=== PATIENT | male | born 1945 | race Caucasian/White ===

== ENCOUNTER → 2016-11-06 | Outpatient (CLI) | payer MEDICARE, OTHER ==
[~2016-11-06] MED LIST: ALLO100T PO; ASPI81TA85 PO; ATOR1TAB19 PO; CEFT500T3 PO; DULC5TAB PO; MAGN400T5 PO; METO1TAB7 PO; PANT40TA2 PO; POTA10TAB PO; PROS5TAB PO; PROTPAK PO; TAMS0.4C2 PO; TIOT18INH INH; TYLE650T30 PO; VERA240C PO
== END ==
LOC: M SMT 08:12
PROVIDERS: ATTEND Urology
DX: N40.1 Benign prostatic hyperplasia with lower urinary tract symptoms (principal)

== ENCOUNTER 2017-02-11 09:32 | Day surgery (SDC) | payer MEDICARE, OTHER ==
[~2017-02-11] VITALS: Ht 175.3 cm; Wt 91.6 kg
[2017-02-11] MEDS ORDERED: NS 1,000 ML IV ONE (10:00)
[2017-02-11] MEDS ORDERED: PROPOFOL 200 MG/20 ML VIAL As Ordered ONE (10:33)
[2017-02-11] MEDS ORDERED: LIDOCAINE 2% INJ 100 MG/5 ML SDV (FOR ANES.) As Ordered ONE (11:45)
--- NOTE | 2017-02-11 11:49 | ROOR ---
Patient Name: Timmy Moon Procedure Date: 02/11/2017 11:30 AM Date of : 1945 Age: 72 Room: [facility] Gender: Male Note Status: Finalized Procedure: Total Colonoscopy to Cecum Indications: High risk colon cancer surveillance: Personal history of colonic polyps, Last colonoscopy: 2012 Providers: Matt Watson MD Referring MD: TEGAN SMART JR, MD Requesting Provider: Medicines: Monitored Anesthesia Care Complications: No immediate complications. Procedure: Pre-Anesthesia Assessment: - The heart rate, respiratory rate, oxygen saturations, blood pressure, adequacy of pulmonary ventilation, and response to care were monitored throughout the procedure. The Colonoscope was introduced through the anus and advanced to the cecum, identified by appendiceal orifice and ileocecal valve. The colonoscopy was performed without difficulty. The patient tolerated the procedure well. The quality of the bowel preparation was excellent. Findings: The perianal and digital rectal examinations were normal. Non-bleeding internal hemorrhoids were found during retroflexion. The hemorrhoids were small and Grade I (internal hemorrhoids that do not prolapse). Multiple small and large-mouthed diverticula were found in the recto-sigmoid colon, sigmoid colon and descending colon. The exam was otherwise without abnormality on direct and retroflexion views. Impression: - Non-bleeding internal hemorrhoids. - Diverticulosis in the recto-sigmoid colon, in the sigmoid colon and in the descending colon. - The examination was otherwise normal on direct and retroflexion views. - No specimens collected. - The exam was otherwise normal to the cecum. Recommendation: - Patient has a contact number available for emergencies. The signs and symptoms of potential delayed complications were discussed with the patient. Return to normal activities tomorrow. Written discharge instructions were provided to the patient. - High fiber diet. - Discharge patient to home. - Continue present medications. - Repeat colonoscopy for symptoms only. - Return to referring physician. - The findings and recommendations were discussed with the patient's family. Matt Watson MD Matt Watson MD 02/11/2017 11:49:07 AM This report has been signed electronically. Number of Addenda: 0 Note Initiated On: 02/11/2017 11:30 AM Estimated Blood Loss: Estimated blood loss: none.
[2017-02-11 12:10] VITALS: BP 140/84
== END 2017-02-11 12:20 | disposition home or self-care (01) ==
LOC: M OPP 09:32
PROVIDERS: ATTEND Internal Medicine Gastroenterology
DX: Z12.11 Encounter for screening for malignant neoplasm of colon (principal); Z86.010 Personal history of colon polyps; K64.0 First degree hemorrhoids; K57.30 Diverticulosis of large intestine without perforation or abscess without bleeding; R00.8 Other abnormalities of heart beat; I10 Essential (primary) hypertension; E78.5 Hyperlipidemia, unspecified; Z87.19 Personal history of other diseases of the digestive system; K44.9 Diaphragmatic hernia without obstruction or gangrene; K21.9 Gastro-esophageal reflux disease without esophagitis; K42.9 Umbilical hernia without obstruction or gangrene; M19.90 Unspecified osteoarthritis, unspecified site; G47.30 Sleep apnea, unspecified; N40.1 Benign prostatic hyperplasia with lower urinary tract symptoms; Z87.442 Personal history of urinary calculi; Z85.828 Personal history of other malignant neoplasm of skin; Z79.82 Long term (current) use of aspirin; Z79.899 Other long term (current) drug therapy; Z87.891 Personal history of nicotine dependence

== ENCOUNTER → 2018-01-07 | Outpatient (REF) | payer MEDICARE, OTHER ==
[2018-01-07 19:59] LABS: FERRITIN 69 NG/ML (26-388); IRON (FE) 117 UG/DL (65-175); PERCENT SATURATION 33.9 % (19.7-50.0); TOTAL IRON BINDING CAPACITY 345 UG/DL (250-450)
== END ==
LOC: M LAB REF 17:13
DX: I42.0 Dilated cardiomyopathy (principal); I50.22 Chronic systolic (congestive) heart failure
CPT/HCPCS: 83550

== ENCOUNTER → 2018-02-12 | Outpatient (CLI) | payer MEDICARE, OTHER ==
[2018-02-12 13:33] LABS: IRON (FE) 122 UG/DL (65-175)
[2018-02-12 13:33] LABS: FERRITIN 75 NG/ML (26-388)
== END ==
LOC: M SMT 08:55
DX: I11.0 Hypertensive heart disease with heart failure (principal); I50.22 Chronic systolic (congestive) heart failure
CPT/HCPCS: 83540

== ENCOUNTER → 2018-02-15 | Outpatient (CLI) | payer MEDICARE, OTHER ==
[2018-02-15 13:22] LABS: BASO % 0.3 % (0.0-1.0); EOS # 0.1 10^3/uL (0.0-0.50); EOS % 1.3 % (0.0-3.0); HEMATOCRIT 43.1 % (42.0-52.0); HEMOGLOBIN 13.9 g/dl (13.5-17.5); IMMATURE GRANULOCYTE % 0.3 % (0-3.0); LYMPH # 1.4 10^3/uL (1.5-4.5); LYMPH % 22.5 % (24.0-44.0); MEAN CORPUSCULAR HEMOGLOBIN 31.1 pg (27.0-33.0); MEAN CORPUSCULAR HGB CONC 32.3 g/dl (32.0-36.5); MEAN CORPUSCULAR VOLUME 96.4 fl (80.0-96.0); MONO # 0.5 10^3/uL (0.0-0.8); MONO % 8.4 % (0.0-5.0); NEUTROPHILS # 4.1 10^3/uL (1.8-7.7); NEUTROPHILS % 67.2 % (36.0-66.0); PLATELET COUNT, AUTOMATED 216 10^3/uL (150-450); RED BLOOD COUNT 4.47 10^6/uL (4.30-6.10); RED CELL DISTRIBUTION WIDTH 13.4 % (11.5-14.5); WHITE BLOOD COUNT 6.1 10^3/uL (4.0-10.0)
[2018-02-15 13:27] LABS: ANION GAP 6 MEQ/L (8-16); BLOOD UREA NITROGEN 15 MG/DL (7-18); CALCIUM LEVEL 8.6 MG/DL (8.8-10.2); CARBON DIOXIDE LEVEL 29 MEQ/L (21-32); CHLORIDE LEVEL 108 MEQ/L (98-107); CREATININE FOR GFR 0.99 MG/DL (0.70-1.30); GLOMERULAR FILTRATION RATE > 60.0 (>42); GLUCOSE, FASTING 141 MG/DL (70-100); POTASSIUM SERUM 3.9 MEQ/L (3.5-5.1); SODIUM LEVEL 143 MEQ/L (136-145)
== END ==
LOC: M SMT 08:00
DX: I25.119 Atherosclerotic heart disease of native coronary artery with unspecified angina pectoris (principal)
CPT/HCPCS: 80048

== ENCOUNTER 2018-04-02 08:16 | Outpatient (RCR) | payer MEDICARE, OTHER ==
[~2018-04-02 08:16] MED LIST changes: -PANT40TA2 PO; +PANT40TA3 PO; +POTA10808 PO; -POTA10TAB PO
[2018-04-02] MEDS ORDERED: LISI-672 PO (08:55)
[2018-04-02] MEDS ORDERED: MULTCAP PO (08:55)
[2018-04-02] MEDS ORDERED: PLAV1TAB2 PO (08:55)
--- NOTE | 2018-04-02 11:09 | CARECAPL ---
Assessment Account #s: Initial Assessment General Diagnoses: Stent Date of event: Feb 16, 2018 Physician: Jr Pickett Collins Allergies: Coded Allergies: No Known Drug Allergy (Verified Allergy, Unknown, 06/14/12) Date Entered Program: Apr 02, 2018 Risk strat for cardiac event: Low Exercise Date: Apr 02, 2018 Assessment: Initial Assessment Exercise Prescription Plan TO EDUCATE AND BUILD ENDURANCE THROUGH MONITORED EXERCISE Modalities initiated: Nustep (METS=2.5/RPE=2), Arm Aerometer (METS=2.7/RPE=3), Dumbells (2#/RPE=2), Recumbent Bike (METS=3.0/RPE=3) Frequency: 3 Duration (Minutes) 30-60 minutes total exercise a day. 10-15 work intervals in minutes. 5 MIN PRN rest intervals in minutes. Functional Capacity Goal Sustained Metabolic Equivalent of a task (MET) goal of 4.25-5.0 for 15-20 minut es. Intensity: 3-Moderate Progression (METS) Increase by: 0.5 METS every: 5 sessions TOLERATED Angina with ex: No Target Heart Rate +30-40 BASED ON BETA RITA THERAPY Resistance Training: Yes Weight (pounds): 2 Reps: 12-15 Hypertension: Yes Hypertension controlled with: Medication Resting 148/76 Peak Exercise BP 170/90 Medications Scheduled (Multivitamins), 1 CAP PO DAILY, (Reported) Allopurinol (Allopurinol), 300 MG PO QHS, (Reported) Aspirin (Aspir-81), 81 MG PO DAILY, (Reported) Atorvastatin Calcium (Atorvastatin Calcium), 10 MG PO DAILY, (Reported) Clopidogrel Bisulfate (Plavix), 75 MG PO DAILY, (Reported) Finasteride (Proscar), 5 MG PO DAILY, (Reported) Lisinopril (Lisinopril), 30 MG PO DAILY, (Reported) Magnesium Oxide (Magnesium Oxide 400), 400 MG PO BID, (Reported) Metoprolol Succinate (Metoprolol Succinate ER), 50 MG PO DAILY, (Reported) Pantoprazole Sodium (Pantoprazole Sodium), 40 MG PO QHS, (Reported) Tamsulosin Hcl (Tamsulosin HCl), 0.4 MG PO DAILY, (Reported) Discontinued Medications Potassium Citrate (Potassium Citrate 10MEQ (Urocit-K)), 1,080 MG PO BID, (Reported) Discontinued Reason: Pt states not taking Current BP 140/80 Med Change: No Intervention Resistance Training: Yes Education: Self pulse, Ex safety, S/S to report, Low NA diet, BP medication, RPE Scale, Equipment orientation, warm up/cool down, Understand BP, Physical Active Target Goals Individual exercise Rx (1) BP 140/90 or 130/80 if DM or CKD (1) Aerobic active 30+min 5 days per week (1) Nutrition Date: Apr 02, 2018 Assessment: Initial Assessment Lipids Total Cholesterol (116), High Density Lipids (HDL) (40), Low Density Lipids (LDL) (62), Triglycerides (72), Lipid med/supplement (ATORVASTATIN) Lipid- med/supplement ATORVASTATIN Med Change: No Diabetes Diabetes: No Monitor Blood Sugar at home: No Medication Change: No Weight Management Weight (lbs): 208.8 Height (inches): 69 Waist Circumference (Inches): 43 BMI: 30.8 Special Diet: low salt, low-fat Vitamin/Supplements: Multivitamin Alcohol: special Alcohol Type: beer, liquor Alcohol Amount: 2-3 (PER YEAR) Diet Access Tool: Rate your plate Score: 51 Current Weight (pounds): 208.8 Weight Goal LESS THAN 200# Intervention Merchandise Carrier Consult: No Nurse/patient discussion: Yes Dietary Goals TO MAKE HEART HEALTHY CHOICES Diet Class: Yes Referral to Diabetes education: No Referral to lipid clinic: No Referral to weight mangement p: No Education Eating Healthy Target goal LDL-C<100 if triglycerides are >200 Non-HDL-C should be <130 (1) LDL-C<70 for high risk patients (4) HbA1c<7% (1) BMI<25 Waist cir<40in M/<35in F (1) Education Date: Apr 02, 2018 Assessment: Initial Assessment Learning Barriers: ready Knowledge Test Score: 10 Family Support: Yes Tobacco use: No Tobacco Use Smokeless tobacco: No Intervention Referral to smoking cessation: No Individual education and couns: No Tobacco Adjunct: No Education class schedule given: No Attended education classes: No Education: CAD, Risk factors, med compliance, cardiac A&P, Angina S/S, Sexuality Target Goals Complete cessation of tobacco use (1). Psychosocial Date: Apr 02, 2018 Assessment: Initial Assessment Psych Test (Initial/Discharge) Tool Used: CESD Score: 1 Intervention Physician Consult: No Physician Referral: No Psychotropic medication NONE Med Change: No Stress Management Class: No Uses Stress Management Skills: Yes Education Education: Coping Techniques, S/S depression, Relaxation Techniques Target Goal Assess presence or absence of depression using a valid screening tool (1). Maximize coping skills (2). Positive support system (2). Patient/Program Goal Preventative Medication: Yes Aspirin, Yes Clopidogrel, Yes Beta blockade, Yes ITZ Inhibitor, Yes Statin/OTR lipid Lowering Fall Risk Assess: Yes (NOT A FALL RISK) Provider Assessment Session Number: 1 Provider Assessment: Proceed with rehab Matt Steen RN Apr 02, 2018 11:09
== END 2018-04-08 ==
LOC: EDSTATUS 08:16 → M CR 08:16
PROVIDERS: ATTEND Internal Medicine
DX: Z95.2 Presence of prosthetic heart valve (principal)

== ENCOUNTER 2018-05-05 11:13 | Outpatient (RCR) | payer MEDICARE, OTHER ==
--- NOTE | 2018-04-26 08:15 | CARECAPL ---
Assessment Account #s: Re-Assessment I General Diagnoses: Stent Date of event: Feb 16, 2018 Physician: Jr Pickett Collins Allergies: Coded Allergies: No Known Drug Allergy (Verified Allergy, Unknown, 06/14/12) Date Entered Program: Apr 02, 2018 Risk strat for cardiac event: Low Exercise Date: Apr 23, 2018 Assessment: Re-Assessment I Exercise Prescription Modalities initiated: Treadmill (mets 2.76 RPE 3), Cardio-Strider (mets 2.5 RPE 2), Nustep (mets3.7 RPE 3), Arm Aerometer (mets 3.59 RPE 3), Dumbells (4lbs RPE 3), Recumbent Bike (mets 4.6 RPE 5) Frequency: 3-4 Duration (Minutes) minutes total exercise a day. work intervals in minutes. rest intervals in minutes. Functional Capacity Goal Sustained Metabolic Equivalent of a task (MET) goal of for minutes. Progression (METS) Increase by: METS every: sessions Angina with ex: No Target Heart Rate rest + 35-40 Resistance Training: Yes Weight (pounds): 4 Reps: 8-12 Medications Scheduled (Multivitamins), 1 CAP PO DAILY, (Reported) Allopurinol (Allopurinol), 300 MG PO QHS, (Reported) Aspirin (Aspir-81), 81 MG PO DAILY, (Reported) Atorvastatin Calcium (Atorvastatin Calcium), 10 MG PO DAILY, (Reported) Clopidogrel Bisulfate (Plavix), 75 MG PO DAILY, (Reported) Finasteride (Proscar), 5 MG PO DAILY, (Reported) Lisinopril (Lisinopril), 30 MG PO DAILY, (Reported) Magnesium Oxide (Magnesium Oxide 400), 400 MG PO BID, (Reported) Metoprolol Succinate (Metoprolol Succinate ER), 50 MG PO DAILY, (Reported) Pantoprazole Sodium (Pantoprazole Sodium), 40 MG PO QHS, (Reported) Tamsulosin Hcl (Tamsulosin HCl), 0.4 MG PO DAILY, (Reported) Current BP 138/78 Med Change: No Target Goals Individual exercise Rx (1) BP 140/90 or 130/80 if DM or CKD (1) Aerobic active 30+min 5 days per week (1) Nutrition Date: Apr 26, 2018 Assessment: Re-Assessment I Med Change: No Monitor Blood Sugar at home: No Medication Change: No Current Weight (pounds): 208.8 Target goal LDL-C<100 if triglycerides are >200 Non-HDL-C should be <130 (1) LDL-C<70 for high risk patients (4) HbA1c<7% (1) BMI<25 Waist cir<40in M/<35in F (1) Education Date: Apr 26, 2018 Assessment: Re-Assessment I Target Goals Complete cessation of tobacco use (1). Psychosocial Date: Apr 26, 2018 Assessment: Re-Assessment I Med Change: No Stress Management Class: Yes Uses Stress Management Skills: Yes Education Education: Coping Techniques, S/S depression Target Goal Assess presence or absence of depression using a valid screening tool (1). Maximize coping skills (2). Positive support system (2). Patient/Program Goal Preventative Medication: Yes Aspirin, Yes Clopidogrel, Yes Beta blockade, Yes ITZ Inhibitor, Yes Statin/OTR lipid Lowering Fall Risk Assess: No Provider Assessment Session Number: 5 Provider Assessment: Proceed with rehab Hilary Dunn RN Apr 26, 2018 08:15
[~2018-05-05 11:13] MED LIST changes: +LISI-672 PO; +MULTCAP PO; +PLAV1TAB2 PO
== END 2018-05-06 ==
LOC: M CR 11:13
PROVIDERS: ATTEND Internal Medicine
DX: Z95.2 Presence of prosthetic heart valve (principal)

== ENCOUNTER → 2018-05-26 | Outpatient (CLI) | payer MEDICARE, OTHER | LOC: M SMT 09:20 | PROVIDERS: ATTEND Nurse Practitioner Women's Health | DX: R97.20 Elevated prostate specific antigen [PSA] (principal) ==

== ENCOUNTER 2018-06-02 10:36 | Outpatient (RCR) | payer MEDICARE, OTHER ==
--- NOTE | 2018-05-19 10:46 | CARECAPL ---
Assessment Account #s: Re-Assessment II General Diagnoses: Stent Date of event: Feb 16, 2018 Physician: Jr Pickett Collins Allergies: Coded Allergies: No Known Drug Allergy (Verified Allergy, Unknown, 06/14/12) Date Entered Program: Apr 02, 2018 Risk strat for cardiac event: Low Exercise Date: May 19, 2018 Assessment: Re-Assessment II Exercise Prescription Modalities initiated: Treadmill (mets 3.17 RPE 3), Nustep (mets 2.9 RPE 3.5), Arm Aerometer (mets 3.4 RPE 3), Dumbells (4lb RPE 3), Recumbent Bike (mets 4.5 RPE 4) Frequency: 2-3 Duration (Minutes) minutes total exercise a day. work intervals in minutes. rest intervals in minutes. Functional Capacity Goal Sustained Metabolic Equivalent of a task (MET) goal of for minutes. Progression (METS) Increase by: METS every: sessions Hypertension: No Hypertension controlled with: Medication Resting 130/72 Peak Exercise BP 152/80 Meds lisinopril and metoprolol Medications Scheduled (Multivitamins), 1 CAP PO DAILY, (Reported) Allopurinol (Allopurinol), 300 MG PO QHS, (Reported) Aspirin (Aspir-81), 81 MG PO DAILY, (Reported) Atorvastatin Calcium (Atorvastatin Calcium), 10 MG PO DAILY, (Reported) Clopidogrel Bisulfate (Plavix), 75 MG PO DAILY, (Reported) Finasteride (Proscar), 5 MG PO DAILY, (Reported) Lisinopril (Lisinopril), 30 MG PO DAILY, (Reported) Magnesium Oxide (Magnesium Oxide 400), 400 MG PO BID, (Reported) Metoprolol Succinate (Metoprolol Succinate ER), 50 MG PO DAILY, (Reported) Pantoprazole Sodium (Pantoprazole Sodium), 40 MG PO QHS, (Reported) Tamsulosin Hcl (Tamsulosin HCl), 0.4 MG PO DAILY, (Reported) Current BP 130/72 Med Change: No Intervention Education: Self pulse, Ex safety, S/S to report, Low NA diet, BP medication, RPE Scale, Equipment orientation, warm up/cool down, Understand BP, Physical Active Education Goals Met: Yes Target Goals Individual exercise Rx (1) BP 140/90 or 130/80 if DM or CKD (1) Aerobic active 30+min 5 days per week (1) Nutrition Date: May 19, 2018 Assessment: Re-Assessment II Med Change: No Diabetes Diabetes: No Medication Change: No Current Weight (pounds): 208.8 Intervention Nurse/patient discussion: Yes Education Eating Healthy Target goal LDL-C<100 if triglycerides are >200 Non-HDL-C should be <130 (1) LDL-C<70 for high risk patients (4) HbA1c<7% (1) BMI<25 Waist cir<40in M/<35in F (1) Education Date: May 19, 2018 Assessment: Re-Assessment II Education Goals Met: Yes Target Goals Complete cessation of tobacco use (1). Psychosocial Date: May 19, 2018 Assessment: Re-Assessment II Med Change: No Stress Management Class: Yes Uses Stress Management Skills: Yes Education Education: Coping Techniques, S/S depression, Relaxation Techniques Education Goals Met: Yes Target Goal Assess presence or absence of depression using a valid screening tool (1). Maximize coping skills (2). Positive support system (2). Fall Risk Assess: No Provider Assessment Session Number: 13 Provider Assessment: Proceed with rehab Hilary Dunn RN May 19, 2018 10:46
== END 2018-06-06 ==
LOC: M CR 10:36
PROVIDERS: ATTEND Internal Medicine
DX: Z95.2 Presence of prosthetic heart valve (principal)

== ENCOUNTER 2018-06-11 08:48 | Outpatient (RCR) | payer MEDICARE, OTHER ==
--- NOTE | 2018-06-11 09:39 | CARECAPL ---
Assessment Account #s: Re-Assessment II (DISCHARGE) General Diagnoses: Stent Date of event: Feb 16, 2018 Physician: Jr Pickett Collins Allergies: Coded Allergies: MS - No Known Drug Allergy (Verified Allergy, Unknown, 06/14/12) Date Entered Program: Apr 02, 2018 Risk strat for cardiac event: Low Exercise Date: Jun 11, 2018 Assessment: Followup/Discharge Exercise Prescription Plan TO EDUCATE AND BUILD ENDURANCE THROUGH MONITORED EXERCISE Modalities initiated: Treadmill (METS=2.4/RPE=3), Nustep (METS=3.2/RPE=4), Arm Aerometer (METS=3.35/RPE=4), Dumbells (RPE=3), Recumbent Bike (METS=4.0/RPE=4.5) Frequency: 3 Duration (Minutes) 30-60 minutes total exercise a day. 10-15 work intervals in minutes. 5 MIN rest intervals in minutes. Functional Capacity Goal Sustained Metabolic Equivalent of a task (MET) goal of 4.25-5.0 for 15-20 minutes. Intensity: 3-Moderate Progression (METS) Increase by: METS every: sessions Angina with ex: No Target Heart Rate +30-40 Resistance Training: Yes Weight (pounds): 4 Reps: 12-15 Hypertension: Yes Hypertension controlled with: Medication Resting 150/80 Peak Exercise BP 150/80 Medications Scheduled (Multivitamins), 1 CAP PO DAILY, (Reported) Allopurinol (Allopurinol), 300 MG PO QHS, (Reported) Aspirin (Aspir-81), 81 MG PO DAILY, (Reported) Atorvastatin Calcium (Atorvastatin Calcium), 10 MG PO DAILY, (Reported) Clopidogrel Bisulfate (Plavix), 75 MG PO DAILY, (Reported) Finasteride (Proscar), 5 MG PO DAILY, (Reported) Lisinopril (Lisinopril), 30 MG PO DAILY, (Reported) Magnesium Oxide (Magnesium Oxide 400), 400 MG PO BID, (Reported) Metoprolol Succinate (Metoprolol Succinate ER), 50 MG PO DAILY, (Reported) Pantoprazole Sodium (Pantoprazole Sodium), 40 MG PO QHS, (Reported) Tamsulosin Hcl (Tamsulosin HCl), 0.4 MG PO DAILY, (Reported) Current BP 130/70 Med Change: No Intervention Home exercise: Type (WALKING), Frequency (3-5 DAYS/WEEK), Duration (30-60 MINUTES) Resistance Training: Yes Education: Self pulse, Ex safety, S/S to report, Low NA diet, BP medication, RPE Scale, Equipment orientation, warm up/cool down, Understand BP, Physical Active Education Goals Met: Yes Target Goals Individual exercise Rx (1) BP 140/90 or 130/80 if DM or CKD (1) Aerobic active 30+min 5 days per week (1) Nutrition Date: Jun 11, 2018 Assessment: Followup/Discharge Lipid- med/supplement ATORVASTATIN Med Change: No Diabetes Diabetes: No Monitor Blood Sugar at home: No Medication Change: No Blood sugar in range: No Weight Management Weight (lbs): 208 Waist Circumference (Inches): 40 Special Diet: low salt, low-fat Vitamin/Supplements: Multivitamin Alcohol: none Diet Access Tool: Rate your plate Score: 47 Current Weight (pounds): 208 Intervention Discharge Planner Consult: Yes Nurse/patient discussion: Yes Dietary Goals TO MAKE HEART HEALTHY CHOICES Diet Class: No Referral to Diabetes education: No Referral to lipid clinic: No Referral to weight mangement p: No Education Eating Healthy Education Goals Met: Yes Target goal LDL-C<100 if triglycerides are >200 Non-HDL-C should be <130 (1) LDL-C<70 for high risk patients (4) HbA1c<7% (1) BMI<25 Waist cir<40in M/<35in F (1) Education Date: Jun 11, 2018 Assessment: Followup/Discharge Learning Barriers: ready Knowledge Test Score: 10 Family Support: Yes Tobacco use: No Quit: never smoked Tobacco Use Smokeless tobacco: No Intervention Referral to smoking cessation: No Individual education and couns: No Tobacco Adjunct: No Education class schedule given: No Attended education classes: No Education: CAD, Risk factors, med compliance, cardiac A&P, Angina S/S, Sexuality Education Goals Met: Yes Target Goals Complete cessation of tobacco use (1). Psychosocial Date: Jun 11, 2018 Assessment: Followup/Discharge Psych Test (Initial/Discharge) Tool Used: CESD Score: 0 Intervention Physician Consult: No Physician Referral: No Med Change: No Stress Management Class: No Uses Stress Management Skills: Yes Education Education: Coping Techniques, S/S depression, Relaxation Techniques Education Goals Met: Yes Target Goal Assess presence or absence of depression using a valid screening tool (1). Maximize coping skills (2). Positive support system (2). Patient/Program Goal Preventative Medication: Yes Clopidogrel, Yes Beta blockade, Yes Statin/OTR lipid Lowering Fall Risk Assess: Yes (NOT A FALL RISK) Provider Assessment Session Number: 19 Matt Steen RN Jun 11, 2018 09:39
== END 2018-07-06 ==
LOC: M CR 08:48
PROVIDERS: ATTEND Internal Medicine
DX: Z95.2 Presence of prosthetic heart valve (principal)

== ENCOUNTER → 2018-06-25 | Outpatient (REF) | payer MEDICARE, OTHER | LOC: M SMT 12:48 | PROVIDERS: ATTEND Nurse Practitioner Women's Health | DX: N39.0 Urinary tract infection, site not specified (principal) ==

== ENCOUNTER → 2018-11-22 | Outpatient (CLI) | payer MEDICARE, OTHER ==
[2018-11-22 11:34] LABS: CHOLESTEROL RISK RATIO 2.675 (<5)
== END ==
LOC: M SMT 08:16
PROVIDERS: ATTEND Internal Medicine Interventional Cardiology
DX: I25.10 Atherosclerotic heart disease of native coronary artery without angina pectoris (principal)

== ENCOUNTER → 2019-06-01 | Outpatient (REF) | payer MEDICARE, OTHER | LOC: M LABSMT 08:54 | PROVIDERS: ATTEND Nurse Practitioner Women's Health | DX: N40.0 Benign prostatic hyperplasia without lower urinary tract symptoms (principal); Z12.5 Encounter for screening for malignant neoplasm of prostate ==

== ENCOUNTER → 2019-11-02 | Outpatient (CLI) | payer MEDICARE, OTHER ==
[~2019-11-02] MED LIST changes: -ASPI81TA85 PO; +ASPI81TA86 PO; +COLA100C5 PO; -LISI-672 PO; +LISI30TA4 PO; +MAGN400T2 PO; +MIRA3350 PO; +NITR0.4S14 SL; +NORC1TAB7 PO; +ONDA4TAB6 PO; +PANT40TA29 PO; -PANT40TA3 PO; +PERC5TAB12 PO; +TAMS1CAP17 PO; +TYLENOL 2 TABS; +ZYLO300T6 PO
[2019-11-02 14:57] LABS: BASO % 0.3 % (0.0-1.0); EOS # 0.1 10^3/uL (0.0-0.5); EOS % 0.8 % (0.0-3.0); HEMATOCRIT 44.1 % (42.0-52.0); HEMOGLOBIN 14.5 g/dl (13.5-17.5); LYMPH # 1.1 10^3/uL (1.5-5.0); LYMPH % 14.3 % (24.0-44.0); MEAN CORPUSCULAR HEMOGLOBIN 31.6 pg (27.0-33.0); MEAN CORPUSCULAR HGB CONC 32.9 g/dl (32.0-36.5); MEAN CORPUSCULAR VOLUME 96.1 fl (80.0-96.0); MONO # 0.6 10^3/uL (0.0-0.8); MONO % 7.2 % (0.0-5.0); NEUTROPHILS % 77.1 % (36.0-66.0); PLATELET COUNT, AUTOMATED 203 10^3/uL (150-450); RED BLOOD COUNT 4.59 10^6/uL (4.30-6.10); WHITE BLOOD COUNT 7.7 10^3/uL (4.0-10.0)
[2019-11-02 15:12] LABS: BLOOD UREA NITROGEN 16 MG/DL (7-18); CALCIUM LEVEL 8.9 MG/DL (8.8-10.2); CARBON DIOXIDE LEVEL 29 MEQ/L (21-32); CHLORIDE LEVEL 110 MEQ/L (98-107); CREATININE FOR GFR 0.94 MG/DL (0.70-1.30); GLOMERULAR FILTRATION RATE > 60.0 (>42); GLUCOSE, FASTING 131 MG/DL (70-100); POTASSIUM SERUM 4.4 MEQ/L (3.5-5.1); SODIUM LEVEL 144 MEQ/L (136-145)
== END ==
LOC: M LAB 13:58
PROVIDERS: ATTEND Internal Medicine Cardiovascular Disease
DX: I20.9 Angina pectoris, unspecified (principal)

== ENCOUNTER 2019-11-15 14:37 | Emergency (ER) | payer MEDICARE, OTHER ==
[~2019-11-15] VITALS: Ht 172.7 cm; Wt 92.6 kg
[~2019-11-15 14:37] MED LIST changes: -COLA100C5 PO; -MAGN400T2 PO; -MIRA3350 PO; -NITR0.4S14 SL; -NORC1TAB7 PO; -ONDA4TAB6 PO; -PERC5TAB12 PO; -TAMS1CAP17 PO; -TYLENOL 2 TABS; -ZYLO300T6 PO
[2019-11-15] MEDS ORDERED: TYLENOL 2 TABS (14:46)
[2019-11-15] MEDS ORDERED: NS 1,000 ML IV ONE (15:30)
[2019-11-15 15:48] LABS: HEMATOCRIT 44.6 % (42.0-52.0); HEMOGLOBIN 14.6 g/dl (13.5-17.5); MEAN CORPUSCULAR HEMOGLOBIN 31.7 pg (27.0-33.0); MEAN CORPUSCULAR HGB CONC 32.7 g/dl (32.0-36.5); MEAN CORPUSCULAR VOLUME 96.7 fl (80.0-96.0); PLATELET COUNT, AUTOMATED 237 10^3/uL (150-450); RED BLOOD COUNT 4.61 10^6/uL (4.30-6.10); WHITE BLOOD COUNT 14.7 10^3/uL (4.0-10.0)
[2019-11-15] MEDS ORDERED: MORPHINE 4 MG/ML 1ML VIAL/SYRINGE (J2270) IV ONE (16:00)
[2019-11-15] MEDS ORDERED: ONDANSETRON 4MG/2ML VIAL As Ordered ONE (16:41)
[2019-11-15] MEDS ORDERED: fentaNYL 100 MCG/2 ML INJECTION (J3010) IV ONE (16:45)
[2019-11-15] MEDS ORDERED: ONDANSETRON 4MG/2ML VIAL IV ONE (16:45)
[2019-11-15 17:05] LABS: BLOOD UREA NITROGEN 17 MG/DL (7-18); CALCIUM LEVEL 9.4 MG/DL (8.8-10.2); CARBON DIOXIDE LEVEL 25 MEQ/L (21-32); CHLORIDE LEVEL 112 MEQ/L (98-107); CREATININE FOR GFR 1.17 MG/DL (0.70-1.30); GLOMERULAR FILTRATION RATE > 60.0 (>42); GLUCOSE, FASTING 148 MG/DL (70-100); POTASSIUM SERUM 4.3 MEQ/L (3.5-5.1); SODIUM LEVEL 141 MEQ/L (136-145); THYROID STIMULATING HORMONE 0.715 uIU/ML (0.358-3.740)
--- NOTE | 2019-11-15 17:19 | REPVR ---
PROCEDURE INFORMATION: Exam: CT Abdomen And Pelvis Without Contrast Exam date and time: 11/15/2019 4:27 PM Age: 74 years old Clinical indication: Abdominal pain; Flank; Right TECHNIQUE: Imaging protocol: Computed tomography of the abdomen and pelvis without contrast. Radiation optimization: All CT scans at this facility use at least one of these dose optimization techniques: automated exposure control; mA and/or kV adjustment per patient size (includes targeted exams where dose is matched to clinical indication); or iterative reconstruction. COMPARISON: No relevant prior studies available. FINDINGS: Lungs: There is minor atelectasis at the lung bases. Mediastinal space: There is a small hiatal hernia. Liver: The liver is normal. Gallbladder and bile ducts: The gallbladder is normal.No calcified calculi. Normal bile ducts. Pancreas: The pancreas is normal. Spleen: There is a punctate calcified granuloma in the spleen. Adrenals: Normal. No mass. Kidneys and ureters: There are multiple bilateral nonobstructive renal calculi. There is a 3.5 cm right renal cyst. It appears to be a simple cyst within the limits of a noncontrast scan. There is volume loss. There is a small, 8 mm, left renal cortical exophytic isodense lesion. There is moderate right hydronephrosis and proximal hydroureter. This is secondary to a 3 mm mid ureteral calculus. Stomach and bowel: There are extensive colonic diverticula. No associated wall thickening. There is a right inguinal hernia containing a loop of small bowel. No wall thickening or distention. Appendix: The appendix is well visualized and is normal. Intraperitoneal space: There is no free fluid or fluid collection. There is no free air. Vasculature: Unremarkable. No abdominal aortic aneurysm. Lymph nodes: Unremarkable. No enlarged lymph nodes. Bladder: The bladder is normal with no evidence of calculi. Reproductive: The prostate is enlarged, 5 cm. Bones/joints: There are multilevel degenerative changes of the lumbar spine. There are bridging osteophytes consistent with DISH. No fracture. Soft tissues: There is a small fat containing ventral hernia. The hernia sac measures 4.5 cm. It contains a loop of small bowel. There is a small amount of fluid within the hernia sac. IMPRESSION: 1. Moderate right hydronephrosis and proximal right hydroureter secondary to a 3 mm calculus in the mid right ureter at the L3 level. 2. There are numerous additional small bilateral nonobstructive renal calculi. 3. 8 mm isodense left renal lesion cannot be further evaluated without contrast. Recommend follow-up pre and post-contrast CT of the kidney. 4. Extensive diverticulosis. No acute inflammatory findings. 5. Right inguinal hernia containing a loop of small bowel without evidence of incarceration or obstruction. There is also a small ventral hernia containing fat and a small amount of fluid. Electronically signed by: Roland Clark On 11/15/2019 17:18:46 PM
[2019-11-15] MEDS ORDERED: PERCOCET 5MG/325MG TAB PO ONE (18:15)
[2019-11-15] MEDS ORDERED: KETOROLAC 30 MG/ML 1ML VIAL IV ONE (19:30)
[2019-11-15] MEDS ORDERED: PERC5TAB12 PO (20:35)
[2019-11-15 20:48] VITALS: BP 122/58
--- NOTE | 2019-11-16 13:55 | ED PDOC ---
Post-Departure Follow-Up [facility] faxed formal ct abd/p for fu Rubina Weiner MD Nov 16, 2019 13:55
== END 2019-11-15 20:50 | disposition home or self-care (01) ==
LOC: M ED 14:37
DX: N20.1 Calculus of ureter (principal); N13.30 Unspecified hydronephrosis; K40.90 Unilateral inguinal hernia, without obstruction or gangrene, not specified as recurrent; I10 Essential (primary) hypertension; E78.5 Hyperlipidemia, unspecified; K21.9 Gastro-esophageal reflux disease without esophagitis; Z79.01 Long term (current) use of anticoagulants; Z79.82 Long term (current) use of aspirin; Z87.442 Personal history of urinary calculi
CPT/HCPCS: 74176; 80047; 80048; 81001; 84443; 85027; 96361; 96374; 96375; 99284; J1885; J2270; J2405; J3010

== ENCOUNTER 2019-11-18 02:23 | Emergency (ER) | payer MEDICARE, OTHER ==
[~2019-11-18] VITALS: Ht 172.7 cm; Wt 94.0 kg
[~2019-11-18 02:23] MED LIST changes: +PERC5TAB12 PO; +TYLENOL 2 TABS
[2019-11-18] MEDS ORDERED: ONDANSETRON 4 MG ORAL DISINTEGRATING TAB As Ordered ONE (02:41)
[2019-11-18] MEDS ORDERED: ONDANSETRON 4 MG ORAL DISINTEGRATING TAB PO ONE (03:00)
[2019-11-18] MEDS ORDERED: NORCO, ANEXSIA 5/325MG TABLET (HYDROcodone/ACETAMINOPHEN) PO ONE (03:15)
[2019-11-18 04:00] VITALS: BP 128/63
[2019-11-18] MEDS ORDERED: NORC1TAB7 PO (04:30)
[2019-11-18] MEDS ORDERED: ONDA4TAB6 PO (04:30)
[2019-11-18] MEDS ORDERED: NORCO 5/325MG TABLET (BULK FOR ED) PO ONE (04:45)
== END 2019-11-18 04:50 | disposition home or self-care (01) ==
LOC: M ED 02:23
DX: N20.1 Calculus of ureter (principal); R11.10 Vomiting, unspecified; I11.9 Hypertensive heart disease without heart failure; E78.5 Hyperlipidemia, unspecified; Z87.442 Personal history of urinary calculi; Z88.5 Allergy status to narcotic agent; Z88.6 Allergy status to analgesic agent; Z79.899 Other long term (current) drug therapy; Z79.82 Long term (current) use of aspirin; Z79.02 Long term (current) use of antithrombotics/antiplatelets
CPT/HCPCS: 99283; Q0162

== ENCOUNTER 2019-11-20 06:42 | Day surgery (SDC) | payer MEDICARE, OTHER ==
[~2019-11-20] VITALS: Ht 167.6 cm; Wt 94.3 kg
[~2019-11-20 06:42] MED LIST changes: +NORC1TAB7 PO; +ONDA4TAB6 PO
[2019-11-20] MEDS ORDERED: NS 1,000 ML IV ONE (07:15)
[2019-11-20 07:31] LABS: BASO % 0.1 % (0.0-1.0); EOS % 0.2 % (0.0-3.0); HEMATOCRIT 40.1 % (42.0-52.0); HEMOGLOBIN 13.4 g/dl (13.5-17.5); LYMPH # 0.7 10^3/uL (1.5-5.0); LYMPH % 6.4 % (24.0-44.0); MEAN CORPUSCULAR HEMOGLOBIN 31.7 pg (27.0-33.0); MEAN CORPUSCULAR HGB CONC 33.4 g/dl (32.0-36.5); MEAN CORPUSCULAR VOLUME 94.8 fl (80.0-96.0); MONO # 1.3 10^3/uL (0.0-0.8); MONO % 11.7 % (0.0-5.0); NEUTROPHILS # 9.2 10^3/uL (1.5-8.5); NEUTROPHILS % 81.2 % (36.0-66.0); PLATELET COUNT, AUTOMATED 230 10^3/uL (150-450); RED BLOOD COUNT 4.23 10^6/uL (4.30-6.10); WHITE BLOOD COUNT 11.3 10^3/uL (4.0-10.0)
--- NOTE | 2019-11-20 07:44 | REPVR ---
PROCEDURE INFORMATION: Exam: CT Abdomen And Pelvis Without Contrast Exam date and time: 11/20/2019 7:30 AM Age: 74 years old Clinical indication: Abdominal pain; Localized; Right; Additional info: Intractable right renal colic, constipation, hernia TECHNIQUE: Imaging protocol: Computed tomography of the abdomen and pelvis without contrast. Radiation optimization: All CT scans at this facility use at least one of these dose optimization techniques: automated exposure control; mA and/or kV adjustment per patient size (includes targeted exams where dose is matched to clinical indication); or iterative reconstruction. COMPARISON: CT ABD PELVIS W/O CONTRAST 11/15/2019 4:27 PM FINDINGS: Lungs: Linear areas of scarring/atelectasis in bilateral bases and lingula. Pleural space: Trace bilateral pleural effusions. Heart: Cardiomegaly. Mediastinal space: Small hiatal hernia. Liver: Normal. No mass. Gallbladder and bile ducts: Normal. No calcified stones. No ductal dilation. Pancreas: Moderate atrophy of the pancreas. Spleen: Splenic granulomas. Adrenals: Small nodule in the left adrenal gland measuring 11.8 mm. Small nodule in the right adrenal gland measuring 8 mm. Kidneys and ureters: Mild right-sided hydroureteronephrosis secondary to an obstructing stone in the proximal right ureter just distal to the right ureteropelvic junction measuring 4.9 mm. Right Ureter is mildly dilated throughout its course. Obstructing stone in the right ureterovesical junction/right bladder base measuring 4.7 mm. Bilateral non-obstructing renal stones measuring up to 4 mm. Simple cyst in the upper pole of the right kidney measuring 3.9 x 3.5 cm. 5 mm exophytic isodense cyst in the interpolar region of the left kidney and small simple simple cyst in the lower pole of the left kidney measuring 15 mm. Stomach and bowel: Diverticulosis without any CT evidence of diverticulitis. Moderate fecal loading in the colon. Appendix: Normal appendix. Intraperitoneal space: Small amount of free fluid in the pelvis. Vasculature: Mild atherosclerosis. Lymph nodes: Unremarkable. No enlarged lymph nodes. Bladder: See "Kidneys and ureters" finding. Reproductive: Enlarged prostate with calcification causing indentation on the bladder base measuring approximately 3.9 x 5.2 cm. Small right hydrocele. Bones/joints: Diffuse demineralization of the bones with degenerative changes. Soft tissues: Fat containing umbilical hernia with small fluid. IMPRESSION: Mild right-sided hydroureteronephrosis secondary to an obstructing stone in the proximal right ureter just distal to the right ureteropelvic junction measuring 4.9 mm. Right Ureter is mildly dilated throughout its course. Obstructing stone in the right ureterovesical junction/right bladder base measuring 4.7 mm. Multiple bilateral renal stones measuring up to 4-5 mm. COMMENTS: Consistent with the [employer]'s Incidental Findings Committee white paper (J Am Penelope Radiol 2018): Any incidental renal lesion less than 1 cm or classified as too small to characterize, or any incidental cystic renal lesion characterized as simple-appearing, is likely benign. No follow-up imaging is recommended for these lesions per consensus recommendations based on imaging criteria. Electronically signed by: Glenis Rice On 11/20/2019 07:43:53 AM
[2019-11-20 07:57] LABS: CALCIUM LEVEL 8.7 MG/DL (8.8-10.2); CREATININE FOR GFR 1.32 MG/DL (0.70-1.30); GLOMERULAR FILTRATION RATE 56.6 (>42); POTASSIUM SERUM 3.8 MEQ/L (3.5-5.1)
[2019-11-20] MEDS ORDERED: ceFAZolin SOD 2 GM in IV 1 EA IV ONE (08:15)
[2019-11-20] MEDS ORDERED: MORPHINE 4 MG/ML 1ML VIAL/SYRINGE (J2270) IV ONE (08:15)
[2019-11-20] MEDS ORDERED: ONDANSETRON 4MG/2ML VIAL IV ONE (08:15)
[2019-11-20] MEDS ORDERED: MIRA3350 PO (08:36)
[2019-11-20] MEDS ORDERED: COLA100C5 PO (08:36)
[2019-11-20] MEDS ORDERED: ZYLO300T6 PO (09:06)
[2019-11-20] MEDS ORDERED: NITR0.4S14 SL (09:06)
[2019-11-20] MEDS ORDERED: MAGN400T2 PO (09:06)
[2019-11-20] MEDS ORDERED: TAMS1CAP17 PO (09:06)
[2019-11-20 10:30] VITALS: BP 159/95
[2019-11-20] MEDS ORDERED: LR 1,000 ML IV SCH (11:15)
--- NOTE | 2019-11-20 12:51 | HPEPDOC ---
[facility] Medical History & Physical Date of Admission Nov 20, 2019 Date of Service: Nov 20, 2019 Primary Care Physician: Jr Pickett Collins Attending Physician: CHRISTELLE LOAIZA MD History and Physical CHIEF COMPLAINT: Worsening right flank pain HISTORY OF PRESENT ILLNESS: This is a 74 y.o. male with a history of right UVJ calculus. He had presented to an urgent care and was refered to the [facility]. At that time, since he was comfortable, he was instructed to continue tamsulosin and increase his fluids to try and pass the stone spontaneously. If he could not, he could then have ureteroscopic laser lithotripsy pending a medical and cardiology clinic. He was also instructed to present to the ER if the pain should worsen and a ureteral stent could then be inserted for pain control pending cleqarance. He previously had been scheduled for repair of a right inguinal hernia, but this was delayed because of some issues with cardiology clearance. Hence, the decision for stent insertion alone sjhould he have further issues. He presented to the [facility] ER today for worsening right flank pain. A CT scan showed that he now has not one, but 2 stones in the right ureter. One at the UVJ which is now 4.7 mm and a right UPJ calculus 4.9 mm. He also has significant constipation. I therefore admitted him for a ureteral stent insertion. PAST MEDICAL HISTORY: 1. CAD 2. Hypertension 3. Hypercholesterolemia 4. Irregular heartbeat 5. Dyspnea 6. Sleep apnea 7. GERD 8. Diverticulosis 9. Renal calculi 10. BPH 11. Arthritis 12.Hiatal Hernia 13. Inguinal Hernia PAST SURGICAL HISTORY: 1. Prostate needle biopsy 2. ESWL x 2 3. . SOCIAL HISTORY: Marital status: Resides in: Children: 2 Employment: Retired. Was a elementary school director Tobacco use: ETOH: Illicit drug use: Tattoos done unprofessionally: . IV drug use: Other relevant social factors: FAMILY HISTORY: Father: Mother: Siblings: Children: Hereditary Diseases: Unexpected deaths due to medical reasons: ALLERGIES: Please see below. REVIEW OF SYSTEMS: CONSTITUTIONAL: Alert, oriented, nad, mild distress HEENT: WNL CARDIOVASCULAR: Irregular beat RESPIRATORY: WNL GASTROINTESTINAL: WNL GENITOURINARY: WNL SKIN: WNL MUSCULOSKELETAL: Right CVAT NEUROLOGICAL: WNL PSYCHIATRIC: WNL ENDOCRINE: WNL HEMATOLOGIC/LYMPHATIC: . HOME MEDICATIONS: Please see below. PHYSICAL EXAMINATION: VITAL SIGNS: Temperature , pulse , respiratory rate , blood pressure , pulse oximetry % on room air. GENERAL APPEARANCE: Alert, oriented, mild distress HEENT: WNL CARDIOVASCULAR: JIrregular beat LUNGS: WNL ABDOMEN: benign MUSCULOSKELETAL: Right CVAT EXTREMITIES: . NEUROLOGICAL: WNL PSYCHIATRIC: . LABORATORY DATA: See below. IMAGING: CT confirms a right hydronephrosis and 2 ureteral calculi MICROBIOLOGY: Please see below. ASSESSMENT: Right renal colic . PLAN: 1. Because of his persistent pain, he will need a right ureteral stent inserted. He will then have cardiac clearance and ureteroscopy. Vital Signs Vital Signs Date Time Temp Pulse Resp B/P (MAP) Pulse Ox O2 Delivery O2 Flow Rate FiO2 11/20/19 10:30 99.2 76 18 159/95 (116) 96 Room Air Laboratory Data Labs 24H Laboratory Tests 2 11/20/19 07:20: Immature Granulocyte % (Auto) 0.4, Neutrophils (%) (Auto) 81.2H, Lymphocytes (%) (Auto) 6.4L, Monocytes (%) (Auto) 11.7H, Eosinophils (%) (Auto) 0.2, Basophils (%) (Auto) 0.1, Neutrophils # (Auto) 9.2H, Lymphocytes # (Auto) 0.7L, Monocytes # (Auto) 1.3H, Eosinophils # (Auto) 0.0, Basophils # (Auto) 0.0, Nucleated Red Blood Cells % (auto) 0.0, Urine Color YELLOW, Urine Appearance CLEAR, Urine pH 6.0, Urine Specific [place] 1.016, Urine Protein NEGATIVE, Urine Glucose (UA) NEGATIVE, Urine Ketones NEGATIVE, Urine Blood 2+H, Urine Nitrite NEGATIVE, Urine Bilirubin NEGATIVE, Urine Urobilinogen 0.2, Urine Leukocyte Esterase 1+H, Urine WBC (Auto) 27H, Urine RBC (Auto) 39H, Urine Hyaline Casts (Auto) 0, Urine Bacteria (Auto) 1+H, Urine Squamous Epithelial Cells 0, Urine Mucus (Auto) SMALL, Urine Sperm (Auto) , Anion Gap 5L, Glomerular Filtration Rate 56.6, Angel cium Level 8.7L 11/20/19 08:36: Coronavirus (COVID-19)(PCR) NEGATIVE CBC/BMP Laboratory Tests 11/20/19 07:20 Microbiology Microbiology 11/20/19 Urine Culture, Received Pending Home Medications Scheduled Allopurinol (Zyloprim) 300 Mg Tablet, 300 MG PO QHS Aspirin (Aspir 81) 81 Mg Tab, 81 MG PO DAILY Atorvastatin Calcium (Atorvastatin Calcium) 10 Mg Tab, 10 MG PO DAILY Clopidogrel Bisulfate (Plavix) 75 Mg Tab, 75 MG PO DAILY Finasteride (Proscar) 5 Mg Tab, 5 MG PO DAILY Lisinopril (Lisinopril) 30 Mg Tab, 30 MG PO DAILY Magnesium Oxide (Magnesium Oxide) 400 Mg Tablet, 400 MG PO DAILY Metoprolol Succinate (Metoprolol Succinate) 50 Mg Tab, 50 MG PO BID Multivitamin (Multivitamins) 1 Cap Cap, 1 CAP PO DAILY Pantoprazole Sodium (Pantoprazole Sodium) 40 Mg Tab, 40 MG PO QHS Tamsulosin Hcl (Tamsulosin HCl) 0.4 Mg Capsule, 0.4 MG PO QHS Scheduled PRN Nitroglycerin (Nitroglycerin) 0.4 Mg Tab.subl, 0.4 MG SL NITRO PRN for CHEST PAIN Polyethylene Glycol 3350 (Miralax) 119 Gm Powder, 17 GM PO DAILY PRN for CONSTIPATION dilute in 8 ounces of water or juice Allergies Coded Allergies: acetaminophen (Verified Allergy, Intermediate, vomiting, 11/18/19) oxycodone (Verified Allergy, Intermediate, vomiting, 11/18/19) A-FIB/CHADSVASC A-FIB History Current/History of A-Fib/PAF?: No CHRISTELLE LOAIZA MD Nov 20, 2019 12:51
[2019-11-20 14:00] VITALS: BP 146/67
[2019-11-20] MEDS ORDERED: MIDAZOLAM INJ 2MG/2ML VIAL (J2250 PER 1MG) As Ordered ONE (15:17)
[2019-11-20] MEDS ORDERED: propofoL 200 MG/20 ML VIAL As Ordered ONE (15:18)
[2019-11-20] MEDS ORDERED: fentaNYL 100 MCG/2 ML INJECTION (J3010) As Ordered ONE (15:18)
[2019-11-20] MEDS ORDERED: CONRAY-60 60% 50ML VIAL (Q9961) As Ordered ONE (15:50)
[2019-11-20] MEDS ORDERED: LIDOCAINE 2% 5ML JELLY UROJET As Ordered ONE (15:50)
[2019-11-20] MEDS ORDERED: IBUPROFEN 600MG TAB PO PRN (16:45)
[2019-11-20 17:00] VITALS: BP 146/67
--- NOTE | 2019-12-05 12:22 | RO ---
DATE OF OPERATION: 11/20/2019 PREOPERATIVE DIAGNOSIS: Right ureteral calculi. POSTOPERATIVE DIAGNOSIS: Right ureteral calculi with bladder calculus. PROCEDURE: Cystoscopy, right retrograde pyelogram, stent insertion and stone extraction from bladder. SURGEON: Tony Machado MD ANESTHESIA: MAC. INDICATION FOR OPERATION: This is a 74-year-old, white male with known right ureteral calculus at the ureterovesical junction (UVJ). The patient was tolerating his stone well and had been trying to pass it spontaneously. Over the weekend, he had increase in pain, which he could not tolerate at home and, therefore, presented to the emergency room. Because of the persistence in pain and the CT that now showed he had two stones in the ureter, he was brought to the operating room for a stent insertion. He will then have cardiac evaluation, and ureteroscopic treatment for the remaining stones. DESCRIPTION OF OPERATION: The patient was anesthetized with MAC anesthesia, placed in the lithotomy position, prepped with Betadine paint, and draped in an aseptic manner. Timeout was then performed. A 22-Georgian cystoscope was then inserted into the meatus and advanced under direct vision over a 30-degree lens to the bladder. In the bladder, the patient was found to have a lot of debris on the floor of the bladder. He also had some small stone fragments and one larger stone that was about 5 mm in size. These were retrieved. The right ureteral orifice was then catheterized with a 5-Georgian open-ended catheter. Retrograde injection of contrast showed the patient had a stone at the ureteropelvic junction (UPJ) area. No distinct stone was seen at the UVJ area. A wire guide was then passed up to the medial pelvis over which a 5-Georgian double-J stent was passed. Both the bladder and renal pelvis ends curled well when the wire was removed. The patient was also seen to have some hematuric urine coming through the stent after placement. The bladder was then drained, cystoscope was removed, and the patient was awakened and sent to the recovery room in stable condition having tolerated the procedure well. Fluoroscopy was used throughout the case to interpret the stone and stone placement. Interpretation of the x-ray was performed as it was imaged. This was necessary for stone positioning and stent placement. CLARITA
[2019-12-07 17:08] LABS: CA Oxalate Dihy 20 % (.)
--- NOTE | 2019-12-08 10:47 | REP ---
RETROGRADE PYELOGRAM CLINICAL: History of renal stones. TECHNIQUE: Single intraoperative view using portable C-arm technique. FINDINGS: Single view demonstrates hydronephrosis. Total fluoroscopic time 8 seconds. IMPRESSION: Findings suggest hydronephrosis. MTDD
[2019-12-09 17:13] LABS: Ca Ox Monohydrate 80 % (.); Size 4x4 mm (.)
== END 2019-11-20 18:15 | disposition home or self-care (01) ==
LOC: M ED 06:42 → M SDC 06:43 → M MSPAV 10:27 → M SDC 18:15
PROVIDERS: ATTEND Urology
DX: N21.0 Calculus in bladder (principal); N20.1 Calculus of ureter; I10 Essential (primary) hypertension; N40.0 Benign prostatic hyperplasia without lower urinary tract symptoms; G47.33 Obstructive sleep apnea (adult) (pediatric); K21.9 Gastro-esophageal reflux disease without esophagitis; Z98.61 Coronary angioplasty status; Z79.02 Long term (current) use of antithrombotics/antiplatelets; Z79.899 Other long term (current) drug therapy; E78.00 Pure hypercholesterolemia, unspecified
CPT/HCPCS: 52332; 74176; 74420; 80048; 81001; 82365; 85025; 87086; 88300; 96361; 96374; 96375; 99284; C1769; C2617; J2250; J2270; J2405; J3010; Q9961; U0002

== ENCOUNTER → 2019-12-19 | Outpatient (CLI) | payer MEDICARE, OTHER ==
[~2019-12-19] MED LIST changes: +COLA100C5 PO; +MAGN400T2 PO; +MIRA3350 PO; +NITR0.4S14 SL; +TAMS1CAP17 PO; +ZYLO300T6 PO
[2019-12-19 09:00] LABS: HEMATOCRIT 43.9 % (42.0-52.0); HEMOGLOBIN 14.3 g/dl (13.5-17.5); MEAN CORPUSCULAR HEMOGLOBIN 31.6 pg (27.0-33.0); MEAN CORPUSCULAR HGB CONC 32.6 g/dl (32.0-36.5); MEAN CORPUSCULAR VOLUME 97.1 fl (80.0-96.0); PLATELET COUNT, AUTOMATED 196 10^3/uL (150-450); RED BLOOD COUNT 4.52 10^6/uL (4.30-6.10); WHITE BLOOD COUNT 6.7 10^3/uL (4.0-10.0)
[2019-12-19 09:22] LABS: BLOOD UREA NITROGEN 19 MG/DL (7-18); CALCIUM LEVEL 8.8 MG/DL (8.8-10.2); CARBON DIOXIDE LEVEL 28 MEQ/L (21-32); CHLORIDE LEVEL 110 MEQ/L (98-107); CREATININE FOR GFR 0.87 MG/DL (0.70-1.30); GLOMERULAR FILTRATION RATE > 60.0 (>42); GLUCOSE, FASTING 110 MG/DL (70-100); POTASSIUM SERUM 4.6 MEQ/L (3.5-5.1); SODIUM LEVEL 142 MEQ/L (136-145)
--- NOTE | 2019-12-22 10:17 | REP ---
CHEST X-RAY CLINICAL: Preoperative assessment. Nephrolithiasis. TECHNIQUE: PA and lateral. COMPARISON: 10/31/2014. FINDINGS: Mediastinum and cardiac silhouette are within normal limits. Loop recorder identified. Lung dickens are clear. No consolidation, effusion, or pneumothorax. Skeletal structures are intact. IMPRESSION: No acute cardiopulmonary process or focal consolidation. MTDD
== END ==
LOC: M LAB 08:02
PROVIDERS: ATTEND Urology
DX: Z01.812 Encounter for preprocedural laboratory examination (principal); N20.0 Calculus of kidney; N39.0 Urinary tract infection, site not specified

== ENCOUNTER → 2019-12-21 | Outpatient (CLI) | payer MEDICARE, OTHER | LOC: M LABSMTC 09:56 | PROVIDERS: ATTEND Anesthesiology | DX: Z01.812 Encounter for preprocedural laboratory examination (principal); Z20.828 Contact with and (suspected) exposure to other viral communicable diseases | CPT/HCPCS: C9803; U0003 ==

== ENCOUNTER 2019-12-26 07:18 | Day surgery (SDC) | payer MEDICARE, OTHER ==
[~2019-12-26] VITALS: Ht 172.7 cm; Wt 90.7 kg
[~2019-12-26 07:18] MED LIST changes: +LR 1,000 ML IV ONE; +ceFAZolin SOD 2 GM in IV 1 EA IV ONE
[2019-12-26] MEDS ORDERED: LIDOCAINE 2% 100MG/5ML SDV (FOR ANES.) As Ordered ONE (07:48)
[2019-12-26] MEDS ORDERED: propofoL 200 MG/20 ML VIAL As Ordered ONE (07:48)
[2019-12-26] MEDS ORDERED: ONDANSETRON 4MG/2ML VIAL As Ordered ONE (07:48)
[2019-12-26] MEDS ORDERED: fentaNYL 100 MCG/2 ML INJECTION (J3010) As Ordered ONE (07:49)
[2019-12-26] MEDS ORDERED: dexameTHASONE 4 MG/ML 1ML VIAL (J1100 PER 1MG) As Ordered ONE (07:49)
[2019-12-26] MEDS ORDERED: MIDAZOLAM INJ 2MG/2ML VIAL (J2250 PER 1MG) As Ordered ONE (07:49)
[2019-12-26] MEDS ORDERED: CONRAY-60 60% 50ML VIAL (Q9961) As Ordered ONE (08:08)
[2019-12-26] MEDS ORDERED: ACETAMINOPHEN 1000MG 100ML IV BTL (OFIRMEV) (J0131 PER 10MG) As Ordered ONE (08:59)
[2019-12-26] MEDS ORDERED: ePHEDrine SULFATE 25 MG/5 ML(5MG/ML) SYRINGE As Ordered ONE (09:37)
[2019-12-26] MEDS ORDERED: PHENYLephrine HCL 500 MCG/5 ML (100MCG/ML) SYRINGE (J2370) As Ordered ONE (09:37)
--- NOTE | 2019-12-26 10:38 | REP ---
INDICATION: RIGHT STENT PLACEMENT. COMPARISON: 2019 TECHNIQUE: SINGLE C-ARM VIEW ABDOMEN AND PELVIS PERFORMED. FINDINGS: RIGHT URETERAL STENT IS VISUALIZED WITH THE PROXIMAL END COILED IN THE REGION OF THE RIGHT RENAL COLLECTING SYSTEM AND THE DISTAL END COILED IN THE REGION OF THE URINARY BLADDER. IMPRESSION: 36 SECONDS OF FLUOROSCOPY TIME IS UTILIZED. <Electronically signed by Gen Jaeger > 12/26/19 1031
[2019-12-26] MEDS ORDERED: oxyCODONE 5MG TAB PO PRN (10:45)
[2019-12-26] MEDS ORDERED: HYDROMORPHONE HCL 0.5 MG/ 0.5 ML SYRINGE (J1170 PER 1) IV PRN (10:45)
[2019-12-26] MEDS ORDERED: LR 1,000 ML IV SCH ×2 (10:45)
[2019-12-26] MEDS ORDERED: IBUPROFEN 600MG TAB PO PRN (10:45)
[2019-12-26] MEDS ORDERED: fentaNYL 100 MCG/2 ML INJECTION (J3010) IV PRN (10:45)
[2019-12-26] MEDS ORDERED: ONDANSETRON 4MG/2ML VIAL IV PRN (10:45)
[2019-12-26 10:50] VITALS: BP 156/78
--- NOTE | 2019-12-26 14:50 | RO ---
DATE OF OPERATION: 12/26/2019 PREOPERATIVE DIAGNOSIS: Right ureteral calculus. POSTOPERATIVE DIAGNOSIS: Right ureteral calculus. PROCEDURES: * Cystoscopy. * Right retrograde pyelogram. * Stent extraction. * Ureteroscopic laser lithotripsy. * Stone extraction. * Stent insertion. SURGEON: Tony Machado MD ANESTHESIA: General. INDICATION FOR OPERATION: This is a 74-year-old white male who presented to the hospital with an obstructing right ureterovesical junction calculus. Stent was inserted and he was scheduled for day surgery procedure after cardiac clearance. He is here today for stone extraction. DESCRIPTION OF OPERATION: The patient was placed on the table in supine position and given MAC anesthesia. He was placed in lithotomy position, prepped with Betadine paint and draped in aseptic manner. Time out was performed. A 22-Yakut cystoscope was then inserted into the meatus and advanced under direct vision of a 30 lens to the bladder. There was a lot of inflammation around the ureteral orifice. The stent was then grasped and brought out through the urethral meatus but wire could not be passed through the lumen. The scope was then reintroduced alongside the stent and safety wire was passed alongside the stent up to the renal pelvis and the stent was removed. A short ureteroscope was then introduced alongside the safety wire and with the aid of a working wire was passed into the distal ureter. A stone could not be identified at that position. A retrograde pyelogram was then performed through the ureteroscope showing the stone was in the more proximal position. Short ureteroscope would not reach up that far so it was exchanged for a flexible scope which was advanced up to the calculus. The stone was then grasped in a basket but because of the size and some narrowing of the ureter it could not be extracted. A laser lithotripter was then used to break the stone into tiny fragments, some of which were able to be retrieved from the renal pelvis with basket. The scope was then removed and the cystoscope was backloaded over the safety wire. A 5-Yakut Double-J stent was passed over this wire and curled in the renal pelvis and the wire was removed. The bladder end also curled well. The bladder was then drained. Cystoscope was removed. The patient was awakened and sent to the recovery room in stable condition having tolerated the procedure well. CLARITA
[2020-01-03 16:08] LABS: CA Oxalate Dihy 90 % (.); Ca Ox Monohydrate 10 % (.); Size <1 mm (.)
== END 2019-12-26 10:50 | disposition home or self-care (01) ==
LOC: M SDC 07:18
PROVIDERS: ATTEND Urology
DX: N20.1 Calculus of ureter (principal); I10 Essential (primary) hypertension; E78.5 Hyperlipidemia, unspecified; K44.9 Diaphragmatic hernia without obstruction or gangrene; K21.9 Gastro-esophageal reflux disease without esophagitis; Z98.61 Coronary angioplasty status; Z79.82 Long term (current) use of aspirin; Z79.01 Long term (current) use of anticoagulants; G47.33 Obstructive sleep apnea (adult) (pediatric); Z79.899 Other long term (current) drug therapy
CPT/HCPCS: 52356; 74420; 82365; 88300; C1769; C2617; J0131; J0690; J1100; J2250; J2370; J2405; J3010; Q9961

== ENCOUNTER → 2020-02-11 | Outpatient (CLI) | payer MEDICARE, OTHER ==
[~2020-02-11] MED LIST changes: +ASPI81CH33 PO; -LR 1,000 ML IV ONE; -ceFAZolin SOD 2 GM in IV 1 EA IV ONE
== END ==
LOC: M LABSMTC 08:42
PROVIDERS: ATTEND Anesthesiology
DX: Z01.812 Encounter for preprocedural laboratory examination (principal); Z20.828 Contact with and (suspected) exposure to other viral communicable diseases

== ENCOUNTER 2020-02-16 06:07 | Day surgery (SDC) | payer MEDICARE, OTHER ==
[~2020-02-16] VITALS: Ht 172.7 cm; Wt 90.3 kg
[~2020-02-16 06:07] MED LIST changes: +LR 1,000 ML IV ONE
[2020-02-16] MEDS ORDERED: propofoL 200 MG/20 ML VIAL As Ordered ONE (07:16)
[2020-02-16] MEDS ORDERED: MIDAZOLAM INJ 2MG/2ML VIAL (J2250 PER 1MG) As Ordered ONE (07:16)
[2020-02-16] MEDS ORDERED: ROCURONIUM BROMIDE 50 MG/5 ML VIAL As Ordered ONE ×2 (07:16→08:11)
[2020-02-16] MEDS ORDERED: LIDOCAINE 2% 100MG/5ML SDV (FOR ANES.) As Ordered ONE (07:16)
[2020-02-16] MEDS ORDERED: fentaNYL 100 MCG/2 ML INJECTION (J3010) As Ordered ONE ×2 (07:16→07:58)
[2020-02-16] MEDS ORDERED: ONDANSETRON 4MG/2ML VIAL As Ordered ONE (07:16)
[2020-02-16] MEDS ORDERED: dexameTHASONE 4 MG/ML 1ML VIAL (J1100 PER 1MG) As Ordered ONE (07:16)
[2020-02-16] MEDS ORDERED: BUPIVACAINE HCL 0.25% 30ML VIAL As Ordered ONE (07:17)
[2020-02-16] MEDS ORDERED: ACETAMINOPHEN 1000MG 100ML IV BTL (OFIRMEV) (J0131 PER 10MG) As Ordered ONE (07:51)
[2020-02-16] MEDS ORDERED: ePHEDrine SULFATE 25 MG/5 ML(5MG/ML) SYRINGE As Ordered ONE ×2 (08:04→09:38)
[2020-02-16] MEDS ORDERED: KETOROLAC 60MG 2ML VIAL As Ordered ONE (08:09)
[2020-02-16] MEDS ORDERED: SUGAMMADEX SODIUM 500 MG/5 ML VIAL (BRIDION) As Ordered ONE (08:09)
[2020-02-16] MEDS ORDERED: PHENYLephrine HCL 500 MCG/5 ML (100MCG/ML) SYRINGE (J2370) As Ordered ONE (09:38)
[2020-02-16] MEDS ORDERED: HYDR-3713 PO (09:53)
[2020-02-16] MEDS ORDERED: oxyCODONE 5MG TAB As Ordered ONE ×2 (10:24→10:55)
[2020-02-16] MEDS: oxyCODONE 5MG TAB PO PRN ×2 (10:30→11:00)
[2020-02-16] MEDS ORDERED: ONDANSETRON 4MG/2ML VIAL IV PRN (11:00)
[2020-02-16] MEDS ORDERED: ACETAMINOPHEN TAB 650MG DOSE (2X325MG) PO PRN (11:00)
[2020-02-16] MEDS ORDERED: fentaNYL 100 MCG/2 ML INJECTION (J3010) IV PRN (11:00)
[2020-02-16] MEDS ORDERED: NORCO, ANEXSIA 5/325MG TABLET (HYDROcodone/ACETAMINOPHEN) PO PRN (11:00)
[2020-02-16] MEDS ORDERED: HYDROMORPHONE HCL 0.5 MG/ 0.5 ML SYRINGE (J1170 PER 1) IV PRN (11:00)
[2020-02-16] MEDS ORDERED: LR 1,000 ML IV SCH (11:00)
[2020-02-16] MEDS ORDERED: IBUPROFEN 600MG TAB PO PRN (11:00)
[2020-02-16 11:56] VITALS: BP 132/68
--- NOTE | 2020-02-17 11:50 | RO ---
OPERATIVE NOTE DATE OF OPERATION: 02/16/2020 PREOPERATIVE DIAGNOSIS: Right inguinal hernia. POSTOPERATIVE DIAGNOSIS: Indirect right inguinal hernia. PROCEDURE PERFORMED: Robotic-assisted laparoscopic right inguinal hernia repair with mesh. MESH UTILIZED: Covidien ProGrip reference code [id number], lot #[id number]. SURGEON: Saleem Yeager MD LIEUTENANT BALLISTICS: MARIAN Mendez; Kacey's assistance was essential for management of the robotic instruments, change of instruments, passage of the mesh and insertion of the aspirating needle and closure of the incision. ANESTHESIA: General. INDICATIONS FOR THE PROCEDURE: The patient is a 75-year-old man who was noted to have a bulge in the right inguinal area. Examination confirmed reducible right inguinal hernia and he is now for repair of same. OPERATIVE PROCEDURE: The patient was brought to the operating room and placed on the table in supine position. He was placed under general endotracheal anesthesia. The patient's abdomen, groins and genitalia were prepped and draped in sterile fashion. 0.25% Marcaine was infiltrated at each of the trocar sites as needed. A short transverse supraumbilical incision was made and Veress needle was inserted. After positive hanging drop test the abdomen was inflated but the pressures radha rapidly and the needle was removed. I then moved to place the needle at a left upper quadrant site. After positive hanging drop test the abdomen was inflated without any difficulty. An 8 mm port was placed over a 5 mm camera and advanced into the abdomen. Initial inspection showed no evidence of Veress needle or trocar injury. There was minimal amount of insufflation of the preperitoneal tissues along the midline from the initial Veress needle insertion. An 8 mm port was placed through this site. A third 8 mm port was placed in the right upper quadrant. The patient was tilted to an approximately 15-degree head-down position. The Nabto Pilar Xi patient cart was brought into position and the endoscope port was docked to arm #2. The endoscope was inserted and targeting took place. The additional arms 1 and 3 were then docked to the appropriate ports. A Force bipolar and cauterizing scissors were then inserted. I then moved to the control console to proceed with the operation. It was clear that the patient had an indirect hernia. An incision was made in the peritoneum beginning approximately 5 cm above the center point of the obvious hernia defect. This was carried transversely incising just the peritoneum and a peritoneal flap was developed to open the preperitoneal space. Initially the dissection was carried deeply on the medial aspect and the pubic symphysis and John's ligament were identified. There was no evidence of a femoral hernia. The femoral vein was seen partially. Attention was then turned to development of the lateral portion of the dissection and the peritoneal flap was developed further lateral and opened in the lateral portion of the dissection. The hernia sac was then peeled away from the underlying cord structures by traction on the peritoneum and dissection to free this from the other structures. With careful dissection it was possible to completely invert the hernia sac without creating any peritoneal defects. There did appear to be a small amount of herniated preperitoneal fat which was dissected and withdrawn back into the preperitoneal space. A 10 x 15 cm piece of [employer] ProGrip mesh was selected. Kacey Horan trimmed the corners at the lateral end. This was then folded and inserted into the abdomen. This was inserted into the preperitoneal space that had been created. It was carefully unfolded and gently pressed into the overlying soft tissues. The medial end of the mesh was placed down across the John's ligament to lie anterior to the bladder in a small corner. Care was taken to ensure that the mesh would lay flat as the peritoneal flap was closed. This nicely covered the entire inguinal floor with excellent overlap on all sides of the inguinal defect. The peritoneal flap was then closed with a running suture of absorbable 2-0 V-Loc. This was begun laterally and carried medially. As the closure progressed the pressure within the abdomen was reduced to 8 mmHg and the patient was returned to a 5-degree head-down position. Once the flap had been completely closed Kacey Horan inserted an aspirating needle and this was directed through the peritoneal flap and gas was aspirated from the space around the mesh allowing the peritoneum to close down over the mesh nicely. The remaining robotic instruments were removed. The patient was tilted to a 5-degree head-up position and the robot was undocked. Kacey Horan then proceeded to deflate the abdomen with removal of the trocars and closure of the trocar sites with buried 4-0 Vicryl. Steri-Strips were applied. The patient tolerated the procedure well without apparent complications. He was awakened in the operating room, extubated and moved to the recovery room in stable condition. CLARITA
== END 2020-02-16 12:20 | disposition home or self-care (01) ==
LOC: M SDC 06:07
PROVIDERS: ATTEND Surgery
DX: K40.90 Unilateral inguinal hernia, without obstruction or gangrene, not specified as recurrent (principal); I10 Essential (primary) hypertension; I25.10 Atherosclerotic heart disease of native coronary artery without angina pectoris; Z98.61 Coronary angioplasty status; G47.30 Sleep apnea, unspecified; K44.9 Diaphragmatic hernia without obstruction or gangrene; M10.9 Gout, unspecified; K57.92 Diverticulitis of intestine, part unspecified, without perforation or abscess without bleeding; E78.00 Pure hypercholesterolemia, unspecified; Z79.82 Long term (current) use of aspirin; Z79.899 Other long term (current) drug therapy
CPT/HCPCS: 49650; C1781; J0131; J1100; J1885; J2250; J2370; J2405; J3010; S2900

== ENCOUNTER 2020-03-24 10:51 | Emergency (ER) | payer MEDICARE, OTHER ==
[~2020-03-24] VITALS: Ht 172.7 cm; Wt 94.1 kg
[~2020-03-24 10:51] MED LIST changes: +HYDR-3713 PO; -LR 1,000 ML IV ONE
--- OUTSIDE RECORDS SUMMARY | 2020-03-24 10:57 | CCD | Continuity of Care Document ---
Author Author Timmy DUPONT PA-C Organization Unknown Address [address] [place] [id number] Phone [phone] Care Team Providers Care Financial Reporting Director Name Role Phone Igor Pickett MD AUTM [phone] Problems Active Problems Provider Date Osteoarthritis of knee Onset: 12/28/1998 Malignant melanoma of trunk Igor Pickett MD Onset: 08/2013 Paroxysmal supraventricular tachycardia Igor Pickett MD Onset: 01/28/2011 Obstructive sleep apnea syndrome Igor Pickett MD Onset: 01/28/2011 Kidney stone Igor Pickett MD Onset: 01/28/2011 Pure hypercholesterolemia Igor Pickett MD Onset: 2010 Impotence of organic origin Igor Pickett MD Onset: 01/08 Gastroesophageal reflux disease Gilma Lomeli ANP Onset: 01/28/2011 Essential hypertension Igor Pickett MD Onset: 1 Social History Type Date Description Comments Sex Unknown Tobacco Use Start: Unknown Denies Smoking Allergies, Adverse Reactions, Alerts Description No Information Available Medications Active Medications SIG Qnty Indications Ordering Provide r Date Euflexxa 20mg/2ML Soln Prefill Syr andressa shani knee #1 02/27/2020 maryellen/lucia shani knee #2 klf/ag 03/05/2020, shani knee #3 03/14/2020 maryellen/lucia Perez MD 019 Atorvastatin Calcium 40mg Tablets Take 1 Tablet By Mouth Every Day 90tabs Igor Pickett MD 0 04/22/2018 Lisinopril 30mg Tablets 1 by mouth every day 90tabs Igor Pickett MD 02/25/2018 Clopidogrel Bisulfate 75mg Tablets 1 by mouth every day 90Igor Stubbs MD 02/24/2018 Prevnar 13 Suspension 0.5 cubic centimeters x 1 1units Igor Pickett MD 03/13/2015 Tamsulosin HCL 0.4mg Capsules 1 daily 1/2 hour after same meal Igor Galdamez MD 2013 Tamsulosin HCL 0.4mg Capsules Take 1 Capsule By Mouth Once Daily 1/2 Hour After Same Meal Igor Galdamez MD 08/12/2013 Pantoprazole Sodium 40mg Tablets D R Take 1 Tablet By Mouth Every Day In The Morning 90Igor Stubbs MD 02/06/2013 Atorvastatin Calcium 10mg Tablets take 1 tablet by mouth once a day 90Igor Stubbs MD 02/06/2013 Pantoprazole Sodium 40mg Tablets D R take 1 tablet by mouth every morning 90Igor Stubbs MD 02/06/2013 Allopurinol 300mg Tablets 1 by mouth every day 90Igor Stubbs MD 08/01/2010 Metoprolol Succinate ER 50mg Tablets ER 24HR take 1 tablet daily 90taIgor Bullard MD 08/01/2010 Metoprolol Succinate ER 50mg Tablets ER 24HR take 1 tablet twice daily 90Eddi Stubbs MD 08/01/2010 Levitra 20mg Tablets as direc severo 5tabs Igor Pikcett MD 01/17/2010 Aspir-[address] 1 po qd 100taIgor Bullard MD 07/11/[address] 1 po qd 100Igor Stubbs MD 07/11/2009 Magnesium 500mg Capsules Unknown Verapamil HCL ER 240mg Tablets ER Unknown Urocit-K 10 10Meq (1080 mg) Tablet s ER 2 tabs po bid Unknown Immunizations Description No Information Available Vital Signs Date Vital Result Comment 03/14/2020 2:37pm Body Temperature 96.7 F 02/27/2020 8:53am Body Temperature 97.1 F Results Description No Information Available Procedures Date Code Description Status 03/14/2020 53854 Inject/Drain Joint/Bursa Major C ompleted 03/05/2020 15097 Inject/Drain Joint/Bursa Major C ompleted 02/27/2020 47467 X-Ray Knee Complete W/Obliques & Tunnel And/Or Standing Views Completed 02/27/2020 97684 X-Ray Knee Complete W/Obliques & Tunnel And/Or Standing Views Completed 02/27/202026806 Inject/Drain Joint/Bursa Major C ompleted Medical Devices Description No Information Available Encounters Description No Information Available Assessments Date Code Description Provider 03/14/2020 M17.0 Bilateral primary osteoarthritis of knee Christine L. SANDY Dupont 03/05/2020 M17.0 Bilateral primary osteoarthritis of knee Christine L. SANDY Dupont 02/27/2020 M17.0 Bilateral primary osteoarthritis of knee Christine L. SANDY Dupont 09/20/2019 R10.31 Right lower quadrant pain Andrew Dupont MD Plan of Treatment Future Appointment(s):* 04/05/2020 2:00 pm - Andrew Dupont MD at [place] Functional Status Description No Information Available Mental Status Description No Information Available Referrals Refer to Reason for Referral Status Appt Date Andrew Dupont MD REF NO AUTH REQUIRED FOR REF TO DR SCRUGGS LL TO TRANS NT Created [address], [address] [place] [address] [phone]
--- OUTSIDE RECORDS SUMMARY | 2020-03-24 10:57 | CCD | Continuity of Care Document ---
Author Author Timmy DUPONT PA-C Organization Unknown Address [address] [place] [address] Phone [phone] Care Team Providers Care Tag Press Operator Name Role Phone Igor Pickett MD AUTM [phone] Problems Active Problems Provider Date Osteoarthritis of [...] MD 08/01/2010 Levitra 20mg Tablets as direc sevreo 5tabs Igor Pickett MD 01/17/2010 Aspir-[address] 1 [...] Available Procedures Date Code Description Status 03/14/2020 86258 Inject/Drain Joint/Bursa Major C ompleted 03/05/2020 85512 Inject/Drain Joint/Bursa Major C ompleted 02/27/2020 94595 X-Ray Knee Complete W/Obliques & Tunnel And/Or Standing Views Completed 02/27/2020 42897 X-Ray Knee Complete W/Obliques & Tunnel And/Or Standing Views Completed 02/27/202034717 Inject/Drain Joint/Bursa Major C ompleted Medical Devices [...] 2:00 pm - Andrew Dupont MD at [place] Functional Status Description No Information Available Mental Status Description No Information Available Referrals Refer to Reason for Referral Status Appt Date Andrew Dupont MD REF NO AUTH REQUIRED FOR REF TO DR SCRUGGS LL TO TRANS NT Created [address] [facility], [address] [place] [address] [phone]
--- OUTSIDE RECORDS SUMMARY | 2020-03-24 10:57 | CCD | Continuity of Care Document ---
Author Author Timmy DUPONT PA-C Organization Unknown Address [address] [place] [address] Phone [phone] Care Team Providers Care Glassblower Name Role Phone Igor Pickett MD AUTM [phone] Problems Active Problems Provider Date Osteoarthritis of [...] 20mg Tablets as direc severo 5tabs Igor Pickett MD 01/17/2010 Aspir-81 81mg [...] Available Procedures Date Code Description Status 03/14/2020 50053 Inject/Drain Joint/Bursa Major C ompleted 03/05/2020 16102 Inject/Drain Joint/Bursa Major C ompleted 02/27/2020 98868 X-Ray Knee Complete W/Obliques & Tunnel And/Or Standing Views Completed 02/27/2020 62612 X-Ray Knee Complete W/Obliques & Tunnel And/Or Standing Views Completed 02/27/202069805 Inject/Drain Joint/Bursa Major C ompleted Medical Devices [...] 2:00 pm - Andrew Dupont MD at [place] Functional Status Description No Information Available Mental Status Description No Information Available Referrals Refer to Reason for Referral Status Appt Date Andrew Dupont MD REF NO AUTH REQUIRED FOR REF TO DR SCRUGGS LL TO TRANS NT Created [address] [facility], [address] [place] [address] [phone]
--- OUTSIDE RECORDS SUMMARY | 2020-03-24 10:58 | CCD | Continuity of Care Document ---
Author Author Timmy Lopez Organization Unknown Address [address] [place] [phone] Phone Unavailable Care Team Providers Care Clinical Leader Name Role Phone Igor Pickett JR, MD AUTM Unavailable Kath Mckenzie JR, MD AUTM Matt Watson MD AUTM [phone] Pedro Luis Dobbs MD AUTM [phone] Marco No MD AUTM [phone] Sammy Perez M.D. AUTM [phone] [facility] - Urology AUTM [phone] Problems Active Problems Provider Date Paroxysmal supraventricular tachycardia Hudson Rojo Onset: 01/28/2011 Obstructive sleep apnea syndrome Igor Pickett MD Onset : 01/28/2011 Kidney stone Igor Pickett MD Onset: 01/28/2011 Pure hypercholesterolemia Igor Pickett MD Onset: 01/28 Impotence of organic origin Igor Pickett MD Onset: Gastroesophageal reflux disease Gilma Lomeli, NANETTE Onset : 01/28/2011 Essential hypertension Igor Pickett MD Onset: 01/29/20 11 Malignant melanoma of trunk Igor Pickett MD Onset: 08/2013 Social History Type Date Description Comments Sex Unknown ETOH Use Occasionally consumes beer Tobacco Use Start: Unknown End: Unknown Patient is a former smoker SMOKED FOR 1 YR 1/4 MADI A DAY Allergies, Adverse Reactions, Alerts Description No Known Drug Allergies Medications Active Medications SIG Qnty Indications Ordering Provide r Date Atorvastatin Calcium 40mg Tablets Take 1 Tablet By Mouth Every Day 90tabs Igor Pickett MD 04/22/2018 Lisinopril 30mg Tablets Take 1 Tablet By Mouth Every Day 90tabs Igor Pickett MD 02/25/2018 Clopidogrel Bisulfate 75mg Tablets Take 1 Tablet By Mouth Every Day 90tabs Leonie Mosqueda DO 2017 Tamsulosin HCL 0.4mg Capsules Take 1 Capsule By Mouth Once Daily 1/2 Hour After Same Meal 90caps Igor Pickett MD 08/12/2013 Pantoprazole Sodium 40mg Tablets D R Take 1 Tablet By Mouth Every Day In The Morning 90tabs Igor Pickett MD 02/06/2013 Allopurinol 300mg Tablets Take 1 Tablet By Mouth Every Day 90tabs Igor Pickett MD 08/01/2010 Magnesium Chloride 6-Hydrate 6-Hydrat Crystals 1 bid Igor Pickett MD 2010 Metoprolol Succinate ER 50mg Tablets ER 24HR take 1 tablet twice daily 90tabs Igor chambers MD 08/01/2010 Aspir-[address] 1 po qd 100tabs Igor Pickett MD 07/11/2009 Medications Administered in Office Medication SIG Qnty Indications Ordering Provider Date Administration Of Flu Vaccine Inj ection Igor Pickett MD 12/20/2019 Administration Of Flu Vaccine Inj ection Igor Pickett MD 01/07/2016 Immunizations CPT Code Status Date Vaccine Lot # [id number] Given 12/20/2019 Influenza Vaccin e Quadrivalent Preser/Antibiotic Free Im Use [id number] Given 12/17/2018 Influenza Vaccin e Quadrivalent Preser/Antibiotic Free Im Use U-Flu Given 12/25/2017 Influenza,Unspecified Q2037 Given 01/07/2016 Fluvirin Virus Vaccine 09964 01 U-PneuC Given 03/14/2015 Prevnar 13 [id number] Given 01/28/2011 Fluvirin Virus Vaccine 61132 Given 08/01/2010 Pneumovax 23 26982 Given 01/17/2010 Influenza Virus Vaccine 28869 Given 01/01/2009 Influenza Virus Vaccine 98998 Given 12/27/2007 Influenza Virus Vaccine 00648 Given 12/16/2006 Influenza Virus Vaccine 37253 Given 04/02/2006 Tetanus/Diptheria(Td)Toxoids Preservative Free Vital Signs Date Vital Result Comment 01/30/2020 10:32am BP Systolic 124 mmHg BP Diastolic 70 mmHg Heart Rate 68 /min Height 68 inches 5'8" Weight 204.00 lb BMI (Body Mass Index) 31.0 kg/m2 12/20/2019 1:32pm BP Systolic 130 mmHg BP Diastolic 80 mmHg Heart Rate 78 /min Height 68 inches 5'8" Weight 201.00 lb BMI (Body Mass Index) 30.6 kg/m2 Results Test Acquired Date Facility Test Result H/L Range Note Complete Blood Count 01/27/2020 [facility] Compliance Paralegal: [place] [address] [phone] WBC 7.5 x10*3/UL 4.1 - 10.9 RBC 4.73 x10*6/UL 4.20 - 6.30 Hemoglobin 14.8 g/dL 12.0 - 18.0 Hematocrit 43.0 % 37.0 - 51.0 MCV 90.9 fL 80.0 - 97.0 MCH 31.4 pg 26.0 - 32.0 MCHC 34.6 g/dL 31.0 - 38.0 RDW 13.0 % 11.6 - 13.7 PLT 268 x10*3/UL 140 - 440 MPV 7.6 FL Low 7.8 - 11.0 Lymph % 18.9 % 10.0 - 58.5 Mid % 4.8 % 1.7 - 9.3 Neut % 76.3 % 37.0 - 92.0 Lymph # 1.4 x10*3/UL 0.6 - 4.1 Mid # 0.4 x10*3/UL 0.1 - 0.6 Neut # 5.7 x10*3/UL 2.0 - 7.8 A1c 01/27/2020 [facility] Compliance Paralegal: [place] [address] [phone] Hba1c 6.1 % High <5.7 1 Est Avg Glucose 128 mg/dL High 60 - 110 Comprehensive Chem Profile 01/27/2020 [facility] Compliance Paralegal: [place] [address] [phone] Glucose 101 mg/dL High 74 - 99 2 BUN 16 mg/dL 7 - 18 Creatinine 1.0 mg/dL 0.6 - 1.3 Sodium 142 mEq/L 136 - 145 Potassium 4.5 mEq/L 3.5 - 5.1 Chloride 106 mEq/L 98 - 107 Carbon Dioxide 32 mEq/L 21 - 32 Calcium 9.4 mg/dL 8.5 - 10.1 Alk. Phosphatase 114 mg/dL 46 - 116 Total Bilirubin 0.7 mg/dL 0.2 - 1.0 Ast (Sgot) 22 U/L 15 - 37 Alt (SGPT) 37 U/L 12 - 78 Albumin 3.9 g/dL 3.4 - 5.0 Total Protein 7.1 g/dL 6.4 - 8.2 A/G Ratio 1.22 CALC 1.00 - 1.90 GFR >= 60 mL/min >60 GFR >= 60 mL/min >60 3 Lipid Profile 01/27/2020 [facility] Compliance Paralegal: Dr Igor Pickett [place] [id number] [phone] Cholesterol 121 mg/dL Low 131 - 200 Triglycerides 77 mg/dL 30 - 150 HDL Cholesterol 45 mg/dL 35 - 60 LDL (Calculated) 61 CALC 50 - 159 Cal[facility] 12/26/2019 [facility] [address] [place] [address] [phone] Specimen Type Kidney Normal . Color Mckinley Normal . Size <1 mm Normal . 4 Weight <1 mg Normal . 5 Composition (SEE NOTE) Normal . 6 CA Oxalate Dihy 90 % Normal . Hydroxyapatite TNP Normal . Carbonate Apatite TNP Normal . Ca Ox Monohydrate 10 % Normal . CA Phosphate TNP Normal . MG Sunrise Phos TNP Normal . Uric Acid TNP Normal . Ua Dihydrate TNP Normal . Amm Acid Urate TNP Normal . Na Acid Urate TNP Normal . 2.8 Dihydroxyadenine TNP Normal . Xanthine TNP Normal . CA [place] Phos TNP Normal . Cystine TNP Normal . Cholesterol TNP Normal . CA Bilirubinate TNP Normal . CA Carbonate TNP Normal . Bilirubin TNP Normal . Calcium Palmitate TNP Normal . Calcium Stearate TNP Normal . Triamterene TNP Normal . Drug or Metabolite TNP Normal . Newberyite TNP Normal . Dried Blood TNP Normal . Cell Material TNP Normal . Other components(s) TNP Normal . Comment TNP Normal . Comment TNP Normal . Comment (SEE NOTE) Normal . 7 Please Note: (SEE NOTE) Normal . 8 Disclaimer (SEE NOTE) Normal . 9 Photo TNP Normal . 10 Urine Culture 12/19/2019 [facility] nter [address] [place] [address] [phone] Urine Culture FULL REPORT IN L <SEE NOTE> Normal 11 Complete Blood Count 12/19/2019 [facility] enter [address] [place] [address] [phone] White Blood Count 6.7 10 Normal 4.0-10.0 Red Blood Count 4.52 10 Normal 4.30-6.10 Hemoglobin 14.3 g/dL Normal 13.5-17.5 Hematocrit 43.9 % Normal 42.0-52.0 Mean Corpuscular Volume 97.1 fl High 80.0-96.0 Mean Corpuscular Hemoglobin 31.6 pg Normal 27.0-33.0 Mean Corpuscular HGB Conc 32.6 g/dL Normal 32.0-36.5 Red Cell Distribution Width 13.2 % Normal 11.5-14.5 Platelet Count, Automated 196 10 Normal 150-450 Nucleated Red Blood Cell % 0.0 % Normal 0-0 Basic Metabolic Profile 12/19/2019 [facility] [address] [place] [address] [phone] Glucose, Fasting 110 mg/dL High 70-100 Blood Urea Nitrogen 19 mg/dL High 7-18 Creatinine For GFR 0.87 mg/dL Normal 0.70-1.30 Glomerular Filtration Rate > 60.0 Normal >42 1 2 Sodium Level 142 mEq/L Normal 136-145 Potassium Serum 4.6 mEq/L Normal 3.5-5.1 Chloride Level 110 mEq/L High 98-107 Carbon Dioxide Level 28 mEq/L Normal 21-32 Anion Gap 4 mEq/L Low 8-16 Calcium Level 8.8 mg/dL Normal 8.8-10.2 Reflex Urine Culture 11/20/2019 [facility] enter [address] [place] [address] [phone] Reflex Urine Culture FULL REPORT IN L <SEE NOTE> Norm al 13 Basic Metabolic Profile 11/20/[address] [address] [phone] Glucose, Fasting 120 mg/dL High 70-100 Blood Urea Nitrogen 19 mg/dL High 7-18 Creatinine For GFR 1.32 mg/dL High 0.70-1.30 Glomerular Filtration Rate 56.6 Normal >42 1 4 Sodium Level 137 mEq/L Normal 136-145 Potassium Serum 3.8 mEq/L Normal 3.5-5.1 Chloride Level 104 mEq/L Normal 98-107 Carbon Dioxide Level 28 mEq/L Normal 21-32 Anion Gap 5 mEq/L Low 8-16 Calcium Level 8.7 mg/dL Low 8.8-10.2 Ua W/ Reflex To Culture 11/20/[address] [address] [phone] Appearance, Urine RFX CLEAR Normal Clear Color, Urine RFX YELLOW Normal Yellow PH,Urine RFX 6.0 units Normal 5.0-9.0 Specific [place] Ur Auto RFX 1.016 Normal 1.002-1.035 Protein, Urine Auto RFX NEGATIVE mg/dL Normal Negative Glucose, Urine (Ua) Auto RFX NEGATIVE mg/dL Normal Negative Ketone, Urine Auto RFX NEGATIVE mg/dL Normal Negative Urobilinogen, Urine Auto RFX 0.2 mg/dL Normal 0.0-2.0 Bilirubin, Urine Auto RFX NEGATIVE Normal Negative Nitrite, Urine Auto RFX NEGATIVE Normal Negative Leukocyte Esterase Ur Auto RFX 1+ High Negative Blood, Urine Blood RFX 2+ High Negative WBC, Urine Auto RFX 27 /HPF High 0-3 RBC, Urine Auto RFX 39 /HPF High 0-3 Bacteria, Urine Auto RFX 1+ High Negative Squam Epithelial Cell Ur Aurfx 0 /HPF Normal 0-6 Mucus, Urine RFX SMALL Normal Negative Hyaline Cast, Urine Auto RFX 0 /LPF Normal 0-1 CBC With Differential 11/20/[address] [address] [phone] White Blood Count 11.3 10 High 4.0-10.0 Red Blood Count 4.23 10 Low 4.30-6.10 Hemoglobin 13.4 g/dL Low 13.5-17.5 Hematocrit 40.1 % Low 42.0-52.0 Mean Corpuscular Volume 94.8 fl Normal 80.0-96.0 Mean Corpuscular Hemoglobin 31.7 pg Normal 27.0-33.0 Mean Corpuscular HGB Conc 33.4 g/dL Normal 32.0-36.5 Red Cell Distribution Width 13.0 % Normal 11.5-14.5 Platelet Count, Automated 230 10 Normal 150-450 Neutrophils % 81.2 % High 36.0-66.0 Lymph % 6.4 % Low 24.0-44.0 [place] % 11.7 % High 0.0-5.0 Eos % 0.2 % Normal 0.0-3.0 Baso % 0.1 % Normal 0.0-1.0 Immature Granulocyte % 0.4 % Normal 0-3.0 Nucleated Red Blood Cell % 0.0 % Normal 0-0 Neutrophils # 9.2 10 High 1.5-8.5 Lymph # 0.7 10 Low 1.5-5.0 [place] # 1.3 10 High 0.0-0.8 Eos # 0.0 10 Normal 0.0-0.5 Baso # 0.0 10 Normal 0.0-0.2 Laboratory test finding 11/20/[address] [address] [phone] Sars Covid-19 Amplification NEGATIVE Normal Nega tive 15 [facility] 11/20/[address] [address] [phone] Specimen Type (SEE NOTE) Normal . 16 Color Brown Normal . Size 4x4 mm Normal . 17 Weight 38 mg Normal . 18 Composition (SEE NOTE) Normal . 19 CA Oxalate Dihy 20 % Normal . Hydroxyapatite TNP Normal . 20 Carbonate Apatite TNP Normal . Ca Ox Monohydrate 80 % Normal . 21 CA Phosphate TNP Normal . MG Sunrise Phos TNP Normal . Uric Acid TNP Normal . Ua Dihydrate TNP Normal . Amm Acid Urate TNP Normal . Na Acid Urate TNP Normal . 2.8 Dihydroxyadenine TNP Normal . Xanthine TNP Normal . CA [place] Phos TNP Normal . Cystine TNP Normal . Cholesterol TNP Normal . CA Bilirubinate TNP Normal . CA Carbonate TNP Normal . Bilirubin TNP Normal . Calcium Palmitate TNP Normal . Calcium Stearate TNP Normal . Triamterene TNP Normal . Drug or Metabolite TNP Normal . Newberyite TNP Normal . Dried Blood TNP Normal . Cell Material TNP Normal . Other components(s) TNP Normal . Comment TNP Normal . 22 Comment TNP Normal . Comment (SEE NOTE) Normal . 23 Please Note: (SEE NOTE) Normal . 24 Disclaimer (SEE NOTE) Normal . 25 Photo (SEE NOTE) Normal . 26 Ua W/ Reflex To Culture 11/15/2019 [facility] [address] [place] [address] [phone] Appearance, Urine RFX HAZY Normal Clear Color, Urine RFX YELLOW Normal Yellow PH,Urine RFX 5.0 units Normal 5.0-9.0 Specific [place] Ur Auto RFX 1.016 Normal 1.002-1.035 Protein, Urine Auto RFX NEGATIVE mg/dL Normal Negative Glucose, Urine (Ua) Auto RFX NEGATIVE mg/dL Normal Negative Ketone, Urine Auto RFX NEGATIVE mg/dL Normal Negative Urobilinogen, Urine Auto RFX 0.2 mg/dL Normal 0.0-2.0 Bilirubin, Urine Auto RFX NEGATIVE Normal Negative Nitrite, Urine Auto RFX NEGATIVE Normal Negative Leukocyte Esterase Ur Auto RFX NEGATIVE Normal Negative Blood, Urine Blood RFX 3+ High Negative WBC, Urine Auto RFX 2 /HPF Normal 0-3 RBC, Urine Auto RFX TNTC /HPF High 0-3 Bacteria, Urine Auto RFX NEGATIVE Normal Negative Squam Epithelial Cell Ur Aurfx 0 /HPF Normal 0-6 Mucus, Urine RFX SMALL Normal Negative Hyaline Cast, Urine Auto RFX 0 /LPF Normal 0-1 Calcium Oxalate Crystals RFX SMALL Normal None Istat Chem8+ Panel 11/15/2019 [facility] nter [address] [place] [address] [phone] iSTAT HCT 44.0 % Normal 38.0-51.0 iSTAT Glucose 156 mg/dL High 70-105 iSTAT Sodium 144 mEq/L Normal 136-145 iSTAT Potassium 4.1 mEq/L Normal 3.5-5.1 iSTAT CA++ 4.7 mg/dL Normal 4.5-5.3 iSTAT Chloride 107 mEq/L Normal 98-109 iSTAT Co2 23.0 MM/L Normal 23.0-27.0 iSTAT BUN 17 mg/dL Normal 8-26 iSTAT Creatinine 1.0 mg/dL Normal 0.6-1.3 Complete Blood Count 11/15/2019 [facility] enter [address] [place] [address] [phone] White Blood Count 14.7 10 High 4.0-10.0 Red Blood Count 4.61 10 Normal 4.30-6.10 Hemoglobin 14.6 g/dL Normal 13.5-17.5 Hematocrit 44.6 % Normal 42.0-52.0 Mean Corpuscular Volume 96.7 fl High 80.0-96.0 Mean Corpuscular Hemoglobin 31.7 pg Normal 27.0-33.0 Mean Corpuscular HGB Conc 32.7 g/dL Normal 32.0-36.5 Red Cell Distribution Width 13.1 % Normal 11.5-14.5 Platelet Count, Automated 237 10 Normal 150-450 Nucleated Red Blood Cell % 0.0 % Normal 0-0 Basic Metabolic Profile 11/15/[address] [address] [phone] Glucose, Fasting 148 mg/dL High 70-100 Blood Urea Nitrogen 17 mg/dL Normal 7-18 Creatinine For GFR 1.17 mg/dL Normal 0.70-1.30 Glomerular Filtration Rate > 60.0 Normal >42 2 7 Sodium Level 141 mEq/L Normal 136-145 Potassium Serum 4.3 mEq/L Normal 3.5-5.1 Chloride Level 112 mEq/L High 98-107 Carbon Dioxide Level 25 mEq/L Normal 21-32 Anion Gap 4 mEq/L Low 8-16 Calcium Level 9.4 mg/dL Normal 8.8-10.2 Laboratory test finding 11/15/[address] [address] [phone] Thyroid Stimulating Hormone 0.715 uIU/ML Normal 0. 358-3.740 CBC With Differential 11/02/[address] [address] [phone] White Blood Count 7.7 10 Normal 4.0-10.0 Red Blood Count 4.59 10 Normal 4.30-6.10 Hemoglobin 14.5 g/dL Normal 13.5-17.5 Hematocrit 44.1 % Normal 42.0-52.0 Mean Corpuscular Volume 96.1 fl High 80.0-96.0 Mean Corpuscular Hemoglobin 31.6 pg Normal 27.0-33.0 Mean Corpuscular HGB Conc 32.9 g/dL Normal 32.0-36.5 Red Cell Distribution Width 13.1 % Normal 11.5-14.5 Platelet Count, Automated 203 10 Normal 150-450 Neutrophils % 77.1 % High 36.0-66.0 Lymph % 14.3 % Low 24.0-44.0 [place] % 7.2 % High 0.0-5.0 Eos % 0.8 % Normal 0.0-3.0 Baso % 0.3 % Normal 0.0-1.0 Immature Granulocyte % 0.3 % Normal 0-3.0 Nucleated Red Blood Cell % 0.0 % Normal 0-0 Neutrophils # 6.0 10 Normal 1.5-8.5 Lymph # 1.1 10 Low 1.5-5.0 [place] # 0.6 10 Normal 0.0-0.8 Eos # 0.1 10 Normal 0.0-0.5 Baso # 0.0 10 Normal 0.0-0.2 Basic Metabolic Profile 11/02/2019 [facility] [address] [place], [place] [address] [phone] Glucose, Fasting 131 mg/dL High 70-100 Blood Urea Nitrogen 16 mg/dL Normal 7-18 Creatinine For GFR 0.94 mg/dL Normal 0.70-1.30 Glomerular Filtration Rate > 60.0 Normal >42 2 8 Sodium Level 144 mEq/L Normal 136-145 Potassium Serum 4.4 mEq/L Normal 3.5-5.1 Chloride Level 110 mEq/L High 98-107 Carbon Dioxide Level 29 mEq/L Normal 21-32 Anion Gap 5 mEq/L Low 8-16 Calcium Level 8.9 mg/dL Normal 8.8-10.2 Complete Blood Count 09/29/2019 [facility] Compliance Paralegal: [place] [address] [phone] WBC 7.7 x10*3/UL 4.1 - 10.9 RBC 4.79 x10*6/UL 4.20 - 6.30 Hemoglobin 15.0 g/dL 12.0 - 18.0 Hematocrit 44.0 % 37.0 - 51.0 MCV 91.8 fL 80.0 - 97.0 MCH 31.3 pg 26.0 - 32.0 MCHC 34.1 g/dL 31.0 - 38.0 RDW 13.2 % 11.6 - 13.7 PLT 205 x10*3/UL 140 - 440 MPV 8.0 FL 7.8 - 11.0 Lymph % 19.2 % 10.0 - 58.5 Mid % 4.9 % 1.7 - 9.3 Neut % 75.9 % 37.0 - 92.0 Lymph # 1.4 x10*3/UL 0.6 - 4.1 Mid # 0.5 x10*3/UL 0.1 - 0.6 Neut # 5.8 x10*3/UL 2.0 - 7.8 Comprehensive Chem Profile 09/29/2019 [facility] Compliance Paralegal: [place] [address] [phone] Glucose 101 mg/dL High 74 - 99 29 BUN 20 mg/dL High 7 - 18 Creatinine 1.1 mg/dL 0.6 - 1.3 Sodium 146 mEq/L High 136 - 145 Potassium 4.0 mEq/L 3.5 - 5.1 Chloride 108 mEq/L High 98 - 107 Carbon Dioxide 28 mEq/L 21 - 32 Calcium 9.1 mg/dL 8.5 - 10.1 Alk. Phosphatase 106 mg/dL 46 - 116 Total Bilirubin 0.7 mg/dL 0.2 - 1.0 Ast (Sgot) 16 U/L 15 - 37 Alt (SGPT) 43 U/L 12 - 78 Albumin 3.9 g/dL 3.4 - 5.0 Total Protein 7.1 g/dL 6.4 - 8.2 A/G Ratio 1.22 CALC 1.00 - 1.90 GFR >= 60 mL/min >60 GFR >= 60 mL/min >60 30 1 Lab Result Notes: Pre-Diabetes 5.7 - 6.4 % Diabetes = or > 6.5% 2 100-125 mg/dL PRE-DIABET ES/FASTING >126 mg/dL DIABETES/FASTING 3 CHRONIC KIDNEY DISEASE STAGI NG PER NKF STAGE I & II GFR >= 60 NORMAL TO MILDLY DECREASED STAGE III GFR 30-59 MODERATELY DECREASED STAGE IV GFR 15-29 SEVERELY DECREASED STAGE V GFR <15 VERY LITTLE GFR LEFT ESRD GFR <15 ON SEQUINS WINDER 4 Too small to measure. 5 Too small to weigh 6 . Percentage (Represents the % composition) 7 . Physician questions regarding Calculi Analysis contact [facility] at: [phone]. 8 . Calculi report will follow via computer, mail or revising clerk delivery. 9 . This test was developed and its performance characteristics determined by [facility]. It has not been cleared or approved by the Food and Drug Administration. Performed at: [facility] [address] [place] [address] [address], [place], [place] [id number] Compliance Paralegal: Gregory Horvath MD, Phone: [phone] Test not performed No photo available 11 FULL REPORT IN LAB NOTES (eC W and Medent). NO GROWTH 12 Units are mL/min/1.73 m2 Chronic Kidney Disease Staging per NKF: Stage I & II GFR >=60 Normal to Mildly Decreased Stage III GFR 30-59 Moderately Decreased Stage IV GFR 15-29 Severely Decreased Stage V GFR <15 Very Little GFR Left ESRD GFR <15 on SEQUINS WINDER 13 FULL REPORT IN LAB NOTES (eC W and [facility]). NO GROWTH 14 Units are mL/min/1.73 m2 Chronic Kidney Disease Staging per NKF: Stage I & II GFR >=60 Normal to Mildly Decreased Stage III GFR 30-59 Moderately Decreased Stage IV GFR 15-29 Severely Decreased Stage V GFR <15 Very Little GFR Left ESRD GFR <15 on SEQUINS WINDER 15 A false negative result may occur if a specimen is improperly collected, transported or handled. False negative results may also occur if inadequate numbers of organisms are present in the specimen. As with any molecular test, mutations within the target regions of Xpert Xpress SARS-CoV-2 could affect primer and/or probe binding resulting in failure to detect the presence of virus. This test cannot rule out diseases caused by other bacterial or viral pathogens. DISCLAIMER: Testing was performed using the Progression SARS-CoV-2 test. This test was developed and its performance characteristics determined by [facility]. This test has not been FDA cleared or approved. This test has been authorized by FDA under an Emergency Use Authorization (EUA). This test is only authorized for the duration of time the declaration that circumstances exist justifying the authorization of the emergency use of in vitro diagnostic tests for detection of SARS-CoV-2 virus and/or diagnosis of COVID-19 infection under section 564(b)(1) of the Act, 21 U.S.C. 360bbb-3(b)(1), unless the authorization is terminated or revoked sooner. 16 . Not provided . Right Ureter --- 12/09/191712 --- Spec Type previously reported as: . Not provided 17 Multiple pieces received. D imensions of the largest piece reported. Single piece received. --- 12/09/191712 --- CAL2 previously reported as: 1x2 mm Multiple pieces received. Dimensions of the largest piece reported. 18 --- 12/09/191712 --- CAL3 previously reported as: 10 mg 19 . Percentage (Represents the % composition) 20 --- 12/09/191712 --- Hydroxyapatite previously reported as: 20 % 21 --- 12/09/191712 --- CAL6 previously reported as: 60 % 22 . Stone #2 of 2 --- 12/09/191712 --- CAL25 previously reported as: Test not performed 23 . Physician questions regarding Calculi Analysis contact [facility] at: [phone]. 24 . Calculi report will follow via computer, mail or revising clerk delivery. 25 . This test was developed and its performance characteristics determined by [facility]. It has not been cleared or approved by the Food and Drug Administration. Performed at: [facility] [address], [place], [place] [id number] Compliance Paralegal: Gregory Horvath MD, Phone: [phone] 26 . Photograph will follow under a separate cover 27 Units are mL/min/1.73 m2 Chronic Kidney Disease Staging per NKF: Stage I & II GFR >=60 Normal to Mildly Decreased Stage III GFR 30-59 Moderately Decreased Stage IV GFR 15-29 Severely Decreased Stage V GFR <15 Very Little GFR Left ESRD GFR <15 on SEQUINS WINDER 28 Units are mL/min/1.73 m2 Chronic Kidney Disease Staging per NKF: Stage I & II GFR >=60 Normal to Mildly Decreased Stage III GFR 30-59 Moderately Decreased Stage IV GFR 15-29 Severely Decreased Stage V GFR <15 Very Little GFR Left ESRD GFR <15 on SEQUINS WINDER 29 100-125 mg/dL PRE-DIABET ES/FASTING >126 mg/dL DIABETES/FASTING 30 CHRONIC KIDNEY DISEASE STAGI NG PER NKF STAGE I & II GFR >= 60 NORMAL TO MILDLY DECREASED STAGE III GFR 30-59 MODERATELY DECREASED STAGE IV GFR 15-29 SEVERELY DECREASED STAGE V GFR <15 VERY LITTLE GFR LEFT ESRD GFR <15 ON SEQUINS WINDER Procedures Date Code Description Status 02/11/2017 [id number] Colonoscopy Completed 11/17/2012 [id number] Colonoscopy Completed 09/20/2003 [id number] Colonoscopy Completed Medical Devices Description No Information Available Encounters Type Date Location Provider Dx Diagnosis Office Visit 12/20/2019 1:30p [facility] 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 Igor Pickett MD R10.31 Right lower quadrant pain E78.00 Pure hypercholesterolemia, u nspecified I47.1 Supraventricular tachycardia 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.5 Presence of coronary angiopl asty implant and graft Assessments Date Code Description Provider 01/30/2020 I25.10 Atherosclerotic heart disease of [place] coronary artery with Igor Pickett MD 01/30/2020 Z95.5 Presence of coronary angioplasty implant and graft Igor Pickett MD 01/30/2020 I11.0 Hypertensive heart disease with heart failure Igor Pickett MD 01/30/2020 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 Igor Pickett MD 01/30/2020 I47.1 Supraventricular tachycardia Col amadoublanca Pickett MD 01/30/2020 G47.33 Obstructive sleep apnea (adult) (pediatric) Igor Pickett MD 01/30/2020 K21.9 Gastro-esophageal reflux disease without esophagitis Igor Pickett MD 01/30/2020 E78.00 Pure hypercholesterolemia, unspe cified Igor Pickett MD 01/30/2020 K40.90 Unilateral inguinal hernia, without obstruction or gangrene, not specified as recurrent Igor Pickett MD 01/27/2020 I11.0 Hypertensive heart disease with heart failure Igor Pickett MD 01/27/2020 I11.0 Hypertensive heart disease with heart failure Lab Schedule 01/27/2020 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 Igor Pickett MD 01/27/2020 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 Lab Schedule 01/27/2020 E78.00 Pure hypercholesterolemia, unspe cified Igor Pickett MD 01/27/2020 E78.00 Pure hypercholesterolemia, unspe cified Lab Schedule 01/27/2020 R73.09 Other abnormal glucose Igor Pickett MD 01/27/2020 R73.09 Other abnormal glucose Lab Sched ule 01/06/2020 G47.33 Obstructive sleep apnea (adult) (pediatric) Igor Pickett MD 01/06/2020 I10 Essential (primary) hypertension Igor Pickett MD 01/06/2020 K21.9 Gastro-esophageal reflux disease without esophagitis Igor Pickett MD 01/06/2020 E78.00 Pure hypercholesterolemia, unspe cified Igor Pickett MD 12/20/2019 Z01.810 Encounter for preprocedural card iovascular examination Igor Pickett MD 12/20/2019 N20.2 Calculus of kidney with calculus of ureter Igor Pickett MD 12/20/2019 G47.33 Obstructive sleep apnea (adult) (pediatric) Igor Pickett MD 12/20/2019 I25.10 Atherosclerotic heart disease of [place] coronary artery with Igor Pickett MD 12/20/2019 Z95.5 Presence of coronary angioplasty implant and graft Igor Pickett MD 12/20/2019 I11.0 Hypertensive heart disease with heart failure Igor Pickett MD 12/20/2019 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 Igor Pickett MD 12/20/2019 I47.1 Supraventricular tachycardia Col amadou Pickett MD 12/20/2019 Z23 Encounter for immunization Ayanna Pickett MD 11/30/2019 E78.00 Pure hypercholesterolemia, unspe cified Igor Pickett MD 11/30/2019 G47.33 Obstructive sleep apnea (adult) (pediatric) Igor Pickett MD 11/30/2019 I10 Essential (primary) hypertension Igor Pickett MD 11/30/2019 K21.9 Gastro-esophageal reflux disease without esophagitis Igor Pickett MD 11/02/2019 E78.00 Pure hypercholesterolemia, unspe cified Igor Pickett MD 11/02/2019 G47.33 Obstructive sleep apnea (adult) (pediatric) Igor Pickett MD 11/02/2019 I10 Essential (primary) hypertension Igor Pickett MD 11/02/2019 K21.9 Gastro-esophageal reflux disease without esophagitis Igor Pickett MD 09/29/2019 R10.31 Right lower quadrant pain Eddi Pickett MD 09/29/2019 E78.00 Pure hypercholesterolemia, unspe cified Igor Pickett MD 09/29/2019 I47.1 Supraventricular tachycardia Col amadou Pickett MD 09/29/2019 I25.10 Atherosclerotic heart disease of [place] coronary artery with Igor Pickett MD 09/29/2019 Z95.5 Presence of coronary angioplasty implant and graft Igor Pickett MD 09/27/2019 G47.33 Obstructive sleep apnea (adult) (pediatric) Igor Pickett MD 09/27/2019 E78.00 Pure hypercholesterolemia, unspe cified Igor Pickett MD 09/27/2019 I10 Essential (primary) hypertension Igor Pickett MD 09/27/2019 K21.9 Gastro-esophageal reflux disease without esophagitis Igor Pickett MD 08/17/2019 G47.33 Obstructive sleep apnea (adult) (pediatric) Igor Pickett MD 08/17/2019 E78.00 Pure hypercholesterolemia, unspe cified Igor Pickett MD 08/17/2019 I50.32 Chronic diastolic (congestive) h eart failure Igor Pickett MD 08/17/2019 N40.0 Benign prostatic hyp erplasia without lower urinary tract symptoms Igor Pickett MD Plan of Treatment Future Appointment(s):* 08/07/2020 8:10 am - Lab Schedule at [facility] * 08/08/2020 9:40 am - Igor Pickett MD at [facility] * 08/08/2020 9:20 am - Nurse #2 at [facility] 01/30/2020 - Igor Pickett MD* I25.10 Atherosclerotic heart disease of [place] coronary artery with * Z95.5 Presence of coronary angioplasty implant and graft * I11.0 Hypertensive heart disease with heart failure* Comments:* Compliance with meds and diet. * I50.42 Chronic combined systolic (congestive) and diastolic (congestive) heart failure * I47.1 Supraventricular tachycardia * G47.33 Obstructive sleep apnea (adult) (pediatric) * K21.9 Gastro-esophageal reflux disease without esophagitis * E78.00 Pure hypercholesterolemia, unspecified * K40.90 Unilateral inguinal hernia, without obstruction or gangrene, not specified as recurrent Functional Status Description No Information Available Mental Status Description No Information Available Referrals Refer to Dr Reason for Referral Status Appt Date [facility] CONSULT FOR RT HIP PAIN Closed 08/30/2019 [address] [place] [address] [phone]
--- OUTSIDE RECORDS SUMMARY | 2020-03-24 10:58 | CCD ---
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 667990168 Problem Elevated PSA (prostate specific antigen) 790.93 Active 024565607 Problem Nocturia 788.43 Active 471592298 Problem Kidney stone 592.0 Active 05132701 ALLERGIES No Known Allergies ENCOUNTERS from 1945 to 2020-02-01 Encounter Location Date Provider Diagnosis [facility] [id number] [place] [address] [place] [address] Jan Sammy Perez IMMUNIZATIONS No Information SOCIAL HISTORY Sex Assigned At : Social History Observation Description Sex Assigned At Unknown REASON FOR REFERRAL No Information VITAL SIGNS No information MEDICATIONS Medication SIG (Take, Route, Frequency, Duration) Notes Start Da te End Date Status Acetaminophen 325 MG 2 tablet as needed Orally every 4 hrs Active Pyridium 200 MG 1 tablet after meals Orally Three times a day fo r 3 days Jan, Active Tamsulosin HCl 0.4 MG take 1 capsule by mouth 30 min after the same meal once each day Orally Once a day for 90 days Active Biaxin 500 MG 1 tablet Orally Twice a day Not-Taking Allopurinol 300 MG 1 tablet Orally Once a day for 90 day(s) Apr, Active Lipitor 10 MG 1 tablet Orally Once a day for 30 day(s) Not-Taking Verapamil HCl 240 MG 1 tablet every morning with food Orally Once a day for 30 day(s) Not-Taking Metoprolol & Diet Manage Prod 50 MG 1tab Orally daily Not-Taking Flomax 0.4 1 capsule 30 minutes after t he same meal each day Orally Once a day for 30 Not-Taking Urocit-K 10 10 MEQ TAKE 2 TABLETS BY MOUTH TWIC E DAILY WITH MEALS orally four times daily for 30 Not-Taking Atorvastatin Calcium 10 MG 1 tablet Orally Once a day for 30 day(s) Active Flomax 0.4 MG 2 capsule 30 minutes after t he same meal each day Orally Once a day for 30 day(s) Dec, Not-Taking Potassium Citrate ER 10 MEQ (1080 MG) TAKE 2 TABLETS B Y MOUTH TWICE DAILY WITH MEALS for 90 Not-Taking Lisinopril 30 MG 1 tablet Orally Once a day for 30 day(s) Active Finasteride 5 MG 1 tablet orally Daily for 90 days Active Metoprolol Succinate 50 MG as directed Orally bid Active Magnesium 400 MG 1 tab(s) Orally bid Apr, Active Pantoprazole Sodium 40 mg 1 tab(s) Orally daily Active Proscar 5 MG 1 tablet Orally Once a day for 90 days Not-Taking Ciprofloxacin HCl 500 MG 1 tablet for your cystoscopy today Orally as directed Jan, Active Multi Complete - as directed Orally Active Clopidogrel Bisulfate 75 MG 1 tablet Orally Once a day for 30 day(s) Active Aspir-81 81 MG 1 tablet Orally Once a day for 30 day(s) Active Nitrostat 0.4 MG as directed Sublingual Active PROCEDURES No Information RESULTS No Results REASON FOR VISIT UTI MEDICAL (GENERAL) HISTORY Type Description Date Medical History hypertension Medical History Esophageal reflux Medical History kidney stones Medical History HYPERLIPIDEMIA Medical History BPH Medical History Melenoma Surgical History knee surgery Surgical History rotator cuff Surgical History lump cheek excision Surgical History ESWL 06/2010 Surgical History heart stents placed 02/16/18 Surgical History heart recorder placed 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 Surgical History CYSTO RIGHT STENT REM 01/09/2020 Hospitalization History Surgery related Hospitalization History X 5days at [facility] for whooping cough 0 10/07/2014 Goals Section No Information Health Concerns No Information MEDICAL EQUIPMENT No Information MENTAL STATUS No Information FUNCTIONAL STATUS No Information ASSESSMENTS No Information PLAN OF TREATMENT Medication Medication Name Sig Start Date Stop Date Pyridium 200 MG 1 tablet after meals Orally Three times a day for 3 days Jan, Ciprofloxacin HCl 500 MG 1 tablet for your cystoscopy today Orally as directed Jan, Next Appt Details Provider Name:Julián Segundo, 2020-06-01 11:00:00 AM, [address], [place], [address], Insurance Providers Payer Name Payer Address Payer Phone Insured Name Patient Relati onship to Insured Coverage Start Date Coverage End Date R [facility] [address] [address] [facility] [phone] CAROLEE POPE MEDICARE Part A and B [address] [facility] [phone] CAROLEE POPE self
--- OUTSIDE RECORDS SUMMARY | 2020-03-24 10:58 | CCD | Continuity of Care Document ---
Author Author Timmy Lopez Organization Unknown Address [address] [place] [phone] Phone Unavailable Care Team Providers Care Stone Crusher Operator Name Role Phone Igor Pickett JR, MD AUTM Unavailable Kath Mckenzie JR, MD AUTM [phone] Matt Watson MD AUTM [phone] Pedro Luis Dobbs MD AUTM [phone] Marco No MD AUTM [phone] Sammy Perez M.D. AUTM [phone] [facility] - Urology AUTM Problems Active Problems Provider Date Paroxysmal supraventricular [...] CPT Code Status Date Vaccine Lot # [id number] Given 12/20/2019 Influenza Vaccin e Quadrivalent Preser/Antibiotic Free Im Use [id number] 38571 Given 12/17/2018 Influenza Vaccin e Quadrivalent Preser/Antibiotic Free Im Use U-Flu Given 12/25/2017 Influenza,Unspecified Q2037 Given 01/07/2016 Fluvirin Virus Vaccine 32873 01 U-PneuC Given 03/14/2015 Prevnar 13 [id number] Given 01/28/2011 Fluvirin Virus Vaccine 52466 Given 08/01/2010 Pneumovax 23 95192 Given 01/17/2010 Influenza Virus Vaccine 18077 Given 01/01/2009 Influenza Virus Vaccine 45644 Given 12/27/2007 Influenza Virus Vaccine 04187 Given 12/16/2006 Influenza Virus Vaccine 77199 Given 04/02/2006 Tetanus/Diptheria(Td)Toxoids Preservative Free Vital Signs [...] H/L Range Note Complete Blood Count 01/27/2020 [facility] Room Inspector: [place] [address] [phone] WBC 7.5 x10*3/UL 4.1 - 10.9 RBC [...] 5.7 x10*3/UL 2.0 - 7.8 A1c 01/27/2020 [facility] Room Inspector: [place] [address] [phone] Hba1c 6.1 % High <5.7 1 Est Avg Glucose 128 mg/dL High 60 - 110 Comprehensive Chem Profile 01/27/2020 [facility] Room Inspector: [place] [address] [phone] Glucose 101 mg/dL High 74 - 99 [...] 60 mL/min >60 3 Lipid Profile 01/27/2020 [facility] Room Inspector: Dr Igor Pickett [place] [id number] [phone] Cholesterol 121 mg/dL Low 131 - 200 Triglycerides 77 mg/dL 30 - 150 HDL Cholesterol 45 mg/dL 35 - 60 LDL (Calculated) 61 CALC 50 - 159 [facility] Dip[facility] 12/26/2019 [facility] [address] [place] [address] [phone] Specimen Type Kidney Normal . Color [place] Normal . Size <1 mm Normal . 4 Weight <1 mg Normal . 5 Composition (SEE NOTE) Normal . 6 CA Oxalate Dihy 90 % Normal . Hydroxyapatite TNP Normal . Carbonate Apatite TNP Normal . Ca Ox Monohydrate 10 % Normal . CA Phosphate TNP Normal . MG [place] Phos TNP Normal . Uric Acid TNP Normal . Ua Dihydrate TNP Normal . Amm Acid Urate TNP Normal . Na Acid Urate TNP Normal . 2.8 Dihydroxyadenine TNP Normal . Xanthine TNP Normal . CA [place] Phos TNP Normal . Cystine TNP Normal [...] TNP Normal . 10 Urine Culture 12/19/2019 [facility] nter [address] [place] [address] [phone] Urine Culture FULL REPORT IN L <SEE NOTE> Normal 11 Complete Blood Count 12/19/2019 [facility] [address] [place] [address] [phone] White Blood Count 6.7 10 Normal 4.0-10.0 [...] % Normal 0-0 Basic Metabolic Profile 12/19/2019 [facility] [address] [place] [address] [phone] Glucose, Fasting 110 mg/dL High 70-100 Blood [...] mg/dL Normal 8.8-10.2 Reflex Urine Culture 11/20/2019 [facility] [address] [place] [address] [phone] Reflex Urine Culture FULL REPORT IN L <SEE NOTE> Norm al 13 Basic Metabolic Profile 11/20/[address] [address] [phone] Glucose, Fasting 120 mg/dL High 70-100 Blood [...] 8.8-10.2 Ua W/ Reflex To Culture 11/20/[address] [address] [phone] Appearance, Urine RFX CLEAR Normal Clear Color, Urine RFX YELLOW Normal Yellow PH,Urine RFX 6.0 units Normal 5.0-9.0 Specific [place] Ur Auto RFX 1.016 Normal 1.002-1.035 Protein, [...] /LPF Normal 0-1 CBC With Differential 11/20/[address] [address] [phone] White Blood Count 11.3 10 High 4.0-10.0 [...] 36.0-66.0 Lymph % 6.4 % Low 24.0-44.0 [place] % 11.7 % High 0.0-5.0 Eos % 0.2 % Normal 0.0-3.0 Baso % 0.1 % Normal 0.0-1.0 Immature Granulocyte % 0.4 % Normal 0-3.0 Nucleated Red Blood Cell % 0.0 % Normal 0-0 Neutrophils # 9.2 10 High 1.5-8.5 Lymph # 0.7 10 Low 1.5-5.0 [place] # 1.3 10 High 0.0-0.8 Eos # 0.0 10 Normal 0.0-0.5 Baso # 0.0 10 Normal 0.0-0.2 Laboratory test finding 11/20/[address] [address] [phone] Sars Covid-19 Amplification NEGATIVE Normal Nega tive 15 [facility] 11/20/[address] [address] [phone] Specimen Type (SEE NOTE) Normal . 16 Color Brown Normal . Size 4x4 mm Normal . 17 Weight 38 mg Normal . 18 Composition (SEE NOTE) Normal . 19 CA Oxalate Dihy 20 % Normal . Hydroxyapatite TNP Normal . 20 Carbonate Apatite TNP Normal . Ca Ox Monohydrate 80 % Normal . 21 CA Phosphate TNP Normal . MG [place] Phos TNP Normal . Uric Acid TNP Normal . Ua Dihydrate TNP Normal . Amm Acid Urate TNP Normal . Na Acid Urate TNP Normal . 2.8 Dihydroxyadenine TNP Normal . Xanthine TNP Normal . CA [place] Phos TNP Normal . Cystine TNP Normal [...] 26 Ua W/ Reflex To Culture 11/15/2019 [facility] [address] [place] [address] [phone] Appearance, Urine RFX HAZY Normal Clear Color, Urine RFX YELLOW Normal Yellow PH,Urine RFX 5.0 units Normal 5.0-9.0 Specific [place] Ur Auto RFX 1.016 Normal 1.002-1.035 Protein, [...] SMALL Normal None Istat Chem8+ Panel 11/15/2019 [facility] nter [address] [place] [address] [phone] iSTAT HCT 44.0 % Normal 38.0-51.0 iSTAT Glucose 156 mg/dL High 70-105 iSTAT Sodium 144 mEq/L Normal 136-145 iSTAT Potassium 4.1 mEq/L Normal 3.5-5.1 iSTAT CA++ 4.7 mg/dL Normal 4.5-5.3 iSTAT Chloride 107 mEq/L Normal 98-109 iSTAT Co2 23.0 MM/L Normal 23.0-27.0 iSTAT BUN 17 mg/dL Normal 8-26 iSTAT Creatinine 1.0 mg/dL Normal 0.6-1.3 Complete Blood Count 11/15/2019 [facility] [address] [place] [address] [phone] White Blood Count 14.7 10 High 4.0-10.0 [...] % Normal 0-0 Basic Metabolic Profile 11/15/[address] [address] [phone] Glucose, Fasting 148 mg/dL High 70-100 Blood [...] mg/dL Normal 8.8-10.2 Laboratory test finding 11/15/[address] [address] [phone] Thyroid Stimulating Hormone 0.715 uIU/ML Normal 0. 358-3.740 CBC With Differential 11/02/[address] [address] [phone] White Blood Count 7.7 10 Normal 4.0-10.0 [...] 36.0-66.0 Lymph % 14.3 % Low 24.0-44.0 [place] % 7.2 % High 0.0-5.0 Eos % 0.8 % Normal 0.0-3.0 Baso % 0.3 % Normal 0.0-1.0 Immature Granulocyte % 0.3 % Normal 0-3.0 Nucleated Red Blood Cell % 0.0 % Normal 0-0 Neutrophils # 6.0 10 Normal 1.5-8.5 Lymph # 1.1 10 Low 1.5-5.0 [place] # 0.6 10 Normal 0.0-0.8 Eos # 0.1 10 Normal 0.0-0.5 Baso # 0.0 10 Normal 0.0-0.2 Basic Metabolic Profile 11/02/2019 [facility] [address] [place], [place] [address] [phone] Glucose, Fasting 131 mg/dL High 70-100 Blood [...] mg/dL Normal 8.8-10.2 Complete Blood Count 09/29/2019 [facility] Room Inspector: [place] [address] [phone] WBC 7.7 x10*3/UL 4.1 - 10.9 RBC [...] 2.0 - 7.8 Comprehensive Chem Profile 09/29/2019 [facility] Room Inspector: [place] [address] [phone] Glucose 101 mg/dL High 74 - 99 [...] LITTLE GFR LEFT ESRD GFR <15 ON LUBRICATION TECHNICIAN 4 Too small to measure. 5 Too small to weigh 6 . Percentage (Represents the % composition) 7 . Physician questions regarding Calculi Analysis contact [email or web address] at: [phone]. 8 . Calculi report will follow via computer, mail or net software engineer delivery. 9 . This test was developed and its performance characteristics determined by [email or web address]. It has not been cleared or approved by the Food and Drug Administration. Performed at: [facility] [address] [place] [address] [address], [place], [place] [id number] Room Inspector: Gregory Horvath MD, Phone: [phone] Test not performed No photo available [...] Little GFR Left ESRD GFR <15 on LUBRICATION TECHNICIAN 13 FULL REPORT IN LAB NOTES (eC W and [employer]ent). NO GROWTH 14 Units are mL/min/1.73 m2 Chronic Kidney Disease Staging per NKF: Stage I & II GFR >=60 Normal to Mildly Decreased Stage III GFR 30-59 Moderately Decreased Stage IV GFR 15-29 Severely Decreased Stage V GFR <15 Very Little GFR Left ESRD GFR <15 on LUBRICATION TECHNICIAN 15 A false negative result may occur [...] pathogens. DISCLAIMER: Testing was performed using the [employer] SARS-CoV-2 test. This test was developed and its performance characteristics determined by [employer]. This test has not been FDA cleared [...] . Physician questions regarding Calculi Analysis contact [email or web address] at: [phone]. 24 . Calculi report will follow via computer, mail or net software engineer delivery. 25 . This test was developed and its performance characteristics determined by [email or web address]. It has not been cleared or approved by the Food and Drug Administration. Performed at: [facility] [address], [place], [place] [id number] Room Inspector: Gregory Horvath MD, Phone: [phone] . Photograph will follow under a separate cover 27 Units are mL/min/1.73 m2 Chronic Kidney Disease Staging per NKF: Stage I & II GFR >=60 Normal to Mildly Decreased Stage III GFR 30-59 Moderately Decreased Stage IV GFR 15-29 Severely Decreased Stage V GFR <15 Very Little GFR Left ESRD GFR <15 on LUBRICATION TECHNICIAN 28 Units are mL/min/1.73 m2 Chronic Kidney Disease Staging per NKF: Stage I & II GFR >=60 Normal to Mildly Decreased Stage III GFR 30-59 Moderately Decreased Stage IV GFR 15-29 Severely Decreased Stage V GFR <15 Very Little GFR Left ESRD GFR <15 on LUBRICATION TECHNICIAN 29 100-125 mg/dL PRE-DIABET ES/FASTING >126 mg/dL DIABETES/FASTING 30 CHRONIC KIDNEY DISEASE STAGI NG PER NKF STAGE I & II GFR >= 60 NORMAL TO MILDLY DECREASED STAGE III GFR 30-59 MODERATELY DECREASED STAGE IV GFR 15-29 SEVERELY DECREASED STAGE V GFR <15 VERY LITTLE GFR LEFT ESRD GFR <15 ON LUBRICATION TECHNICIAN Procedures Date Code Description Status 02/11/2017 [id number] Colonoscopy Completed 11/17/2012 [id number] Colonoscopy Completed 09/20/2003 [id number] Colonoscopy Completed Medical Devices Description No Information Available Encounters Type Date Location Provider Dx Diagnosis Office Visit 12/20/2019 1:30p [facility] Igor Pickett MD Z01.810 Encounter [...] Encounter for immunization Office Visit 09/29/2019 2:00p [facility] Igor Pickett MD R10.31 Right lower quadrant pain E78.00 Pure hypercholesterolemia, u nspecified I47.1 Supraventricular tachycardia 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.5 Presence of coronary angiopl asty implant and graft Assessments Date Code Description Provider 01/06/2020 G47.33 Obstructive sleep apnea (adult) (pediatric) [...] MD 12/20/2019 I25.10 Atherosclerotic heart disease of [place] coronary artery with Igor Pickett MD 12/20/2019 [...] Pickett MD 09/29/2019 E78.00 Pure hypercholesterolemia, unspe ciodell Pickett MD 09/29/2019 I47.1 Supraventricular tachycardia Col amadou Pickett MD 09/29/2019 I25.10 Atherosclerotic heart disease of [place] coronary artery with Igor Pickett MD 09/29/2019 Z95.5 Presence of coronary angioplasty implant and graft Igor Pickett MD 09/27/2019 G47.33 Obstructive sleep apnea (adult) (pediatric) Igor Pickett MD 09/27/2019 E78.00 Pure hypercholesterolemia, unspe cified Igor Pickett MD 09/27/2019 I10 Essential (primary) hypertension Igro Pickett MD 09/27/2019 K21.9 Gastro-esophageal reflux disease without esophagitis Igor Pickett MD 08/17/2019 G47.33 Obstructive sleep apnea (adult) (pediatric) Igor Pickett MD 08/17/2019 E78.00 Pure hypercholesterolemia, unspe cified Igor Pickett MD 08/17/2019 I50.32 Chronic diastolic (congestive) h eart failure Igor Pickett MD 08/17/2019 N40.0 Benign prostatic hyp erplasia without lower urinary tract symptoms Igor Pickett MD 08/05/2019 G47.33 Obstructive sleep apnea (adult) (pediatric) Igor Pickett MD 08/05/2019 E78.00 Pure hypercholesterolemia, unspe cified Igor Pickett MD 08/05/2019 N40.0 Benign prostatic hyp erplasia without lower urinary tract symptoms Igor Pickett MD 08/05/2019 I50.32 Chronic diastolic (congestive) h eart failure Igor Pickett MD Plan of Treatment No Information Available Functional Status Description No Information Available Mental Status Description No Information Available Referrals Refer to Reason for Referral Status Appt Date [facility] CONSULT FOR RT HIP PAIN Closed 08/30/2019 [address] [place] [address] [phone]
--- OUTSIDE RECORDS SUMMARY | 2020-03-24 10:58 | CCD | Continuity of Care Document ---
Author Author Timmy Pickett MD Organization Unknown Address [address] [facility] [address] [place] [address] Phone [phone] Care Team Providers Care Renewable Energy Division Manager Name Role Phone Igor Pickett JR, MD AUTM Unavailable MagalyKath ha JR, MD AUTM [phone] Matt Watson MD AUTM [phone] Pedro Luis Dobbs MD AUTM [phone] OnealMarco jimenez MD AUTM [phone] Sammy Perez M.D. AUTM [phone] [facility] - Urology AUTM [phone] Problems Active Problems Provider Date Paroxysmal supraventricular tachycardia Hudson Rojo Onset: 01/28/2011 Obstructive sleep apnea syndrome Igor Pickett MD Onset : 01/28/2011 Kidney stone Igor Pickett MD Onset: 01/28/2011 Pure hypercholesterolemia Igor Pickett MD Onset: 01/28 Impotence of organic origin Igor Pickett MD Onset: Gastroesophageal reflux disease NANETTE Pollack Onset : 01/28/2011 Essential hypertension Igor Pickett [...] Provider Date Administration Of Flu Vaccine Inj trinidadion Igor Pickett MD 12/20/2019 Administration Of Flu Vaccine Inj trinidadion Igor Pickett MD 01/07/2016 Immunizations CPT Code Status Date Vaccine Lot # [id number] Given 12/20/2019 Influenza Vaccin e Quadrivalent Preser/Antibiotic Free Im Use [id number] Given 12/17/2018 Influenza Vaccin e Quadrivalent Preser/Antibiotic Free Im Use U-Flu Given 12/25/2017 Influenza,Unspecified Q2037 Given 01/07/2016 Fluvirin Virus Vaccine 02323 01 U-PneuC Given 03/14/2015 Prevnar 13 [id number] Given 01/28/2011 Fluvirin Virus Vaccine 57267 Given 08/01/2010 Pneumovax 23 31483 Given 01/17/2010 Influenza Virus Vaccine 62753 Given 01/01/2009 Influenza Virus Vaccine 41914 Given 12/27/2007 Influenza Virus Vaccine 27788 Given 12/16/2006 Influenza Virus Vaccine 44373 Given 04/02/2006 Tetanus/Diptheria(Td)Toxoids Preservative Free Vital Signs [...] H/L Range Note Complete Blood Count 01/27/2020 [facility] Contract Administrative Assistant: [place] [address] [phone] WBC 7.5 x10*3/UL 4.1 - 10.9 RBC [...] 5.7 x10*3/UL 2.0 - 7.8 A1c 01/27/2020 [facility] Contract Administrative Assistant: [place] [address] [phone] Hba1c 6.1 % High <5.7 1 Est Avg Glucose 128 mg/dL High 60 - 110 Comprehensive Chem Profile 01/27/2020 [facility] Contract Administrative Assistant: [place] [address] [phone] Glucose 101 mg/dL High 74 - 99 [...] 60 mL/min >60 3 Lipid Profile 01/27/2020 [facility] , Contract Administrative Assistant: [place] [address] [phone] Cholesterol 121 mg/dL Low 131 - 200 Triglycerides 77 mg/dL 30 - 150 HDL Cholesterol 45 mg/dL 35 - 60 LDL (Calculated) 61 CALC 50 - 159 [facility],Stone Dipika 12/26/2019 [address] [place], [place] [id number] [phone] Specimen Type Kidney Normal . Color [place] Normal . Size <1 mm Normal . 4 Weight <1 mg Normal . 5 Composition (SEE NOTE) Normal . 6 CA Oxalate Dihy 90 % Normal . Hydroxyapatite TNP Normal . Carbonate Apatite TNP Normal . Ca Ox Monohydrate 10 % Normal . CA Phosphate TNP Normal . MG [place] Phos TNP Normal . Uric Acid TNP Normal . Ua Dihydrate TNP Normal . Amm Acid Urate TNP Normal . Na Acid Urate TNP Normal . 2.8 Dihydroxyadenine TNP Normal . Xanthine TNP Normal . CA [place] Phos TNP Normal . Cystine TNP Normal [...] TNP Normal . 10 Urine Culture 12/19/2019 [facility] nter [address] [place], [place] [address] [phone] Urine Culture FULL REPORT IN L <SEE NOTE> Normal 11 Complete Blood Count 12/19/2019 [facility] enter [address] [place] [address] [phone] White Blood Count 6.7 10 Normal 4.0-10.0 [...] % Normal 0-0 Basic Metabolic Profile 12/19/2019 [facility] [address] [place] [address] [phone] Glucose, Fasting 110 mg/dL High 70-100 Blood [...] mg/dL Normal 8.8-10.2 Reflex Urine Culture 11/20/2019 [facility] enter [address] [place] [address] [phone] Reflex Urine Culture FULL REPORT IN L <SEE NOTE> Norm al 13 Basic Metabolic Profile 11/20/2019 [facility] [address] [place] [address] [phone] Glucose, Fasting 120 mg/dL High 70-100 Blood [...] 8.8-10.2 Ua W/ Reflex To Culture 11/20/[address] [address] [phone] Appearance, Urine RFX CLEAR Normal Clear Color, Urine RFX YELLOW Normal Yellow PH,Urine RFX 6.0 units Normal 5.0-9.0 Specific [place] Ur Auto RFX 1.016 Normal 1.002-1.035 Protein, [...] /LPF Normal 0-1 CBC With Differential 11/20/[address] [address] [phone] White Blood Count 11.3 10 High 4.0-10.0 [...] 36.0-66.0 Lymph % 6.4 % Low 24.0-44.0 [place] % 11.7 % High 0.0-5.0 Eos % 0.2 % Normal 0.0-3.0 Baso % 0.1 % Normal 0.0-1.0 Immature Granulocyte % 0.4 % Normal 0-3.0 Nucleated Red Blood Cell % 0.0 % Normal 0-0 Neutrophils # 9.2 10 High 1.5-8.5 Lymph # 0.7 10 Low 1.5-5.0 [place] # 1.3 10 High 0.0-0.8 Eos # 0.0 10 Normal 0.0-0.5 Baso # 0.0 10 Normal 0.0-0.2 Laboratory test finding 11/20/[address] [address] [phone] Sars Covid-19 Amplification NEGATIVE Normal Nega tive 15 [facility],Stone Dipika 11/20/[address] [address] [phone] Specimen Type (SEE NOTE) Normal . 16 Color Brown Normal . Size 4x4 mm Normal . 17 Weight 38 mg Normal . 18 Composition (SEE NOTE) Normal . 19 CA Oxalate Dihy 20 % Normal . Hydroxyapatite TNP Normal . 20 Carbonate Apatite TNP Normal . Ca Ox Monohydrate 80 % Normal . 21 CA Phosphate TNP Normal . MG [place] Phos TNP Normal . Uric Acid TNP Normal . Ua Dihydrate TNP Normal . Amm Acid Urate TNP Normal . Na Acid Urate TNP Normal . 2.8 Dihydroxyadenine TNP Normal . Xanthine TNP Normal . CA [place] Phos TNP Normal . Cystine TNP Normal [...] 26 Ua W/ Reflex To Culture 11/15/2019 [facility] [address] [place] [address] [phone] Appearance, Urine RFX HAZY Normal Clear Color, Urine RFX YELLOW Normal Yellow PH,Urine RFX 5.0 units Normal 5.0-9.0 Specific [place] Ur Auto RFX 1.016 Normal 1.002-1.035 Protein, [...] SMALL Normal None Istat Chem8+ Panel 11/15/2019 [facility] nter [address] [place] [address] [phone] iSTAT HCT 44.0 % Normal 38.0-51.0 iSTAT Glucose 156 mg/dL High 70-105 iSTAT Sodium 144 mEq/L Normal 136-145 iSTAT Potassium 4.1 mEq/L Normal 3.5-5.1 iSTAT CA++ 4.7 mg/dL Normal 4.5-5.3 iSTAT Chloride 107 mEq/L Normal 98-109 iSTAT Co2 23.0 MM/L Normal 23.0-27.0 iSTAT BUN 17 mg/dL Normal 8-26 iSTAT Creatinine 1.0 mg/dL Normal 0.6-1.3 Complete Blood Count 11/15/[address] [address] [phone] White Blood Count 14.7 10 High 4.0-10.0 [...] % Normal 0-0 Basic Metabolic Profile 11/15/[address] [address] [phone] Glucose, Fasting 148 mg/dL High 70-100 Blood [...] mg/dL Normal 8.8-10.2 Laboratory test finding 11/15/[address] [address] [phone] Thyroid Stimulating Hormone 0.715 uIU/ML Normal 0. 358-3.740 CBC With Differential 11/02/2019 [facility] [address] [place], [place] [address] [phone] White Blood Count 7.7 10 Normal 4.0-10.0 [...] 36.0-66.0 Lymph % 14.3 % Low 24.0-44.0 [place] % 7.2 % High 0.0-5.0 Eos % 0.8 % Normal 0.0-3.0 Baso % 0.3 % Normal 0.0-1.0 Immature Granulocyte % 0.3 % Normal 0-3.0 Nucleated Red Blood Cell % 0.0 % Normal 0-0 Neutrophils # 6.0 10 Normal 1.5-8.5 Lymph # 1.1 10 Low 1.5-5.0 [place] # 0.6 10 Normal 0.0-0.8 Eos # 0.1 10 Normal 0.0-0.5 Baso # 0.0 10 Normal 0.0-0.2 Basic Metabolic Profile 11/02/[address] [address] [phone] Glucose, Fasting 131 mg/dL High 70-100 Blood [...] mg/dL Normal 8.8-10.2 Complete Blood Count 09/29/2019 [facility] Contract Administrative Assistant: [place] [address] [phone] WBC 7.7 x10*3/UL 4.1 - 10.9 RBC [...] 2.0 - 7.8 Comprehensive Chem Profile 09/29/2019 [facility] Contract Administrative Assistant: [place] [address] [phone] Glucose 101 mg/dL High 74 - 99 [...] LITTLE GFR LEFT ESRD GFR <15 ON AUDIO/VIDEO TECHNICIAN 4 Too small to measure. 5 Too small to weigh 6 . Percentage (Represents the % composition) 7 . Physician questions regarding Calculi Analysis contact [employer] at: [phone]. 8 . Calculi report will follow via computer, mail or furnace room supervisor delivery. 9 . This test was developed and its performance characteristics determined by [employer]. It has not been cleared or approved by the Food and Drug Administration. Performed at: [facility] [address] [place] [address] Dr [address], [place], [place] [id number] Contract Administrative Assistant: Gregory Horvath MD, Phone: [phone] Test not performed No photo available [...] Little GFR Left ESRD GFR <15 on AUDIO/VIDEO TECHNICIAN 13 FULL REPORT IN LAB NOTES (eC W and [employer]). NO GROWTH 14 Units are mL/min/1.73 m2 Chronic Kidney Disease Staging per NKF: Stage I & II GFR >=60 Normal to Mildly Decreased Stage III GFR 30-59 Moderately Decreased Stage IV GFR 15-29 Severely Decreased Stage V GFR <15 Very Little GFR Left ESRD GFR <15 on AUDIO/VIDEO TECHNICIAN 15 A false negative result may [...] pathogens. DISCLAIMER: Testing was performed using the [employer] SARS-CoV-2 test. This test was developed and its performance characteristics determined by [employer]. This test has not been FDA cleared [...] . Physician questions regarding Calculi Analysis contact [employer] at: [phone]. 24 . Calculi report will follow via computer, mail or furnace room supervisor delivery. 25 . This test was developed and its performance characteristics determined by [employer]. It has not been cleared or approved by the Food and Drug Administration. Performed at: [facility] [address], [place], [place] [id number] Contract Administrative Assistant: Gregory Horvath MD, Phone: [phone] . Photograph will follow under a separate cover 27 Units are mL/min/1.73 m2 Chronic Kidney Disease Staging per NKF: Stage I & II GFR >=60 Normal to Mildly Decreased Stage III GFR 30-59 Moderately Decreased Stage IV GFR 15-29 Severely Decreased Stage V GFR <15 Very Little GFR Left ESRD GFR <15 on AUDIO/VIDEO TECHNICIAN 28 Units are mL/min/1.73 m2 Chronic Kidney Disease Staging per NKF: Stage I & II GFR >=60 Normal to Mildly Decreased Stage III GFR 30-59 Moderately Decreased Stage IV GFR 15-29 Severely Decreased Stage V GFR <15 Very Little GFR Left ESRD GFR <15 on AUDIO/VIDEO TECHNICIAN 29 100-125 mg/dL PRE-DIABET ES/FASTING >126 mg/dL DIABETES/FASTING 30 CHRONIC KIDNEY DISEASE STAGI NG PER NKF STAGE I & II GFR >= 60 NORMAL TO MILDLY DECREASED STAGE III GFR 30-59 MODERATELY DECREASED STAGE IV GFR 15-29 SEVERELY DECREASED STAGE V GFR <15 VERY LITTLE GFR LEFT ESRD GFR <15 ON AUDIO/VIDEO TECHNICIAN Procedures Date Code Description Status 02/11/2017 [id number] Colonoscopy Completed 11/17/2012 [id number] Colonoscopy Completed 09/20/2003 [id number] Colonoscopy Completed Medical Devices Description No Information Available Encounters Type Date Location Provider Dx Diagnosis [facility] Visit [facility]/30[facility]2020 [facility]a [facility] I25.10 Athscl heart disease of [place] coronary artery w/o ang pctrs Z95.5 Presence of coronary angiopl asty implant and graft I11.0 Hypertensive heart disease w ith heart failure 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 Igor Pickett MD R10.31 Right lower quadrant pain E78.00 Pure hypercholesterolemia, u nspecified I47.1 Supraventricular tachycardia 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.5 Presence of coronary angiopl asty implant and graft Assessments Date Code Description Provider 01/30/2020 I25.10 Atherosclerotic heart disease of [place] coronary artery with Igor Pickett MD 01/30/2020 Z95.5 Presence of coronary angioplasty implant and graft Igor Pickett MD 01/30/2020 I11.0 Hypertensive heart disease with heart failure Igor Pickett MD 01/30/2020 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 Igor Pickett MD 01/30/2020 I47.1 Supraventricular tachycardia Col amadou Pickett MD 01/30/2020 G47.33 Obstructive sleep apnea [...] MD 12/20/2019 I25.10 Atherosclerotic heart disease of [place] coronary artery with Igor Pickett MD 12/20/2019 Z95.5 Presence of coronary angioplasty implant and graft Igor Pickett MD 12/20/2019 I11.0 Hypertensive heart disease with heart failure Igor Pickett MD 12/20/2019 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 Igor Pickett MD 12/20/2019 I47.1 Supraventricular tachycardia Col amadou Pickett MD 12/20/2019 Z23 Encounter for immunization Colli mary Pickett MD 11/30/2019 E78.00 Pure hypercholesterolemia, unspe cified Igor Pickett MD 11/30/2019 G47.33 Obstructive sleep apnea (adult) (pediatric) Igor Pickett MD 11/30/2019 I10 Essential (primary) hypertension Igor Pickett MD 11/30/2019 K21.9 Gastro-esophageal reflux disease without esophagitis Igor Pickett MD 11/02/2019 E78.00 Pure hypercholesterolemia, unspe cified Igor Picektt MD 11/02/2019 G47.33 Obstructive sleep apnea (adult) (pediatric) Igor Pickett MD 11/02/2019 I10 Essential (primary) hypertension Igor Pickett MD 11/02/2019 K21.9 Gastro-esophageal reflux disease without esophagitis Igor Pickett MD 09/29/2019 R10.31 Right lower quadrant pain Eddi s Bel Pickett MD 09/29/2019 E78.00 Pure hypercholesterolemia, unspe cified Igor Pickett MD 09/29/2019 I47.1 Supraventricular tachycardia Col amadou Pickett MD 09/29/2019 I25.10 Atherosclerotic heart disease of [place] coronary artery with Igor Pickett MD 09/29/2019 [...] 08/07/2020 8:10 am - Lab Schedule at [facility] * 08/08/2020 9:40 am - Igor Pickett MD at [facility] * 08/08/2020 9:20 am - Nurse #2 at [facility] 01/30/2020 - Igor Pickett MD* I25.10 Atherosclerotic heart disease of [place] coronary artery with * Z95.5 Presence of [...] Dr Reason for Referral Status Appt Date [facility] CONSULT FOR RT HIP PAIN Closed 08/30/2019 [address] [id number] [phone]
--- OUTSIDE RECORDS SUMMARY | 2020-03-24 10:58 | CCD | Continuity of Care Document ---
Author Author Timmy DUPONTC Organization Unknown Address [address] [place] [address] Phone [phone] Care Team Providers Care Ballistic Expert Name Role Phone Igor Pickett MD AUTM [phone] Problems Active Problems Provider Date Osteoarthritis of [...] Prefill Syr andressa shani knee #1 02/27/2020 [facility] Juan Diego Garza MD 01/19/2019 Atorvastatin Calcium 40mg Tablets Take 1 Tablet By Mouth Every Day 90tabs Igor Pickett MD 0 04/22/2018 Lisinopril 30mg Tablets 1 by mouth every day 90tabs Igor Pickett MD 02/25/2018 Clopidogrel Bisulfate 75mg Tablets 1 by mouth every day 90tabs Igor Pickett MD 02/24/2018 Prevnar 13 Suspension 0.5 cubic [...] po qd 100tabs Igor Pickett MD 07/11/[address] 1 po qd 100tabs Igor Pickett MD 07/11/2009 Magnesium 500mg Capsules Unknown Verapamil HCL ER 240mg Tablets ER Unknown Urocit-K 10 10Meq (1080 mg) Tablet s ER 2 tabs po bid Unknown Immunizations Description No Information Available Vital Signs Date Vital Result Comment 02/27/2020 8:53am Body Temperature 97.1 F 08/30/2019 10:15am Body Temperature 97.7 F Height 68 inches 5'8" Weight 200.38 lb BMI (Body Mass Index) 30.5 kg/m2 Results Description No Information Available Procedures Date Code Description Status 02/27/2020 22958 X-Ray Knee Complete W/Obliques & Tunnel And/Or Standing Views Completed 02/27/2020 50387 X-Ray Knee Complete W/Obliques & Tunnel And/Or Standing Views Completed 02/27/202060530 Inject/Drain Joint/Bursa Major C ompleted Medical Devices Description No Information Available Encounters Description No Information Available Assessments Date Code Description Provider 02/27/2020 M17.0 Bilateral primary osteoarthritis of knee Christine Dupont PA-C 09/20/2019 R10.31 Right lower quadrant pain Andrew Dupont MD 08/30/2019 M16.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
--- OUTSIDE RECORDS SUMMARY | 2020-03-24 10:58 | CCD | Continuity of Care Document ---
Author Author Timmy SAINZ M.D. Organization Unknown Address [address] [facility], [address] [place] [address] Phone [phone] Care Team Providers Care Material Specialist Name Role Phone Ludmila Freitas AUTM [phone] Igor Pickett MD @ [facility] AUTM [phone] Andrew Hyatt M.D. AUTM [phone] Pedro Luis Dobbs M.D. 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 Onset: 09/21/2013 Essential hypertension Onset: 10/07/2019 Social History Type Date Description Comments Sex Unknown ETOH Use Sociable 3-4 times a year Recreational Drug Use Denies Drug Use Tobacco Use Start: Unknown Denies Smoking Smoking Status Reviewed: 12/12/19 Denies Smoking Allergies, Adverse Reactions, Alerts Description No Known Drug Allergies Medications Active Medications SIG Qnty Indications Ordering Provide r Date CPAP Device 11cm NANETTE Godoy 12/11/2019 Allopurinol 300mg Tablets 1 po qd 90tabs Unknown Magnesium 400mg Tablets 2 qd Unknown Atorvastatin Calcium 10mg Tablets 1 qd Unknown Metoprolol Succinate ER 50mg Tablets ER 24HR 1 bid Unknown Pantoprazole Sodium 40mg Tablets D R i q day 30tabs Unknown Aspirin 81mg Chewtabs 1 tab p o daily Unknown Tamsulosin HCL 0.4mg Capsules by mouth daily Unknown Clopidogrel Bisulfate 75mg Tablets 1 by mouth every day Unknown Finasteride 5mg Tablets 1 qd Unknown Lisinopril 30mg Tablets 1 qd Unknown Multivitamin Adult Tablets 1 by mouth every day Unknown Nitroglycerin 0.4mg Tablets Sub as needed Unknown Immunizations Description No Information Available Vital Signs Date Vital Result Comment 02/29/2020 8:38am BP Systolic 132 mmHg BP Diastolic 70 mmHg Height 68 inches 5'8" Weight 202.38 lb BMI (Body Mass Index) 30.8 kg/m2 [place] Body Weight 154 lb Weight 91.797 kg BSA (Body Surface Area) 2.05 m2 01/09/2020 12:55pm BP Systolic 160 mmHg BP Diastolic 80 mmHg Height 68 inches 5'8" Weight 201.00 lb BMI (Body Mass Index) 30.6 kg/m2 [place] Body Weight 154 lb Weight 91.174 kg BSA (Body Surface Area) 2.05 m2 Results Description No Information Available Procedures Date Code Description Status 02/16/2020 53437 Lap Inguinal Hernia Repair Compl eted Medical Devices Description No Information Available Encounters Type Date Location Provider Dx Diagnosis Office Visit 01/09/2020 1:00p [facility] Saleem adams M.D. K40.90 Unil inguinal hernia, w/o obst or gangr, not spcf as recur G47.33 Obstructive sleep apnea (js lt) (pediatric) Office Visit 12/12/2019 8:30a [facility] Carlota To wne, ANP G47.33 Obstructive sleep apnea (adult) (pediatr ic) Office Visit 10/10/2019 8:30a [facility] Saleem adams M.D. K40.90 Unil inguinal hernia, w/o obst or gangr, not spcf as recur G47.33 Obstructive sleep apnea (js lt) (pediatric) Assessments Date Code Description Provider 02/16/2020 K40.90 Unilateral inguinal hernia, without obstruction or gangrene, not specified as recurrent Saleem Sainz M.D. 01/09/2020 K40.90 Unilateral inguinal hernia, without obstruction or gangrene, not specified as recurrent Saleem Sainz M.D. 01/09/2020 G47.33 Obstructive sleep apnea (adult) (pediatric) Saleem Sainz M.D. 12/12/2019 G47.33 Obstructive sleep apnea (adult) (pediatric) NANETTE Jimenez 10/10/2019 K40.90 Unilateral inguinal hernia, without obstruction or gangrene, not specified as recurrent Saleem Sainz M.D. 10/10/2019 G47.33 Obstructive sleep apnea (adult) (pediatric) Saleem Sainz M.D. Plan of Treatment Future Appointment(s):* 12/13/2020 8:30 am - NANETTE Jimenez at [facility] 01/09/2020 - Saleem Sainz M.D.* K40.90 Unilateral inguinal hernia, without obstruction or gangrene, not specified as recurrent* Comments:* Patient was counseled for repair of his inguinal hernia. I have recommended a robotic- assisted laparoscopic repair with mesh. He had an opportunity to ask quest ions. He was counseled regarding the risks which include but are not limited to bleeding, infection, scarring, adverse drug reaction, need for further surgery, injury of internal organ, and recurrence of his hernia. He desires to proceed with the surgery and this will be scheduled as an ambulatory procedure. * G47.33 Obstructive sleep apnea (adult) (pediatric) Functional Status Description No Information Available Mental Status Description No Information Available Referrals Refer to Reason for Referral Status Appt Date Saleem Sainz M.D. RLQ PAIN Scheduled 10/10/2019 [facility] [address] [place] [address] [phone]
--- OUTSIDE RECORDS SUMMARY | 2020-03-24 10:59 | CCD ---
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 N20.2 Active 106308035 Problem Other malignant neoplasm of skin of trunk, except scrotum 173.5 Active 699278248 Problem Elevated PSA (prostate specific antigen) 790.93 Active 871888154 Problem Nocturia 788.43 Active 153756846 Problem Kidney stone 592.0 Active 23926865 ALLERGIES No Known Allergies ENCOUNTERS from 1945 to 2020-01-27 Encounter Location Date Provider Diagnosis [facility] Urology [id number] [place] [address] [place] [address] Jan Sammy Perez IMMUNIZATIONS No Information SOCIAL [...] Information RESULTS No Results REASON FOR VISIT Urinary issues MEDICAL (GENERAL) HISTORY Type Description Date Medical [...] Surgery related Hospitalization History X 5days at [facility] for whooping cough 0 10/07/2014 Goals Section [...] Details Provider Name:Julián Segundo, 2020-06-01 11:00:00 AM, [address], [place], [address], Insurance Providers Payer Name Payer Address Payer Phone Insured Name Patient Relati onship to Insured Coverage Start Date Coverage End Date MEDICARE Part A and B [address] [facility] [place] [phone] [facility] [address] [address] [facility] [phone] [employer]
--- OUTSIDE RECORDS SUMMARY | 2020-03-24 10:59 | CCD | Continuity of Care Document ---
Author Author Timmy Pickett MD Organization Unknown Address [address] [facility] [address] [place] [address] Phone [phone] Care Team Providers Care Unattended Ground Sensor Specialist Name Role Phone Igor Pickett JR, MD AUTM Unavailable MagalyKath ha JR, MD AUTM Matt Watson MD AUTM [phone] Pedro Luis Dobbs MD AUTM [phone] OnealMarco jimenez MD AUTM [phone] Sammy Perez M.D. AUTM [phone] [facility] Urology - Urology AUTM Problems Active Problems [...] CPT Code Status Date Vaccine Lot # 11847 Given 12/20/2019 Influenza Vaccin e Quadrivalent Preser/Antibiotic Free Im Use [id number] Given 12/17/2018 Influenza Vaccin e Quadrivalent Preser/Antibiotic Free Im Use U-Flu Given 12/25/2017 Influenza,Unspecified Q2037 Given 01/07/2016 Fluvirin Virus Vaccine 89282 01 U-PneuC Given 03/14/2015 Prevnar 13 [id number] Given 01/28/2011 Fluvirin Virus Vaccine 57858 Given 08/01/2010 Pneumovax 23 26206 Given 01/17/2010 Influenza Virus Vaccine 99425 Given 01/01/2009 Influenza Virus Vaccine 02802 Given 12/27/2007 Influenza Virus Vaccine 53669 Given 12/16/2006 Influenza Virus Vaccine 94243 Given 04/02/2006 Tetanus/Diptheria(Td)Toxoids Preservative Free Vital Signs [...] H/L Range Note Complete Blood Count 01/27/2020 [facility] Pathology Lab Technician: [place] [address] [phone] WBC 7.5 x10*3/UL 4.1 - 10.9 RBC [...] 5.7 x10*3/UL 2.0 - 7.8 A1c 01/27/2020 [facility] Pathology Lab Technician: [place] [address] [phone] Hba1c 6.1 % High <5.7 1 Est Avg Glucose 128 mg/dL High 60 - 110 Comprehensive Chem Profile 01/27/2020 [facility] Pathology Lab Technician: [place] [address] [phone] Glucose 101 mg/dL High 74 - 99 [...] 60 mL/min >60 3 Lipid Profile 01/27/2020 [facility] , Pathology Lab Technician: [place] [address] [phone] Cholesterol 121 mg/dL Low 131 - 200 Triglycerides 77 mg/dL 30 - 150 HDL Cholesterol 45 mg/dL 35 - 60 LDL (Calculated) 61 CALC 50 - 159 [facility] 12/26/2019 [place] [address] [place], [place] [id number] [phone] Specimen Type Kidney Normal . Color Mckinley Normal . Size <1 mm Normal . 4 Weight <1 mg Normal . 5 Composition (SEE NOTE) Normal . 6 CA Oxalate Dihy 90 % Normal . Hydroxyapatite TNP Normal . Carbonate Apatite TNP Normal . Ca Ox Monohydrate 10 % Normal . CA Phosphate TNP Normal . MG [place] Phos TNP Normal . Uric Acid TNP Normal . Ua Dihydrate TNP Normal . Amm Acid Urate TNP Normal . Na Acid Urate TNP Normal . 2.8 Dihydroxyadenine TNP Normal . Xanthine TNP Normal . CA Gordon Phos TNP Normal . Cystine TNP Normal [...] TNP Normal . 10 Urine Culture 12/19/2019 [facility] [address] [place], [place] [id number] [phone] Urine Culture FULL REPORT IN L <SEE NOTE> Normal 11 Complete Blood Count 12/19/2019 [facility] [address] [place] [address] [phone] White Blood Count 6.7 10 Normal 4.0-10.0 [...] % Normal 0-0 Basic Metabolic Profile 12/19/2019 [facility] [address] [place] [address] [phone] Glucose, Fasting 110 mg/dL High 70-100 Blood [...] mg/dL Normal 8.8-10.2 Reflex Urine Culture 11/20/2019 [facility] [address] [place] [address] [phone] Reflex Urine Culture FULL REPORT IN L <SEE NOTE> Norm al 13 Basic Metabolic Profile 11/20/2019 [facility] [address] [place] [address] [phone] Glucose, Fasting 120 mg/dL High 70-100 Blood [...] 8.8-10.2 Ua W/ Reflex To Culture 11/20/[address] [address] [phone] Appearance, Urine RFX CLEAR Normal Clear Color, Urine RFX YELLOW Normal Yellow PH,Urine RFX 6.0 units Normal 5.0-9.0 Specific [place] Ur Auto RFX 1.016 Normal 1.002-1.035 Protein, [...] /LPF Normal 0-1 CBC With Differential 11/20/[address] [address] [phone] White Blood Count 11.3 10 High 4.0-10.0 [...] 36.0-66.0 Lymph % 6.4 % Low 24.0-44.0 Ware % 11.7 % High 0.0-5.0 Eos % 0.2 % Normal 0.0-3.0 Baso % 0.1 % Normal 0.0-1.0 Immature Granulocyte % 0.4 % Normal 0-3.0 Nucleated Red Blood Cell % 0.0 % Normal 0-0 Neutrophils # 9.2 10 High 1.5-8.5 Lymph # 0.7 10 Low 1.5-5.0 Ware # 1.3 10 High 0.0-0.8 Eos # 0.0 10 Normal 0.0-0.5 Baso # 0.0 10 Normal 0.0-0.2 Laboratory test finding 11/20/[address] [id number] [phone] Sars Covid-19 Amplification NEGATIVE Normal Nega tive 15 [facility] 11/20/[address] [address] [phone] Specimen Type (SEE NOTE) Normal . 16 [...] Normal . Xanthine TNP Normal . CA Gordon Phos TNP Normal . Cystine TNP Normal [...] 26 Ua W/ Reflex To Culture 11/15/2019 [facility] [address] [place] [address] [phone] Appearance, Urine RFX HAZY Normal Clear Color, Urine RFX YELLOW Normal Yellow PH,Urine RFX 5.0 units Normal 5.0-9.0 Specific [place] Ur Auto RFX 1.016 Normal 1.002-1.035 Protein, [...] SMALL Normal None Istat Chem8+ Panel 11/15/2019 [facility] [address] [place] [address] [phone] iSTAT HCT 44.0 % Normal 38.0-51.0 iSTAT Glucose 156 mg/dL High 70-105 iSTAT Sodium 144 mEq/L Normal 136-145 iSTAT Potassium 4.1 mEq/L Normal 3.5-5.1 iSTAT CA++ 4.7 mg/dL Normal 4.5-5.3 iSTAT Chloride 107 mEq/L Normal 98-109 iSTAT Co2 23.0 MM/L Normal 23.0-27.0 iSTAT BUN 17 mg/dL Normal 8-26 iSTAT Creatinine 1.0 mg/dL Normal 0.6-1.3 Complete Blood Count 11/15/[address] [address] [phone] White Blood Count 14.7 10 High 4.0-10.0 [...] % Normal 0-0 Basic Metabolic Profile 11/15/[address] [address] [phone] Glucose, Fasting 148 mg/dL High 70-100 Blood [...] mg/dL Normal 8.8-10.2 Laboratory test finding 11/15/[address] [address] [phone] Thyroid Stimulating Hormone 0.715 uIU/ML Normal 0. 358-3.740 CBC With Differential 11/02/2019 [facility] [address] [place], [place] [address] [phone] White Blood Count 7.7 10 Normal 4.0-10.0 [...] 36.0-66.0 Lymph % 14.3 % Low 24.0-44.0 Ware % 7.2 % High 0.0-5.0 Eos % 0.8 % Normal 0.0-3.0 Baso % 0.3 % Normal 0.0-1.0 Immature Granulocyte % 0.3 % Normal 0-3.0 Nucleated Red Blood Cell % 0.0 % Normal 0-0 Neutrophils # 6.0 10 Normal 1.5-8.5 Lymph # 1.1 10 Low 1.5-5.0 Ware # 0.6 10 Normal 0.0-0.8 Eos # 0.1 10 Normal 0.0-0.5 Baso # 0.0 10 Normal 0.0-0.2 Basic Metabolic Profile 11/02/[address] [id number] [phone] Glucose, Fasting 131 mg/dL High 70-100 Blood [...] mg/dL Normal 8.8-10.2 Complete Blood Count 09/29/2019 [facility] Pathology Lab Technician: [place] [address] [phone] WBC 7.7 x10*3/UL 4.1 - 10.9 RBC [...] 2.0 - 7.8 Comprehensive Chem Profile 09/29/2019 [facility] Pathology Lab Technician: [place] [address] [phone] Glucose 101 mg/dL High 74 - 99 [...] LITTLE GFR LEFT ESRD GFR <15 ON TAG METER OPERATOR 4 Too small to measure. 5 Too small to weigh 6 . Percentage (Represents the % composition) 7 . Physician questions regarding [facility] contact [facility] at: [phone]. 8 . Calculi report will follow via computer, mail or manager income tax delivery. 9 . This test was developed and its performance characteristics determined by [facility]. It has not been cleared or approved by the Food and Drug Administration. Performed at: [facility] [address] [place] [address] Dr [address], [place], [place] [id number] Pathology Lab Technician: Gregory Horvath MD, Phone: [phone] Test not performed No photo available [...] Little GFR Left ESRD GFR <15 on TAG METER OPERATOR 13 FULL REPORT IN LAB NOTES (eC W and [facility]). NO GROWTH 14 Units are mL/min/1.73 m2 Chronic Kidney Disease Staging per NKF: Stage I & II GFR >=60 Normal to Mildly Decreased Stage III GFR 30-59 Moderately Decreased Stage IV GFR 15-29 Severely Decreased Stage V GFR <15 Very Little GFR Left ESRD GFR <15 on TAG METER OPERATOR 15 A false negative result may occur [...] pathogens. DISCLAIMER: Testing was performed using the [employer] SARS-CoV-2 test. This test was developed and its performance characteristics determined by [employer]. This test has not been FDA cleared [...] . Physician questions regarding [facility] contact [employer] at: [phone]. 24 . Calculi report will follow via computer, mail or manager income tax delivery. 25 . This test was developed and its performance characteristics determined by [facility]. It has not been cleared or approved by the Food and Drug Administration. Performed at: [facility] [address], [place], [place] [id number] Pathology Lab Technician: Gregory Horvath MD, Phone: [phone] . Photograph will follow under a separate cover 27 Units are mL/min/1.73 m2 Chronic Kidney Disease Staging per NKF: Stage I & II GFR >=60 Normal to Mildly Decreased Stage III GFR 30-59 Moderately Decreased Stage IV GFR 15-29 Severely Decreased Stage V GFR <15 Very Little GFR Left ESRD GFR <15 on TAG METER OPERATOR 28 Units are mL/min/1.73 m2 Chronic Kidney Disease Staging per NKF: Stage I & II GFR >=60 Normal to Mildly Decreased Stage III GFR 30-59 Moderately Decreased Stage IV GFR 15-29 Severely Decreased Stage V GFR <15 Very Little GFR Left ESRD GFR <15 on TAG METER OPERATOR 29 100-125 mg/dL PRE-DIABET ES/FASTING >126 mg/dL DIABETES/FASTING 30 CHRONIC KIDNEY DISEASE STAGI NG PER NKF STAGE I & II GFR >= 60 NORMAL TO MILDLY DECREASED STAGE III GFR 30-59 MODERATELY DECREASED STAGE IV GFR 15-29 SEVERELY DECREASED STAGE V GFR <15 VERY LITTLE GFR LEFT ESRD GFR <15 ON TAG METER OPERATOR Procedures Date Code Description Status 02/11/2017 [id number] Colonoscopy Completed 11/17/2012 [id number] Colonoscopy Completed 09/20/2003 [id number] Colonoscopy Completed Medical Devices Description No Information Available Encounters Type Date Location Provider Dx Diagnosis Office Visit 12/20/2019 1:30p [facility] Igor Pickett MD Z01.810 Encounter [...] Encounter for immunization Office Visit 09/29/2019 2:00p [facility] Igor Pickett MD R10.31 Right [...] MD 12/20/2019 I25.10 Atherosclerotic heart disease of [place] coronary artery with Igor Pickett MD 12/20/2019 [...] MD 09/29/2019 I25.10 Atherosclerotic heart disease of [place] coronary artery with Igor Pickett MD 09/29/2019 [...] Dr Reason for Referral Status Appt Date [facility] CONSULT FOR RT HIP PAIN Closed 08/30/2019 [address] [place] [address] [phone]
--- OUTSIDE RECORDS SUMMARY | 2020-03-24 10:59 | CCD | Continuity of Care Document ---
Author Author Timmy Pickett MD Organization Unknown Address [address] [facility] [address] [place] [address] Phone [phone] Care Team Providers Care Base Filler Name Role Phone Igor Pickett JR, MD AUTM Unavailable MagalyKath ha JR, MD AUTM Matt Watson MD AUTM [phone] Pedro Luis Dobbs MD AUTM [phone] OnealMarco jimenez MD AUTM [phone] Sammy Perez M.D. AUTM [phone] [facility] Urology - Urology AUTM Problems Active [...] Igor Pickett MD 04/22/2018 Lisinopril 30mg Tablets 1 by mouth [...] Igor Pickett MD 02/06/2013 Allopurinol 300mg Tablets 1 by mouth every day 90tabs Igor Pickett MD 08/01/2010 Magnesium Chloride [...] CPT Code Status Date Vaccine Lot # [id number] Given 12/20/2019 Influenza Vaccin e Quadrivalent Preser/Antibiotic Free Im Use [id number] Given 12/17/2018 Influenza Vaccin e Quadrivalent Preser/Antibiotic Free Im Use U-Flu Given 12/25/2017 Influenza,Unspecified Q2037 Given 01/07/2016 Fluvirin Virus Vaccine [id number] 01 U-PneuC Given 03/14/2015 Prevnar 13 [id number] Given 01/28/2011 Fluvirin Virus Vaccine 16873 Given 08/01/2010 Pneumovax 23 99349 Given 01/17/2010 Influenza Virus Vaccine 18175 Given 01/01/2009 Influenza Virus Vaccine 82073 Given 12/27/2007 Influenza Virus Vaccine 28060 Given 12/16/2006 Influenza Virus Vaccine 61308 Given 04/02/2006 Tetanus/Diptheria(Td)Toxoids Preservative Free Vital Signs Date Vital Result Comment 12/20/2019 1:32pm BP Systolic 130 mmHg BP Diastolic 80 mmHg Heart Rate 78 /min Height 68 inches 5'8" Weight 201.00 lb BMI (Body Mass Index) 30.6 kg/m2 09/29/2019 1:44pm BP Systolic 136 mmHg BP Diastolic 80 mmHg Heart Rate 83 /min Height 68 inches 5'8" Weight 208.00 lb O2 % BldC Oximetry 98 % BMI (Body Mass Index) 31.6 kg/m2 Results Test Acquired Date Facility Test Result H/L Range Note [facility] 12/26/[address] [address] [phone] Specimen Type Kidney Normal . Color Mckinley Normal . Size <1 mm Normal . 1 Weight <1 mg Normal . 2 Composition (SEE NOTE) Normal . 3 CA Oxalate Dihy 90 % Normal . Hydroxyapatite TNP Normal . Carbonate Apatite TNP Normal . Ca Ox Monohydrate 10 % Normal . CA Phosphate TNP Normal . MG [employer] Phos TNP Normal . Uric Acid TNP Normal . Ua Dihydrate TNP Normal . Amm Acid Urate TNP Normal . Na Acid Urate TNP Normal . 2.8 Dihydroxyadenine TNP Normal . Xanthine TNP Normal . CA [place]inton Phos TNP Normal . Cystine TNP Normal [...] Normal . Comment (SEE NOTE) Normal . 4 Please Note: (SEE NOTE) Normal . 5 Disclaimer (SEE NOTE) Normal . 6 Photo TNP Normal . 7 Urine Culture 12/19/2019 [facility] nter [address] [place] [address] [phone] Urine Culture FULL REPORT IN L <SEE NOTE> Normal 8 Complete Blood Count 12/19/2019 [facility] enter [address] [place] [address] [phone] White Blood Count 6.7 10 Normal 4.0-10.0 [...] % Normal 0-0 Basic Metabolic Profile 12/19/2019 [facility] [address] [place] [address] [phone] Glucose, Fasting 110 mg/dL High 70-100 Blood Urea Nitrogen 19 mg/dL High 7-18 Creatinine For GFR 0.87 mg/dL Normal 0.70-1.30 Glomerular Filtration Rate > 60.0 Normal >42 9 Sodium Level 142 mEq/L Normal 136-145 Potassium Serum 4.6 mEq/L Normal 3.5-5.1 Chloride Level 110 mEq/L High 98-107 Carbon Dioxide Level 28 mEq/L Normal 21-32 Anion Gap 4 mEq/L Low 8-16 Calcium Level 8.8 mg/dL Normal 8.8-10.2 [facility] 11/20/[address] [address] [phone] Specimen Type (SEE NOTE) Normal . 10 Color Brown Normal . Size 4x4 mm Normal . 11 Weight 38 mg Normal . 12 Composition (SEE NOTE) Normal . 13 CA Oxalate Dihy 20 % Normal . Hydroxyapatite TNP Normal . 14 Carbonate Apatite TNP Normal . Ca Ox Monohydrate 80 % Normal . 15 CA Phosphate TNP Normal . MG Emanuel Phos TNP Normal . Uric Acid TNP Normal . Ua Dihydrate TNP Normal . Amm Acid Urate TNP Normal . Na Acid Urate TNP Normal . 2.8 Dihydroxyadenine TNP Normal . Xanthine TNP Normal . CA [place]inton Phos TNP Normal . Cystine TNP Normal [...] TNP Normal . Comment TNP Normal . 16 Comment TNP Normal . Comment (SEE NOTE) Normal . 17 Please Note: (SEE NOTE) Normal . 18 Disclaimer (SEE NOTE) Normal . 19 Photo (SEE NOTE) Normal . 20 Laboratory test finding 11/20/[address] [address] [phone] Sars Covid-19 Amplification NEGATIVE Normal Nega tive 21 CBC With Differential 11/20/[address] [address] [phone] White Blood Count 11.3 10 High 4.0-10.0 [...] 36.0-66.0 Lymph % 6.4 % Low 24.0-44.0 Ransom % 11.7 % High 0.0-5.0 Eos % 0.2 % Normal 0.0-3.0 Baso % 0.1 % Normal 0.0-1.0 Immature Granulocyte % 0.4 % Normal 0-3.0 Nucleated Red Blood Cell % 0.0 % Normal 0-0 Neutrophils # 9.2 10 High 1.5-8.5 Lymph # 0.7 10 Low 1.5-5.0 Ransom # 1.3 10 High 0.0-0.8 Eos # 0.0 10 Normal 0.0-0.5 Baso # 0.0 10 Normal 0.0-0.2 Ua W/ Reflex To Culture 11/20/2019 [place] [id number] [phone] Appearance, Urine RFX CLEAR Normal Clear Color, Urine RFX YELLOW Normal Yellow PH,Urine RFX 6.0 units Normal 5.0-9.0 Specific [place] Ur Auto RFX 1.016 Normal 1.002-1.035 Protein, [...] Urine Auto RFX 0 /LPF Normal 0-1 Basic Metabolic Profile 11/20/2019 [place] [address] [phone] Glucose, Fasting 120 mg/dL High 70-100 Blood Urea Nitrogen 19 mg/dL High 7-18 Creatinine For GFR 1.32 mg/dL High 0.70-1.30 Glomerular Filtration Rate 56.6 Normal >42 2 2 Sodium Level 137 mEq/L Normal 136-145 Potassium Serum 3.8 mEq/L Normal 3.5-5.1 Chloride Level 104 mEq/L Normal 98-107 Carbon Dioxide Level 28 mEq/L Normal 21-32 Anion Gap 5 mEq/L Low 8-16 Calcium Level 8.7 mg/dL Low 8.8-10.2 Reflex Urine Culture 11/20/2019 [facility] enter [address] [place] [address] [phone] Reflex Urine Culture FULL REPORT IN L <SEE NOTE> Norm al 23 Laboratory test finding 11/15/2019 [facility] [address] [place] [address] [phone] Thyroid Stimulating Hormone 0.715 uIU/ML Normal 0. 358-3.740 Basic Metabolic Profile 11/15/2019 [facility] [address] [place], [place] [id number] [phone] Glucose, Fasting 148 mg/dL High 70-100 Blood Urea Nitrogen 17 mg/dL Normal 7-18 Creatinine For GFR 1.17 mg/dL Normal 0.70-1.30 Glomerular Filtration Rate > 60.0 Normal >42 2 4 Sodium Level 141 mEq/L Normal 136-145 Potassium Serum 4.3 mEq/L Normal 3.5-5.1 Chloride Level 112 mEq/L High 98-107 Carbon Dioxide Level 25 mEq/L Normal 21-32 Anion Gap 4 mEq/L Low 8-16 Calcium Level 9.4 mg/dL Normal 8.8-10.2 Complete Blood Count 11/15/2019 [facility] enter [address] [place] [address] [phone] White Blood Count 14.7 10 High 4.0-10.0 [...] Blood Cell % 0.0 % Normal 0-0 Istat Chem8+ Panel 11/15/2019 [facility] nter [address] [place] [address] [phone] iSTAT HCT 44.0 % Normal 38.0-51.0 iSTAT Glucose 156 mg/dL High 70-105 iSTAT Sodium 144 mEq/L Normal 136-145 iSTAT Potassium 4.1 mEq/L Normal 3.5-5.1 iSTAT CA++ 4.7 mg/dL Normal 4.5-5.3 iSTAT Chloride 107 mEq/L Normal 98-109 iSTAT Co2 23.0 MM/L Normal 23.0-27.0 iSTAT BUN 17 mg/dL Normal 8-26 iSTAT Creatinine 1.0 mg/dL Normal 0.6-1.3 Ua W/ Reflex To Culture 11/15/[address] [address] [phone] Appearance, Urine RFX HAZY Normal Clear Color, Urine RFX YELLOW Normal Yellow PH,Urine RFX 5.0 units Normal 5.0-9.0 Specific [place] Ur Auto RFX 1.016 Normal 1.002-1.035 Protein, [...] Calcium Oxalate Crystals RFX SMALL Normal None CBC With Differential 11/02/[address] [address] [phone] White Blood Count 7.7 10 Normal 4.0-10.0 [...] 36.0-66.0 Lymph % 14.3 % Low 24.0-44.0 Ransom % 7.2 % High 0.0-5.0 Eos % 0.8 % Normal 0.0-3.0 Baso % 0.3 % Normal 0.0-1.0 Immature Granulocyte % 0.3 % Normal 0-3.0 Nucleated Red Blood Cell % 0.0 % Normal 0-0 Neutrophils # 6.0 10 Normal 1.5-8.5 Lymph # 1.1 10 Low 1.5-5.0 Ransom # 0.6 10 Normal 0.0-0.8 Eos # 0.1 10 Normal 0.0-0.5 Baso # 0.0 10 Normal 0.0-0.2 Basic Metabolic Profile 11/02/[address] [address] [phone] Glucose, Fasting 131 mg/dL High 70-100 Blood Urea Nitrogen 16 mg/dL Normal 7-18 Creatinine For GFR 0.94 mg/dL Normal 0.70-1.30 Glomerular Filtration Rate > 60.0 Normal >42 2 5 Sodium Level 144 mEq/L Normal 136-145 Potassium Serum 4.4 mEq/L Normal 3.5-5.1 Chloride Level 110 mEq/L High 98-107 Carbon Dioxide Level 29 mEq/L Normal 21-32 Anion Gap 5 mEq/L Low 8-16 Calcium Level 8.9 mg/dL Normal 8.8-10.2 Complete Blood Count 09/29/2019 [facility] Turner: Dr Igor Pickett [place], [place] [id number] [phone] WBC 7.7 x10*3/UL 4.1 - 10.9 RBC [...] 2.0 - 7.8 Comprehensive Chem Profile 09/29/2019 [facility], [facility] Turner: [place] [address] [phone] Glucose 101 mg/dL High 74 - 99 26 BUN 20 mg/dL High 7 - 18 [...] mL/min >60 GFR >= 60 mL/min >60 27 A1c 07/15/2019 [facility] , [facility] Turner: [place] [address] [phone] Hba1c 6.2 g/dL High 4.8 - 5.6 28 Est Avg Glucose 131 mg/dL High 60 - 110 Comprehensive Chem Profile 07/15/2019 [facility], [facility] Turner: [place] [address] [phone] Glucose 109 mg/dL High 74 - 99 29 BUN 13 mg/dL 7 - 18 Creatinine 0.9 mg/dL 0.6 - 1.3 Sodium 143 mEq/L 136 - 145 Potassium 4.1 mEq/L 3.5 - 5.1 Chloride 107 mEq/L 98 - 107 Carbon Dioxide 29 mEq/L 21 - 32 Calcium 8.9 mg/dL 8.5 - 10.1 Alk. Phosphatase 98 mg/dL 46 - 116 Total Bilirubin 0.7 mg/dL 0.2 - 1.0 Ast (Sgot) 18 U/L 15 - 37 Alt (SGPT) 37 U/L 12 - 78 Albumin 4.0 g/dL 3.4 - 5.0 Total Protein 7.0 g/dL 6.4 - 8.2 A/G Ratio 1.33 CALC 1.00 - 1.90 GFR >= 60 mL/min >60 GFR >= 60 mL/min >60 30 Lipid Profile 07/15/2019 [facility] , [facility] Turner: [place] [address] [phone] Cholesterol 118 mg/dL Low 131 - 200 Triglycerides 95 mg/dL 30 - 150 HDL Cholesterol 42 mg/dL 35 - 60 LDL (Calculated) 57 CALC 50 - 159 Laboratory test finding 07/15/2019 [facility], [facility] Turner: [place] [address] [phone] PSA 1.24 ng/mL <4.00 31 1 Too small to measure. 2 Too small to weigh 3 . Percentage (Represents the % composition) 4 . Physician questions regarding [facility] contact [facility] at: [phone]. 5 . Calculi report will follow via computer, mail or inbound call center representative delivery. 6 . This test was developed and its performance characteristics determined by [employer]. It has not been cleared or approved by the Food and Drug Administration. Performed at: [facility] [address] [place], [place] [id number] [facility] Turner: Gregory Horvath MD, Phone: [phone] Test not performed No photo available 8 FULL REPORT IN LAB NOTES (eC W and [facility]). NO GROWTH 9 Units are mL/min/1.73 m2 Chronic Kidney Disease Staging per NKF: Stage I & II GFR >=60 Normal to Mildly Decreased Stage III GFR 30-59 Moderately Decreased Stage IV GFR 15-29 Severely Decreased Stage V GFR <15 Very Little GFR Left ESRD GFR <15 on BIOMEDICAL TECHNICIAN 10 . Not provided . Right Ureter --- 12/09/191712 --- Spec Type previously reported as: . Not provided 11 Multiple pieces received. D imensions of the largest piece reported. Single piece received. --- 12/09/191712 --- CAL2 previously reported as: 1x2 mm Multiple pieces received. Dimensions of the largest piece reported. 12 --- 12/09/191712 --- CAL3 previously reported as: 10 mg 13 . Percentage (Represents the % composition) 14 --- 12/09/191712 --- Hydroxyapatite previously reported as: 20 % 15 --- 12/09/191712 --- CAL6 previously reported as: 60 % 16 . Stone #2 of 2 --- 12/09/191712 --- CAL25 previously reported as: Test not performed 17 . Physician questions regarding [facility] contact [employer] at: [phone]. 18 . Calculi report will follow via computer, mail or inbound call center representative delivery. 19 . This test was developed and its performance characteristics determined by [employer]. It has not been cleared or approved by the Food and Drug Administration. Performed at: [facility] [address] [place] [address] Dr [place], [place], [place] [id number] [facility]case Turner: Gregory Horvath MD, Phone: [phone] 20 . Photograph will follow under a separate cover 21 A false negative result may occur if [...] pathogens. DISCLAIMER: Testing was performed using the [employer] SARS-CoV-2 test. This test was developed and its performance characteristics determined by [employer]. This test has not been FDA cleared [...] the authorization is terminated or revoked sooner. 22 Units are mL/min/1.73 m2 Chronic Kidney Disease Staging per NKF: Stage I & II GFR >=60 Normal to Mildly Decreased Stage III GFR 30-59 Moderately Decreased Stage IV GFR 15-29 Severely Decreased Stage V GFR <15 Very Little GFR Left ESRD GFR <15 on BIOMEDICAL TECHNICIAN 23 FULL REPORT IN LAB NOTES (eC W and [facility]). NO GROWTH 24 Units are mL/min/1.73 m2 Chronic Kidney Disease Staging per NKF: Stage I & II GFR >=60 Normal to Mildly Decreased Stage III GFR 30-59 Moderately Decreased Stage IV GFR 15-29 Severely Decreased Stage V GFR <15 Very Little GFR Left ESRD GFR <15 on BIOMEDICAL TECHNICIAN 25 Units are mL/min/1.73 m2 Chronic Kidney Disease Staging per NKF: Stage I & II GFR >=60 Normal to Mildly Decreased Stage III GFR 30-59 Moderately Decreased Stage IV GFR 15-29 Severely Decreased Stage V GFR <15 Very Little GFR Left ESRD GFR <15 on BIOMEDICAL TECHNICIAN 26 100-125 mg/dL PRE-DIABET ES/FASTING >126 mg/dL DIABETES/FASTING 27 CHRONIC KIDNEY DISEASE STAGI NG PER NKF STAGE I & II GFR >= 60 NORMAL TO MILDLY DECREASED STAGE III GFR 30-59 MODERATELY DECREASED STAGE IV GFR 15-29 SEVERELY DECREASED STAGE V GFR <15 VERY LITTLE GFR LEFT ESRD GFR <15 ON BIOMEDICAL TECHNICIAN 28 Lab Result Notes: Pre-Diabetes 5.7 - 6.4 % Diabetes = or > 6.5% 29 100-125 mg/dL PRE-DIABET ES/FASTING >126 mg/dL DIABETES/FASTING 30 CHRONIC KIDNEY DISEASE STAGI NG PER NKF STAGE I & II GFR >= 60 NORMAL TO MILDLY DECREASED STAGE III GFR 30-59 MODERATELY DECREASED STAGE IV GFR 15-29 SEVERELY DECREASED STAGE V GFR <15 VERY LITTLE GFR LEFT ESRD GFR <15 ON BIOMEDICAL TECHNICIAN 31 This assay was performed on the [employer] using the B- Galactosidase/CPRG methodology and should not be compared interchangeably with other methods. The PSA should not be used alone as a screening test for the presence or absence of malignant disease. 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.5 Presence of coronary angiopl asty implant and graft Office Visit 07/18/2019 1:00p [facility] MD R10.31 Right lower quadrant pain G47.33 Obstructive sleep apnea (js lt) (pediatric) E78.00 Pure hypercholesterolemia, u nspecified N40.0 Benign prostatic hyperplasia without lower urinry tract symp I47.1 Supraventricular tachycardia 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.5 Presence of coronary angiopl asty implant and graft R73.09 Other abnormal glucose I11.0 Hypertensive heart disease w ith heart failure I50.32 Chronic diastolic (congestiv e) heart failure Z13.89 Encounter for screening for other disorder Assessments Date Code Description Provider 12/20/2019 Z01.810 Encounter for preprocedural card iovascular examination Igor Pickett MD 12/20/2019 N20.2 Calculus of kidney with calculus of ureter Igor Pickett MD 12/20/2019 G47.33 Obstructive sleep apnea (adult) (pediatric) Igor Pickett MD 12/20/2019 I25.10 Atherosclerotic heart disease of [place] coronary artery with Igor Pickett MD 12/20/2019 [...] MD 09/29/2019 I25.10 Atherosclerotic heart disease of [place] coronary artery with Igor Pickett MD 09/29/2019 [...] (congestive) h eart failure Igor Pickett MD 07/18/2019 R10.31 Right lower quadrant pain Eddi blanca Pickett MD 07/18/2019 G47.33 Obstructive sleep apnea (adult) (pediatric) Igor Pickett MD 07/18/2019 E78.00 Pure hypercholesterolemia, unspe cified Igor Pickett MD 07/18/2019 N40.0 Benign prostatic hyp erplasia without lower urinary tract symptoms Igor Pickett MD 07/18/2019 I47.1 Supraventricular tachycardia Col amadou Pickett MD 07/18/2019 I25.10 Atherosclerotic heart disease of [place] coronary artery with Igor Pickett MD 07/18/2019 Z95.5 Presence of coronary angioplasty implant and graft Igor Pickett MD 07/18/2019 R73.09 Other abnormal glucose Igor Pickett MD 07/18/2019 I11.0 Hypertensive heart disease with heart failure Igor Pickett MD 07/18/2019 I50.32 Chronic diastolic (congestive) h eart failure Igor Pickett MD 07/18/2019 Z13.89 Encounter for screening for othe r disorder Igor Pickett MD 07/15/2019 R73.09 Other abnormal glucose Igor Pickett MD 07/15/2019 R73.09 Other abnormal glucose Lab Sched ule 07/15/2019 I10 Essential (primary) hypertension Igor Pickett MD 07/15/2019 I10 Essential (primary) hypertension Lab Schedule 07/15/2019 E78.00 Pure hypercholesterolemia, unspe cified Igor Pickett MD 07/15/2019 E78.00 Pure hypercholesterolemia, unspe cified Lab Schedule 07/15/2019 Z12.5 Encounter for screening for ajay gnant neoplasm of prostate Igor Pickett MD 07/15/2019 Z12.5 Encounter for screening for ajay gnant neoplasm of prostate Lab Schedule Plan of Treatment Future Appointment(s):* 01/27/2020 8:40 am - Lab Schedule at [facility] * 01/30/2020 10:40 am - Igor Pickett MD at [facility] 12/20/2019 - Igor Pickett MD* Z01.810 Encounter for preprocedural cardiovascular examination * N20.2 Calculus of kidney with calculus of ureter * G47.33 Obstructive sleep apnea (adult) (pediatric) * I25.10 Atherosclerotic heart disease of [place] coronary artery with * Z95.5 Presence of coronary angioplasty implant and graft * I11.0 Hypertensive heart disease with heart failure* Comments:* Compliance with meds and diet. * I50.42 Chronic combined systolic (congestive) and diastolic (congestive) heart failure * I47.1 Supraventricular tachycardia * Z23 Encounter for immunization Functional Status Description No Information Available Mental Status Description No Information Available Referrals Refer to Reason for Referral Status Appt Date [facility] CONSULT FOR RT HIP PAIN Closed 08/30/2019 [address] [place], [place] [id number] [phone]
--- OUTSIDE RECORDS SUMMARY | 2020-03-24 10:59 | CCD | Continuity of Care Document ---
Author Author Timmy Lopez Organization Unknown Address [address] [place] [phone] Phone Unavailable Care Team Providers Care Head Of Operation And Logistics Name Role Phone Igor Pickett JR, MD AUTM Unavailable Kath Mckenzie JR, MD AUTM Matt Watson MD AUTM [phone] Pedro Luis Dobbs MD AUTM [phone] Marco No MD AUTM [phone] Sammy Perez M.D. AUTM [phone] [facility] Urology - Urology AUTM Problems Active [...] CPT Code Status Date Vaccine Lot # 35350 Given 12/20/2019 Influenza Vaccin e Quadrivalent Preser/Antibiotic Free Im Use [id number] Given 12/17/2018 Influenza Vaccin e Quadrivalent Preser/Antibiotic Free Im Use U-Flu Given 12/25/2017 Influenza,Unspecified Q2037 Given 01/07/2016 Fluvirin Virus Vaccine 26582 01 U-PneuC Given 03/14/2015 Prevnar 13 [id number] Given 01/28/2011 Fluvirin Virus Vaccine 68098 Given 08/01/2010 Pneumovax 23 15967 Given 01/17/2010 Influenza Virus Vaccine 43121 Given 01/01/2009 Influenza Virus Vaccine 66152 Given 12/27/2007 Influenza Virus Vaccine 79276 Given 12/16/2006 Influenza Virus Vaccine 33369 Given 04/02/2006 Tetanus/Diptheria(Td)Toxoids Preservative Free Vital Signs [...] H/L Range Note Calculus Analysis,Stone Dipika 12/26/2019 [facility] [address] [place] [address] [phone] Specimen Type Kidney Normal . Color Mckinley Normal . Size <1 mm Normal . 1 Weight <1 mg Normal . 2 Composition (SEE NOTE) Normal . 3 CA Oxalate Dihy 90 % Normal . Hydroxyapatite TNP Normal . Carbonate Apatite TNP Normal . Ca Ox Monohydrate 10 % Normal . CA Phosphate TNP Normal . MG Emanuel Phos TNP Normal . Uric Acid TNP Normal . Ua Dihydrate TNP Normal . Amm Acid Urate TNP Normal . Na Acid Urate TNP Normal . 2.8 Dihydroxyadenine TNP Normal . Xanthine TNP Normal . CA [place] Phos TNP Normal . Cystine TNP Normal [...] TNP Normal . 7 Urine Culture 12/19/2019 [facility] Ce nter [address] [place] [address] [phone] Urine Culture FULL REPORT IN L <SEE NOTE> Normal 8 Complete Blood Count 12/19/2019 [facility] enter [address] [place] [address] [phone] White Blood Count 6.7 10 Normal 4.0-10.0 [...] % Normal 0-0 Basic Metabolic Profile 12/19/[address] [id number] [phone] Glucose, Fasting 110 mg/dL High 70-100 Blood [...] mg/dL Normal 8.8-10.2 Reflex Urine Culture 11/20/2019 [facility] enter [address] [place] [address] [phone] Reflex Urine Culture FULL REPORT IN L <SEE NOTE> Norm al 10 Basic Metabolic Profile 11/20/2019 [facility] [address] [place] [address] [phone] Glucose, Fasting 120 mg/dL High 70-100 Blood Urea Nitrogen 19 mg/dL High 7-18 Creatinine For GFR 1.32 mg/dL High 0.70-1.30 Glomerular Filtration Rate 56.6 Normal >42 1 1 Sodium Level 137 mEq/L Normal 136-145 Potassium Serum 3.8 mEq/L Normal 3.5-5.1 Chloride Level 104 mEq/L Normal 98-107 Carbon Dioxide Level 28 mEq/L Normal 21-32 Anion Gap 5 mEq/L Low 8-16 Calcium Level 8.7 mg/dL Low 8.8-10.2 Ua W/ Reflex To Culture 11/20/[address] [address] [phone] Appearance, Urine RFX CLEAR Normal Clear Color, Urine RFX YELLOW Normal Yellow PH,Urine RFX 6.0 units Normal 5.0-9.0 Specific [place] Ur Auto RFX 1.016 Normal 1.002-1.035 Protein, [...] /LPF Normal 0-1 CBC With Differential 11/20/[address] [address] [phone] White Blood Count 11.3 10 High 4.0-10.0 [...] 36.0-66.0 Lymph % 6.4 % Low 24.0-44.0 Elbert % 11.7 % High 0.0-5.0 Eos % 0.2 % Normal 0.0-3.0 Baso % 0.1 % Normal 0.0-1.0 Immature Granulocyte % 0.4 % Normal 0-3.0 Nucleated Red Blood Cell % 0.0 % Normal 0-0 Neutrophils # 9.2 10 High 1.5-8.5 Lymph # 0.7 10 Low 1.5-5.0 Elbert # 1.3 10 High 0.0-0.8 Eos # 0.0 10 Normal 0.0-0.5 Baso # 0.0 10 Normal 0.0-0.2 Laboratory test finding 11/20/[address] [address] [phone] Sars Covid-19 Amplification NEGATIVE Normal Nega tive 12 Calculus Analysis,Stone Dipika 11/20/[address] [address] [phone] Specimen Type (SEE NOTE) Normal . 13 Color Brown Normal . Size 4x4 mm Normal . 14 Weight 38 mg Normal . 15 Composition (SEE NOTE) Normal . 16 CA Oxalate Dihy 20 % Normal . Hydroxyapatite TNP Normal . 17 Carbonate Apatite TNP Normal . Ca Ox Monohydrate 80 % Normal . 18 CA Phosphate TNP Normal . MG Eamnuel Phos TNP Normal . Uric Acid TNP Normal . Ua Dihydrate TNP Normal . Amm Acid Urate TNP Normal . Na Acid Urate TNP Normal . 2.8 Dihydroxyadenine TNP Normal . Xanthine TNP Normal . CA [place] Phos TNP Normal . Cystine TNP Normal [...] TNP Normal . Comment TNP Normal . 19 Comment TNP Normal . Comment (SEE NOTE) Normal . 20 Please Note: (SEE NOTE) Normal . 21 Disclaimer (SEE NOTE) Normal . 22 Photo (SEE NOTE) Normal . 23 Ua W/ Reflex To Culture 11/15/2019 [place] [address] [place], [place] [address] [phone] Appearance, Urine RFX HAZY Normal Clear Color, Urine RFX YELLOW Normal Yellow PH,Urine RFX 5.0 units Normal 5.0-9.0 Specific [place] Ur Auto RFX 1.016 Normal 1.002-1.035 Protein, [...] SMALL Normal None Istat Chem8+ Panel 11/15/2019 [facility] Ce nter [address] [place] [address] [phone] iSTAT HCT 44.0 % Normal 38.0-51.0 iSTAT Glucose 156 mg/dL High 70-105 iSTAT Sodium 144 mEq/L Normal 136-145 iSTAT Potassium 4.1 mEq/L Normal 3.5-5.1 iSTAT CA++ 4.7 mg/dL Normal 4.5-5.3 iSTAT Chloride 107 mEq/L Normal 98-109 iSTAT Co2 23.0 MM/L Normal 23.0-27.0 iSTAT BUN 17 mg/dL Normal 8-26 iSTAT Creatinine 1.0 mg/dL Normal 0.6-1.3 Complete Blood Count 11/15/2019 [facility] enter [address] [place] [address] [phone] White Blood Count 14.7 10 High 4.0-10.0 [...] % Normal 0-0 Basic Metabolic Profile 11/15/[address] [address] [phone] Glucose, Fasting 148 mg/dL High 70-100 Blood [...] mg/dL Normal 8.8-10.2 Laboratory test finding 11/15/[address] [address] [phone] Thyroid Stimulating Hormone 0.715 uIU/ML Normal 0. 358-3.740 CBC With Differential 11/02/[address] [address] [phone] White Blood Count 7.7 10 Normal 4.0-10.0 [...] 36.0-66.0 Lymph % 14.3 % Low 24.0-44.0 Elbert % 7.2 % High 0.0-5.0 Eos % 0.8 % Normal 0.0-3.0 Baso % 0.3 % Normal 0.0-1.0 Immature Granulocyte % 0.3 % Normal 0-3.0 Nucleated Red Blood Cell % 0.0 % Normal 0-0 Neutrophils # 6.0 10 Normal 1.5-8.5 Lymph # 1.1 10 Low 1.5-5.0 Elbert # 0.6 10 Normal 0.0-0.8 Eos # 0.1 10 Normal 0.0-0.5 Baso # 0.0 10 Normal 0.0-0.2 Basic Metabolic Profile 11/02/2019 [facility] [address] [place] [address] [phone] Glucose, Fasting 131 mg/dL High 70-100 Blood [...] mg/dL Normal 8.8-10.2 Complete Blood Count 09/29/2019 [facility] Medical Center Representative: [place] [address] [phone] WBC 7.7 x10*3/UL 4.1 - 10.9 RBC [...] 2.0 - 7.8 Comprehensive Chem Profile 09/29/2019 [facility] Representative: Dr Igor Pickett [place], [place] [address] [phone] Glucose 101 mg/dL High 74 - 99 [...] >60 GFR >= 60 mL/min >60 27 1 Too small to measure. 2 Too small to weigh 3 . Percentage (Represents the % composition) 4 . Physician questions regarding Calculi Analysis contact [employer] at: [phone]. 5 . Calculi report will follow via computer, mail or premium card cancellation clerk delivery. 6 . This test was developed and its performance characteristics determined by [employer]. It has not been cleared or approved by the Food and Drug Administration. Performed at: [facility] [address] [place] [address] Dr Baumann, [place], [place] [id number] Medical Center Representative: Gregory Horvath MD, Phone: [phone] Test not performed No photo available [...] Little GFR Left ESRD GFR <15 on ROLL OVER LOADER 10 FULL REPORT IN LAB NOTES (eC W and [employer]). NO GROWTH 11 Units are mL/min/1.73 m2 Chronic Kidney Disease Staging per NKF: Stage I & II GFR >=60 Normal to Mildly Decreased Stage III GFR 30-59 Moderately Decreased Stage IV GFR 15-29 Severely Decreased Stage V GFR <15 Very Little GFR Left ESRD GFR <15 on ROLL OVER LOADER 12 A false negative result may occur if [...] pathogens. DISCLAIMER: Testing was performed using the [employer] SARS-CoV-2 test. This test was developed and its performance characteristics determined by [employer]. This test has not been FDA cleared [...] the authorization is terminated or revoked sooner. 13 . Not provided . Right Ureter --- 12/09/191712 --- Spec Type previously reported as: . Not provided 14 Multiple pieces received. D imensions of the largest piece reported. Single piece received. --- 12/09/191712 --- CAL2 previously reported as: 1x2 mm Multiple pieces received. Dimensions of the largest piece reported. 15 --- 12/09/191712 --- CAL3 previously reported as: 10 mg 16 . Percentage (Represents the % composition) 17 --- 12/09/19 1713 --- Hydroxyapatite previously reported as: 20 % 18 --- 12/09/19 1713 --- CAL6 previously reported as: 60 % 19 . Stone #2 of 2 --- 12/09/19 171 --- CAL25 previously reported as: Test not performed 20 . Physician questions regarding Calculi Analysis contact [employer] at: [phone]. 21 . Calculi report will follow via computer, mail or premium card cancellation clerk delivery. 22 . This test was developed and its performance characteristics determined by [employer]. It has not been cleared or approved by the Food and Drug Administration. Performed at: [facility] [address] [place] [address] Dr Baumann, [place], [place] [id number] Medical Center Representative: Gregory Horvath MD, Phone: [phone] 23 . Photograph will follow under a separate cover 24 Units are mL/min/1.73 m2 Chronic Kidney Disease Staging per NKF: Stage I & II GFR >=60 Normal to Mildly Decreased Stage III GFR 30-59 Moderately Decreased Stage IV GFR 15-29 Severely Decreased Stage V GFR <15 Very Little GFR Left ESRD GFR <15 on ROLL OVER LOADER 25 Units are mL/min/1.73 m2 Chronic Kidney Disease Staging per NKF: Stage I & II GFR >=60 Normal to Mildly Decreased Stage III GFR 30-59 Moderately Decreased Stage IV GFR 15-29 Severely Decreased Stage V GFR <15 Very Little GFR Left ESRD GFR <15 on ROLL OVER LOADER 26 100-125 mg/dL PRE-DIABET ES/FASTING >126 mg/dL DIABETES/FASTING 27 CHRONIC KIDNEY DISEASE STAGI NG PER NKF STAGE I & II GFR >= 60 NORMAL TO MILDLY DECREASED STAGE III GFR 30-59 MODERATELY DECREASED STAGE IV GFR 15-29 SEVERELY DECREASED STAGE V GFR <15 VERY LITTLE GFR LEFT ESRD GFR <15 ON ROLL OVER LOADER Procedures Date Code Description Status 02/11/2017 94069310 Colonoscopy Completed 11/17/2012 [id number] Colonoscopy Completed 09/20/2003 63239047 Colonoscopy Completed Medical Devices Description No Information Available Encounters Type Date Location Provider Dx Diagnosis [facility] Z[facility] Encounter for preprocedural cardiovascul [...] Encounter for immunization Office Visit 09/29/2019 2:00p [facility] 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 Igor Pickett MD 12/20/2019 I47.1 Supraventricular tachycardia Col amadoublanca Pickett MD 12/20/2019 Z23 Encounter for immunization Colli mary Pickett MD 11/30/2019 E78.00 Pure hypercholesterolemia, unspe cified Igor Pickett MD 11/30/2019 G47.33 Obstructive sleep apnea (adult) (pediatric) Igor Picktet MD 11/30/2019 I10 Essential (primary) hypertension Igor [...] MD 09/29/2019 I25.10 Atherosclerotic heart disease of [place] coronary artery with Igor Pickett MD 09/29/2019 [...] failure Igor Pickett MD Plan of Treatment Future Appointment(s):* 01/30/2020 10:40 am - Igor Pickett MD at [facility] 12/20/2019 - Igor Pickett MD* Z01.810 Encounter for preprocedural cardiovascular examination * N20.2 Calculus of kidney with calculus of ureter * G47.33 Obstructive sleep apnea (adult) (pediatric) * I25.10 Atherosclerotic heart disease of [place] coronary artery with * Z95.5 Presence of [...] to Reason for Referral Status Appt Date [facility] CONSULT FOR RT HIP PAIN Closed 08/30/2019 [address] [place] [address] [phone]
--- OUTSIDE RECORDS SUMMARY | 2020-03-24 10:59 | CCD | Continuity of Care Document ---
Author Author Timmy SAINZ M.D. Organization Unknown Address [address] [facility] [facility], [address] [place] [address] Phone [phone] Care Team Providers Care Employment Coach Name Role Phone Ludmila Freitas AUTM [phone] Igor Pickett MD @ [facility] AUTM [phone] Andrew Hyatt M.D. AUTM [phone] Pedro Luis Dobbs M.D. AUTM [phone] Problems Active Problems Provider Date Basal Cell [...] Available Vital Signs Date Vital Result Comment 01/09/2020 12:55pm BP Systolic 160 mmHg BP Diastolic 80 mmHg Height 68 inches 5'8" Weight 201.00 lb BMI (Body Mass Index) 30.6 kg/m2 [place] Body Weight 154 lb Weight 91.174 kg 12/12/2019 8:23am BP Systolic 120 mmHg BP Diastolic 78 mmHg Heart Rate 83 /min O2 % BldC Oximetry 95 % Body Temperature 97.4 F Height 68 inches 5'8" Weight 198.00 lb BMI (Body Mass Index) 30.1 kg/m2 [place] Body Weight 154 lb Weight 89.813 kg Results Description No Information Available Procedures Description No Information Available Medical Devices Description No Information Available Encounters Type Date Location Provider Dx Diagnosis Office Visit 12/12/2019 8:30a [facility] NANETTE Callahan G47.33 Obstructive sleep apnea (adult) (pediatr ic) Office Visit 10/10/2019 8:30a [facility] Saleem adams M.D. K40.90 Unil inguinal hernia, w/o obst or gangr, not spcf as recur G47.33 Obstructive sleep apnea (js lt) (pediatric) Assessments Date Code Description Provider 12/12/2019 G47.33 Obstructive sleep apnea (adult) (pediatric) NANETTE Jimenez 10/10/2019 K40.90 Unilateral inguinal hernia, without obstruction or gangrene, not specified as recurrent Saleem Sainz M.D. 10/10/2019 G47.33 Obstructive sleep apnea (adult) (pediatric) Saleem Sainz M.D. Plan of Treatment Future Appointment(s):* 12/13/2020 8:30 am - NANETTE Jimenez at [facility] Pulmonary/Thoracic 12/12/2019 - NANETTE Jimenez* G47.33 Obstructive sleep apnea (adult) (pediatric) * * Follow up:* Follow up in 12 months with compliance report for SAHRA-15 Functional Status Description No Information Available Mental Status Description No Information Available Referrals Refer to Reason for Referral Status Appt Date Saleem Sainz M.D. RLQ PAIN Scheduled 10/10/2019 [facility] [address] [place] [address] [phone]
--- OUTSIDE RECORDS SUMMARY | 2020-03-24 10:59 | CCD ---
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 483569137 Problem Elevated PSA (prostate specific antigen) 790.93 Active 043525204 Problem Nocturia 788.43 Active 218875580 Problem Kidney stone 592.0 Active 13490053 ALLERGIES No Known Allergies ENCOUNTERS from 1945 to 2020-01-16 Encounter Location Date Provider Diagnosis [facility] [address] [place] [address] Jan Sammy Perez Calculus of kidney with calculus of uret er N20.2 IMMUNIZATIONS No Information SOCIAL HISTORY Sex Assigned At : Social History Observation Description Sex Assigned At Unknown REASON FOR REFERRAL No Information VITAL SIGNS Weight 207 lbs Jan, Height 68 in Jan, BMI 31.47 kg/m2 Jan, Heart Rate 66 /min Jan, Respiratory Rate 17 /min Jan, Temperature 97.2 degrees Fahrenheit Jan, Oximetry 98 Jan, Blood pressure systolic 118 mm Hg Jan, Blood pressure diastolic 60 MANUAL mm Hg Jan, MEDICATIONS Medication SIG (Take, Route, Frequency, Duration) Start Date En d Date Status Acetaminophen 325 MG 2 tablet as needed Orally every 4 hrs Active Tamsulosin HCl 0.4 MG take 1 capsule by mouth 30 min after the same meal once each day Orally Once a day for 90 days A ctive Biaxin 500 MG 1 tablet Orally Twice [...] 400 MG 1 tab(s) Orally bid Apr, Acti ve Pantoprazole Sodium 40 mg 1 tab(s) Orally daily Active Proscar 5 MG 1 tablet Orally Once a day for 90 days Not-Taking Ciprofloxacin HCl 500 MG 1 tablet for your cystoscopy today Orally as directed Jan, Active Multi Complete - as directed Orally Activ e Clopidogrel Bisulfate 75 MG 1 tablet Orally Once a day for 30 day(s ) Active Aspir-81 81 MG 1 tablet Orally Once a day for 30 day(s) Active Nitrostat 0.4 MG as directed Sublingual A ctive PROCEDURES Procedure Date Ordered Result Body Site Medication: Lidocaine HCl 2% Jelly 5mL Intravesically 2020-01-09 N/A RESULTS No Results REASON FOR VISIT S/P LASER LITHO. CYSTO W/ STENT REMOVAL MEDICAL (GENERAL) HISTORY Type Description Date Medical [...] Surgery related Hospitalization History X 5days at [facility] for whooping cough 0 10/07/2014 Goals Section No Information Health Concerns No Information MEDICAL EQUIPMENT No Information MENTAL STATUS No Information FUNCTIONAL STATUS No Information ASSESSMENTS Encounter Date Diagnosis Notes Jan, Calculus of kidney with calculus of uret er (ICD-10 - N20.2) PLAN OF TREATMENT Medication Medication Name Sig Start Date Stop Date Ciprofloxacin HCl 500 MG 1 tablet for your cystoscopy today Orally as directed Jan, Next Appt Details as scheduled in May Reason: Provider Name:Julián Segundo, 2020-06-01 11:00:00 AM, [address], [place], [address], Insurance Providers Payer Name Payer Address Payer Phone Insured Name Patient Relati onship to Insured Coverage Start Date Coverage End Date MEDICARE Part A and B [address] [facility] [phone] [facility] [address] [address] [facility] [id number] [facility]
--- OUTSIDE RECORDS SUMMARY | 2020-03-24 11:01 | CCD ---
Author Author [facility] Organization [facility] Address Unknown Phone Unavailable Care Team Providers Care Music Video Producer Name Role Phone Ale Pickett MD Unavailable Unavailable Ale Pickett MD Unavailable Unavailable Ale Pickett MD Unavailable Unavailable Ale Pickett MD Unavailable Unavailable Ale Pickett MD Unavailable Unavailable Ale Pickett MD Unavailable Unavailable Ale Pickett MD Unavailable Unavailable Ale Pickett MD Unavailable Unavailable Ale Pickett MD Unavailable Unavailable Ale Pickett MD Unavailable Unavailable Ale Pickett MD Unavailable Unavailable Ale Pickett MD Unavailable Unavailable Ale Pickett MD Unavailable Unavailable Ale Pickett MD Unavailable Unavailable Ale Pickett MD Unavailable Unavailable Ale Pickett MD Unavailable Unavailable Ale Pickett MD Unavailable Unavailable Ale Pickett MD Unavailable Unavailable Ale Pickett MD Unavailable Unavailable Ale Pickett MD Unavailable Unavailable Ale Pickett MD Unavailable Unavailable Ale Pickett MD Unavailable Unavailable PiyushAle MD Unavailable Unavailable MesaAle MD Unavailable Unavailable MesaAle MD Unavailable Unavailable PiyushAle MD Unavailable Unavailable MesaAle MD Unavailable Unavailable MesaAle MD Unavailable Unavailable MesaAle MD Unavailable Unavailable PiyushAle MD Unavailable Unavailable PiyushAle MD Unavailable Unavailable PiyushAle MD Unavailable Unavailable PiyushAle MD Unavailable Unavailable MesaAle MD Unavailable Unavailable PiyushAle MD Unavailable Unavailable PiyushAle MD Unavailable Unavailable MesaAle MD Unavailable Unavailable MesaAle MD Unavailable Unavailable MesaAle MD Unavailable Unavailable PiyushAle MD Unavailable Unavailable MesaAle MD Unavailable Unavailable PiyushAle MD Unavailable Unavailable MesaAle MD Unavailable Unavailable PiyushAle MD Unavailable Unavailable PiyushAle MD Unavailable Unavailable PiyushAle MD Unavailable Unavailable PiyushAle MD Unavailable Unavailable PiyushAle MD Unavailable Unavailable MesaAle MD Unavailable Unavailable MesaAle MD Unavailable Unavailable MesaAle MD Unavailable Unavailable MesaAle MD Unavailable Unavailable PiyushAle MD Unavailable Unavailable MesaAle MD Unavailable Unavailable PiyushAle MD Unavailable Unavailable MesaAle MD Unavailable Unavailable PiyushAle MD Unavailable Unavailable PiyushAle woodall MD Unavailable Unavailable PiyushAle MD Unavailable Unavailable MesaAle MD Unavailable Unavailable MesaAle MD Unavailable Unavailable MesaAle MD Unavailable Unavailable PiyushAle MD Unavailable Unavailable MesaAle MD Unavailable Unavailable MesaAle woodall MD Unavailable Unavailable MesaAle MD Unavailable Unavailable PiyushAle MD Unavailable Unavailable MesaAle MD Unavailable Unavailable MesaAle MD Unavailable Unavailable MesaAle MD Unavailable Unavailable PiyushAle MD Unavailable Unavailable MesaAle MD Unavailable Unavailable MesaAle MD Unavailable Unavailable PiyushAle MD Unavailable Unavailable MesaAle MD Unavailable Unavailable MesaAle MD Unavailable Unavailable MesaAle MD Unavailable Unavailable Piyush, Ale Costa MD Unavailable Unavailable Mesa, Ale Costa MD Unavailable Unavailable Mesa, Ale Costa MD Unavailable Unavailable Mesa, Ale Costa MD Unavailable Unavailable Mesa, Ale Costa MD Unavailable Unavailable Mesa, Ale Costa MD Unavailable Unavailable Mesa, Ale Costa MD Unavailable Unavailable Piyush, Ale Costa MD Unavailable Unavailable Piyush, Ale Costa MD Unavailable Unavailable FISCHI, Telma DUKE MD Unavailable Unavailable FISCHI, Telma DUKE MD Unavailable Unavailable FISCHI, Telma DUKE MD Unavailable Unavailable FISCHI, Telma DUKE MD Unavailable Unavailable FISCHI, Telma DUKE MD Unavailable Unavailable FISCHI, Telma DUKE MD Unavailable Unavailable FISCHI, Telma DUKE MD Unavailable Unavailable FISCHI, Telma DUKE MD Unavailable Unavailable FISCHI, Telma DUKE MD Unavailable Unavailable FISCHI, Telma DUKE MD Unavailable Unavailable FISCHI, Telma DUKE MD Unavailable Unavailable FISCHI, Telma DUKE MD Unavailable Unavailable FISCHI, Telma DUKE MD Unavailable Unavailable FISCHI, Telma DUKE MD Unavailable Unavailable FISCHI, Telma DUKE MD Unavailable Unavailable FISCHI, Telma DUKE MD Unavailable Unavailable FISCHI, Telma DUKE MD Unavailable Unavailable FISCHI, Telma DUKE MD Unavailable Unavailable FISCHI, Telma DUKE MD Unavailable Unavailable FISCHI, Telma DUKE MD Unavailable Unavailable FISCHI, Telma DUKE MD Unavailable Unavailable FISCHI, Telma DUKE MD Unavailable Unavailable FISCHI, Telma DUKE MD Unavailable Unavailable FISCHI, Telma DUKE MD Unavailable Unavailable FISCHI, Telma DUKE MD Unavailable Unavailable FISCHI, Telma DUKE MD Unavailable Unavailable FISCHI, Telma DUKE MD Unavailable Unavailable FISCHI, Telma DUKE MD Unavailable Unavailable FISCHI, Telma DUKE MD Unavailable Unavailable FISCHI, Telma DUKE MD Unavailable Unavailable FISCHI, Telma DUKE MD Unavailable Unavailable FISCHI, Telma DUKE MD Unavailable Unavailable FISCHI, Telma DUKE MD Unavailable Unavailable FISCHI, Telma DUKE MD Unavailable Unavailable FISCHI, Telma DUKE MD Unavailable Unavailable FISCHI, Telma DUKE MD Unavailable Unavailable FISCHI, Telma DUKE MD Unavailable Unavailable FISCHI, Telma DUKE MD Unavailable Unavailable FISCHI, Telma DUKE MD Unavailable Unavailable FISCHI, Telma DUKE MD Unavailable Unavailable FISCHI, Telma DUKE MD Unavailable Unavailable FISCHI, Telma DUKE MD Unavailable Unavailable FISCHI, Telma DUKE MD Unavailable Unavailable FISCHI, Telma DUKE MD Unavailable Unavailable FISCHI, Telma DUKE MD Unavailable Unavailable FISCHI, Telma DUKE MD Unavailable Unavailable FISCHI, Telma DUKE MD Unavailable Unavailable FISCHI, Telma DUKE MD Unavailable Unavailable FISCHI, Telma DUKE MD Unavailable Unavailable FISCHI, Telma DUKE MD Unavailable Unavailable FISCHI, Telma DUKE MD Unavailable Unavailable FISCHI, Telma DUKE MD Unavailable Unavailable FISCHI, Telma DUKE MD Unavailable Unavailable FISCHI, Telma DUKE MD Unavailable Unavailable FISCHI, Telma DUKE MD Unavailable Unavailable FISCHI, Telma DUKE MD Unavailable Unavailable FISCHI, Telma DUKE MD Unavailable Unavailable FISCHI, Telma DUKE MD Unavailable Unavailable FISCHI, Telma DUKE MD Unavailable Unavailable FISCHI, Telma DUKE MD Unavailable Unavailable FISCHI, Telma DUKE MD Unavailable Unavailable FISCHI, Telma DUKE MD Unavailable Unavailable FISCHI, Telma DUKE MD Unavailable Unavailable FISCHI, Telma DUKE MD Unavailable Unavailable FISCHI, Telma DUKE MD Unavailable Unavailable FISCHI, Telma DUKE MD Unavailable Unavailable FISCHI, Telma DUKE MD Unavailable Unavailable FISCHI, Telma DUKE MD Unavailable Unavailable FISCHI, Telma DUKE MD Unavailable Unavailable FISREY, Telma DUKE MD Unavailable Unavailable FISCHI, Telma DUKE MD Unavailable Unavailable FISCHI, Telma DUKE MD Unavailable Unavailable FISCHI, Telma DUKE MD Unavailable Unavailable FISCHI, Telma DUKE MD Unavailable Unavailable FISCHI, Telma DUKE MD Unavailable Unavailable FISCHI, Telma DUKE MD Unavailable Unavailable FISCHI, Telma DUKE MD Unavailable Unavailable FISCHI, Telma DUKE MD Unavailable Unavailable ZABOROWSKI, J JANELLE CARE MANAGEMENT SPECIALIST Unavailable Unavailable ZABOROWSKI, J JANELLE CARE MANAGEMENT SPECIALIST Unavailable Unavailable ZABOROWSKI, J JANELLE CARE MANAGEMENT SPECIALIST Unavailable Unavailable ZABOROWSKI, J JANELLE CARE MANAGEMENT SPECIALIST Unavailable Unavailable ZABOROWSKI, J JANELLE CARE MANAGEMENT SPECIALIST Unavailable Unavailable ZABOROWSKI, J JANELLE CARE MANAGEMENT SPECIALIST Unavailable Unavailable ZABOROWSKI, J JANELLE CARE MANAGEMENT SPECIALIST Unavailable Unavailable ZABOROWSKI, J JANELLE CARE MANAGEMENT SPECIALIST Unavailable Unavailable ZABOROWSKI, J JANELLE CARE MANAGEMENT SPECIALIST Unavailable Unavailable ZABOROWSKI, J JANELLE CARE MANAGEMENT SPECIALIST Unavailable Unavailable ZABOROWSKI, J JANELLE CARE MANAGEMENT SPECIALIST Unavailable Unavailable ZABOROWSKI, J JANELLE CARE MANAGEMENT SPECIALIST Unavailable Unavailable ZABOROWSKI, J JANELLE CARE MANAGEMENT SPECIALIST Unavailable Unavailable ZABOROWSKI, J JANELLE CARE MANAGEMENT SPECIALIST Unavailable Unavailable ZABOROWSKI, J JANELLE CARE MANAGEMENT SPECIALIST Unavailable Unavailable ZABOROWSKI, J JANELLE CARE MANAGEMENT SPECIALIST Unavailable Unavailable ZABOROWSKI, J JANELLE CARE MANAGEMENT SPECIALIST Unavailable Unavailable ZABOROWSKI, J JANELLE CARE MANAGEMENT SPECIALIST Unavailable Unavailable ZABOROWSKI, J JANELLE CARE MANAGEMENT SPECIALIST Unavailable Unavailable ZABOROWSKI, J JANELLE CARE MANAGEMENT SPECIALIST Unavailable Unavailable ZABOROWSKI, J JANELLE CARE MANAGEMENT SPECIALIST Unavailable Unavailable ZABOROWSKI, J JANELLE CARE MANAGEMENT SPECIALIST Unavailable Unavailable ZABOROWSKI, J JANELLE CARE MANAGEMENT SPECIALIST Unavailable Unavailable ZABOROWSKI, J JANELLE CARE MANAGEMENT SPECIALIST Unavailable Unavailable ZABOROWSKI, J JANELLE CARE MANAGEMENT SPECIALIST Unavailable Unavailable ZABOROWSKI, J JANELLE CARE MANAGEMENT SPECIALIST Unavailable Unavailable ZABOROWSKI, J JANELLE CARE MANAGEMENT SPECIALIST Unavailable Unavailable ZABOROWSKI, J JANELLE CARE MANAGEMENT SPECIALIST Unavailable Unavailable ZABOROWSKI, J JANELLE CARE MANAGEMENT SPECIALIST Unavailable Unavailable ZABOROWSKI, J JANELLE CARE MANAGEMENT SPECIALIST Unavailable Unavailable ZABOROWSKI, J JANELLE CARE MANAGEMENT SPECIALIST Unavailable Unavailable ZABOROWSKI, J JANELLE CARE MANAGEMENT SPECIALIST Unavailable Unavailable ZABOROWSKI, J JANELLE CARE MANAGEMENT SPECIALIST Unavailable Unavailable ZABOROWSKI, J JANELLE CARE MANAGEMENT SPECIALIST Unavailable Unavailable ZABOROWSKI, J JANELLE CARE MANAGEMENT SPECIALIST Unavailable Unavailable ZABOROWSKI, J JANELLE CARE MANAGEMENT SPECIALIST Unavailable Unavailable ZABOROWSKI, J JANELLE CARE MANAGEMENT SPECIALIST Unavailable Unavailable ZABOROWSKI, J JANELLE CARE MANAGEMENT SPECIALIST Unavailable Unavailable ZABOROWSKI, J JANELLE CARE MANAGEMENT SPECIALIST Unavailable Unavailable ZABOROWSKI, J JANELLE CARE MANAGEMENT SPECIALIST Unavailable Unavailable ZABOROWSKI, J JANELLE CARE MANAGEMENT SPECIALIST Unavailable Unavailable ZABOROWSKI, J JANELLE CARE MANAGEMENT SPECIALIST Unavailable Unavailable ZABOROWSKI, J JANELLE CARE MANAGEMENT SPECIALIST Unavailable Unavailable ZABOROWSKI, J JANELLE CARE MANAGEMENT SPECIALIST Unavailable Unavailable TOY, O VELVET WARE Unavailable Unavailable OTY, O VELVET WARE Unavailable Unavailable TOY, O VELVET WARE Unavailable Unavailable TOY, O VELVET WARE Unavailable Unavailable TOY, O VELVET WARE Unavailable Unavailable TOY, O VELVET WARE Unavailable Unavailable TOY, O VELVET WARE Unavailable Unavailable TOY, O VELVET WARE Unavailable Unavailable TOY, O VELVET WARE Unavailable Unavailable TOY, O VELVET WARE Unavailable Unavailable TOY, O VELVET WARE Unavailable Unavailable TOY, O VELVET WARE Unavailable Unavailable TOY, O VELVET WARE Unavailable Unavailable TOY, O VELVET WARE Unavailable Unavailable TOY, O VELVET WARE Unavailable Unavailable TOY, O VELVET WARE Unavailable Unavailable TOY, O VELVET WARE Unavailable Unavailable TOY, O VELVET WARE Unavailable Unavailable TOY, O VELVET WARE Unavailable Unavailable TOY, O VELVET WARE Unavailable Unavailable TOY, O VELVET WARE Unavailable Unavailable TOY, O VELVET WARE Unavailable Unavailable TOY, O VELVET WARE Unavailable Unavailable TOY, O VELVET WARE Unavailable Unavailable TOY, O VELVET WARE Unavailable Unavailable TOY, O VELVET WARE Unavailable Unavailable TOY, O VELVET WARE Unavailable Unavailable TOY, O VELVET WARE Unavailable Unavailable TOY, O VELVET WARE Unavailable Unavailable TOY, O VELVET WARE Unavailable Unavailable TOY, O VELVET WARE Unavailable Unavailable TOY, O VELVET WARE Unavailable Unavailable TOY, O VELVET WARE Unavailable Unavailable TOY, O VELVET WARE Unavailable Unavailable TOY, O VELVET WARE Unavailable Unavailable TOY, O VELVET WARE Unavailable Unavailable TOY, O VELVET WARE Unavailable Unavailable TOY, O VELVET WARE Unavailable Unavailable TOY, O VELVET WARE Unavailable Unavailable TOY, O VELVET WARE Unavailable Unavailable TOY, O VELVET WARE Unavailable Unavailable MARCO CHESTER MD Unavailable Unavailable MARCO CHESTER MD Unavailable Unavailable MARCO CHESTER MD Unavailable Unavailable MARCO CHESTER MD Unavailable Unavailable MARCO CHESTER MD Unavailable Unavailable MARCO CHESTER MD Unavailable Unavailable MARCO CHESTER MD Unavailable Unavailable MARCO CHESTER MD Unavailable Unavailable MARCO CHESTER MD Unavailable Unavailable MARCO CHESTER MD Unavailable Unavailable MARCO CHESTER MD Unavailable Unavailable MARCO CHESTER MD Unavailable Unavailable MARCO CHESTER MD Unavailable Unavailable MARCO CHESTER MD Unavailable Unavailable MARCO CHESTER MD Unavailable Unavailable MARCO CHESTER MD Unavailable Unavailable MARCO CHESTER MD Unavailable Unavailable MARCO CHESTER MD Unavailable Unavailable MARCO CHESTER MD Unavailable Unavailable MARCO CHESTER MD Unavailable Unavailable MARCO CHESTER MD Unavailable Unavailable MARCO CHESTER MD Unavailable Unavailable MARCO CHESTER MD Unavailable Unavailable MARCO CHESTER MD Unavailable Unavailable MARCO CHESTER MD Unavailable Unavailable MARCO CHESTER MD Unavailable Unavailable MARCO CHESTER MD Unavailable Unavailable MARCO CHESTER MD Unavailable Unavailable MARCO CHESTER MD Unavailable Unavailable MARCO CHESTER MD Unavailable Unavailable MARCO CHESTER MD Unavailable Unavailable MARCO CHESTER MD Unavailable Unavailable MARCO CHESTER MD Unavailable Unavailable MARCO CHESTER MD Unavailable Unavailable MARCO CHESTER MD Unavailable Unavailable MARCO CHESTER MD Unavailable Unavailable MARCO CHESTER MD Unavailable Unavailable MARCO CHESTER MD Unavailable Unavailable MARCO CHESTER MD Unavailable Unavailable MARCO CHESTER MD Unavailable Unavailable MARCO CHESTER MD Unavailable Unavailable MARCO CHESTER MD Unavailable Unavailable MARCO CHESTER MD Unavailable Unavailable MARCO CHESTER MD Unavailable Unavailable MARCO CHESTER MD Unavailable Unavailable MARCO CHESTER MD Unavailable Unavailable Servage, L Gilma CARE MANAGEMENT SPECIALIST Unavailable Unavailable Servage, L Gilma CARE MANAGEMENT SPECIALIST Unavailable Unavailable Servage, L Gilma CARE MANAGEMENT SPECIALIST Unavailable Unavailable Servage, L Gilma CARE MANAGEMENT SPECIALIST Unavailable Unavailable Servage, L Gilma CARE MANAGEMENT SPECIALIST Unavailable Unavailable Servage, L Gilma CARE MANAGEMENT SPECIALIST Unavailable Unavailable Servage, L Gilma CARE MANAGEMENT SPECIALIST Unavailable Unavailable Servage, L Gilma CARE MANAGEMENT SPECIALIST Unavailable Unavailable Servage, L Gilma CARE MANAGEMENT SPECIALIST Unavailable Unavailable Servage, L Gilma CARE MANAGEMENT SPECIALIST Unavailable Unavailable Servage, L Gilma CARE MANAGEMENT SPECIALIST Unavailable Unavailable Servage, L Gilma CARE MANAGEMENT SPECIALIST Unavailable Unavailable Servage, L Gilma CARE MANAGEMENT SPECIALIST Unavailable Unavailable Servage, L Gilma CARE MANAGEMENT SPECIALIST Unavailable Unavailable Servage, L Gilma CARE MANAGEMENT SPECIALIST Unavailable Unavailable Servage, L Gilma CARE MANAGEMENT SPECIALIST Unavailable Unavailable Servage, L Gilma CARE MANAGEMENT SPECIALIST Unavailable Unavailable Servage, L Gilma CARE MANAGEMENT SPECIALIST Unavailable Unavailable Servage, L Gilma CARE MANAGEMENT SPECIALIST Unavailable Unavailable Servage, L Gilma CARE MANAGEMENT SPECIALIST Unavailable Unavailable Servage, L Gilma CARE MANAGEMENT SPECIALIST Unavailable Unavailable Servage, L Gilma CARE MANAGEMENT SPECIALIST Unavailable Unavailable Servage, L Gilma CARE MANAGEMENT SPECIALIST Unavailable Unavailable Servage, L Gilma CARE MANAGEMENT SPECIALIST Unavailable Unavailable Servage, L Gilma CARE MANAGEMENT SPECIALIST Unavailable Unavailable Servage, L Gilma CARE MANAGEMENT SPECIALIST Unavailable Unavailable Servage, L Gilma CARE MANAGEMENT SPECIALIST Unavailable Unavailable Servage, L Gilma CARE MANAGEMENT SPECIALIST Unavailable Unavailable Servage, L Gilma CARE MANAGEMENT SPECIALIST Unavailable Unavailable Servage, L Gilma CARE MANAGEMENT SPECIALIST Unavailable Unavailable Servage, L Gilma CARE MANAGEMENT SPECIALIST Unavailable Unavailable Servage, L Gilma CARE MANAGEMENT SPECIALIST Unavailable Unavailable Servage, L Gilma CARE MANAGEMENT SPECIALIST Unavailable Unavailable Servage, L Gilma CARE MANAGEMENT SPECIALIST Unavailable Unavailable Servage, L Gilma CARE MANAGEMENT SPECIALIST Unavailable Unavailable Servage, L Gilma CARE MANAGEMENT SPECIALIST Unavailable Unavailable Servage, L Gilma CARE MANAGEMENT SPECIALIST Unavailable Unavailable Servage, L Gilma CARE MANAGEMENT SPECIALIST Unavailable Unavailable Servage, L Gilma CARE MANAGEMENT SPECIALIST Unavailable Unavailable Servage, L Gilma CARE MANAGEMENT SPECIALIST Unavailable Unavailable Servage, L Gilma CARE MANAGEMENT SPECIALIST Unavailable Unavailable Servage, L Gilma CARE MANAGEMENT SPECIALIST Unavailable Unavailable Servage, L Gilma CARE MANAGEMENT SPECIALIST Unavailable Unavailable Servage, L Gilma CARE MANAGEMENT SPECIALIST Unavailable Unavailable Servage, L Gilma CARE MANAGEMENT SPECIALIST Unavailable Unavailable Servage, L Gilma CARE MANAGEMENT SPECIALIST Unavailable Unavailable Servage, L Gilma CARE MANAGEMENT SPECIALIST Unavailable Unavailable Servage, L Gilma CARE MANAGEMENT SPECIALIST Unavailable Unavailable Servage, L Gilma CARE MANAGEMENT SPECIALIST Unavailable Unavailable Servage, L Gilma CARE MANAGEMENT SPECIALIST Unavailable Unavailable Servage, L Gilma CARE MANAGEMENT SPECIALIST Unavailable Unavailable Servage, L Gilma CARE MANAGEMENT SPECIALIST Unavailable Unavailable Servage, L Gilma CARE MANAGEMENT SPECIALIST Unavailable Unavailable Servage, L Gilma CARE MANAGEMENT SPECIALIST Unavailable Unavailable Servage, L Gilma CARE MANAGEMENT SPECIALIST Unavailable Unavailable Servage, L Gilma CARE MANAGEMENT SPECIALIST Unavailable Unavailable Fish, Levi Morales MD Unavailable Unavailable Fish, Levi Morales MD Unavailable Unavailable Fish, Levi Morales MD Unavailable Unavailable Fish, Levi Morales MD Unavailable Unavailable Fish, Levi Morales MD Unavailable Unavailable Fish, Levi Morales MD Unavailable Unavailable Fish, Levi Morales MD Unavailable Unavailable Fish, Levi Morales MD Unavailable Unavailable Fish, Levi Morales MD Unavailable Unavailable Fish, Lvei Morales MD Unavailable Unavailable Fish, Levi Morales MD Unavailable Unavailable Fish, Levi Morales MD Unavailable Unavailable Fish, Levi Morales MD Unavailable Unavailable Fish, Levi Morales MD Unavailable Unavailable Fish, Levi Morales MD Unavailable Unavailable Fish, Levi Morales MD Unavailable Unavailable Fish, Levi Morales MD Unavailable Unavailable Fish, Levi Morales MD Unavailable Unavailable Fish, Levi Morales MD Unavailable Unavailable Fish, Levi Morales MD Unavailable Unavailable Fish, Levi Morales MD Unavailable Unavailable Fish, Levi Morales MD Unavailable Unavailable Fish, B Andrew WARE Unavailable Unavailable Fish, B Andrew WARE Unavailable Unavailable Fish, Levi Morales MD Unavailable Unavailable Fish, Levi Morales MD Unavailable Unavailable Fish, B Andrew WARE Unavailable Unavailable Fish, Levi Morales MD Unavailable Unavailable Fish, Levi Morales MD Unavailable Unavailable Fish, Levi Morales MD Unavailable Unavailable Fish, B Andrew WARE Unavailable Unavailable Fish, B Andrew WARE Unavailable Unavailable Fish, B Andrew WARE Unavailable Unavailable Fish, B Andrew WARE Unavailable Unavailable Fish, B Andrew WARE Unavailable Unavailable Fish, B Andrew WARE Unavailable Unavailable Fish, B Andrew WARE Unavailable Unavailable Fish, B Andrew WARE Unavailable Unavailable Fish, B Andrew WARE Unavailable Unavailable Fish, B Andrew WARE Unavailable Unavailable Fish, B Andrew WARE Unavailable Unavailable Fish, B Andrew WARE Unavailable Unavailable Fish, B Andrew WARE Unavailable Unavailable Fish, B Andrew WARE Unavailable Unavailable Fish, B Andrew WARE Unavailable Unavailable Fish, B Andrew WARE Unavailable Unavailable Fish, B Andrew WARE Unavailable Unavailable Fish, B Andrew WARE Unavailable Unavailable Fish, B Andrew WARE Unavailable Unavailable Fish, B Andrew WARE Unavailable Unavailable Fish, B Andrew WARE Unavailable Unavailable Fish, B Andrew WARE Unavailable Unavailable Fish, B Andrew WARE Unavailable Unavailable Ale Pickett MD Unavailable Unavailable Ale Pickett MD Unavailable Unavailable Ale Pickett MD Unavailable Unavailable MesaAle woodall MD Unavailable Unavailable MesaAle woodall MD Unavailable Unavailable MesaAle MD Unavailable Unavailable PiyushAle MD Unavailable Unavailable MesaAle MD Unavailable Unavailable Mesa F gIor WARE Unavailable Unavailable MesaAle MD Unavailable Unavailable PiyushAle MD Unavailable Unavailable MesaAle MD Unavailable Unavailable PiyushAle MD Unavailable Unavailable MesaAle MD Unavailable Unavailable MesaAle MD Unavailable Unavailable PiyushAle MD Unavailable Unavailable PiyushAle MD Unavailable Unavailable MesaAle MD Unavailable Unavailable MesaAle MD Unavailable Unavailable MesaAle MD Unavailable Unavailable MesaAle MD Unavailable Unavailable PiyushAle MD Unavailable Unavailable PiyushAle MD Unavailable Unavailable MesaAle MD Unavailable Unavailable MesaAle MD Unavailable Unavailable PiyushAle MD Unavailable Unavailable PiyushAle MD Unavailable Unavailable PiyushAle MD Unavailable Unavailable MesaAle MD Unavailable Unavailable PiyushAle MD Unavailable Unavailable MesaAle MD Unavailable Unavailable PiyushAle MD Unavailable Unavailable MesaAle MD Unavailable Unavailable PiyushAle MD Unavailable Unavailable PiyushAle MD Unavailable Unavailable PiyushAle MD Unavailable Unavailable MesaAle MD Unavailable Unavailable PiyushAle MD Unavailable Unavailable MesaAle MD Unavailable Unavailable MesaAle MD Unavailable Unavailable MesaAle MD Unavailable Unavailable MesaAle MD Unavailable Unavailable MesaAle MD Unavailable Unavailable MesaAle MD Unavailable Unavailable PiyushAle MD Unavailable Unavailable MesaAle MD Unavailable Unavailable PiyushAle MD Unavailable Unavailable MesaAle MD Unavailable Unavailable MesaAle MD Unavailable Unavailable MesaAle MD Unavailable Unavailable MesaAle MD Unavailable Unavailable PiyushAle MD Unavailable Unavailable PiyushAle MD Unavailable Unavailable PiyushAle MD Unavailable Unavailable PiyushAle MD Unavailable Unavailable PiyushAle woodall MD Unavailable Unavailable PiyushAle MD Unavailable Unavailable PiyushAle MD Unavailable Unavailable MesaAle MD Unavailable Unavailable PiyushAle MD Unavailable Unavailable MesaAle MD Unavailable Unavailable PiyushAle MD Unavailable Unavailable MesaAle woodall MD Unavailable Unavailable PiyushAle MD Unavailable Unavailable PiyushAle MD Unavailable Unavailable PiyushAle MD Unavailable Unavailable PiyushAle MD Unavailable Unavailable PiyushAle MD Unavailable Unavailable PiyushAle MD Unavailable Unavailable PiyushAle MD Unavailable Unavailable MesaAle MD Unavailable Unavailable MesaAle MD Unavailable Unavailable MesaAle MD Unavailable Unavailable PiyushAle MD Unavailable Unavailable MesaAle MD Unavailable Unavailable MesaAle woodall MD Unavailable Unavailable Ale Pickett MD Unavailable Unavailable PiyushAle woodall MD Unavailable Unavailable PiyushAle woodall MD Unavailable Unavailable PiyushAle woodall MD Unavailable Unavailable PiyushAle woodall MD Unavailable Unavailable PiyushAle woodall MD Unavailable Unavailable MesaAle woodall MD Unavailable Unavailable Ale Pickett MD Unavailable Unavailable PiyushAle woodall MD Unavailable Unavailable PiyushAle woodall MD Unavailable Unavailable Yeimy, L Carlota CARE MANAGEMENT SPECIALIST Unavailable Unavailable Yeimy, L Carlota CARE MANAGEMENT SPECIALIST Unavailable Unavailable Yeimy, L Carlota CARE MANAGEMENT SPECIALIST Unavailable Unavailable Yeimy, L Carlota CARE MANAGEMENT SPECIALIST Unavailable Unavailable Yeimy, L Carlota CARE MANAGEMENT SPECIALIST Unavailable Unavailable Yeimy, L Carlota CARE MANAGEMENT SPECIALIST Unavailable Unavailable Yeimy, L Carlota CARE MANAGEMENT SPECIALIST Unavailable Unavailable Yeimy, L Carlota CARE MANAGEMENT SPECIALIST Unavailable Unavailable Yeimy, L Carlota CARE MANAGEMENT SPECIALIST Unavailable Unavailable Yeimy, L Carlota CARE MANAGEMENT SPECIALIST Unavailable Unavailable Yeimy, L Carlota CARE MANAGEMENT SPECIALIST Unavailable Unavailable Yeimy, L Carlota CARE MANAGEMENT SPECIALIST Unavailable Unavailable Yeimy, L Carlota CARE MANAGEMENT SPECIALIST Unavailable Unavailable Yeimy, L Carlota CARE MANAGEMENT SPECIALIST Unavailable Unavailable Yeimy, L Carlota CARE MANAGEMENT SPECIALIST Unavailable Unavailable Yeimy, L Carlota CARE MANAGEMENT SPECIALIST Unavailable Unavailable Yeimy, L Carlota CARE MANAGEMENT SPECIALIST Unavailable Unavailable Yeimy, L Carlota CARE MANAGEMENT SPECIALIST Unavailable Unavailable Yeimy, L Carlota CARE MANAGEMENT SPECIALIST Unavailable Unavailable Yeimy, L Carlota CARE MANAGEMENT SPECIALIST Unavailable Unavailable Yeimy, L Carlota CARE MANAGEMENT SPECIALIST Unavailable Unavailable Yeimy, L Carlota CARE MANAGEMENT SPECIALIST Unavailable Unavailable Mervat Mai MD Unavailable Unavailable Mervat Mai MD Unavailable Unavailable Mervat Mai MD Unavailable Unavailable Mervat Mai MD Unavailable Unavailable Mervat Mai MD Unavailable Unavailable Mervat Mai MD Unavailable Unavailable Mervat Mai MD Unavailable Unavailable Mervat Mai MD Unavailable Unavailable Mervat Mai MD Unavailable Unavailable Mervat Mai MD Unavailable Unavailable Mervat Mai MD Unavailable Unavailable Mervat Mai MD Unavailable Unavailable Mervat Mai MD Unavailable Unavailable Mervat Mai MD Unavailable Unavailable Mervat Mai MD Unavailable Unavailable Mervat Mai MD Unavailable Unavailable Mervat Mai MD Unavailable Unavailable Mervat Mai MD Unavailable Unavailable Al Mudamgha, A Ali MD Unavailable Unavailable Al Mudamgha, A Ali MD Unavailable Unavailable Al Mudamgha, A Ali MD Unavailable Unavailable Al Mudamgha, A Ali MD Unavailable Unavailable Al Mudamgha, A Ali MD Unavailable Unavailable Al Mudamgha, A Ali MD Unavailable Unavailable Al Mudamgha, A Ali MD Unavailable Unavailable Al Mudamgha, A Ali MD Unavailable Unavailable Al Mudamgha, A Ali MD Unavailable Unavailable Al Mudamgha, A Ali MD Unavailable Unavailable Al Mudamgha, A Ali MD Unavailable Unavailable Al Mudamgha, A Ali MD Unavailable Unavailable Al Mudamgha, A Ali MD Unavailable Unavailable Al Mudamgha, A Ali MD Unavailable Unavailable Al Mudamgha, A Ali MD Unavailable Unavailable Al Mudamgha, A Ali MD Unavailable Unavailable Al Mudamgha, A Ali MD Unavailable Unavailable Al Mudamgha, A Ali MD Unavailable Unavailable Al Mudamgha, A Ali MD Unavailable Unavailable Al Mudamgha, A Ali MD Unavailable Unavailable Al Mudamgha, A Ali MD Unavailable Unavailable Al Mudamgha, A Ali MD Unavailable Unavailable Al Mudamgha, A Ali MD Unavailable Unavailable Al Mudamgha, A Ali MD Unavailable Unavailable Al Mudamgha, A Ali MD Unavailable Unavailable Al Mudamgha, A Ali MD Unavailable Unavailable Al Mudamgha, A Ali MD Unavailable Unavailable Al Mudamgha, A Ali MD Unavailable Unavailable Al Mudamgha, A Ali MD Unavailable Unavailable Al Mudamgha, A Ali MD Unavailable Unavailable Al Mudamgha, A Ali MD Unavailable Unavailable Al Mudamgha, A Ali MD Unavailable Unavailable Al Mudamgha, A Ali MD Unavailable Unavailable Al Mudamgha, A Ali MD Unavailable Unavailable Al Mudamgha, A Ali MD Unavailable Unavailable Al Mudamgha, A Ali MD Unavailable Unavailable Al Mudamgha, A Ali MD Unavailable Unavailable Al Mudamgha, A Ali MD Unavailable Unavailable Al Mudamgha, A Ali MD Unavailable Unavailable Al Mudamgha, A Ali MD Unavailable Unavailable Al Mudamgha, A Ali MD Unavailable Unavailable Al Mudamgha, A Ali MD Unavailable Unavailable Al Mudamgha, A Ali MD Unavailable Unavailable Al Mudamgha, A Ali MD Unavailable Unavailable Al Mudamgha, A Ali MD Unavailable Unavailable Al Mudamgha, A Ali MD Unavailable Unavailable Al Mudamgha, A Ali MD Unavailable Unavailable Al Mudamgha, A Ali MD Unavailable Unavailable Al Mudamgha, A Ali MD Unavailable Unavailable Al Mudamgha, A Ali MD Unavailable Unavailable Al Mudamgha, A Ali MD Unavailable Unavailable Al Mudamgha, A Ali MD Unavailable Unavailable Al Mudamgha, A Ali MD Unavailable Unavailable Al Mudamgha, A Ali MD Unavailable Unavailable Al Mudamgha, A Ali MD Unavailable Unavailable Al Mudamgha, A Ali MD Unavailable Unavailable Al Mudamgha, A Ali MD Unavailable Unavailable Al Mudamgha, A Ali MD Unavailable Unavailable Al Mudamgha, A Ali MD Unavailable Unavailable Al Mudamgha, A Ali MD Unavailable Unavailable Al Mudamgha, A Ali MD Unavailable Unavailable Re-disclosure Warning The records that you are about to access may contain information from federally-assisted alcohol or drug abuse programs. If such information is present, then the following federally mandated warning applies: This information has been disclosed to you from records protected by federal confidentiality rules (42 CFR part 2). The federal rules prohibit you from making any further disclosure of this information unless further disclosure is expressly permitted by the written consent of the person to whom it pertains or as otherwise permitted by 42 CFR part 2. A general authorization for the release of medical or other information is NOT sufficient for this purpose. The Federal rules restrict any use of the information to criminally investigate or prosecute any alcohol or drug abuse patient.The records that you are about to access may contain highly sensitive health information, the redisclosure of which is protected by Article 27-F of the [facility] Public Health law. If you continue you may have access to information: Regarding HIV / AIDS; Provided by facilities licensed or operated by the [facility] Office of Mental Health; or Provided by the [facility] Office for People With Developmental Disabilities. If such information is present, then the following [facility] mandated warning applies: This information has been disclosed to you from confidential records which are protected by state law. State law prohibits you from making any further disclosure of this information without the specific written consent of the person to whom it pertains, or as otherwise permitted by law. Any unauthorized further disclosure in violation of state law may result in a fine or longterm sentence or both. A general authorization for the release of medical or other information is NOT sufficient authorization for further disc losure. Family History Family Member Name Family Member Gender Family Member Status Date o f Status Description Data Source(s) Unknown Male Problem MEDENT ([facility] () Unknown Male Problem [facility] Encounters Encounter Providers Location Date Indications Data Source(s ) Outpatient Attender: Igor Carias 1 03/31/2019 09:40:00 AM EST MEDENT ([facility] ) Unknown [address] [address] 01/26/2020 12:00:00 AM EST eCW1 ([facility]) Unknown [address] [facility] [address] 01/26/2020 12:00:00 AM EST eCW1 ([facility]) Outpatient Attender: Sharmin WOLFEBF 01/19/2020 12:00:0 0 AM EST [facility] Outpatient Attender: VELVET Everett/Darshan/Arthur/Re indl 01/09/2020 12:00:00 PM EST MEDENT ([facility]) (Cysto1) Urology [address] [place] [address] 01/09/2020 12:00:00 AM EST eCW1 ([facility]) Outpatient Attender: MARCO CHESTER MD 01/05/2020 02: 03:00 PM EDT Neoplasm of uncertain behavior of skin [facility] Neoplasm of uncertain behavior of skin Outpatient Attender: Igor Carias 1 01:30:00 PM EDT MEDENT ([facility] ) Outpatient Attender: Sharmin WOLFEBF 12/20/2019 12:00:0 0 AM EDT [facility] Outpatient Attender: Carlota Everett/Darshan/Arthur/Reindl 12/12/2019 08:30:00 AM EDT MEDENT ([facility]) Outpatient Attender: JANELLE MCCALLUM-BF.CVS 12:00:00 AM EDT - 11/22/2019 08:37:03 AM EDT [facility] Outpatient Attender: Sharmin Mai MD BF-BF 11/21/2019 12:00:0 0 AM EDT [facility] Outpatient Attender: LEILANI CORNELIUS MDA dmitter: LEILANI CORNELIUS MDReferrer: LEILANI CORNELIUS MD ES1-[email or web address].CVAU 11/08/2019 08:24:00 AM EDT - 11/08/2019 01:34:00 PM EDT [facility] Patient discharged. Outpatient Referrer: LEILANI CORNELIUS MD MOB-MOB.PAT 10/08 09:35:25 AM EDT - 11/03/2019 09:35:35 AM EDT [facility] Outpatient BF-BF.CVS 10/27/2019 12:00:00 AM EDT - 10/27/2019 11:17:18 AM EDT [facility] Outpatient Attender: JANELLE QUINTANA NP BF-BF 12:00:00 AM EDT - 10/26/2019 02:55:38 PM EDT [facility] Outpatient Attender: Sharmin Mai MD BF-BF 10/20/2019 12:00:0 0 AM EDT [facility] Outpatient Attender: VELVET Everett/Darshan/Arthur/Courtney montanez 10/10/2019 08:30:00 AM EDT MEDENT ([facility]) Outpatient Attender: Igor Carias 0 09/29/2019 02:00:00 PM EDT MEDENT ([facility] ) Outpatient Attender: Sharmin Mai MD BF-BF 09/20/2019 12:00:0 0 AM EDT [facility] Outpatient Attender: Sharmin Mai MD BF-BF 09/16/2019 12:00:0 0 AM EDT [facility] Outpatient Referrer: Andrew Hyatt MD 09/07/2019 01:37:00 PM EDT [facility] Outpatient Referrer: Andrew Hyatt MD 09/07/2019 01:36:00 PM EDT [facility] Outpatient Referrer: Andrew Hyatt MD 08/31/2019 03:20:00 PM EDT [facility] Outpatient Referrer: Igor Pickett MD 08/31/2019 03:18:0 0 PM EDT [facility] Outpatient Attender: Sharmin Mai MD BF-BF 08/23/2019 12:00:0 0 AM EDT [facility] Outpatient Referrer: Igor Pickett MD 07/27/2019 08:30:0 0 AM EDT [facility] Outpatient Referrer: Igor Pickett MD 07/27/2019 08:29:0 0 AM EDT [facility] Outpatient Referrer: Igor Pickett MD 07/27/2019 08:25:0 0 AM EDT [facility] Outpatient Attender: Sharmin Mai MD BF-BF 07/27/2019 12:00:0 0 AM EDT [facility] Outpatient Referrer: Igor Pickett MD 07/20/2019 11:33:0 0 AM EDT [facility] Outpatient Referrer: Igor Pickett MD 07/20/2019 11:22:0 0 AM EDT [facility] Outpatient Referrer: Igor Pickett MD 07/18/2019 02:21:0 0 PM EDT [facility] Outpatient Referrer: Igor Pickett MD 07/18/2019 02:11:0 0 PM EDT [facility] Outpatient Referrer: Igor Pickett MD 07/18/2019 01:28:0 0 PM EDT [facility] Outpatient Referrer: Gilma Lomeli NP 07/18/2019 01:27:00 PM EDT [facility] Outpatient Referrer: Gilma Lomeli NP 07/18/2019 01:27:00 PM EDT [facility] Outpatient Attender: Igor Carias 0 07/18/2019 01:00:00 PM EDT MEDENT ([facility] ) [facility] [place]rology [address] [facility] [address] 06/03/2019 12:00:00 AM EDT eCW1 ([facility]) 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, INC THERESE MONK Outpatient Attender: JANELLE QUINTANA NP BF-BF 06/2019 12:00:00 AM EST - 05/11/2019 10:34:20 AM EST [facility] Outpatient Attender: Sharmin Mai MD BF-BF 04/22/2019 12:00:0 0 AM EST [facility] Outpatient Attender: Sharmin Mai MD BF-BF 01/25/2019 12:00:0 0 AM EST [facility] Immunizations Vaccine Date Status Description Data Source(s) Influenza, injectable, MDCK, preservative free, jerzy valent 12/20/2019 01:36:00 PM EDT completed [facility] ([facility]) Medications Medication Brand Name Start Date Product Form Dose Route Admi nistrative Instructions Pharmacy Instructions Status Indications Reaction Description Data Source(s) Phenazopyridine hydrochloride 200 MG Oral Tablet [Pyri dium] Pyridium 200 MG Pyridium 200 MG 01/26/2020 12:00:00 AM EST 1.0 {tablet_after_meals} active Pyridium 200 MG eCW1 ([facility]) Phenazopyridine hydrochloride 200 MG Oral Tablet [Pyri dium] Pyridium 200 MG Pyridium 200 MG 01/26/2020 12:00:00 AM EST 1.0 {tablet_after_meals} active Pyridium 200 MG eCW1 ([facility]) Ciprofloxacin 500 MG Oral Tablet Ciprofloxacin HCl 500 MG Ciprofloxacin HCl 500 MG 01/09/2020 12:00:00 AM EST active Ciprofloxacin HCl 500 MG eCW1 ([facility]) Ciprofloxacin 500 MG Oral Tablet Ciprofloxacin HCl 500 MG Ciprofloxacin HCl 500 MG 01/09/2020 12:00:00 AM EST active Ciprofloxacin HCl 500 MG eCW1 ([facility]) Ciprofloxacin 500 MG Oral Tablet Ciprofloxacin HCl 500 MG Ciprofloxacin HCl 500 MG 01/09/2020 12:00:00 AM EST active Ciprofloxacin HCl 500 MG eCW1 ([facility]) Administration Of Flu Vaccine 12/20/2019 12:00:00 AM EDT completed [facility]) Medication administered onsite CPAP 12/11/2019 12:00:00 AM EDT active MEDENT ([facility]) normal saline flush 0.9 % injection 3 mL [id number] 11/08/2019 02:00:00 PM EDT 3 mL Intravenous active 3 mL , Intravenous, PROTOCOL, First dose on Thu11/08/19 at 1400, Pre-op
flush per protocol, D/C Main IV fluid if appropriate
[facility] Medication administered onsite sodium chloride 0.9% (NS) infusion 4596-7558-94 11/08/2019 12:00:00 P M EDT Intravenous active at 100 mL/hr, Intravenous, Continuous, Starting Thu11/08/19 at 1200, For 2 hours, Post-op [facility] Medication administered onsite Nitroglycerin 0.4 MG Sublingual Tablet n itroglycerin (NITROSTAT) SL tablet 0.4 mg nitroglycerin (NITROSTAT) SL tablet 0.4 mg 11/08/2019 11:32:19 A M EDT 0.4 mg Sublingual active 0.4 mg, S ublingual, Every 5 min PRN, chest pain, Starting Thu11/08/19 at 1132, Post-op
May administer every 5 minutes for 3 doses and call cardio lab MD.
[facility] Medication administered onsite Acetaminophen 325 MG Oral Tablet acetaminophen (TYLENO L) 325 MG tablet 650 mg acetaminophen (TYLENOL) 325 MG tablet 650 mg 11/08/2019 11:32:19 AM EDT 650 mg Oral active 650 mg, Or al, Every 4 hours PRN, headaches, and non cardiac pain, Starting Thu11/08/19 at 1132, Post-op
"Maximum dose of acetaminophen is 4,000 mg from all sources in 24 hours."
[facility] Medication administered onsite iopamidol (ISOVUE-370) 76 % [id number] 11/08/2019 11:19:09 AM EDT active As needed, Starting Thu11/08/19 at 1119, Intra-Procedur e [facility] Medication administered onsite 1 ML heparin sodium, porcine 1000 UNT/ML Injection hep kalen (porcine) injection heparin (porcine) injection 11/08/2019 11:08:48 AM EDT active As needed, Starting Thu11/08/19 at 1108, Intra-Procedure [facility] Medication administered onsite NITROGLYCERIN 0.4 MG/ML IV SOLN [id number] 11/08/2019 11:08:32 AM EDT active As needed, Starting Thu at 1108, Intra-Procedure [facility] Medication administered onsite fentaNYL Citrate (PF) (SUBLIMAZE) injection 5107-8283-95 11/08/2019 11:07:07 AM EDT active As neede d, Starting Thu11/08/19 at 1107, Intra-Procedure [facility] Medication administered onsite 2 ML Midazolam 1 MG/ML Injection midazolam (VERSED) in jection midazolam (VERSED) injection 11/08/2019 11:07:00 AM EDT active As needed, Starting Thu11/08/19 at 1107, Intra-Procedure [facility] Medication administered onsite Diphenhydramine Hydrochloride 50 MG Oral Capsule diphenhydrAMINE (BENADRYL) capsule 50 mg diphenhydrAMINE (BENADRYL) capsule 50 mg 11/08/2019 09 :00:00 AM EDT 50 mg Oral completed 50 mg, Oral, on call pharmacy technician, Thu11/08/19 at 0900, For 1 dose, Pre-op [facility] Medication administered onsite sodium chloride 0.9% (NS) infusion 0537-9275-94 11/08/2019 09:00:00 AM EDT 100 mL/h Intravenous active at 100 m L/hr, 100 mL/hr, Intravenous, Continuous, Starting Thu11/08/19 at 0900, Pre-op
Start two hours prior to scheduled start time
[facility] Medication administered onsite normal saline flush 0.9 % injection 3 mL [id number] 11/08/2019 09:00:00 AM EDT 3 mL Intravenous active 3 mL , Intravenous, Every 8 hours (scheduled), First dose on Thu11/08/19 at 0900, Pre-op
Rapid push positive pressure flushing shall be performed with a 10 cc normal saline syringe to check the PATENCY of a PIV site prior to any infusion therapy initiation unless resistance is met.
[facility] Medication administered onsite 24 HR metoprolol succinate 50 MG Extende d Release Oral Tablet metoprolol succinate (TOPROL-XL) 50 MG 24 hr tablet metoprolol succinate (TOPROL-XL) 50 MG 24 hr tablet 05/11/2019 12:00:00 AM EST 50 mg Oral activ e Take 1 tablet (50 mg total) by mouth 2 (two) times a day [facility] Aspirin 81 MG Delayed Release Oral Tablet aspirin EC 8 1 MG EC tablet aspirin EC 81 MG EC tablet 05/11/2019 12:00:00 AM EST 81 mg Oral ac tive Take 1 tablet (81 mg total) by mouth daily [facility] Insurance Providers Payer name Policy type / Coverage type Policy ID Covered constitution party ID Covered constitution party's relationship to roa Policy Roa Plan Information UMR [facility] [id number] SP [id number] MEDICARE [id number] SP [id number] W29 UMR [facility] [id number] SP [id number] UMR [id number] Stacy [id number] MEDICARE [id number] Stacy [id number] W29 SELF PAY UMR [id number] SELF [id number] MEDICARE [id number] SELF [id number] W29 UMR O [id number] S [id number] MEDICARE C [id number] S [id number] [id number] INSURANCE COVID-19 COVID Stacy C OVID UMR [id number] MEDICARE [id number] INSURANCE COVID-19 [id number] UMR O [id number] S [id number] UMR O UNAVAILABLE S UNAVAILA BLE MEDICARE C [id number] S [id number] A [employer] PPO O [id number] S [id number] UMR [id number] SELF [id number] MEDICARE [id number] SELF [id number] W29 UMR [facility] [id number] SP [id number] MEDICARE [id number] SP [id number] [id number] Medicare Natl Govt [facility] Medicare Primary [id number] Self [id number] [employer]/Umr (Old) Medigap Part B [id number] Self [id number] Umr (New [place]) Medigap Part B [id number] Self [id number] [employer] [id number] Stacy [id number] [employer] Insurance Workers Compensation [id number] Stacy f [id number] [place] (pr) Medigap Part B [id number] Self [id number] Umr (pr) Medigap Part B [id number] Self [id number] Medicare Dme Supplies Medigap Part B [id number] Self [id number] [place] Primary [id number] Self [id number] ANSI-Commercial [id number] ANSI-Medicare Part B [id number] ANSI-Medicare Part B [id number] ANSI-Commercial [id number] ANSI-Medicare Part B [id number] ANSI-Commercial [id number] Medicare Natl Govt Servic Medicare Primary [id number] Self [id number] UMR PI PI UMR [id number] Stacy [id number] UMR [facility] [id number] SP [id number] Medicare Natl Govt Servic Medicare Primary [id number] Self [id number] [employer] Insurance Workers Compensation [id number] Stacy f [id number] [place] (pr) Medigap Part B [id number] Self [id number] Umr (pr) Medigap Part B [id number] Self [id number] Medicare Dme Supplies Medigap Part B [id number] Self [id number] [place] Primary [id number] Self [id number] MEDICARE PI PI [employer] PI PI Medicare Natl Govt Servic Medicare Primary [id number] Self [id number] Umr Commercial [id number] Self [id number] [place] Pos Commercial [id number] Self [id number] Medicare - NGS Medicare Primary [id number] Self [id number] Medicare Natl Govt Servic Medicare Primary [id number] Self [id number] [employer] (Old) Medigap Part B [id number] Self [id number] Medicare Natl Govt Servic Medicare Primary [id number] Self [id number] [employer] Insurance Workers Compensation [id number] Stacy f [id number] [place] (pr) Medigap Part B [id number] Self [id number] [place] Primary [id number] Self [id number] [employer] [id number] SP [id number] MEDICARE [id number] SP [id number] A [employer] [id number] SP [id number] MEDICARE [id number] SP [id number] A [place] Medigap Part B [id number] Self [id number] [place] Primary [id number] Self [id number] [employer] -O/P [id number] 18 [id number] MEDICARE PART A -O/P [id number] 18 [id number] [place] Ppo Medigap Part B [id number] Self [id number] Medicare Natl Govt Servic Medicare Primary [id number] Self [id number] [place] Ppo Medigap Part B [id number] Self [id number] Medicare Natl Govt Servic Medicare Primary Self [employer] [id number] SP [id number] MEDICARE [id number] SP [id number] A [employer] PPO S [id number] S [id number] MEDICARE P [id number] S [id number] A [employer] PPO S UNAVAILABLE S UNAVAILA BLE MEDICARE P UNAVAILABLE S UNAVAILA BLE [id number] Problems, Conditions, and Diagnoses Code Display Name Description Problem Type Effective Dates Data Source(s) N20.2 Calculus of kidney with calculus of uret er Calculus of kidney with calculus of ureter Problem 01/09/2020 12:00:00 AM EST eCW1 ([facility]) [id number] Obstructive sleep apnea syndrome Obstructive sle ep apnea syndrome Problem 12/12/2019 12:00:00 AM EDT MEDJUDI ([facility] rahul, [place]) I10 Essential hypertension, benign Essential hypertension, benign [id number] 11/01/2019 12:00:00 AM EDT [facility] I25.10 Atherosclerosis of saxman coronary arter y of saxman heart Atherosclerosis of saxman coronary artery of saxman heart [id number] 11/01/2019 12:00: 00 AM EDT [facility] I42.0 Congestive cardiomyopathy Congestive cardiomyopathy 64 [id number] 11/01/2019 12:00:00 AM EDT [facility] [id number] Essential hypertension Essential hypertension Problem 10/07/2019 12:00:00 AM EDT MEDENT ([facility], [place]) R55 Syncope and collapse Syncope and collapse Diagnosis 01/19/2020 02:23:39 PM EST [facility] D48.5 Neoplasm of uncertain behavior of skin D 48.5 - Neoplasm of uncertain behavior of skin Diagnosis 01/05/2020 02:03:00 PM EDT 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 Atherosclerotic heart disease of saxman Diagnosis 11/22/2019 08:07:00 AM EDT [facility] R94.39 Abnormal result of other cardiovascular function study Abnormal result of other cardiovascular Diagnosis 11/08/2019 08:24:00 AM EDT [facility] J98.8 Other specified respiratory disorders Ot her specified respiratory disorders Diagnosis 11/03/2019 09:35:25 AM EDT [facility] U07.1 COVID-19 COVID-19 Diagnosis 11/03/2019 09:35:25 AM ED T [facility] G47.33 Obstructive sleep apnea (adult) (pediatr ic) Obstructive sleep apnea (adult) (pediatr Diagnosis 10/27/2019 09:57:40 AM EDT [facility] 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, 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, INCLUDING SHOULDER Diagnosis 05/20/2019 04:14:00 P M EDT [facility] Surgeries/Procedures Procedure Description Date Indications Data Source(s) ARTHROCENTESIS ASPIR&/INJECTION MAJOR JT/BURSA 021 12:00:00 AM EST MEDENT ([facility]) ARTHROCENTESIS ASPIR&/INJECTION MAJOR JT/BURSA 12:00:00 AM EST MEDENT ([facility]) ARTHROCENTESIS ASPIR&/INJECTION MAJOR JT/BURSA 020 12:00:00 AM EST MEDENT ([facility]) RADIOLOGIC EXAM KNEE COMPLETE 4/MORE VIEWS 02/27/2020 12:00:00 AM EST MED[facility] ([facility] ) RADIOLOGIC EXAM KNEE COMPLETE 4/MORE VIEWS 02/27/2020 12:00:00 AM EST [facility] ([facility] ) Lap Inguinal Hernia Repair 02/16/2020 12:00:00 AM EST [facility] ([facility] ) Medication: Lidocaine HCl 2% Jelly 5mL Intravesically 01/09/2020 12:00:00 AM EST eCW1 ([facility]) CARDIAC CATHETERIZATION CARDIAC CATHETERIZATION Routine 11/08/2019 11:17 AM EDT Congestive cardiomyopathy Atherosclerosis of saxman coronary artery of saxman heart, angina presence unspecified Essential hypertension, benign Abnormal cardiovascular stress test 11/08/2019 03:17:40 PM E DT Abnormal cardiovascular stress testEssential hypertension, benignAtherosclerosis of saxman coronary artery of saxman heart, angina presence unspecifiedCongestive cardiomyopathy [facility] Abnormal cardiovascular stress test Essential hypertension, benign Atherosclerosis of saxman coronary arter y of saxman heart, angina presence unspecified Congestive cardiomyopathy ECG ROUTINE ECG W/LEAST 12 LDS TRCG ONLY W/O I&R ECG 12-LEAD Routine 11/08/2019 8:44 AM EDT 11/08/2019 12:44:04 PM EDT [facility] ARTHROCENTESIS ASPIR&/INJECTION MAJOR JT/BURSA 020 12:00:00 AM EDT [facility] ([facility] ) ARTHROCENTESIS ASPIR&/INJECTION MAJOR JT/BURSA 020 12:00:00 AM EDT [facility] ([facility] ) ARTHROCENTESIS ASPIR&/INJECTION MAJOR JT/BURSA 020 12:00:00 AM EDT [facility] ([facility] ) PHYSICIAN TELEPHONE EVALUATION 5-10 MIN 06/03/2019 12: 00:00 AM EDT eCW1 ([facility]) ARTHROCENTESIS ASPIR&/INJECTION MAJOR JT/BURSA 019 12:00:00 AM EST [facility] ([facility] ) ARTHROCENTESIS ASPIR&/INJECTION MAJOR JT/BURSA 019 12:00:00 AM EST [facility] ([facility] ) Results ID Date Data Source [id number] 02/11/2020 08:05:00 AM EST [facility] Name Value Range Interpretation Code Description Data Adrienne rce(s) Supporting Document(s) SARS coronavirus 2 RNA [facility] This lab was ordered by [facility] and reported by [facility]. ID Date Data Source [id number] 01/27/2020 08:35:00 AM EST [facility] ([facility]) Name Value Range Interpretation Code Description Data Adrienne rce(s) Supporting Document(s) Cholesterol [Mass/volume] in Serum or Plasma 121 mg/dL 131-200 [facility] ([facility]) Triglyceride [Mass/volume] in Serum or Plasma 77 mg/dL 30-150 [facility] ([facility]) Cholesterol in LDL [Mass/volume] in Serum or Plasma by calcu lation 61 CALC 50-159 [facility] ([facility]) Cholesterol in HDL [Mass/volume] in Serum or Plasma 45 mg/dL 35-60 [facility] ([facility]) ID Date Data Source [id number] 01/27/2020 08:35:00 AM EST [facility] ([facility]) Name Value Range Interpretation Code Description Data Adrienne rce(s) Supporting Document(s) Glucose [Mass/volume] in Serum or Plasma 101 mg/dL 74-99 [facility] ([facility]) 100-125 mg/dL PRE-DIABETES/FASTING >126 mg/dL DIABETES/FASTING Sodium [Moles/volume] in Serum or Plasma 142 meq/L 136-145 [facility] ([facility]) Urea nitrogen [Mass/volume] in Serum or Plasma 16 mg/dL 7-18 [facility] ([facility]) Creatinine 1.0 mg/dL 0.6-1.3 [facility] Calcium [Mass/volume] in Serum or Plasma 9.4 mg/dL 8.5-10.1 [facility] ([facility]) Chloride [Moles/volume] in Serum or Plasma 106 meq/L 98-107 [facility] ([facility]) Carbon dioxide, total [Moles/volume] in Serum or Plasma 32 meq/L 21 -32 [facility] ([facility]) Potassium [Moles/volume] in Serum or Plasma 4.5 meq/L 3.5-5.1 [facility] ([facility]) Aspartate aminotransferase [Enzymatic activity/volume] in Serum or Plasma 22 U/L 15-37 [facility] ([facility] ) Alkaline phosphatase isoenzyme [Units/volume] in Serum or Pl asma 114 mg/dL 46-116 [facility] ([facility]) Total Bilirubin 0.7 mg/dL 0.2-1.0 [facility] ([facility]) Proteinase 3 Ab [Units/volume] in Serum 7.1 g/dL 6.4-8.2 [facility] ([facility]) Albumin [Mass/volume] in Serum or Plasma 3.9 g/dL 3.4-5.0 [facility] ([facility]) A/G Ratio 1.22 CALC 1.00-1.90 [facility]) Alanine aminotransferase [Enzymatic activity/volume] in Seru m or Plasma 37 U/L 12-78 [facility] Glomerular filtration rate/1.73 sq M pre dicted among blacks [Volume Rate/Area] in Serum or Plasma by Creatinine-based formula (MDRD) Laboratory test result [facility] <content>CHRONIC KIDNEY DISEASE STAGING PER NKF</content>
<content></content>
<content>STAGE I & II GFR >= 60 NORMAL TO MILDLY DECREASED</content>
<content>STAGE III GFR 30-59 MODERATELY DECREASED</content>
<content>STAGE IV GFR 15-29 SEVERELY DECREASED</content>
<content>STAGE V GFR <15 VERY LITTLE GFR LEFT</content>
<content>ESRD GFR <15 ON TOOL GRINDER OPERATOR EXTERNAL</content>
<content></content> Glomerular filtration rate/1.73 sq M pre dicted among non-blacks [Volume Rate/Area] in Serum or Plasma by Creatinine-based formula (MDRD) Laboratory test result [facility] ([facility] ) ID Date Data Source [id number] 01/27/2020 08:35:00 AM EST [facility] ([facility]) Name Value Range Interpretation Code Description Data Adrienne rce(s) Supporting Document(s) Glucose mean value [Mass/volume] in Blood Estimated fr om glycated hemoglobin 128 mg/dL 60-110 [facility] ([facility] ) Hemoglobin A1c/Hemoglobin.total in Blood 6.1 % [facility] Lab Result Notes: Pre-Diabetes 5.7 - 6.4 % Diabetes = or > 6.5% ID Date Data Source [id number] 01/27/2020 08:35:00 AM EST [facility] ([facility]) Name Value Range Interpretation Code Description Data Adrienne rce(s) Supporting Document(s) Leukocytes [#/volume] in Blood by Automated count 7.5 x10*3/UL 4.1-10 .9 [facility] ([facility]) Hemoglobin [Mass/volume] in Blood 14.8 g/dL 12.0-18.0 [facility] Hematocrit [Volume Fraction] of Blood by Automated count 43.0 % 3 7.0-51.0 [facility] MCV 90.9 fL 80.0-97.0 [facility] Erythrocytes [#/volume] in Blood by Automated count 4.73 x10*6/UL 4.2 0-6.30 [facility] ([facility]) Erythrocyte distribution width [Ratio] by Automated count 13.0 % 11.6-13.7 [facility] ([facility]) MCH 31.4 pg 26.0-32.0 [facility]) MCHC 34.6 g/dL 31.0-38.0 [facility] ([facility]) Platelets [#/volume] in Blood by Automated count 268 x10*3/UL 140-440 [facility] ([facility]) MPV 7.6 FL 7.8-11.0 [facility]) Mid % 4.8 % 1.7-9.3 [facility]) Lymph % 18.9 % 10.0-58.5 [facility] ([facility] Neut % 76.3 % 37.0-92.0 [facility] Mid # 0.4 x10*3/UL 0.1-0.6 [facility] ([facility]) Lymph # 1.4 x10*3/UL 0.6-4.1 [facility] ([facility]) Neut # 5.7 x10*3/UL 2.0-7.8 [facility] ([facility]) ID Date Data Source [id number] 01/19/2020 04:32:31 PM EST [facility]PATIE NT INFORMATIONPatient MRN Name Date of Age Gend*PT [id number] Carolee Pope 1945 74 years M ---PT Location Admission Date/Time Visit ID Attending Provider --- --- --- --- EPI ID CSN Admitting Provider [id number] ---Name: Carolee PopeDOB: 1945Date: 01/19/20Loop Device CheckDevice was remotely interrogated and the following were evaluated:Battery statusSummary arrhythmia logsNew observationsAny patient activated eventsFidelity of the EGM signalConclusion:No new clinically significant arrhythmias, continue monitoringSignature: Sharmin Dodson MD, [facility], [facility] CENTERCardiac Electrophysiology and Arrhythmia ServiceDate: January 19, 2020Time: 4:32 PMThis document or parts of this document, were dictated using Karmaloopware. A reasonable attempt at proofreading has been made to minimize errors.Please call with any questions or corrections. Name Value Range Interpretation Code Description Data Adrienne rce(s) Supporting Document(s) ID Date Data Source [id number] 01/06/2020 10:33:00 [id number] Name: CAROLEE POPE : [address]: Marco Chester MD Acct: [id number] Unit: [id number] AGE: 74 Location: [facility] Re01/05/20 SEX: M Status: REG REF SPEC: [id number] SAVANNAH: 01/05/20-[address]: Marco Chester MD REQ: [id number] RECD: 01/05/20 STATUS: SOUT _ORDERED: LEVEL 4 COMMENTS: [id number] FINAL DIAGNOSIS Skin, left lateral submandibular cheek, biopsy:-- Hypertrophic actinic keratosis. PRE-OPERATIVE DIAGNOSIS Basal cell carcinoma GROSS DESCRIPTION The specimen is received in formalin labeled, Left Lateral Submandibular Cheek, and consistsof a 0.5 x 0.4 x 0.2 cm crawford-red nodular and irregular skin fragment, which is inked andserially sectioned and submitted entirely in one cassette. Signed by and Reported on: Ene Grayson MD 01/06/20 1033 END OF REPORT DEPARTMENT OF PATHOLOGY, [address] [place] [address] Ene Grayson M.D. Director [facility] # [id number] Name Value Range Interpretation Code Description Data Adrienne rce(s) Supporting Document(s) ID Date Data Source [id number] 12/26/2019 09:09:00 AM EDT [facility] ([facility]) Name Value Range Interpretation Code Description Data Adrienne rce(s) Supporting Document(s) Color Laboratory test result [facility] ([facility]) Laboratory test finding (navigational concept) Laboratory test result [facility] ([facility]) Size Laboratory test result [facility] ([facility]) Too small to measure. Composition Laboratory test result MEDEN T ([facility]) . Percentage (Represents the % composition) Weight Laboratory test result [facility] ([facility]) Too small to weigh CA Oxalate Dihy 90 % [facility] ([facility]) Laboratory test finding (navigational concept) Laboratory test result [facility] ([facility]) CA Phosphate Laboratory test result MEDE NT ([facility]) Ca Ox Monohydrate 10 % [facility] ([facility]) Laboratory test finding (navigational concept) Laboratory test result [facility] ([facility]) Ua Dihydrate Laboratory test result [facility] NT ([facility]) MG [place] Phos Laboratory test result [facility] ([facility]) Uric Acid Laboratory test result [facility] ([facility]) Amm Acid Urate Laboratory test result ME DENT ([facility]) Na Acid Urate Laboratory test result [facility] ([facility]) CA Jal Phos Laboratory test result [facility] ([facility]) Laboratory test finding (navigational concept) Laboratory test result [facility] ([facility]) Laboratory test finding (navigational concept) Laboratory test result [facility] ([facility]) Cystine Laboratory test result [facility] ([facility]) Cholesterol Laboratory test result [facility] T ([facility]) CA Bilirubinate Laboratory test result M EDENT ([facility]) Bilirubin Laboratory test result [facility] ([facility]) Laboratory test finding (navigational concept) Laboratory test result [facility] ([facility]) CA Carbonate Laboratory test result MEDE NT ([facility]) Laboratory test finding (navigational concept) Laboratory test result [facility] ([facility]) Triamterene Laboratory test result [facility] T ([facility]) Laboratory test finding (navigational concept) Laboratory test result [facility] ([facility]) Newberyite Laboratory test result [facility] ([facility]) Laboratory test finding (navigational concept) Laboratory test result [facility] ([facility]) Cell Material Laboratory test result [facility] ([facility]) Dried Blood Laboratory test result [facility] T ([facility]) Comment Laboratory test result [facility] ([facility]) Comment Laboratory test result [facility] ([facility]) . Physician questions regarding [facility] Analysis contact [facility] at: [phone]. Comment Laboratory test result [facility] ([facility]) Laboratory test finding (navigational concept) Laboratory test result [facility] ([facility]) Test not performed No photo available Please Note: Laboratory test result MEDE NT ([facility]) . Calculi report will follow via computer, mail or education paraprofessional delivery. Disclaimer Laboratory test result [facility] . This test was developed and its performance characteristics determined by [facility]. It has not been cleared or approved by the Food and Drug Administration. Performed at: [facility] [address] [place] [address] [address] [place], [place] [id number] Mysql Database Developer: Gregory Horvath MD, Phone: [phone] ID Date Data Source [id number] 12/23/2019 03:02:48 PM EDT [facility]PATIE NT INFORMATIONPatient MRN Name Date of Age Gend*PT [id number] Carolee Pope 1945 74 years M ---PT Location Admission Date/Time Visit ID Attending Provider --- --- --- --- EPI ID CSN Admitting Provider [id number] ---Name: Carolee VizcarraB: 1945Date: 12/23/19Loop Device CheckDevice was remotely interrogated and the following were evaluated:Battery statusSummary arrhythmia logsNew observationsAny patient activated eventsFidelity of the EGM signalConclusion:No new clinically significant arrhythmias, continue monitoringSignature: Sharmin Dodson MD, FACC, RSCardiac Electrophysiology and Arrhythmia ServiceDate: December 23, 2019Time: 3:02 PMThis document or parts of this document, were dictated using Karmaloopware. A reasonable attempt at proofreading has been made to minimize errors.Please call with any questions or corrections. Name Value Range Interpretation Code Description Data Adrienne rce(s) Supporting Document(s) ID Date Data Source [id number] 12/21/2019 10:00:00 AM EDT [facility] Name Value Range Interpretation Code Description Data Adrienne rce(s) Supporting Document(s) SARS coronavirus 2 RNA [facility] This lab was ordered by [facility] and reported by [facility]. ID Date Data Source [id number] 12/19/2019 08:33:00 AM EDT [facility] ([facility]) Name Value Range Interpretation Code Description Data Adrienne rce(s) Supporting Document(s) Urine Culture Laboratory test result [facility] ENT ([facility]) FULL REPORT IN LAB NOTES (eCW and [facility] ). NO GROWTH ID Date Data Source [id number] 12/19/2019 08:30:00 AM EDT [facility] ([facility]) Name Value Range Interpretation Code Description Data Adrienne rce(s) Supporting Document(s) Glucose, Fasting 110 mg/dL 70-100 [facility] ([facility]) Blood Urea Nitrogen 19 mg/dL 7-18 [facility] ([facility]) Glomerular Filtration Rate Laboratory test result [facility] ([facility]) <content>Units are mL/min/1.73 m2</content>
<content></content>
<content>Chronic Kidney Disease Staging per NKF:</content>
<content></content>
<content>Stage I & II GFR >=60 Normal to Mildly Decreased</content>
<content>Stage III GFR 30- 59 Moderately Decreased</content>
<content>Stage IV GFR 15-29 Severely Decreased</content>
<content>Stage V GFR <15 Very Little GFR Left</content>
<content>ESRD GFR <15 on TOOL GRINDER OPERATOR EXTERNAL</content>
<content></content> Creatinine For GFR 0.87 mg/dL 0.70-1.30 [facility] ([facility]) Sodium Level 142 meq/L 136-145 [facility] ([facility]) Potassium Serum 4.6 meq/L 3.5-5.1 [facility] ([facility]) Carbon Dioxide Level 28 meq/L 21-32 [facility] Anion Gap 4 meq/L 8-16 [facility]) Chloride Level 110 meq/L 98-107 [facility] ([facility]) Calcium Level 8.8 mg/dL 8.8-10.2 [facility] ([facility]) ID Date Data Source [id number] 12/19/2019 08:30:00 AM EDT [facility] ([facility]) Name Value Range Interpretation Code Description Data Adrienne rce(s) Supporting Document(s) White Blood Count 6.7 10 4.0-10.0 [facility] ([facility]) Hematocrit 43.9 % 42.0-52.0 [facility]) Hemoglobin 14.3 g/dL 13.5-17.5 [facility] Red Blood Count 4.52 10 4.30-6.10 [facility] ([facility]) Mean Corpuscular Volume 97.1 fl 80.0-96.0 [facility] ([facility]) Mean Corpuscular Hemoglobin 31.6 pg 27.0-33.0 RI DENT ([facility]) Mean Corpuscular HGB Conc 32.6 g/dL 32.0-36.5 MEDE NT ([facility]) Red Cell Distribution Width 13.2 % 11.5-14.5 RI DENT ([facility]) Platelet Count, Automated 196 10 150-450 MED[facility] NT ([facility]) Nucleated Red Blood Cell % 0.0 % 0-0 [facility] ([facility]) ID Date Data Source [id number] 11/24/2019 03:08:20 PM EDT [facility] NT INFORMATIONPatient MRN Name Date of Age Gend*PT [id number] Carolee Pope 1945 74 years M ---PT Location Admission Date/Time Visit ID Attending Provider --- --- --- --- EPI ID CSN Admitting Provider [id number] ---Name: Carolee PopeDOB: 1945Date: 11/24/19Loop Device CheckDevice was remotely interrogated and the following were evaluated:Battery statusSummary arrhythmia logsNew observationsAny patient activated eventsFidelity of the EGM signalConclusion:No new clinically significant arrhythmias, continue monitoringSignature: Sharmin Dodson MD, [facility], RSCardiac Electrophysiology and Arrhythmia ServiceDate: November 24, 2019Time: 3:08 PMThis document or parts of this document, were dictated using Karmaloopware. A reasonable attempt at proofreading has been made to minimize errors.Please call with any questions or corrections. Name Value Range Interpretation Code Description Data Adrienne rce(s) Supporting Document(s) ID Date Data Source [id number] 11/22/2019 08:45:28 AM EDT [facility] NT INFORMATIONPatient MRN Name Date of Age Gend*PT [id number] Carolee Pope 1945 74 years M ---PT Location Admission Date/Time Visit ID Attending Provider --- --- --- --- EPI ID CSN Admitting Provider [id number] ---Cardiology Office NoteName: Carolee Pope Gender: maleDate of : 1945 Age: 74 yearsPrimary Care Provider / Referring Physician: KARMA CACERESurrent HistoryChief Complaint: Follow-up to recent cardiac catheterizationHPI:This patient is a 74 years male presents today for follow-up. He has thefollowing medical problem list:1. Diagnosed with cardiomyopathy EF 30-35 %; cardiac catheterization 02/11/2018required drug-eluting stent to the LAD2. History of paroxysmal SVT3. Hypertension4. Obstructive sleep apnea treated with CPAP5[place] [id number]. Echocardiogram 04/07/2018 reveals EF 50-55 percent, mild mitral and tricuspidinsufficiency7. Implant of LINQ monitor 04/26/2018 for episode of near syncope andnonsustained ventricular tachycardia noted on event monitor8. Cardiac catheterization 11/08/2019 revealed widely patent LAD stent and nosignificant disease.Patient presents today for follow-up. I initially met with him on 10/26/2019 forpreoperative evaluation of his upcoming hernia surgery. He did have stressechocardiogram 10/27/2019 which he exercised for 8 minutes and 36 seconds, he didhave frequent PVCs which is no change for him. His baseline echocardiogramrevealed EF 30-35%. He then had cardiac catheterization which revealed widelypatent stent and it was noted that he had normal LV function. Patient currentlyfeels well. He has not had any signs or symptoms of congestive heart failure.His previous echocardiogram from March 2018 revealed EF 50-55%. He currentlyhas kidney stones and they may need to be removed and he still requiresclearance for hernia surgery. His hernia surgery will be done by Dr. Toy Muse. He currently denies any chest pain, shortness of breath, lower legedema or weight gain. He does have Linq monitor implanted and has not had anysignificant ventricular arrhythmias. He does remain on Plavix and aspirin. Hehas been told in the past by Dr. Dobbs that he should "never" come off ofPlavix. His cath site is healed to right radial.Review of Systems General Denies dizziness or lightheadedness. Denies any recent, unexpectedweight changes. HEENT Denies any loss or change of vision. Denies tinnitus. Respiratory Denies PND, orthopnea, MCNEILL, hemoptysis, cough, or shortness ofbreath. Cardiac Denies chest pain or pressure, denies palpitations GI Denies melena, hematochezia, nausea, or vomiting. MS Denies any lower extremity edema. Neuro Denies speech, motor, or sensory impairment. Psych Denies depression or anxiety. Endo Denies polyuria or polydipsia, denies temperature intolerance. Derm Denies diaphoresis, non-healing skin woundsPast HistoryPast Medical History:Diagnosis Date Arthritis Cardiomyopathy Hyperlipidemia Hypertension PSVT (paroxysmal supraventricular tachycardia) Sleep apneaPast Surgical History:Procedure Laterality Date CARDIAC CATHETERIZATION N/A 02/16/2018 Procedure: Cardiac catheterization; Surgeon: Pedro Luis Dobbs MD; Laterality:N/A; CARDIAC CATHETERIZATION N/A 02/16/2018 Procedure: Percutaneous coronary intervention; Surgeon: Pedro Luis Dobbs MD;Laterality: N/A; CARDIAC CATHETERIZATION N/A 02/16/2018 Procedure: Coronary angiography; Surgeon: Pedro Luis Dobbs MD; Laterality: N/A; CARDIAC CATHETERIZATION N/A 02/16/2018 Procedure: Left ventriculography; Surgeon: Pedro Luis Dobbs MD; Laterality:N/A; CARDIAC CATHETERIZATION N/A 11/08/2019 Procedure: Left heart cath; Surgeon: Leilani Cornelius MD; Laterality: N/A; CARDIAC CATHETERIZATION N/A 11/08/2019 Procedure: Angioplasty-coronary; Surgeon: Leilani Cornelius MD; Laterality:N/A; IMPLANT LOOP RECORDER N/A 04/26/2018 Procedure: Loop insertion; Surgeon: Sharmin Dodson MD; Laterality: N/A;MEDTRONICFamily HistoryProblem Relation Age of Onset Cancer Mother Heart attack FatherSocial HistorySocioeconomic History Marital status: Spouse name: Not on file Number of children: Not on file Years of education: Not on file Highest education level: Not on fileOccupational History Not on fileSocial Needs Financial resource strain: Not on file Food insecurity: Worry: Not on file Inability: Not on file Transportation needs: Medical: Not on file Non-medical: Not on fileTobacco Use Smoking status: Never Smoker Smokeless tobacco: Never UsedSubstance and Sexual Activity Alcohol use: Yes Comment: rare Drug use: No Sexual activity: Not on fileLifestyle Physical activity: Days per week: Not on file Minutes per session: Not on file Stress: Not on fileRelationships Social connections: Talks on phone: Not on file Gets together: Not on file Attends buddhism service: Not on file Active member of club or organization: Not on file Attends meetings of clubs or organizations: Not on file Rela tionship status: Not on file Intimate partner violence: Fear of current or ex partner: Not on file Emotionally abused: Not on file Physically abused: Not on file Forced sexual activity: Not on fileOther Topics Concern Bike Helmet Not Asked History of Falls Not Asked Self-Exams Not Asked Caffeine Concern Not Asked Hobby Hazards Not Asked Sleep Concern Not Asked Daily Calcium Supplement Not Asked Lead Exposure Not Asked Special Diet Not Asked Daily Vitamin D Supplement Not Asked Service Not Asked Stress Concern Not Asked Domestic Violence in home Not Asked Radon exposure Not Asked Weight Concern Not Asked Exercise Not Asked Seat Belt Not Asked Well water Not Asked Firearms in home Not AskedSocial History Narrative Not on fileMedications and AllergiesALLERGIES/SENSITIVITIES: Patient has no known drug allergies.Current Outpatient Medications: acetaminophen (TYLENOL) 325 MG tablet, Take 2 tablets (650 mg total) by mouthevery 4 (four) hours as needed, Disp: 30 tablet, Rfl: 0 allopurinol (ZYLOPRIM) 300 MG tablet, Take 300 mg by mouth daily, Disp: ,Rfl: aspirin EC 81 MG EC tablet, Take 1 tablet (81 mg total) by mouth daily, Disp:90 tablet, Rfl: 3 atorvastatin (LIPITOR) 40 MG tablet, Take 40 mg by mouth daily, Disp: , Rfl: clopidogrel (PLAVIX) 75 MG tablet, Take 1 tablet (75 mg total) by mouthdaily, Disp: 90 tablet, Rfl: 3 finasteride (PROSCAR) 5 MG tablet, Take 5 mg by mouth daily, Disp: , Rfl : lisinopril (PRINIVIL,ZESTRIL) 30 MG tablet, Take 30 mg by mouth daily , Disp:, Rfl: 2 Magnesium Oxide (MAGNESIUM OXIDE) 400 MG tablet, Take 400 mg by mouth 2 (two)times a day , Disp: , Rfl: metoprolol succinate (TOPROL-XL) 50 MG 24 hr tablet, Take 1 tablet (50 mgtotal) by mouth 2 (two) times a day, Disp: 180 tablet, Rfl: 3 Multiple Vitamins-Minerals (MULTIVITAMIN PO), Take 1 tablet by mouth daily,Disp: , Rfl: nitroglycerin (NITROSTAT) 0.4 MG SL tablet, Place 1 tablet (0.4 mg total)under the tongue every 5 (five) minutes as needed for chest pain, Disp: 25tablet, Rfl: 2 pantoprazole (PROTONIX) 40 MG tablet, Take 40 mg by mouth daily, Disp: , Rfl: tamsulosin (FLOMAX) 0.4 MG CAPS, Take 0.8 mg by mouth daily , Disp: , Rfl: docusate sodium (COLACE) 100 MG capsule, , Disp: , Rfl:PhysicalBMI: Body mass index is 30.71 kg/m .Blood Pressure: BP: 136/72 Pulse: Heart Rate: 70Temperature: Temp: 97.1 F Respirations: Resp: 18 Weight: Weight: 91.6 kg (202 lb) O2 Saturation: SpO2: 97 %Physical Exam General Well developed, well nourished, no acute distress Neck Soft and supple without lymphadenopathy or thyromegaly. No JVD. N obruits. Lungs Clear to auscultation, no crackles, rhonchi, or wheezes Heart Normal S1 S2, no murmurs, clicks, or gallops Musculoskeletal Appears to have normal range of motion x 4 extremities, nojoint swelling. No pedal edema Neuro Alert, orientedx3, no facial asymmetry Derm No rashes, or ulcers Vascular Pulses palpableDiagnosticsLabDone through PCPEKG: N/AAssessment & Plan1. Known CAD; patient's cardiac catheterization recently confirmed patent LADstent and no other significant disease.2. Hypertension; his blood pressures under good control with current medicaltherapy3. Hyperlipidemia; he does remain on a statin and would recommend that his LDLbe less than 70.4. Obstructive sleep apnea; he does utilize CPAP on a regular basis5. Nonsustained VT; he does have a Linq monitor implanted and continues to bemonitored.I will have Dr. Mullins review his stress echocardiogram as well as his cardiaccatheterization and give recommendation regarding upcoming surgery. We willotherwise anticipate seeing him back in the office in 6 months time with in the absence of Dr. Dobbs. He knows to contact our office if he hasany signs or symptoms of cardiovascular concern.We appreciate the opportunity to care for this patient.Signature: Janelel Quintana NPDate: November 22, 2019Time: 8:41 AMThis document or parts of this document, were dictated using [employer]. A reasonable attempt at proofreading has been made to minimize errors.Please call with any questions or corrections. Name Value Range Interpretation Code Description [facility] Supporting Document(s) ID Date Data Source [id number] 11/20/2019 04:26:00 PM EDT [facility] ([facility]) Name Value Range Interpretation Code Description Data [facility] Supporting Document(s) Laboratory test finding (navigational concept) Laboratory test result [facility] ([facility]) . Not provided . Right Ureter --- 12/09/191712 --- Spec Type previously reported as: . Not provided Size Laboratory test result [facility] ([facility]) Multiple pieces received. Dimensions of the largest piece reported. Single piece received. --- 12/09/191712 --- CAL2 previously reported as: 1x2 mm Multiple pieces received. Dimensions of the largest piece reported. Color Laboratory test result [facility] ([facility]) Weight 38 mg [facility] --- 12/09/191712 --- CAL3 previously reported as: 10 mg Composition [facility] . Percentage (Represents the % composition) CA Oxalate Dihy 20 % [facility] ([facility]) Laboratory test finding (navigational concept) Laboratory test result [facility] ([facility]) --- 12/09/191712 --- Hydroxyapatite previously reported as: 20 % Laboratory test finding (navigational concept) Laboratory test result [facility] ([facility]) Ca Ox Monohydrate 80 % [facility] ([facility]) --- 12/09/191712 --- CAL6 previously reported as: 60 % MG Emanuel Phos Laboratory test result [facility] ([facility]) CA Phosphate Laboratory test result [facility] NT ([facility]) Amm Acid Urate Laboratory test result [facility] ([facility]) Ua Dihydrate Laboratory test result [facility] ([facility]) Uric Acid Laboratory test result [facility] ([facility]) Na Acid Urate Laboratory test result [facility] ([facility]) Laboratory test finding (navigational concept) Laboratory test result [facility] ([facility]) Laboratory test finding (navigational concept) Laboratory test result [facility] ([facility]) CA Jal Phos Laboratory test result [facility] ([facility]) Cystine Laboratory test result [facility] ([facility]) Cholesterol Laboratory test result [facility] T ([facility]) CA Carbonate Laboratory test result [facility] ([facility]) Bilirubin Laboratory test result [facility] ([facility]) CA Bilirubinate Laboratory test result [facility] Laboratory test finding (navigational concept) Laboratory test result [facility] ([facility]) Laboratory test finding (navigational concept) Laboratory test result [facility] ([facility]) Newberyite Laboratory test result [facility] ([facility]) Laboratory test finding (navigational concept) Laboratory test result [facility] ([facility]) Triamterene Laboratory test result [facility] T ([facility]) Dried Blood Laboratory test result [facility] T ([facility]) Cell Material Laboratory test result [facility] ([facility]) Laboratory test finding (navigational concept) Laboratory test result [facility] ([facility]) Comment Laboratory test result [facility] ([facility]) . Stone #2 of 2 --- 12/09/19 1713 --- CAL25 previously reported as: Test not performed Comment Laboratory test result [facility] ([facility]) Comment Laboratory test result [facility] ([facility]) . Physician questions regarding [facility] contact [facility] at: [phone]. Disclaimer Laboratory test result [facility] ([facility]) . This test was developed and its performance characteristics determined by [facility]. It has not been cleared or approved by the Food and Drug Administration. Performed at: [facility] [place] [facility] [address] [place] [address] Dr Baumann, [place], [place] [address] [id number] Mysql Database Developer: Gregory Horvath MD, Phone: [phone] Please Note: Laboratory test result [facility] NT ([facility]) . Calculi report will follow via computer, mail or education paraprofessional delivery. Laboratory test finding (navigational concept) Laboratory test result [facility] ([facility]) . Photograph will follow under a separate cover ID Date Data Source [id number] 11/20/2019 08:36:00 AM EDT [facility] ([facility]) Name Value Range Interpretation Code Description Data Adrienne rce(s) Supporting Document(s) Laboratory test finding (navigational concept) Laboratory test result [facility] ([facility]) A false negative result may occur if a s pecimen is improperly collected, transported or handled. False [...] pathogens. DISCLAIMER: Testing was performed using the [employer] SARS-CoV-2 test. This test was developed and its performance characteristics determined by [employer]. This test has not been FDA cleared [...] the authorization is terminated or revoked sooner. ID Date Data Source [id number] 11/20/2019 07:20:00 AM EDT [facility] ([facility]) Name Value Range Interpretation Code Description Data Adrienne rce(s) Supporting Document(s) White Blood Count 11.3 10 4.0-10.0 [facility] ([facility]) Red Blood Count 4.23 10 4.30-6.10 [facility] ([facility]) Hemoglobin 13.4 g/dL 13.5-17.5 [facility] Hematocrit 40.1 % 42.0-52.0 [facility] Mean Corpuscular Volume 94.8 fl 80.0-96.0 [facility] ([facility]) Mean Corpuscular Hemoglobin 31.7 pg 27.0-33.0 [facility] ([facility]) Mean Corpuscular HGB Conc 33.4 g/dL 32.0-36.5 [facility] NT ([facility]) Platelet Count, Automated 230 10 150-450 [facility] NT ([facility]) Red Cell Distribution Width 13.0 % 11.5-14.5 [facility] ([facility]) Neutrophils % 81.2 % 36.0-66.0 [facility] ([facility]) Lymph % 6.4 % 24.0-44.0 [facility] [place] % 11.7 % 0.0-5.0 [facility] Eos % 0.2 % 0.0-3.0 [facility] Baso % 0.1 % 0.0-1.0 [facility]) Immature Granulocyte % 0.4 % 0-3.0 [facility] ([facility]) Nucleated Red Blood Cell % 0.0 % 0-0 [facility] ([facility]) Neutrophils # 9.2 10 1.5-8.5 [facility] ([facility]) Lymph # 0.7 10 1.5-5.0 [facility]) Eos # 0.0 10 0.0-0.5 [facility] [place] # 1.3 10 0.0-0.8 [facility] ([facility]) Baso # 0.0 10 0.0-0.2 [facility] ID Date Data Source [id number] 11/20/2019 07:20:00 AM EDT [facility] ([facility]) Name Value Range Interpretation Code Description Data Adrienne rce(s) Supporting Document(s) Appearance, Urine RFX Laboratory test result [facility] ([facility]) Color, Urine RFX Laboratory test result [facility] ([facility]) Specific [place] Ur Auto RFX 1.016 1.002-1.035 [facility] ([facility]) PH,Urine RFX 6.0 units 5.0-9.0 [facility] ([facility]) Glucose, Urine (Ua) Auto RFX Laboratory test result [facility] ([facility]) Protein, Urine Auto RFX Laboratory test result [facility] ([facility]) Urobilinogen, Urine Auto RFX 0.2 mg/dL 0.0-2.0 [facility] ([facility]) Ketone, Urine Auto RFX Laboratory test result [facility] ([facility]) Bilirubin, Urine Auto RFX Laboratory test result [facility] ([facility]) Nitrite, Urine Auto RFX Laboratory test result [facility] ([facility]) Leukocyte Esterase Ur Auto RFX Laboratory test result [facility] ([facility]) Blood, Urine Blood RFX Laboratory test result [facility] ([facility]) RBC, Urine Auto RFX 39 /HPF 0-3 [facility] WBC, Urine Auto RFX 27 /HPF 0-3 [facility] Bacteria, Urine Auto RFX Laboratory test result [facility] ([facility]) Squam Epithelial Cell Ur Aurfx 0 /HPF 0-6 [facility] Mucus, Urine RFX Laboratory test result [facility] ([facility]) Hyaline Cast, Urine Auto RFX 0 /LPF 0-1 [facility] ID Date Data Source [id number] 11/20/2019 07:20:00 AM EDT [facility] ([facility]) Name Value Range Interpretation Code Description Data Adrienne rce(s) Supporting Document(s) Glucose, Fasting 120 mg/dL 70-100 [facility] ([facility] Creatinine For GFR 1.32 mg/dL 0.70-1.30 [facility] ([facility] Blood Urea Nitrogen 19 mg/dL 7-18 [facility] ([facility] Glomerular Filtration Rate 56.6 [facility] <content>Units are mL/min/1.73 m2</content>
<content></content>
<content>Chronic Kidney Disease Staging per NKF:</content>
<content></content>
<content>Stage I & II GFR >=60 Normal to Mildly Decreased</content>
<content>Stage III GFR 30- 59 Moderately Decreased</content>
<content>Stage IV GFR 15-29 Severely Decreased</content>
<content>Stage V GFR <15 Very Little GFR Left</content>
<content>ESRD GFR <15 on TOOL GRINDER OPERATOR EXTERNAL</content>
<content></content> Sodium Level 137 meq/L 136-145 [facility] ([facility]) Potassium Serum 3.8 meq/L 3.5-5.1 [facility] ([facility]) Chloride Level 104 meq/L 98-107 [facility] ([facility]) Carbon Dioxide Level 28 meq/L 21-32 [facility] ([facility]) Anion Gap 5 meq/L 8-16 [facility]) Calcium Level 8.7 mg/dL 8.8-10.2 [facility] ([facility]) ID Date Data Source [id number] 11/20/2019 07:20:00 AM EDT [facility] ([facility]) Name Value Range Interpretation Code Description Data Adrienne rce(s) Supporting Document(s) Reflex Urine Culture Laboratory test result [facility] ([facility]) FULL REPORT IN LAB NOTES (eCW and [facility] ). NO GROWTH ID Date Data Source [id number] 11/15/2019 05:34:00 PM EDT [facility] ([facility]) Name Value Range Interpretation Code Description Data Adrienne rce(s) Supporting Document(s) Color, Urine RFX Laboratory test result [facility] ([facility]) Appearance, Urine RFX Laboratory test result [facility] ([facility]) Specific [place] Ur Auto RFX 1.016 1.002-1.035 [facility] ([facility]) PH,Urine RFX 5.0 units 5.0-9.0 [facility] ([facility]) Glucose, Urine (Ua) Auto RFX Laboratory test result [facility] Protein, Urine Auto RFX Laboratory test result [facility] ([facility]) Bilirubin, Urine Auto RFX Laboratory test result [facility] ([facility]) Ketone, Urine Auto RFX Laboratory test result [facility] ([facility]) Urobilinogen, Urine Auto RFX 0.2 mg/dL 0.0-2.0 [facility] Nitrite, Urine Auto RFX Laboratory test result [facility] Leukocyte Esterase Ur Auto RFX Laboratory test result [facility] ([facility]) Blood, Urine Blood RFX Laboratory test result [facility] Bacteria, Urine Auto RFX Laboratory test result [facility] WBC, Urine Auto RFX 2 /HPF 0-3 [facility] ([facility] RBC, Urine Auto RFX Laboratory test result 0-3 [facility] Squam Epithelial Cell Ur Aurfx 0 /HPF 0-6 [facility] Hyaline Cast, Urine Auto RFX 0 /LPF 0-1 [facility] ([facility] Mucus, Urine RFX Laboratory test result [facility] Calcium Oxalate Crystals RFX Laboratory test result [facility] ID Date Data Source [id number] 11/15/2019 03:45:00 PM EDT [facility] Name Value Range Interpretation Code Description Data Adrienne rce(s) Supporting Document(s) Laboratory test finding (navigational concept) 44.0 % 38.0-51.0 [facility]) Laboratory test finding (navigational concept) 144 meq/L 136-145 [facility]) Laboratory test finding (navigational concept) 156 mg/dL 70-105 [facility] ([facility]) Laboratory test finding (navigational concept) 4.1 meq/L 3.5-5.1 [facility]) Laboratory test finding (navigational concept) 4.7 mg/dL 4.5-5.3 [facility] Laboratory test finding (navigational concept) 107 meq/L 98-109 [facility] ([facility]) Laboratory test finding (navigational concept) 17 mg/dL 8-26 [facility] ([facility]) Laboratory test finding (navigational concept) 23.0 MM/L 23.0-27.0 [facility] ([facility]) Laboratory test finding (navigational concept) 1.0 mg/dL 0.6-1.3 [facility] ID Date Data Source [id number] 11/15/2019 03:36:00 PM EDT [facility] Name Value Range Interpretation Code Description Data Adrienne rce(s) Supporting Document(s) Thyrotropin [Units/volume] in Serum or Plasma by Detec tion limit <= 0.05 mIU/L 0.715 uIU/ML 0.358-3.740 [facility] ID Date Data Source [id number] 11/15/2019 03:36:00 PM EDT [facility] Name Value Range Interpretation Code Description Data Adrienne rce(s) Supporting Document(s) Glucose, Fasting 148 mg/dL 70-100 [facility] ([facility] Blood Urea Nitrogen 17 mg/dL 7-18 [facility] ([facility] Creatinine For GFR 1.17 mg/dL 0.70-1.30 [facility] ([facility]) Glomerular Filtration Rate Laboratory test result [facility] ([facility]) <content>Units are mL/min/1.73 m2</content>
<content></content>
<content>Chronic Kidney Disease Staging per NKF:</content>
<content></content>
<content>Stage I & II GFR >=60 Normal to Mildly Decreased</content>
<content>Stage III GFR 30- 59 Moderately Decreased</content>
<content>Stage IV GFR 15-29 Severely Decreased</content>
<content>Stage V GFR <15 Very Little GFR Left</content>
<content>ESRD GFR <15 on TOOL GRINDER OPERATOR EXTERNAL</content>
<content></content> Sodium Level 141 meq/L 136-145 [facility] Chloride Level 112 meq/L 98-107 [facility] ([facility]) Potassium Serum 4.3 meq/L 3.5-5.1 [facility] Carbon Dioxide Level 25 meq/L 21-32 [facility]) Calcium Level 9.4 mg/dL 8.8-10.2 [facility] ([facility]) Anion Gap 4 meq/L 8-16 [facility]) ID Date Data Source [id number] 11/15/2019 03:36:00 PM EDT [facility] ([facility]) Name Value Range Interpretation Code Description Data Adrienne rce(s) Supporting Document(s) Red Blood Count 4.61 10 4.30-6.10 [facility] ([facility]) White Blood Count 14.7 10 4.0-10.0 [facility] Hematocrit 44.6 % 42.0-52.0 [facility] Hemoglobin 14.6 g/dL 13.5-17.5 [facility] Mean Corpuscular Volume 96.7 fl 80.0-96.0 [facility] ([facility]) Mean Corpuscular Hemoglobin 31.7 pg 27.0-33.0 [facility] ([facility]) Mean Corpuscular HGB Conc 32.7 g/dL 32.0-36.5 [facility] ([facility]) Red Cell Distribution Width 13.1 % 11.5-14.5 [facility] ([facility]) Nucleated Red Blood Cell % 0.0 % 0-0 [facility] ([facility]) Platelet Count, Automated 237 10 150-450 [facility] ([facility]) ID Date Data Source [id number] 11/08/2019 11:25:58 AM EDT [facility] Name Value Range Interpretation Code Description Data Adrienne rce(s) Supporting Document(s) &PDF [facility] HDHEDr9hJgMZKsTy24/BZQxaVBWky4HrXFpxDVb6TKytALTkP3JkdOkcCOOYDY5AUOrFO0tPCyXGDM1c FcG [file] [id number] ID Date Data Source 11/08/2019 11:31:13 AM EDT [facility] NT INFORMATIONPatient MRN Name Date of Age Gend*PT [id number] Carolee Pope Carie 1945 74 years M HOPPT Location Admission Date/Time Visit ID Attending ProviderCV11/08/19 0824 --- Leilani Cornelius MD([id number]) EPI ID CSN Admitting Provider [id number] Leilani Cornelius MD([id number])Cardiology H&P addendum The patient is a 74-year-old man with a history of cardiomyopathy and prior LADstenting who recently underwent stress testing that was abnormal and sugg estiveof multivessel disease. He was thus referred for coronary angiography. Theprocedure and risks were explained and understood. Plan for the radialapproach.Leilani Cornelius MD Name Value Range Interpretation Code Description Data Adrienne rce(s) Supporting Document(s) ID Date Data Source [id number] 11/08/2019 09:34:57 AM EDT [facility] Name Value Range Interpretation Code Description Data Adrienne rce(s) Supporting Document(s) EKG [facility] AKEOVc0lYuYPAgGbb3AkLiXwWTAgEX0ekmk6J6S7wRQaE3DecZYur8itL8AaQ9QhSSSaYSVQVL1YkYGo jb2 [file] 8/WG8/sFcH6+0H6+6yRZ22Z8+CPKi9nd17D6F74P1V 0GF7IWnR1eRev6rMXXRjn1ih+5pa8h9J1DeM15Zb2839Ok3s7Ah19nsNJGoMx4gfPQ9mzCLFdKLG+tWJ jTooKTAEOvx7Vwp3OwvcULwK469/+QALsAKP/8wc6f6uun5T265DnLJx+wPnUocsG2z4lJ0+MM75FX5O 0KFXiTuhYfu3prhpGqURPJHI7cRDUWzsplvxV3/+iI /DRILLING MACHINE OPERATOR/vI/1v1JShXT7eH+cuE038+mtqHunuR8S54hb36aqowe+iS52Xu1hLKOxp/p+ksqwM5l0f5eE7ec0 4FV0kl7jECHrnpDJPJfFK451bQxfY+6nJ/5yFCyOaz6rhEy/eZr4swyyZIs2cS2mjyh4sDWX5kjxIPFj 715himw0sLBFc851ZPl3ilfSAMy9+yASq0uDS7fxqL Y59cCQsnUeNGxoKxcs047CBSlTtRKUuYkU1sQdQijXkwbhbIriKA2pExMJuk2ry+jWW9UYK230DUX+v1 ONy0FPTJS8zx2vStM0E460sFPp8jumG30oMy59n0ruxVq5xvPVMbzxtw6lho2l5HtKS76eWnSD8K8o0A hLo3GHYILhAeKsTppVIAZfTYJNhSNYXAWVQO+3sL58 [file] r994NZPbQADBWqp+ZvavkZYpkRtdLYTVDOv2EjSFHNXFU6Y= ID Date Data Source [id number] 11/03/2019 09:20:00 AM EDT [facility] Name Value Range Interpretation Code Description Data Adrienne rce(s) Supporting Document(s) SARS coronavirus 2 RNA [facility] This lab was ordered by [facility] and reported by [facility]. ID Date Data Source [id number] 11/04/2019 05:07:16 PM EDT [facility] Name Value Range Interpretation Code Description Data Adrienne rce(s) Supporting Document(s) SARS-COV-2 [facility] Not DetectedReference range: Not Detecte d This test was developed and its performance characteristics determined by [facility]. This test has not been FDA cleared [...] the authorization is terminated or revoked sooner. When diagnostic testing is negative, the possibility of a false negative result should be considered in the context of a patient's recent exposures and the presence of clinical signs and symptoms consistent with COVID-19. An individual without symptoms of COVID-19 and who is not shedding SARS-CoV-2 virus would expect to have a negative (not detected) result in this assay. Performed At: Lab[address] [id number] Rashard Sims MD Ph:[phone] ID Date Data Source [id number] 11/02/2019 02:10:00 PM EDT [facility] ([facility]) Name Value Range Interpretation Code Description Data Adrienne rce(s) Supporting Document(s) Blood Urea Nitrogen 16 mg/dL 7-18 [facility] ([facility]) Glucose, Fasting 131 mg/dL 70-100 [facility] ([facility]) Glomerular Filtration Rate Laboratory test result [facility] ([facility]) <content>Units are mL/min/1.73 m2</content>
<content></content>
<content>Chronic Kidney Disease Staging per NKF:</content>
<content></content>
<content>Stage I & II GFR >=60 Normal to Mildly Decreased</content>
<content>Stage III GFR 30- 59 Moderately Decreased</content>
<content>Stage IV GFR 15-29 Severely Decreased</content>
<content>Stage V GFR <15 Very Little GFR Left</content>
<content>ESRD GFR <15 on TOOL GRINDER OPERATOR EXTERNAL</content>
<content></content> Creatinine For GFR 0.94 mg/dL 0.70-1.30 [facility] ([facility]) Sodium Level 144 meq/L 136-145 [facility] ([facility]) Potassium Serum 4.4 meq/L 3.5-5.1 [facility] ([facility] Chloride Level 110 meq/L 98-107 [facility] ([facility] [facility]) Carbon Dioxide Level 29 meq/L 21-32 [facility] ([facility]) Anion Gap 5 meq/L 8-16 [facility] ([place] [facility]) Calcium Level 8.9 mg/dL 8.8-10.2 [facility] ([facility]) ID Date Data Source [id number] 11/02/2019 02:10:00 PM EDT [facility] ([facility]) Name Value Range Interpretation Code Description Data Adrienne rce(s) Supporting Document(s) White Blood Count 7.7 10 4.0-10.0 [facility] ([facility]) Red Blood Count 4.59 10 4.30-6.10 [facility] ([facility]) Hemoglobin 14.5 g/dL 13.5-17.5 [facility] ([place] [facility]) Hematocrit 44.1 % 42.0-52.0 [facility] [facility]) Mean Corpuscular Volume 96.1 fl 80.0-96.0 [facility] ([facility]) Mean Corpuscular Hemoglobin 31.6 pg 27.0-33.0 RI DENT ([facility]) Mean Corpuscular HGB Conc 32.9 g/dL 32.0-36.5 MEDE NT ([facility] [facility]) Red Cell Distribution Width 13.1 % 11.5-14.5 RI DENT ([facility]) Platelet Count, Automated 203 10 150-450 MEDE NT ([facility]) Lymph % 14.3 % 24.0-44.0 [facility] ([place] [facility]) [place] % 7.2 % 0.0-5.0 [facility] ([place] [facility]) Neutrophils % 77.1 % 36.0-66.0 [facility] ([facility]) Eos % 0.8 % 0.0-3.0 [facility] ([place] [facility]) Immature Granulocyte % 0.3 % 0-3.0 [facility] ([facility] [facility]) Baso % 0.3 % 0.0-1.0 [facility] ([place] [facility]) Lymph # 1.1 10 1.5-5.0 [facility] ([place] [facility]) Neutrophils # 6.0 10 1.5-8.5 [facility] ([facility]) Nucleated Red Blood Cell % 0.0 % 0-0 MED ENT ([place] [facility]) [place] # 0.6 10 0.0-0.8 [facility] ([place] [facility]) Eos # 0.1 10 0.0-0.5 [facility] ([place] [facility]) Baso # 0.0 10 0.0-0.2 [facility] ([place] [facility]) ID Date Data Source [id number] 10/29/2019 03:24:05 PM EDT [facility])PATIE NT INFORMATIONPatient MRN Name Date of Age Gend*PT [id number] Carolee Pope 1945 74 years M ---PT Location Admission Date/Time Visit ID Attending Provider --- --- --- --- EPI ID CSN Admitting Provider [id number] ---Name: Carolee Carie SaraiDOB: 1945Date: 10/29/19Loop Device CheckDevice was remotely interrogated and the following were evaluated:Battery statusSummary arrhythmia logsNew observationsAny patient activated eventsFidelity of the EGM signalConclusion:No new clinically significant arrhythmias, continue monitoringSignature: Sharmin Dodson MD, [facility], RSCardiac Electrophysiology and Arrhythmia ServiceDate: October 29, 2019Time: 3:24 PMThis document or parts of this document, were dictated using Karmaloopware. A reasonable at tempt at proofreading has been made to minimize errors.Please call with any questions or corrections. Name Value Range Interpretation Code Description Data Adrienne rce(s) Supporting Document(s) ID Date Data Source [id number] 10/26/2019 03:24:43 PM EDT [facility])PATIE NT INFORMATIONPatient MRN Name Date of Age Gend*PT [id number] Sarai Carolee E 1945 74 years M ---PT Location Admission Date/Time Visit ID Attending Provider --- --- --- --- EPI ID CSN Admitting Provider [id number] ---Cardiology Office NoteName: Carolee Pope Gender: maleDate of : 1945 Age: 74 yearsPrimary Care Provider / Referring Physician: KARMA CACERESurrent HistoryChief Complaint: Preoperative evaluation for upcoming hernia surgeryHPI:This patient is a 74 years male presents today for follow-up. He has thefollowing medical problem list:1. Diagnosed with cardiomyopathy EF 30-35 %; cardiac catheterization 02/11/2018required drug-eluting stent to the LAD2. History of paroxysmal SVT3. Hypertension4. Obstructive sleep apnea treated with CPAP5[place] [address]. Echocardiogram 04/07/2018 reveals EF 50-55 percent, mild mitral and tricuspidinsufficiency7. Implant of LINQ monitor 04/26/2018 for episode of near syncope andnonsustained ventricular tachycardia noted on event monitorPatient presents today for follow-up. He is anticipating having hernia surgerySeptember [address] Yeager in [place]. Overall, he tells me that he hasbeen feeling well however he does report one episode on September 13 in which he waswatering his garden and he felt his heart "fluttering" and to the point that hewas going to pass out however he did not. He did have his Linq monitorinterrogated and there was not any significant arrhythmias that would havecaused the symptoms. He is known to have nonsustained ventricular tac hycardiaand that is the reason he got the Linq monitor implanted. He otherwise tries toremain active. He has not had any chest pain or shortness of breath. We havenot done an evaluation of his coronaries since his stent was placed in February2018. I would like for him to return to get updated stress echocardiogram priorto his upcoming hernia surgery. He is agreeable to this. His EKG todaydemonstrates normal sinus rhythm with 1 PVC and otherwise no other changes. [place] utilize his CPAP on a regular basis. Blood work is done through primarycare.Review of Systems General Denies dizziness or lightheadedness. Denies any recent, unexpectedweight changes. HEENT Denies any loss or change of vision. Denies tinnitus. Respiratory Denies PND, orthopnea, MCNEILL, hemoptysis, cough, or shortness ofbreath. Cardiac Denies chest pain or pressure, denies palpitations GI Denies melena, hematochezia, nausea, or vomiting. MS Denies any lower extremity edema. Neuro Denies speech, motor, or sensory impairment. Psych Denies depression or anxiety. Endo Denies polyuria or polydipsia, denies temperature intolerance. Derm Denies diaphoresis, non-healing skin woundsPast HistoryPast Medical History:Diagnosis Date Cardiomyopathy Hyperlipidemia Hypertension PSVT (paroxysmal supraventricular tachycardia) Sleep apneaPast Surgical History:Procedure Laterality Date CARDIAC CATHETERIZATION N/A 02/16/2018 Procedure: Cardiac catheterization; Surgeon: Pedro Luis Dobbs MD; Laterality:N/A; CARDIAC CATHETERIZATION N/A 02/16/2018 Procedure: Percutaneous coronary intervention; Surgeon: Pedro Luis Dobbs MD;Laterality: N/A; CARDIAC CATHETERIZATION N/A 02/16/2018 Procedure: Coronary angiography; Surgeon: Pedro Luis Dobbs MD; Laterality: N/A; CARDIAC CATHETERIZATION N/A 02/16/2018 Procedure: Left ventriculography; Surgeon: Pedro Luis Dobbs MD; Laterality:N/A; IMPLANT LOOP RECORDER N/A 04/26/2018 Procedure: Loop insertion; Surgeon: Sharmin Dodson MD; Laterality: N/A;MEDTRONICFamily HistoryProblem Relation Age of Onset Cancer Mother Heart attack FatherSocial HistorySocioeconomic History Marital status: Spouse name: Not on file Number of children: Not on file Years of education: Not on file Highest education level: Not on fileOccupational History Not on fileSocial Needs Financial resource strain: Not on file Food insecurity: Worry: Not on file Inability: Not on file Transportation needs: Medical: Not on file Non-medical: Not on fileTobacco Use Smoking status: Never Smoker Smokeless tobacco: Never UsedSubstance and Sexual Activity Alcohol use: Yes Comment: rare Drug use: No Sexual activity: Not on fileLifestyle Physical activity: Days per week: Not on file Minutes per session: Not on file Stress: Not on fileRelationships Social connections: Talks on phone: Not on file Gets together: Not on file Attends buddhism service: Not on file Active member of club or organization: Not on file Attends meetings of clubs or organizations: Not on file Relationship status: Not on file Intimate partner violence: Fear of current or ex partner: Not on file Emotionally abused: Not on file Physically abused: Not on file Forced sexual activity: Not on fileOther Topics Concern Bike Helmet Not Asked History of Falls Not Asked Self-Exams Not Asked Caffeine Concern Not Asked Hobby Hazards Not Asked Sleep Concern Not Asked Daily Calcium Supplement Not Asked Lead Exposure Not Asked Special Diet Not Asked Daily Vitamin D Supplement Not Asked Service Not Asked Stress Concern Not Asked Domestic Violence in home Not Asked Radon exposure Not Asked Weight Concern Not Asked Exercise Not Asked Seat Belt Not Asked Well water Not Asked Firearms in home Not AskedSocial History Narrative Not on fileMedications and AllergiesALLERGIES/SENSITIVITIES: Patient has no known drug allergies.Current Outpatient Medications: acetaminophen (TYLENOL) 325 MG tablet, Take 2 tablets (650 mg total) by mouthevery 4 (four) hours as needed, Disp: 30 tablet, Rfl: 0 allopurinol (ZYLOPRIM) 300 MG tablet, Take 300 mg by mouth daily, Disp: ,Rfl: aspirin EC 81 MG EC tablet, Take 1 tablet (81 mg total) by mouth daily, Disp:90 tablet, Rfl: 3 atorvastatin (LIPITOR) 40 MG tablet, Take 40 mg by mouth daily, Disp: , Rfl: clopidogrel (PLAVIX) 75 MG tablet, Take 1 tablet (75 mg total) by mouthdaily, Disp: 90 tablet, Rfl: 3 finasteride (PROSCAR) 5 MG tablet, Take 5 mg by mouth daily, Disp: , Rfl: lisinopril (PRINIVIL,ZESTRIL) 30 MG tablet, Take 20 mg by mouth daily , Disp:, Rfl: 2 Magnesium Oxide (MAGNESIUM OXIDE) 400 MG tablet, Take 400 mg by mouth 2 (two)times a day , Disp: , Rfl: metoprolol succinate (TOPROL-XL) 50 MG 24 hr tablet, Take 1 tablet (50 mgtotal) by mouth 2 (two) times a day, Disp: 180 tablet, Rfl: 3 Multiple Vitamins-Minerals (MULTIVITAMIN PO), Take 1 tablet by mouth daily,Disp: , Rfl: nitroglycerin (NITROSTAT) 0.4 MG SL tablet, Place 1 tablet (0.4 mg total)under the tongue every 5 (five) minutes as needed for chest pain, Disp: 25tablet, Rfl: 2 pantoprazole (PROTONIX) 40 MG tablet, Take 40 mg by mouth daily, Disp: , Rfl: tamsulosin (FLOMAX) 0.4 MG CAPS, Take 0.4 mg by mouth daily, Disp: , Rfl:PhysicalBMI: Body mass index is 30.56 kg/m .Blood Pressure: BP: 124/72 Pulse: Heart Rate: 88Temperature: Temp: 96.3 F Respirations: Resp: 18 Weight: Weight: 91.2 kg (201 lb) O2 Saturation: SpO2: 96 %Physical Exam General Well developed, well nourished, no acute distress Neck Soft and supple without lymphadenopathy or thyromegaly. No JVD. Nobruits. Lungs Clear to auscultation, no crackles, rhonchi, or wheezes Heart Normal S1 S2, no murmurs, clicks, or gallops Musculoskeletal Appears to have normal range of motion x 4 extremities, nojoint swelling. No pedal edema Neuro Alert, orientedx3, no facial asymmetry Derm No rashes, or ulcers Vascular Pulses palpableDiagnosticsLabDone through PCPEKG:EKG Results (Last 72 hours) 10/26/19 1522 POCT AMB EKG Final result Impression: Normal sinus rhythm with PVCAssessment & Plan1. Known CAD; patient did require stenting February 2018. With his anticipatedupcoming surgery, I would like for him to have updated stress echocardiogram.He did have an episode of near syncope in September however he did not have anysignificant arrhythmias. We need to make sure that he is not having anyischemia.2. Hypertension; his blood pressures under good control with current medicaltherapy3. Hyperlipidemia; he does remain on a statin and this is monitored throughprimary care. Would recommend that his LDL be consistently less than 704. Obstructive sleep apnea; he does utilize CPAP on a regular basis5. Nonsustained VT; he does have implanted Linq monitor and this is continuingto be monitored.Patient will present within the next week or so to get his updated stressechocardiogram. Further recommendation regarding his surgery will be made onceresults are known. He knows to contact our office if he has any signs orsymptoms of cardiovascular concern.We appreciate the opportunity to care for this patient.Signature: Janelle Quintana NPDate: October 26, 2019Time: 3:22 PMThis document or parts of this document, were dictated autumn Lyles speakingsoftware. A reasonable attempt at proofreading has been made to minimize errors.Please call with any questions or corrections. Name Value Range Interpretation Code Description Data Adrienne rce(s) Supporting Document(s) ID Date Data Source [id number] 09/29/2019 01:38:00 PM EDT [facility] ([facility]) Name Value Range Interpretation Code Description Data Adrienne rce(s) Supporting Document(s) Glucose [Mass/volume] in Serum or Plasma 101 mg/dL 74-99 [facility] ([place] [facility]) 100-125 mg/dL PRE-DIABETES/FASTING >126 mg/dL DIABETES/FASTING Urea nitrogen [Mass/volume] in Serum or Plasma 20 mg/dL 7-18 [facility] ([place] [facility]) Sodium [Moles/volume] in Serum or Plasma 146 meq/L 136-145 [facility] ([place] [facility]) Creatinine 1.1 mg/dL 0.6-1.3 [facility] [facility]) Potassium [Moles/volume] in Serum or Plasma 4.0 meq/L 3.5-5.1 [facility] ([place] [facility]) Chloride [Moles/volume] in Serum or Plasma 108 meq/L 98-107 [facility] ([place] [facility]) Carbon dioxide, total [Moles/volume] in Serum or Plasma 28 meq/L 21 -32 [facility] ([place] [facility]) Calcium [Mass/volume] in Serum or Plasma 9.1 mg/dL 8.5-10.1 [facility] ([place] [facility]) Alkaline phosphatase isoenzyme [Units/volume] in Serum or Pl asma 106 mg/dL 46-116 [facility] ([place] [facility]) Total Bilirubin 0.7 mg/dL 0.2-1.0 [facility] ([facility]) Aspartate aminotransferase [Enzymatic activity/volume] in Serum or Plasma 16 U/L 15-37 [facility] ([facility] [facility] ) Albumin [Mass/volume] in Serum or Plasma 3.9 g/dL 3.4-5.0 [facility] ([place] [facility]) Alanine aminotransferase [Enzymatic activity/volume] in Seru m or Plasma 43 U/L 12-78 [facility] ([place] [facility]) A/G Ratio 1.22 CALC 1.00-1.90 [facility] ([place] [facility]) Proteinase 3 Ab [Units/volume] in Serum 7.1 g/dL 6.4-8.2 [facility] ([place] [facility]) Glomerular filtration rate/1.73 sq M pre dicted among blacks [Volume Rate/Area] in Serum or Plasma by Creatinine-based formula (MDRD) Laboratory test result [facility] [facility] <content>CHRONIC KIDNEY DISEASE STAGING PER NKF</content>
<content></content>
<content>STAGE I & II GFR >= 60 NORMAL TO MILDLY DECREASED</content>
<content>STAGE III GFR 30-59 MODERATELY DECREASED</content>
<content>STAGE IV GFR 15-29 SEVERELY DECREASED</content>
<content>STAGE V GFR <15 VERY LITTLE GFR LEFT</content>
<content>ESRD GFR <15 ON TOOL GRINDER OPERATOR EXTERNAL</content>
<content></content> Glomerular filtration rate/1.73 sq M pre dicted among non-blacks [Volume Rate/Area] in Serum or Plasma by Creatinine-based formula (MDRD) Laboratory test result [facility] [facility] ID Date Data Source [id number] 09/29/2019 01:38:00 PM EDT [facility] ([facility]) Name Value Range Interpretation Code Description Data Adrienne rce(s) Supporting Document(s) Leukocytes [#/volume] in Blood by Automated count 7.7 x10*3/UL 4.1-10 .9 [facility] ([place] [facility]) Erythrocytes [#/volume] in Blood by Automated count 4.79 x10*6/UL 4.2 0-6.30 [facility] ([place] [facility]) Hemoglobin [Mass/volume] in Blood 15.0 g/dL 12.0-18.0 [facility] ([place] [facility]) Hematocrit [Volume Fraction] of Blood by Automated count 44.0 % 3 7.0-51.0 [facility] ([place] [facility]) MCV 91.8 fL 80.0-97.0 [facility] [facility] Erythrocyte distribution width [Ratio] by Automated count 13.2 % 11.6-13.7 [facility] ([place] [facility]) MCHC 34.1 g/dL 31.0-38.0 [facility] [facility]) MCH 31.3 pg 26.0-32.0 [facility] [facility] Platelets [#/volume] in Blood by Automated count 205 x10*3/UL 140-440 [facility] ([place] [facility]) Mid % 4.9 % 1.7-9.3 [facility] [facility]) MPV 8.0 FL 7.8-11.0 [facility] ([place] [facility]) Lymph % 19.2 % 10.0-58.5 [facility] [facility]) Neut % 75.9 % 37.0-92.0 [facility] [facility]) Mid # 0.5 x10*3/UL 0.1-0.6 [facility] ([place] [facility]) Lymph # 1.4 x10*3/UL 0.6-4.1 [facility] ([place] [facility]) Neut # 5.8 x10*3/UL 2.0-7.8 [facility] ([place] [facility]) ID Date Data Source [id number] 09/24/2019 07:33:32 AM EDT [facility] NT INFORMATIONPatient MRN Name Date of Age Gend*PT [id number] Carolee Pope 1945 74 years M ---PT Location Admission Date/Time Visit ID Attending Provider --- --- --- --- EPI ID CSN Admitting Provider [id number] ---Name: Carolee VizcarraB: 1945Date: 09/24/19Loop Device CheckDevice was remotely interrogated and the following were evaluated:Battery statusSummary arrhythmia logsNew observationsAny patient activated eventsFidelity of the EGM signalConclusion:No new clinically significant arrhythmias, continue monitoringSignature: Sharmin Dodson MD, FACC, FHRSCardiac Electrophysiology and Arrhythmia ServiceDate: September 24, 2019Time: 7:33 AMThis document or parts of this document, were dictated using Karmaloopware. A reasonable attempt at proofreading has been made to minimize errors.Please call with any questions or corrections. Name Value Range Interpretation Code Description Data Adrienne rce(s) Supporting Document(s) ID Date Data Source [id number] 09/24/2019 07:12:49 AM EDT [facility] NT INFORMATIONPatient MRN Name Date of Age Gend*PT [id number] Carolee Pope 1945 74 years M ---PT Location Admission Date/Time Visit ID Attending Provider --- --- --- --- EPI ID CSN Admitting Provider [id number] ---Name: Carolee VizcarraB: 1945Date: 09/24/19Loop Device CheckDevice was remotely interrogated and the following were evaluated:Battery statusSummary arrhythmia logsNew observationsAny patient activated eventsFidelity of the EGM signalConclusion:No new clinically significant arrhythmias, continue monitoringSignature: Sharmin Dodson MD, FACC, FHRSCardiac Electrophysiology and Arrhythmia ServiceDate: September 24, 2019Time: 7:12 AMThis document or parts of this document, were dictated using rateGeniussoftware. A reasonable attempt at proofreading has been made to minimize errors.Please call with any questions or corrections. Name Value Range Interpretation Code Description Data Adrienne rce(s) Supporting Document(s) ID Date Data Source [id number] 09/07/2019 12:00:00 AM EDT [facility] Andrew Hyatt MD Patient Name: CAROLEE POPE [id number] [facility] Date of : 1945[place] [address] Date of Exam: 09/07/2019#: Fax: [phone] EXAM: ARTHROCENTESIS RTHIP-ASPIR / INJ STEROID/PAIN MEDSRIGHT HIP INJECTION:The procedure was performed by JESSE Connell under the directsupervision of Dr. Salgado.The benefits and risks including, but not limited to pain, infection,bleeding, and anaphylaxis were explained to the patient and informedconsent was obtained.The right femoral neck was localized using fluoroscopic guidance. The skinwas prepped and draped in a sterile fashion. 1% Lidocaine was used as alocal anesthetic. Using fluoroscopic guidance, a #22 gauge spinal needlewas inserted and advanced to the femoral neck. 0.5 cc of Omnipaque 300 wasinjected to verify placement. 6 cc of a solution containing 5 cc of 1%Lidocaine and 1 cc of Kenalog 40 mg was injected into the joint space. Theneedle was then removed.The patient tolerated the procedure well and there were no immediatecomplications.Fluoroscopy time was 3 seconds at 3 pulses/second. This is equal to 0.75seconds continuous fluoroscopy time which is a 75% reduction in radiation.Ted Salgado, [facility]/jmcTrandy you for referring CAROLEE POPE to our office. Electronically Signed - TED SALGADO MD 09/08/19 12:46 Name Value Range Interpretation Code Description Data Adrienne rce(s) Supporting Document(s) ID Date Data Source [id number] 09/07/2019 12:00:00 AM EDT [facility] Andrew Hyatt MD Patient Name: CAROLEE POPE [id number] [facility] Date of : 1945[place] [address] Date of Exam: 09/07/2019#: Fax: [phone] EXAM: ARTHROCENTESIS RTHIP-ASPIR / INJ STEROID/PAIN MEDSRIGHT HIP INJECTION:The procedure was performed by JESSE Connell under the directsupervision of Dr. Salgado.The benefits and risks including, but not limited to pain, infection,bleeding, and anaphylaxis were explained to the patient and informedconsent was obtained.The right femoral neck was localized using fluoroscopic guidance. The skinwas prepped and draped in a sterile fashion. 1% Lidocaine was used as alocal anesthetic. Using fluoroscopic guidance, a #22 gauge spinal needlewas inserted and advanced to the femoral neck. 0.5 cc of Omnipaque 300 wasinjected to verify placement. 6 cc of a solution containing 5 cc of 1%Lidocaine and 1 cc of Kenalog 40 mg was injected into the joint space. Theneedle was then removed.The patient tolerated the procedure well and there were no immediatecomplications.Fluoroscopy time was 3 seconds at 3 pulses/second. This is equal to 0.75seconds continuous fluoroscopy time which is a 75% reduction in radiation.Ted Salgado, [facility]/[place] you for referring CAROLEE POPE to our office. Electronically Signed - TED SALGADO MD 09/08/19 12:46 Name Value Range Interpretation Code Description Data Adrienne rce(s) Supporting Document(s) ID Date Data Source [id number] 08/24/2019 03:06:47 PM EDT [facility] NT INFORMATIONPatient MRN Name Date of Age Gend*PT [id number] Carolee Pope 1945 74 years M ---PT Location Admission Date/Time Visit ID Attending Provider --- --- --- --- EPI ID CSN Admitting Provider [id number] ---Name: Carolee PopeDOB: 1945Date: 08/24/19Loop Device CheckDevice was remotely interrogated and the following were evaluated:Battery statusSummary arrhythmia logsNew observationsAny patient activated eventsFidelity of the EGM signalConclusion:No new clinically significant arrhythmias, continue monitoringSignature: Sharmin Dodson MD, [facility], RSCardiac Electrophysiology and Arrhythmia ServiceDate: August 24, 2019Time: 3:06 PMThis document or parts of this document, were dictated using Karmaloopware. A reasonable attempt at proofreading has been made to minimize errors.Please call with any questions or corrections. Name Value Range Interpretation Code Description Data Adrienne rce(s) Supporting Document(s) ID Date Data Source [id number] 07/29/2019 07:21:51 PM EDT [facility] NT INFORMATIONPatient MRN Name Date of Age Gend*PT [id number] Carolee Pope 1945 74 years M ---PT Location Admission Date/Time Visit ID Attending Provider --- --- --- --- EPI ID CSN Admitting Provider [id number] ---Name: Carolee PopeDOB: 1945Date: 07/29/19Loop Device CheckDevice was remotely interrogated and the following were evaluated:Battery statusSummary arrhythmia logsNew observationsAny patient activated eventsFidelity of the EGM signalConclusion:No new clinically significant arrhythmias, continue monitoringSignature: Sharmin Dodson MD, [facility], [facility] MEDICAL CENTERCardiac Electrophysiology and Arrhythmia ServiceDate: July 29, 2019Time: 7:21 PMThis document or parts of this document, were dictated using rateGeniussoftware. A reasonable attem pt at proofreading has been made to minimize errors.Please call with any questions or corrections. Name Value Range Interpretation Code Description Data Adrienne rce(s) Supporting Document(s) ID Date Data Source [id number] 07/27/2019 12:00:00 AM EDT [facility] Igor Pickett Jr, MD Patient Name: CAROLEE POPE [id number] [facility] Date of : 1945[place] [address] Date of Exam: 07/27/2019PH#: Fax: [phone] EXAM: HIP RIGHT UNILATERAL (COMPLETE) X-RAYCLINICAL INFORMATION: Pain.Two views.There are no prior right hip xrays for comparison.There is moderate asymmetric hip joint space narrowing without buttressing. There is no fracture, dislocation, or subluxation.IMPRESSION:Chronic changes as described above.JONAH Garay/[place] you for referring CAROLEE POPE to our office. Electronically Signed - MEGAN MALHOTRA DO 07/27/19 16:34 Name Value Range Interpretation Code Description Data Adrienne rce(s) Supporting Document(s) ID Date Data Source [id number] 07/20/2019 12:00:00 AM EDT [facility] Igor Pickett Jr, MD Patient Name: CAROLEE POPE [id number] [facility] Date of : 1945[place] [address] Date of Exam: 07/20/2019#: Fax: [phone] EXAM: CT ABDOMEN & PELVIS WITHOUT&WITH CONTRASTCLINICAL INFORMATION: Right lower quadrant pain x a month.Low dose [address] scanning of the abdomen and pelvis wasobtained before and after the administration of intravenous contrast using3 mm increments and reconstructed in both sagittal and coronal scan planes. Immediate and delayed post contrast enhanced imaging was obtained throughthe abdomen. 75 cc of Optiray 350 was administered intravenously.Comparison is 10/19/10.There are chronic changes in the lung bases. There is cylindricalbronchiectasis and areas of fibrotic and/or subsegmental atelectaticchange. There are no pleural or pericardial effusions.The pre- contrast enhanced portion of the examination shows hepatic andsplenic densities to be within normal limits. There are innumerablebilateral non-obstructing nephroliths. These have increased in numberbilaterally. There is an oval shaped 4 cm sized low density structure inthe interpolar region of the right kidney which has slightly higher thanwater density HU readings. In the interpolar region of the left kidney,there is a round exophytic 1.3 cm sized low density structure which hasmuch higher than water density HU readings. Neither of these weredefinitively present on the prior exam, however, the prior exam was anon-contrast enhanced exam. The latest prior contrast enhanced examinationwas performed 08/13/05 and neither of these findings were present on thatexam. In the very inferior pole of the left kidney, there is an additionalround 1.6 cm sized low density structure which has water density HUreadings. This also represents a change from the prior exams. There is atiny exophytic density arising from the very inferior pole of the leftkidney and also somewhat more superiorly. One of these was present on theprior contrast enhanced examination of 08/13/05. There are no urinarybladder calcifications. There are no choleliths. There is a hiatalhernia.The contrast enhanced portion of the examination shows no evidence ofdefinite enhancement involving any of the aforementioned renal findings.Additionally, delayed imaging through the kidneys shows numerablesubcentimeter sized focal areas of low density too numerous to count orindividually assess and too small for accurate Hounsfield assessment butall likely secondary to tiny simple cortical cysts. The adrenal glands andpancreas are within normal limits. The liver and spleen are within normal limits. The gallbladder is within normal limits. There is no abnormalgallbladder wall enhancement. The abdominal aorta and paraaortic regionsare within normal limits. The bowel loops and the mesenteries are withinnormal limits. The appendix is well visualized and is within normallimits. There is no free fluid or free air. There is no intraabdominalmass or adenopathy. There is a ventral rent at the level of the umbilicusthe aperture of which measures 1.8 cm and through which only mesenteryprotrudes. This has increased in size when compared to the prior exams.Scattered descending colon diverticula are noted, status quo.CT PELVIS:There is no mass or adenopathy. There is no free fluid or free air. Thereis sigmoid colon diverticulosis.Bone window technique throughout the examination shows chronic spinal andsacroiliac joint changes.IMPRESSION:1. Numberable bilateral renal cysts as described above.2. Bilateral non- obstructing nephroliths.3. Small umbilical hernia.4. Descending colon and sigmoid colon diverticulosis.5. Other findings as described above.Accredited by the [employer] in [place].JONAH Garay/Angeles croft for referring CAROLEE POPE to our office. Electronically Signed - MEGAN MALHOTRA DO 07/22/19 13:08 Name Value Range Interpretation Code Description Data Adrienne rce(s) Supporting Document(s) ID Date Data Source [id number] 07/15/2019 07:53:00 AM EDT [facility] ([facility] Name Value Range Interpretation Code Description Data Adrienne rce(s) Supporting Document(s) Prostate specific Ag [Mass/volume] in Serum or Plasma 1.24 ng/mL [facility] ([facility]) This assay was performed on the Siemens Dimension EXL using the B- Galactosidase/CPRG methodology and should not be compared interchangeably with other methods. The PSA should not be used alone as a screening test for the presence or absence of malignant disease. ID Date Data Source [id number] 07/15/2019 07:53:00 AM EDT [facility] Name Value Range Interpretation Code Description Data Adrienne rce(s) Supporting Document(s) Triglyceride [Mass/volume] in Serum or Plasma 95 mg/dL 30-150 [facility] ([facility]) Cholesterol [Mass/volume] in Serum or Plasma 118 mg/dL 131-200 [facility] ([facility]) Cholesterol in HDL [Mass/volume] in Serum or Plasma 42 mg/dL 35-60 [facility] ([facility]) Cholesterol in LDL [Mass/volume] in Serum or Plasma by calcu lation 57 CALC 50-159 [facility]) ID Date Data Source [id number] 07/15/2019 07:53:00 AM EDT [facility] ([facility]) Name Value Range Interpretation Code Description Data Adrienne rce(s) Supporting Document(s) Glucose [Mass/volume] in Serum or Plasma 109 mg/dL 74-99 [facility] ([facility]) 100-125 mg/dL PRE-DIABETES/FASTING >126 mg/dL DIABETES/FASTING Urea nitrogen [Mass/volume] in Serum or Plasma 13 mg/dL 7-18 [facility] ([facility]) Creatinine 0.9 mg/dL 0.6-1.3 [facility] ([facility]) Sodium [Moles/volume] in Serum or Plasma 143 meq/L 136-145 [facility] ([facility]) Potassium [Moles/volume] in Serum or Plasma 4.1 meq/L 3.5-5.1 [facility] ([facility]) Chloride [Moles/volume] in Serum or Plasma 107 meq/L 98-107 [facility] ([facility]) Carbon dioxide, total [Moles/volume] in Serum or Plasma 29 meq/L 21 -32 [facility] ([facility]) Calcium [Mass/volume] in Serum or Plasma 8.9 mg/dL 8.5-10.1 [facility] ([facility]) Alkaline phosphatase isoenzyme [Units/volume] in Serum or Pl asma 98 mg/dL 46-116 [facility] ([facility]) Aspartate aminotransferase [Enzymatic activity/volume] in Serum or Plasma 18 U/L 15-37 [facility] ([facility] ) Alanine aminotransferase [Enzymatic activity/volume] in Seru m or Plasma 37 U/L 12-78 [facility] ([facility]) Total Bilirubin 0.7 mg/dL 0.2-1.0 [facility] ([facility]) A/G Ratio 1.33 CALC 1.00-1.90 [facility]) Proteinase 3 Ab [Units/volume] in Serum 7.0 g/dL 6.4-8.2 [facility] ([facility]) Albumin [Mass/volume] in Serum or Plasma 4.0 g/dL 3.4-5.0 [facility] ([facility]) Glomerular filtration rate/1.73 sq M pre dicted among blacks [Volume Rate/Area] in Serum or Plasma by Creatinine-based formula (MDRD) Laboratory test result [facility] ([facility]) <content>CHRONIC KIDNEY DISEASE STAGING PER NKF</content>
<content></content>
<content>STAGE I & II GFR >= 60 NORMAL TO MILDLY DECREASED</content>
<content>STAGE III GFR 30-59 MODERATELY DECREASED</content>
<content>STAGE IV GFR 15-29 SEVERELY DECREASED</content>
<content>STAGE V GFR <15 VERY LITTLE GFR LEFT</content>
<content>ESRD GFR <15 ON TOOL GRINDER OPERATOR EXTERNAL</content>
<content></content> Glomerular filtration rate/1.73 sq M pre dicted among non-blacks [Volume Rate/Area] in Serum or Plasma by Creatinine-based formula (MDRD) Laboratory test result [facility] ([facility] ID Date Data Source [id number] 07/15/2019 07:53:00 AM EDT [facility] ([facility]) Name Value Range Interpretation Code Description Data Adrienne rce(s) Supporting Document(s) Glucose mean value [Mass/volume] in Blood Estimated fr om glycated hemoglobin 131 mg/dL 60-110 [facility] ([facility] Hemoglobin A1c/Hemoglobin.total in Blood 6.2 g/dL 4.8-5.6 [facility] ([facility]) Lab Result Notes: Pre-Diabetes 5.7 - 6.4 % Diabetes = or > 6.5% ID Date Data Source [id number] 05/23/2019 12:53:00 PM EDT [facility]#[id number]_ Name: CAROLEE POPE : [address]: Marco Chester MD Acct: [id number] Unit: [id number] AGE: 74 Location: [facility] Re05/20/19 SEX: M Status: REG REF SPEC: [id number] SAVANNAH: 05/20/19-1307 [facility] DR: Marco Chester MD REQ: [id number] RECD: 05/20/19 STATUS: SOUT _ORDERED: LEVEL 4 COMMENTS: [id number] FINAL DIAGNOSIS Skin, left upper arm, wide excision:-- 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 COMMENT:The previous lesion at this site has been completely andwidely excised. CLINICAL HISTORY Please check margins PRE- OPERATIVE DIAGNOSIS Malignant melanoma in situ GROSS DESCRIPTION The specimen is received in formalin labeled, Left Upper Arm and consists of a 4.3 x 2.5 cmmottled crawford to okeefe-white unoriented skin ellipse excised to a maximum depth 1.2 cm with a1.5 x 0.9 cm white-pink puckered scabrous lesion. The specimen is inked, serially sectionedand submitted entirely in cassettes A through H, to include tips in cassette A. CONTINUED ON NEXT PAGE DEPARTMENT OF PATHOLOGY, [address] [place] [address] Gen Angel M.D. Director [facility] # [id number] Signed by and Reported on: Ene Grayson MD 05/23/19 1253 END OF REPORT DEPARTMENT OF PATHOLOGY, [address] [place] [address] Gen Angel M.D. Director [facility] # [id number] Name Value Range Interpretation Code Description Data Adrienne rce(s) Supporting Document(s) ID Date Data Source [id number] 05/11/2019 10:36:13 AM EST [facility]PATIE NT INFORMATIONPatient MRN Name Date of Age Gend*PT [id number] Carolee Pope 1945 74 years M ---PT Location Admission Date/Time Visit ID Attending Provider --- --- --- --- EPI ID CSN Admitting Provider [id number] ---Cardiology Office NoteName: Carolee Pope Gender: maleDate of : 1945 Age: 74 yearsPrimary Care Provider / Referring Physician: KARMA CACERESurrent HistoryChief Complaint: 6-month follow-upHPI:This patient is a 74 years male presents today for follow-up. He has thefollowing medical problem list:1. Diagnosed with cardiomyopathy EF 30-35 %; cardiac catheterization 02/11/2018required drug-eluting stent to the LAD2. History of paroxysmal SVT3. Hypertension4. Obstructive sleep apnea treated with [place] [id number]. Echocardiogram 04/07/2018 reveals EF 50-55 percent, mild mitral and tricuspidinsufficiency7. Implant of LINQ monitor 04/26/2018 for episode of near syncope andnonsustained ventricular tachycardia noted on event monitorPatient presents today for follow-up. He is accompanied by his . Overall,he tells me that he has been feeling well. He remains active. He has not hadany complaints of any chest pain, shortness of breath, lower extremity edema orweight gain. He denies any dizziness, lightheadedness, presyncope or syncope.He does have a Linq monitor implanted and he has not had a ny significantarrhythmias. His EKG today confirms normal sinus rhythm and a normal EKG.Blood work is noted below from January 2019 through primary care.Review of Systems General Denies dizziness or lightheadedness. Denies any recent, unexpectedweight changes. HEENT Denies any loss or change of vision. Denies tinnitus. Respiratory Denies PND, orthopnea, MCNEILL, hemoptysis, cough, or shortness ofbreath. Cardiac Denies chest pain or pressure, denies palpitations GI Denies melena, hematochezia, nausea, or vomiting. MS Denies any lower extremity edema. Neuro Denies speech, motor, or sensory impairment. Psych Denies depression or anxiety. Endo Denies polyuria or polydipsia, denies temperature intolerance. Derm Denies diaphoresis, non-healing skin woundsPast HistoryPast Medical History:Diagnosis Date Cardiomyopathy Hyperlipidemia Hypertension PSVT (paroxysmal supraventricular tachycardia) Sleep apneaPast Surgical History:Procedure Laterality Date CARDIAC CATHETERIZATION N/A 02/16/2018 Procedure: Cardiac catheterization; Surgeon: Pedro Luis Dobbs MD; Laterality:N/A; CARDIAC CATHETERIZATION N/A 02/16/2018 Procedure: Percutaneous coronary intervention; Surgeon: Pedro Luis Dobbs MD;Laterality: N/A; CARDIAC CATHETERIZATION N/A 02/16/2018 Procedure: Coronary angiography; Surgeon: Pedro Luis Dobbs MD; Laterality: N/A; CARDIAC CATHETERIZATION N/A 02/16/2018 Procedure: Left ventriculography; Surgeon: Pedro Luis Dobbs MD; Laterality:N/A; IMPLANT LOOP RECORDER N/A 04/26/2018 Procedure: Loop insertion; Surgeon: Sharmin Dodson MD; Laterality: N/A;MEDTRONICFamily HistoryProblem Relation Age of Onset Cancer Mother Heart attack FatherSocial HistorySocioeconomic History Marital status: Spouse name: Not on file Number of children: Not on file Years of education: Not on file Highest education level: Not on fileOccupational History Not on fileSocial Needs Financial resource strain: Not on file Food insecurity: Worry: Not on file Inability: Not on file Transportation needs: Medical: Not on file Non-medical: Not on fileTobacco Use Smoking status: Never Smoker Smokeless tobacco: Never UsedSubstance and Sexual Activity Alcohol use: Yes Comment: rare Drug use: No Sexual activity: Not on fileLifestyle Physical activity: Days per week: Not on file Minutes per session: Not on file Stress: Not on fileRelationships Social connections: Talks on phone: Not on file Gets together: Not on file Attends buddhism service: Not on file Active member of club or organization: Not on file Attends meetings of clubs or organizations: Not on file Relationship status: Not on file Intimate partner violence: Fear of current or ex partner: Not on file Emotionally abused: Not on file Physically abused: Not on file Forced sexual activity: Not on fileOther Topics Concern Bike Helmet Not Asked History of Falls Not Asked Self-Exams Not Asked Caffeine Concern Not Asked Hobby Hazards Not Asked Sleep Concern Not Asked Daily Calcium Supplement Not Asked Lead Exposure Not Asked Special Diet Not Asked Daily Vitamin D Supplement Not Asked Service Not Asked Stress Concern Not Asked Domestic Violence in home Not Asked Radon exposure Not Asked Weight Concern Not Asked Exercise Not Asked Seat Belt Not Asked Well water Not Asked Firearms in home Not AskedSocial History Narrative Not on fileMedications and AllergiesALLERGIES/SENSITIVITIES: Patient has no known drug allergies.Current Outpatient Medications: acetaminophen (TYLENOL) 325 MG tablet, Take 2 tablets (650 mg total) by mouthevery 4 (four) hours as needed, Disp: 30 tablet, Rfl: 0 allopurinol (ZYLOPRIM) 300 MG tablet, Take 300 mg by mouth daily, Disp: ,Rfl: aspirin EC 81 MG EC tablet, Take 1 tablet (81 mg total) by mouth daily, Disp:90 tablet, Rfl: 3 atorvastatin (LIPITOR) 40 MG tablet, Take 40 mg by mouth daily, Disp: , Rfl: clopidogrel (PLAVIX) 75 MG tablet, Take 1 tablet (75 mg total) by mouthdaily, Disp: 90 tablet, Rfl: 3 finasteride (PROSCAR) 5 MG tablet, Take 5 mg by mouth daily, Disp: , Rfl: lisinopril (PRINIVIL,ZESTRIL) 30 MG tablet, Take 30 mg by mouth daily, Disp:, Rfl: 2 Magnesium Oxide (MAGNESIUM OXIDE) 400 MG tablet, Take 400 mg by mouth daily,Disp: , Rfl: metoprolol succinate (TOPROL-XL) 50 MG 24 hr tablet, Take 1 tablet (50 mgtotal) by mouth 2 (two) times a day, Disp: 180 tablet, Rfl: 3 Multiple Vitamins-Minerals (MULTIVITAMIN PO), Take 1 tablet by mouth daily,Disp: , Rfl: nitroglycerin (NITROSTAT) 0.4 MG SL tablet, Place 1 tablet (0.4 mg total)under the tongue every 5 (five) minutes as needed for chest pain, Disp: 25tablet, Rfl: 2 pantoprazole (PROTONIX) 40 MG tablet, Take 40 mg by mouth daily, Disp: , Rfl: tamsulosin (FLOMAX) 0.4 MG CAPS, Take 0.4 mg by mouth daily, Disp: , Rfl:PhysicalBMI: Body mass index is 31.17 kg/m .Blood Pressure: BP: 120/78 Pulse: Heart Rate: 59Temperature: Respirations: Weight: Weight: 93 kg (205 lb) O2 Saturation:Physical Exam General Well developed, well nourished, no acute distress Neck Soft and supple without lymphadenopathy or thyromegaly. No JVD. Nobruits. Lungs Clear to auscultation, no crackles, rhonchi, or wheezes Heart Normal S1 S2, no murmurs, clicks, or gallops Musculoskeletal Appears to have normal range of motion x 4 extremities, nojoint swelling. No pedal edema Neuro Alert, orientedx3, no facial asymmetry Derm No rashes, or ulcers Vascular Pulses palpableDiagnosticsLabBlood work from January 14, 2019 indicates normal CBC, hemoglobin A1c 6.1,sodium 144, potassium 4.5, BUN 16, glucose 101, creatinine 0.9, normal liverfunction, total cholesterol 126, triglycerides 66, HDL 46, LDL 67EKG:EKG Results (Last 72 hours) 05/11/19 1034 POCT AMB EKG Final result Impression: Normal sinus rhythmAssessment & Plan1. Known CAD; he currently denies any chest pain or angina. He did havestenting February 2018. I will have him return in 6 [facility].2. Paroxysmal SVT; this has not recurred and he does remain on metoprolol3. Obstructive sleep apnea; he does utilize CPAP on a regular basis4. Hypertension; blood pressures under good control with current medicaltherapyI will have patient return to the office in 6 months for stress echocardiogramand follow-up. He knows to contact the office in the interim if he has anysigns or symptoms of cardiovascular concern.We appreciate the opportunity to care for this patient.Signature: Janelle Quintana NPDate: May 11, 2019Time: 10:34 AMThis document or parts of this document, were dictated using [employer]. A reasonable attempt at proofreading has been made to minimize errors.Please call with any questions or corrections. Name Value Range Interpretation Code Description Data Adrienne rce(s) Supporting Document(s) ID Date Data Source [id number] 04/27/2019 07:22:37 AM [facility] NT INFORMATIONPatient MRN Name Date of Age Gend*PT [id number] Carolee Pope 1945 74 years M ---PT Location Admission Date/Time Visit ID Attending Provider --- --- --- --- EPI ID CSN Admitting Provider [id number] ---Name: Carolee PopeDOB: 1945Date: 04/27/19Loop Device CheckDevice was remotely interrogated and the following were evaluated:Battery statusSummary arrhythmia logsNew observationsAny patient activated eventsFidelity of the EGM signalConclusion:No new clinically significant arrhythmias, continue monitoringSignature: Sharmin Dodson MD, [facility], RSCardiac Electrophysiology and Arrhythmia ServiceDate: April 27, 2019Time: 7:22 AMThis document or parts of this document, were dictated using [employer]. A reasonable attempt at proofreading has been made to minimize errors.Please call with any questions or corrections. Name Value Range Interpretation Code Description Data Adrienne rce(s) Supporting Document(s) ID Date Data Source [id number] 01/26/2019 12:16:43 PM EST [facility] NT INFORMATIONPatient MRN Name Date of Age Gend*PT [id number] Carolee Pope 1945 74 years M ---PT Location Admission Date/Time Visit ID Attending Provider --- --- --- --- EPI ID CSN Admitting Provider [id number] ---Name: Carolee PopeDOB: 1945Date: 01/26/19Loop Device CheckDevice was remotely interrogated and the following were evaluated:Battery statusSummary arrhythmia logsNew observationsAny patient activated eventsFidelity of the EGM signalConclusion:No new clinically significant arrhythmias, continue monitoringSignature: Sharmin Dodson MD, [facility], [facility] CENTERCardiac Electrophysiology and Arrhythmia ServiceDate: January 26, 2019Time: 12:16 PMThis document or parts of this document, were dictated using [employer]. A reasonable attempt at proofreading has been made to minimize errors.Please call with any questions or corrections. Name Value Range Interpretation Code Description Data Adrienne rce(s) Supporting Document(s) Procedure Social History Code Duration Value Status Description Data Source(s ) Alcohol intake 11/08/2019 12:00:00 AM EDT Yes completed [facility] Smoking 11/08/2019 12:00:00 AM EDT Never smoker completed Never [facility] Alcohol intake 10/26/2019 12:00:00 AM EDT Yes completed [facility] Smoking 10/26/2019 12:00:00 AM EDT Never smoker completed Never [facility] Vital Signs ID Date Data Source UNK Name Value Range Interpretation Code Description Data Source(s) Body temperature 96.7 [degF] 96.7 [degF] [facility] ([facility]) Body surface area Derived from formula 2.05 m2 2.05 m2 [facility] ([facility], ) Body weight 91.797 kg 91.797 kg [facility] ([facility], ) [place] body weight 154 [lb_av] 154 [lb_av] [facility] T ([facility], ) Body mass index (BMI) [Ratio] 30.8 kg/m2 30.8 k g/m2 [facility] ([facility], ) Body weight 202.38 [lb_av] 202.38 [lb_av] [facility] T ([facility]) Body height 68 [in_i] 68 [in_i] [facility] ([facility]) 5'8" Diastolic blood pressure 70 mm[Hg] 70 mm[Hg] [facility] ([facility]) Systolic blood pressure 132 mm[Hg] 132 mm[Hg] [facility] Body temperature 97.1 [degF] 97.1 [degF] [facility] Body mass index (BMI) [Ratio] 31.0 kg/m2 31.0 k g/m2 [facility] Body weight 204.00 [lb_av] 204.00 [lb_av] [facility] T ([facility]) Body height 68 [in_i] 68 [in_i] [facility] 5'8" Heart rate 68 /min 68 /min [facility] ([facility]) Diastolic blood pressure 70 mm[Hg] 70 mm[Hg] [facility] ([facility]) Systolic blood pressure 124 mm[Hg] 124 mm[Hg] [facility] ([facility]) Body surface area Derived from formula 2.05 m2 2.05 m2 [facility] ([facility]) Body weight 91.174 kg 91.174 kg [facility] ([facility]) [place] body weight 154 [lb_av] 154 [lb_av] [facility] T ([facility]) Body mass index (BMI) [Ratio] 30.6 kg/m2 30.6 k g/m2 [facility] ([facility]) Body weight 201.00 [lb_av] 201.00 [lb_av] [facility] T ([facility]) Body height 68 [in_i] 68 [in_i] [facility] ([facility]) 5'8" Diastolic blood pressure 80 mm[Hg] 80 mm[Hg] [facility] ([facility]) Systolic blood pressure 160 mm[Hg] 160 mm[Hg] M EDENT ([facility], ) Diastolic blood pressure mm[Hg] eCW1 ([facility]) Systolic blood pressure 118 mm[Hg] 118 mm[Hg] e CW1 ([facility]) Body temperature 97.2 [degF] 97.2 [degF] eCW1 ( [facility]) Respiratory rate 17 /min 17 /min eCW1 ([facility]) Heart rate 66 /min 66 /min eCW1 ([facility]) Body mass index (BMI) [Ratio] 31.47 kg/m2 31.47 kg/m2 eCW1 ([facility]) Body height 68 [in_i] 68 [in_i] eCW1 ([facility]) Body weight 207 [lb_av] 207 [lb_av] eCW1 ([facility]) Body mass index (BMI) [Ratio] 30.6 kg/m2 30.6 k g/m2 [facility] ([facility]) Body weight 201.00 [lb_av] 201.00 [lb_av] MEDEN T ([facility]) Body height 68 [in_i] 68 [in_i] [facility] ([facility]) 5'8" Heart rate 78 /min 78 /min [facility] Diastolic blood pressure 80 mm[Hg] 80 mm[Hg] [facility] Systolic blood pressure 130 mm[Hg] 130 mm[Hg] [facility] Body weight 89.813 kg 89.813 kg [facility] ) [place] body weight 154 [lb_av] 154 [lb_av] MEDEN T ([facility], ) Body mass index (BMI) [Ratio] 30.1 kg/m2 30.1 k g/m2 [facility] ) Body weight 198.00 [lb_av] 198.00 [lb_av] MED[facility] T ([facility], ) Body height 68 [in_i] 68 [in_i] [facility] ([facility], ) 5'8" Body temperature 97.4 [degF] 97.4 [degF] [facility] ([facility], ) Oxygen saturation in Arterial blood by Pulse oximetry 95 % 95 % [facility] ([facility], ) Heart rate 83 /min 83 /min [facility] ([facility], ) Diastolic blood pressure 78 mm[Hg] 78 mm[Hg] [facility] ([facility], ) Systolic blood pressure 120 mm[Hg] 120 mm[Hg] [facility] ([facility], ) Oxygen saturation in Arterial blood by Pulse oximetry 96 % 96 % [facility] Respiratory rate 18 /min 18 /min [facility] Body temperature 36.44 Flor 36.44 Flor [facility] Heart rate 67 /min 67 /min [facility] Diastolic blood pressure 69 mm[Hg] 69 mm[Hg] [facility] Systolic blood pressure 149 mm[Hg] 149 mm[Hg] [facility] Body mass index (BMI) [Ratio] 30.40 kg/m2 30.40 kg/m2 [facility] Body weight 90.7 kg 90.7 kg [facility] Body height 172.7 cm 172.7 cm [facility] Body mass index (BMI) [Ratio] 31.6 kg/m2 31.6 k g/m2 [facility] ([facility]) Oxygen saturation in Arterial blood by Pulse oximetry 98 % 98 % [facility] Body weight 208.00 [lb_av] 208.00 [lb_av] [facility] ([facility]) Body height 68 [in_i] 68 [in_i] [facility] ([facility]) 5'8" Heart rate 83 /min 83 /min [facility] ([facility]) Diastolic blood pressure 80 mm[Hg] 80 mm[Hg] [facility] ([facility]) Systolic blood pressure 136 mm[Hg] 136 mm[Hg] [facility] Body mass index (BMI) [Ratio] 30.5 kg/m2 30.5 k g/m2 [facility] ([facility] ) Body weight 200.38 [lb_av] 200.38 [lb_av] [facility] ([facility] ) Body height 68 [in_i] 68 [in_i] [facility] ([facility]) 5'8" Body temperature 97.7 [degF] 97.7 [degF] [facility] ([facility] ) Body mass index (BMI) [Ratio] 31.2 kg/m2 31.2 k g/m2 [facility] ([facility]) Body weight 205.25 [lb_av] 205.25 [lb_av] [facility] ([facility]) Body height 68 [in_i] 68 [in_i] [facility] ([facility]) 5'8" Diastolic blood pressure 70 mm[Hg] 70 mm[Hg] [facility] Systolic blood pressure 138 mm[Hg] 138 mm[Hg] [facility] ([facility]) Body mass index (BMI) [Ratio] 31.2 kg/m2 31.2 k g/m2 [facility] ([facility] ) Body weight 205.25 [lb_av] 205.25 [lb_av] [facility] ([facility] ) Body height 68 [in_i] 68 [in_i] [facility] ([facility] ) Patient Treatment Plan of Care Planned Activity Planned Date Details Description Data Source (s) Phenazopyridine hydrochloride 200 MG Oral Tablet [Pyri dium] 01/26/2020 12:00:00 AM EST eCW1 ([facility]) Phenazopyridine hydrochloride 200 MG Oral Tablet [Pyri dium] 01/26/2020 12:00:00 AM EST eCW1 ([facility]) Ciprofloxacin 500 MG Oral Tablet 01/09/2020 12:00:00 AM EST eCW1 ([facility]) Ciprofloxacin 500 MG Oral Tablet 01/09/2020 12:00:00 AM EST eCW1 ([facility]) Ciprofloxacin 500 MG Oral Tablet 01/09/2020 12:00:00 AM EST eCW1 ([facility]) 24 HR metoprolol succinate 50 MG Extended Release Oral Tablet 05/11/2019 12:00:00 AM EST [facility] Aspirin 81 MG Delayed Release Oral Tablet 05/11/2019 12:00:00 AM ES T [facility]
--- OUTSIDE RECORDS SUMMARY | 2020-03-24 11:27 | CCD ---
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 O [id number] S [id number] UMR [id number] SELF [id number] MEDICARE [id number] SELF [id number] W29 UMR [facility] [id number] SP [id number] MEDICARE [id number] SP [id number] W29 Medicare Natl Govt [facility] Medicare Primary [id number] Self [id number] [place]/Umr (Old) Medigap Part B [id number] Self [id number] Umr (New [place]) Medigap Part B [id number] Self [id number] [employer]OM[employer] [id number] Stacy [id number] [employer]erred [employer] Insurance Workers Compensation [id number] Stacy f [id number] [place] (pr) Medigap Part B [id number] Self [id number] Umr (pr) Medigap Part B [id number] Self [id number] Medicare Dme Supplies Medigap Part B [id number] Self [id number] [place] Primary [id number] Self [id number] ANSI-Commercial [id number] ANSI-Medicare Part B [id number] ANSI-Medicare Part B [id number] ANSI-Commercial [id number] ANSI-Medicare Part B [id number] ANSI-Commercial [id number] Medicare Natl Govt Servic Medicare Primary [id number] Self [id number] UMR PI PI UMR [id number] Stacy [id number] UMR [facility] [id number] SP [id number] Medicare Natl Govt Servic Medicare Primary [id number] Self [id number] [employer] Insurance Workers Compensation [id number] Stacy f [id number] [place] (pr) Medigap Part B [id number] Self [id number] Umr (pr) Medigap Part B [id number] Self [id number] Medicare Dme Supplies Medigap Part B [id number] Self [id number] [place] Primary [id number] Self [id number] MEDICARE PI PI [place]OM[place] PI PI Medicare Natl Govt Servic Medicare Primary [id number] Self [id number] Umr Commercial [id number] Self [id number] [place] Pos Commercial [id number] Self [id number] Medicare - NGS Medicare Primary [id number] Self [id number] Medicare Natl Govt Servic Medicare Primary [id number] Self [id number] [place]/Umr (Old) Medigap Part B [id number] Self [id number] Medicare Natl Govt Servic Medicare Primary [id number] Self [id number] [employer] Insurance Workers Compensation [id number] Stacy f [id number] [place] (pr) Medigap Part B [id number] Self [id number] [place] Primary [id number] Self [id number] POMCO [id number] SP [id number] MEDICARE [id number] SP [id number] A POMCO [id number] SP [id number] MEDICARE [id number] SP [id number] A [place] Medigap Part B [id number] Self [id number] Medicare [place] Medicare Primary [id number] Self [id number] POMCO -O/P [id number] 18 [id number] MEDICARE PART A -O/P [id number] 18 [id number] [place] Ppo Medigap Part B [id number] Self [id number] Medicare Natl Govt Servic Medicare Primary [id number] Self [id number] [place] Ppo Medigap Part B [id number] Self [id number] Medicare Natl Govt Servic Medicare Primary Self POMCO [id number] SP [id number] MEDICARE [id number] SP [id number] A [place]OM[employer] PPO S [id number] S [id number] MEDICARE P [id number] S [id number] A [place] PPO S UNAVAILABLE S UNAVAILA BLE MEDICARE P UNAVAILABLE S UNAVAILA BLE [id number] Problems, Conditions, and Diagnoses Code Display Name Description Problem Type Effective Dates Data Source(s) N20.2 Calculus of kidney with calculus of uret er Calculus of kidney with calculus of ureter Problem 01/09/2020 12:00:00 AM EST eCW1 ([facility]) [id number] Obstructive sleep apnea syndrome Obstructive sle ep apnea syndrome Problem 12/12/2019 12:00:00 AM EDT MEDJUDI ([facility] rahul, [place]) I10 Essential hypertension, benign Essential hypertension, benign [id number] 11/01/2019 12:00:00 AM EDT Health system I25.10 Atherosclerosis of [place] coronary arter y of [place] heart Atherosclerosis of [place] coronary artery of [place] heart [id number] 11/01/2019 12:00: 00 AM EDT Health system I42.0 Congestive cardiomyopathy Congestive cardiomyopathy 64 060354 11/01/2019 12:00:00 AM EDT Health system [id number] Essential hypertension Essential hypertension Problem 10/07/2019 12:00:00 AM EDT MEDENT ([facility], [place]) R55 Syncope and collapse Syncope and collapse Diagnosis 01/19/2020 02:23:39 PM EST Health system D48.5 Neoplasm of uncertain behavior of skin D 48.5 - Neoplasm of uncertain behavior of skin Diagnosis 01/05/2020 02:03:00 PM EDT [facility] I42.0 Dilated cardiomyopathy Dilated cardiomyopathy Diagnosi s 11/22/2019 12:10:56 PM EDT Health system I10 Essential (primary) hypertension Essential (primary) h ypertension Diagnosis 11/22/2019 08:07:00 AM EDT Health system E78.00 Pure hypercholesterolemia, unspecified P ure hypercholesterolemia, unspecified Diagnosis 11/22/2019 08:07:00 AM EDT Health system I47.1 Supraventricular tachycardia Supraventricular tachycar ross Diagnosis 11/22/2019 08:07:00 AM EDT Health system I25.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 Atherosclerotic heart disease of [place] Diagnosis 11/22/2019 08:07:00 AM EDT Health system R94.39 Abnormal result of other cardiovascular function study Abnormal result of other cardiovascular Diagnosis 11/08/2019 08:24:[address] [facility] J98.8 Other specified respiratory disorders Ot her specified respiratory disorders Diagnosis 11/03/2019 09:35:25 AM EDT Health system U07.1 COVID-19 COVID-19 Diagnosis 11/03/2019 09:35:25 AM ED T Health system G47.33 Obstructive sleep apnea (adult) (pediatr ic) Obstructive sleep apnea (adult) (pediatr Diagnosis 10/27/2019 09:57:40 AM EDT Health system 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, 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, INCLUDING SHOULDER Diagnosis 05/20/2019 04:14:00 P M EDT [facility] Surgeries/Procedures Procedure Description Date Indications Data Source(s) ARTHROCENTESIS ASPIR&/INJECTION MAJOR JT/BURSA 12:00:00 AM EST MEDENT ([facility]) ARTHROCENTESIS ASPIR&/INJECTION MAJOR JT/BURSA 12:00:00 AM EST MEDENT ([facility]) ARTHROCENTESIS ASPIR&/INJECTION MAJOR JT/BURSA 12:00:00 AM EST MED[facility] ([facility] ) RADIOLOGIC EXAM KNEE COMPLETE 4/MORE VIEWS 02/27/2020 12:00:00 AM EST [facility] ([facility] ) RADIOLOGIC EXAM KNEE COMPLETE 4/MORE VIEWS 02/27/2020 12:00:00 AM EST [facility] ([facility] ) Lap Inguinal Hernia Repair 02/16/2020 12:00:00 AM EST MEDENT ([facility] ) Medication: Lidocaine HCl 2% Jelly 5mL Intravesically 01/09/2020 12:00:00 AM EST eCW1 ([facility]) CARDIAC CATHETERIZATION CARDIAC CATHETERIZATION Routine 11/08/2019 11:17 AM EDT Congestive cardiomyopathy Atherosclerosis of [place] coronary artery of [place] heart, angina presence unspecified Essential hypertension, benign Abnormal cardiovascular stress test 11/08/2019 03:17:40 PM E DT Abnormal cardiovascular stress testEssential hypertension, benignAtherosclerosis of [place] coronary artery of [place] heart, angina presence unspecifiedCongestive cardiomyopathy Health system Abnormal cardiovascular stress test Essential hypertension, benign Atherosclerosis of [place] coronary arter y of [place] heart, angina presence unspecified Congestive cardiomyopathy ECG ROUTINE ECG W/LEAST 12 LDS TRCG ONLY W/O I&R ECG 12-LEAD Routine 11/08/2019 8:44 AM EDT 11/08/2019 12:44:04 PM EDT Health system ARTHROCENTESIS ASPIR&/INJECTION MAJOR JT/BURSA 020 12:00:00 AM EDT MED[facility] ([facility] ) ARTHROCENTESIS ASPIR&/INJECTION MAJOR JT/BURSA 020 12:00:00 AM EDT MED[facility] ([facility] ) ARTHROCENTESIS ASPIR&/INJECTION MAJOR JT/BURSA 020 12:00:00 AM EDT MED[facility] ([facility] ) PHYSICIAN TELEPHONE EVALUATION 5-10 MIN 06/03/2019 12: 00:00 AM EDT eCW1 ([facility]) ARTHROCENTESIS ASPIR&/INJECTION MAJOR JT/BURSA 019 12:00:00 AM EST MEDENT ([facility] ) ARTHROCENTESIS ASPIR&/INJECTION MAJOR JT/BURSA 019 12:00:00 AM EST MED[facility] ([facility] ) Results ID Date Data Source [id number] 02/11/2020 08:05:00 AM EST [facility] Name Value Range Interpretation Code Description Data Adrienne rce(s) Supporting Document(s) SARS coronavirus 2 RNA [facility] This lab was ordered by [facility] and reported by [facility]. ID Date Data Source [id number] 01/27/2020 08:35:00 AM EST MEDENT ([facility]) Name Value Range Interpretation Code Description Data Adrienne rce(s) Supporting Document(s) Cholesterol [Mass/volume] in Serum or Plasma 121 mg/dL 131-200 [facility] ([facility]) Triglyceride [Mass/volume] in Serum or Plasma 77 mg/dL 30-150 [facility] ([facility]) Cholesterol in LDL [Mass/volume] in Serum or Plasma by calcu lation 61 CALC 50-159 [facility] ([facility]) Cholesterol in HDL [Mass/volume] in Serum or Plasma 45 mg/dL 35-60 [facility] ([facility]) ID Date Data Source [id number] 01/27/2020 08:35:00 AM EST [facility] ([facility]) Name Value Range Interpretation Code Description Data Adrienne rce(s) Supporting Document(s) Glucose [Mass/volume] in Serum or Plasma 101 mg/dL 74-99 [facility] ([facility]) 100-125 mg/dL PRE-DIABETES/FASTING >126 mg/dL DIABETES/FASTING Sodium [Moles/volume] in Serum or Plasma 142 meq/L 136-145 [facility] ([facility]) Urea nitrogen [Mass/volume] in Serum or Plasma 16 mg/dL 7-18 [facility] ([facility]) Creatinine 1.0 mg/dL 0.6-1.3 [facility]) Calcium [Mass/volume] in Serum or Plasma 9.4 mg/dL 8.5-10.1 [facility] ([facility]) Chloride [Moles/volume] in Serum or Plasma 106 meq/L 98-107 [facility] ([facility]) Carbon dioxide, total [Moles/volume] in Serum or Plasma 32 meq/L 21 -32 [facility] ([facility]) Potassium [Moles/volume] in Serum or Plasma 4.5 meq/L 3.5-5.1 [facility] ([facility]) Aspartate aminotransferase [Enzymatic activity/volume] in Serum or Plasma 22 U/L 15-37 [facility] ([facility] ) Alkaline phosphatase isoenzyme [Units/volume] in Serum or Pl asma 114 mg/dL 46-116 [facility] ([facility]) Total Bilirubin 0.7 mg/dL 0.2-1.0 [facility] ([facility]) Proteinase 3 Ab [Units/volume] in Serum 7.1 g/dL 6.4-8.2 [facility] ([facility]) Albumin [Mass/volume] in Serum or Plasma 3.9 g/dL 3.4-5.0 [facility] A/G Ratio 1.22 CALC 1.00-1.90 [facility] Alanine aminotransferase [Enzymatic activity/volume] in Seru m or Plasma 37 U/L 12-78 [facility] Glomerular filtration rate/1.73 sq M pre dicted among blacks [Volume Rate/Area] in Serum or Plasma by Creatinine-based formula (MDRD) Laboratory test result [facility] <content>CHRONIC KIDNEY DISEASE STAGING PER NKF</content>
<content></content>
<content>STAGE I & II GFR >= 60 NORMAL TO MILDLY DECREASED</content>
<content>STAGE III GFR 30-59 MODERATELY DECREASED</content>
<content>STAGE IV GFR 15-29 SEVERELY DECREASED</content>
<content>STAGE V GFR <15 VERY LITTLE GFR LEFT</content>
<content>ESRD GFR <15 ON MANAGER INTERFACE</content>
<content></content> Glomerular filtration rate/1.73 sq M pre dicted among non-blacks [Volume Rate/Area] in Serum or Plasma by Creatinine-based formula (MDRD) Laboratory test result [facility] ID Date Data Source [id number] 01/27/2020 08:35:[address] [facility] Name Value Range Interpretation Code Description Data Adrienne rce(s) Supporting Document(s) Glucose mean value [Mass/volume] in Blood Estimated fr om glycated hemoglobin 128 mg/dL 60-110 [facility] ([facility] ) Hemoglobin A1c/Hemoglobin.total in Blood 6.1 % [facility] ([facility]) Lab Result Notes: Pre-Diabetes 5.7 - 6.4 % Diabetes = or > 6.5% ID Date Data Source [id number] 01/27/2020 08:35:00 AM EST [facility] ([facility]) Name Value Range Interpretation Code Description Data Adrienne rce(s) Supporting Document(s) Leukocytes [#/volume] in Blood by Automated count 7.5 x10*3/UL 4.1-10 .9 [facility] ([facility]) Hemoglobin [Mass/volume] in Blood 14.8 g/dL 12.0-18.0 [facility] ([facility]) Hematocrit [Volume Fraction] of Blood by Automated count 43.0 % 3 7.0-51.0 [facility] ([facility]) MCV 90.9 fL 80.0-97.0 [facility] Erythrocytes [#/volume] in Blood by Automated count 4.73 x10*6/UL 4.2 0-6.30 [facility] ([facility]) Erythrocyte distribution width [Ratio] by Automated count 13.0 % 11.6-13.7 [facility] ([facility]) MCH 31.4 pg 26.0-32.0 [facility] MCHC 34.6 g/dL 31.0-38.0 [facility] ([facility]) Platelets [#/volume] in Blood by Automated count 268 x10*3/UL 140-440 [facility] ([facility]) MPV 7.6 FL 7.8-11.0 [facility] Mid % 4.8 % 1.7-9.3 [facility] Lymph % 18.9 % 10.0-58.5 [facility] Neut % 76.3 % 37.0-92.0 [facility] Mid # 0.4 x10*3/UL 0.1-0.6 [facility] ([facility]) Lymph # 1.4 x10*3/UL 0.6-4.1 [facility] ([facility]) Neut # 5.7 x10*3/UL 2.0-7.8 [facility] ([facility]) ID Date Data Source [id number] 01/19/2020 04:32:31 PM EST [facility] INFORMATIONPatient MRN Name Date of Age Gend*PT [id number] Carolee Pope 1945 74 years M ---PT Location Admission Date/Time Visit ID Attending Provider --- --- --- --- EPI ID CSN Admitting Provider [id number] ---Name: Carolee PopeDOB: 1945Date: 01/19/20Loop Device CheckDevice was remotely interrogated and the following were evaluated:Battery statusSummary arrhythmia logsNew observationsAny patient activated eventsFidelity of the EGM signalConclusion:No new clinically significant arrhythmias, continue monitoringSignature: Sharmin Dodson MD, [facility], [facility] CENTERCardiac Electrophysiology and Arrhythmia ServiceDate: January 19, 2020Time: 4:32 PMThis document or parts of this document, were dictated using [employer]. A reasonable attempt at proofreading has been made to minimize errors.Please call with any questions or corrections. Name Value Range Interpretation Code Description Data Adrienne rce(s) Supporting Document(s) ID Date Data Source [id number] [id number] Name: CAROLEE POPE : [address]: Marco Chester MD Acct: [id number] Unit: [id number] AGE: 74 Location: [facility] Re01/05/20 SEX: M Status: REG REF SPEC: [id number] SAVANNAH: 01/05/20-[address]: Marco Chester MD REQ: [id number] RECD: 01/05/20 STATUS: SOUT _ORDERED: LEVEL 4 COMMENTS: [id number] FINAL DIAGNOSIS Skin, left lateral submandibular cheek, [...] 1033 END OF REPORT DEPARTMENT OF PATHOLOGY, [address] [place] [address] Ene Grayson M.D. Director [facility] # [id number] Name Value Range Interpretation Code Description Data Adrienne rce(s) Supporting Document(s) ID Date Data Source [id number] 12/26/2019 09:09:00 AM EDT MEDENT ([facility]) Name Value Range Interpretation Code Description Data Adrienne rce(s) Supporting Document(s) Color Laboratory test result [facility] ([facility]) Laboratory test finding (navigational concept) Laboratory test result [facility] ([facility]) Size Laboratory test result [facility] ([facility]) Too small to measure. Composition Laboratory test result MEDEN T ([facility]) . Percentage (Represents the % composition) Weight Laboratory test result [facility] ([facility]) Too small to weigh CA Oxalate Dihy 90 % [facility] ([facility]) Laboratory test finding (navigational concept) Laboratory test result [facility] ([facility]) CA Phosphate Laboratory test result MEDE NT ([facility]) Ca Ox Monohydrate 10 % [facility] ([facility]) Laboratory test finding (navigational concept) Laboratory test result [facility] ([facility]) Ua Dihydrate Laboratory test result MEDE NT ([facility]) MG Emanuel Phos Laboratory test result [facility] ([facility]) Uric Acid Laboratory test result [facility] ([facility]) Amm Acid Urate Laboratory test result ME DENT ([facility]) Na Acid Urate Laboratory test result [facility] ([facility]) CA Heyworth Phos Laboratory test result [facility] ([facility]) Laboratory test finding (navigational concept) Laboratory test result [facility] ([facility]) Laboratory test finding (navigational concept) Laboratory test result [facility] ([facility]) Cystine Laboratory test result [facility] ([facility]) Cholesterol Laboratory test result MEDEN T ([facility]) CA Bilirubinate Laboratory test result M EDENT ([facility]) Bilirubin Laboratory test result [facility] ([facility]) Laboratory test finding (navigational concept) Laboratory test result [facility] ([facility]) CA Carbonate Laboratory test result MEDE NT ([facility]) Laboratory test finding (navigational concept) Laboratory test result [facility] ([facility]) Triamterene Laboratory test result MEDEN T ([facility]) Laboratory test finding (navigational concept) Laboratory test result [facility] ([facility]) Newberyite Laboratory test result [facility] ([facility]) Laboratory test finding (navigational concept) Laboratory test result [facility] ([facility]) Cell Material Laboratory test result [facility] ([facility]) Dried Blood Laboratory test result MEDEN T ([facility]) Comment Laboratory test result [facility] ([facility]) Comment Laboratory test result [facility] ([facility]) . Physician questions regarding Calculi Analysis contact [facility] at: [phone]. Comment Laboratory test result [facility] ([facility]) Laboratory test finding (navigational concept) Laboratory test result [facility] ([facility]) Test not performed No photo available Please Note: Laboratory test result MEDE NT ([facility]) . Calculi report will follow via computer, mail or title i paraprofessional delivery. Disclaimer Laboratory test result [facility] . This test was developed and its performance characteristics determined by [employer]. It has not been cleared or approved by the Food and Drug Administration. Performed at: [facility] [address] [place] [address] Dr [place] [place], [place] [id number] Airplane Patrol Pilot: Gregory Horvath MD, Phone: [phone] ID Date Data Source [id number] 12/23/2019 03:02:48 PM EDT [facility] NT INFORMATIONPatient MRN Name Date of Age Gend*PT [id number] SaraiCarolee pandya Carie 1945 74 years M ---PT Location Admission Date/Time Visit ID Attending Provider --- --- --- --- EPI ID CSN Admitting Provider [id number] ---Name: Carolee PopeDOB: 1945Date: 12/23/19Loop Device CheckDevice was remotely interrogated and the following were evaluated:Battery statusSummary arrhythmia logsNew observationsAny patient activated eventsFidelity of the EGM signalConclusion:No new clinically significant arrhythmias, continue monitoringSignature: Sharmin Dodson MD, FACC, RSCardiac Electrophysiology and Arrhythmia ServiceDate: December 23, 2019Time: 3:02 PMThis document or parts of this document, were dictated using [employer]. A reasonable attempt at proofreading has been made to minimize errors.Please call with any questions or corrections. Name Value Range Interpretation Code Description Data Adrienne rce(s) Supporting Document(s) ID Date Data Source [id number] 12/21/2019 10:00:00 AM EDT [facility] Name Value Range Interpretation Code Description Data Adrienne rce(s) Supporting Document(s) SARS coronavirus 2 RNA [facility] This lab was ordered by [facility] and reported by [facility]. ID Date Data Source [id number] 12/19/2019 08:33:00 AM EDT [facility] ([facility]) Name Value Range Interpretation Code Description Data Adrienne rce(s) Supporting Document(s) Urine Culture Laboratory test result [facility] ([facility]) FULL REPORT IN LAB NOTES (eCW and [facility] ). NO GROWTH ID Date Data Source [id number] 12/19/2019 08:30:00 AM EDT [facility] ([facility]) Name Value Range Interpretation Code Description Data Adrienne rce(s) Supporting Document(s) Glucose, Fasting 110 mg/dL 70-100 [facility] ([facility]) Blood Urea Nitrogen 19 mg/dL 7-18 [facility] ([facility]) Glomerular Filtration Rate Laboratory test result [facility] ([facility]) <content>Units are mL/min/1.73 m2</content>
<content></content>
<content>Chronic Kidney Disease Staging per NKF:</content>
<content></content>
<content>Stage I & II GFR >=60 Normal to Mildly Decreased</content>
<content>Stage III GFR 30- 59 Moderately Decreased</content>
<content>Stage IV GFR 15-29 Severely Decreased</content>
<content>Stage V GFR <15 Very Little GFR Left</content>
<content>ESRD GFR <15 on MANAGER INTERFACE</content>
<content></content> Creatinine For GFR 0.87 mg/dL 0.70-1.30 [facility] ([facility]) Sodium Level 142 meq/L 136-145 [facility] ([facility]) Potassium Serum 4.6 meq/L 3.5-5.1 [facility] Carbon Dioxide Level 28 meq/L 21-32 [facility] ([facility]) Anion Gap 4 meq/L 8-16 [facility] Chloride Level 110 meq/L 98-107 [facility] ([facility]) Calcium Level 8.8 mg/dL 8.8-10.2 [facility] ([facility]) ID Date Data Source [id number] 12/19/2019 08:30:00 AM EDT [facility] ([facility]) Name Value Range Interpretation Code Description Data Adrienne rce(s) Supporting Document(s) White Blood Count 6.7 10 4.0-10.0 [facility] ([facility]) Hematocrit 43.9 % 42.0-52.0 [facility]) Hemoglobin 14.3 g/dL 13.5-17.5 [facility] Red Blood Count 4.52 10 4.30-6.10 [facility] ([facility]) Mean Corpuscular Volume 97.1 fl 80.0-96.0 [facility] ([facility]) Mean Corpuscular Hemoglobin 31.6 pg 27.0-33.0 [facility] ([facility]) Mean Corpuscular HGB Conc 32.6 g/dL 32.0-36.5 MEDE NT ([facility]) Red Cell Distribution Width 13.2 % 11.5-14.5 [facility] ([facility] [facility]) Platelet Count, Automated 196 10 150-450 MEDE NT ([facility]) Nucleated Red Blood Cell % 0.0 % 0-0 [facility] ([facility]) ID Date Data Source [id number] 11/24/2019 03:08:20 PM EDT [facility] NT INFORMATIONPatient MRN Name Date of Age Gend*PT [id number] Carolee Pope 1945 74 years M ---PT Location Admission Date/Time Visit ID Attending Provider --- --- --- --- EPI ID CSN Admitting Provider [id number] ---Name: Carolee PopeDOB: 1945Date: 11/24/19Loop Device CheckDevice was remotely interrogated and the following were evaluated:Battery statusSummary arrhythmia logsNew observationsAny patient activated eventsFidelity of the EGM signalConclusion:No new clinically significant arrhythmias, continue monitoringSignature: Sharmin Dodson MD, FACC, FHRSCardiac Electrophysiology and Arrhythmia ServiceDate: November 24, 2019Time: 3:08 PMThis document or parts of this document, were dictated using [employer]. A reasonable attempt at proofreading has been made to minimize errors.Please call with any questions or corrections. Name Value Range Interpretation Code Description Data Adrienne rce(s) Supporting Document(s) ID Date Data Source [id number] 11/22/2019 08:45:28 AM EDT [facility] NT INFORMATIONPatient MRN Name Date of Age Gend*PT [id number] Carolee Pope 1945 74 years M ---PT Location Admission Date/Time Visit ID Attending Provider --- --- --- --- EPI ID CSN Admitting Provider [id number] ---Cardiology Office NoteName: Carolee Carie Sarai Gender: maleDate of : 1945 Age: 74 yearsPrimary Care Provider / Referring Physician: COSTA PIYUSH, MDCurrent HistoryChief Complaint: Follow-up to recent cardiac catheterizationHPI:This patient is a 74 years male presents today for follow-up. He has thefollowing medical problem list:1. Diagnosed with cardiomyopathy EF 30-35 %; cardiac catheterization 02/11/2018required drug-eluting stent to the LAD2. History of paroxysmal SVT3. Hypertension4. Obstructive sleep apnea treated with CPAP5. [place] [address]. Echocardiogram 04/07/2018 reveals EF 50-55 percent, mild [...] file Gets together: Not on file Attends baptism service: Not on file Active member of [...] care for this patient.Signature: Janelle Quintana NPDate: November 22, 2019Time: 8:41 AMThis document or parts of this document, were dictated using [employer]. A reasonable attempt at proofreading has been made to minimize errors.Please call with any questions or corrections. Name Value Range Interpretation Code Description Data [facility] rce(s) Supporting Document(s) ID Date Data Source [id number] 11/20/2019 04:26:00 PM EDT [facility] ([facility]) Name Value Range Interpretation Code Description Data [facility] rce(s) Supporting Document(s) Laboratory test finding (navigational concept) Laboratory test result [facility] ([facility]) . Not provided . Right Ureter --- 12/09/191712 --- Spec Type previously reported as: . Not provided Size Laboratory test result [facility] ([facility]) Multiple pieces received. Dimensions of the largest piece reported. Single piece received. --- 12/09/191712 --- CAL2 previously reported as: 1x2 mm Multiple pieces received. Dimensions of the largest piece reported. Color Laboratory test result [facility] ([facility]) Weight 38 mg [facility]) --- 12/09/191712 --- CAL3 previously reported as: 10 mg Composition Laboratory test result MEDEN T ([facility]) . Percentage (Represents the % composition) CA Oxalate Dihy 20 % [facility] ([facility]) Laboratory test finding (navigational concept) Laboratory test result [facility] ([facility]) --- 12/09/191712 --- Hydroxyapatite previously reported as: 20 % Laboratory test finding (navigational concept) Laboratory test result [facility] ([facility]) Ca Ox Monohydrate 80 % [facility] ([facility]) --- 12/09/191712 --- CAL6 previously reported as: 60 % MG Emanuel Phos Laboratory test result MED E[facility] ([facility]) CA Phosphate Laboratory test result MEDE NT ([facility]) Amm Acid Urate Laboratory test result ME DENT ([facility]) Ua Dihydrate Laboratory test result [facility]E NT ([facility]) Uric Acid Laboratory test result [facility] ([facility]) Na Acid Urate Laboratory test result [facility] ([facility]) Laboratory test finding (navigational concept) Laboratory test result [facility] ([facility]) Laboratory test finding (navigational concept) Laboratory test result [facility] ([facility]) CA Heyworth Phos Laboratory test result MED [facility] ([facility]) Cystine Laboratory test result [facility] ([facility]) Cholesterol Laboratory test result MEDEN T ([facility]) CA Carbonate Laboratory test result [facility]E NT ([facility]) Bilirubin Laboratory test result [facility] ([facility]) CA Bilirubinate Laboratory test result M EDENT ([facility]) Laboratory test finding (navigational concept) Laboratory test result [facility] ([facility]) Laboratory test finding (navigational concept) Laboratory test result [facility] ([facility]) Newberyite Laboratory test result [facility] ([facility]) Laboratory test finding (navigational concept) Laboratory test result [facility] ([facility]) Triamterene Laboratory test result MEDEN T ([facility]) Dried Blood Laboratory test result MED[facility] T ([facility]) Cell Material Laboratory test result MED E[facility] ([facility]) Laboratory test finding (navigational concept) Laboratory test result [facility] ([facility]) Comment Laboratory test result [facility] ([facility]) . Stone #2 of 2 --- 12/09/19 1713 --- CAL25 previously reported as: Test not performed Comment Laboratory test result [facility] ([facility]) Comment Laboratory test result [facility] ([facility]) . Physician questions regarding Calculi Analysis contact [employer] at: [phone]. Disclaimer Laboratory test result [facility] ([facility]) . This test was developed and its performance characteristics determined by [employer]. It has not been cleared or approved by the Food and Drug Administration. Performed at: [facility] Stone [facility] [address] [place] [address] [address], [place], [place] [address] [id number] Airplane Patrol Pilot: Gregory Horvath MD, Phone: [phone] Please Note: Laboratory test result MEDE NT ([facility]) . Calculi report will follow via computer, mail or title i paraprofessional delivery. Laboratory test finding (navigational concept) Laboratory test result [facility] ([facility]) . Photograph will follow under a separate cover ID Date Data Source [id number] 11/20/2019 08:36:00 AM EDT [facility] ([facility]) Name Value Range Interpretation Code Description Data Adrienne rce(s) Supporting Document(s) Laboratory test finding (navigational concept) Laboratory test result [facility] ([facility]) A false negative result may occur [...] pathogens. DISCLAIMER: Testing was performed using the [employer] SARS-CoV-2 test. This test was developed and its performance characteristics determined by [employer]. This test has not been FDA cleared [...] or revoked sooner. ID Date Data Source [id number] 11/20/2019 07:20:00 AM [facility]T [facility] Name Value Range Interpretation Code Description Data Adrienne rce(s) Supporting Document(s) White Blood Count 11.3 10 4.0-10.0 [facility] ([facility]) Red Blood Count 4.23 10 4.30-6.10 [facility] ([facility]) Hemoglobin 13.4 g/dL 13.5-17.5 [facility] Hematocrit 40.1 % 42.0-52.0 [facility] Mean Corpuscular Volume 94.8 fl 80.0-96.0 [facility] ([facility]) Mean Corpuscular Hemoglobin 31.7 pg 27.0-33.0 ME D[facility] ([facility]) Mean Corpuscular HGB Conc 33.4 g/dL 32.0-36.5 [facility] ([facility]) Platelet Count, Automated 230 10 150-450 [facility] ([facility]) Red Cell Distribution Width 13.0 % 11.5-14.5 [facility] ([facility]) Neutrophils % 81.2 % 36.0-66.0 [facility] ([facility]) Lymph % 6.4 % 24.0-44.0 [facility]) Meigs % 11.7 % 0.0-5.0 [facility] Eos % 0.2 % 0.0-3.0 [facility] Baso % 0.1 % 0.0-1.0 [facility]) Immature Granulocyte % 0.4 % 0-3.0 [facility] ([facility]) Nucleated Red Blood Cell % 0.0 % 0-0 [facility] ([facility]) Neutrophils # 9.2 10 1.5-8.5 [facility] ([facility]) Lymph # 0.7 10 1.5-5.0 [facility] Eos # 0.0 10 0.0-0.5 [facility] Meigs # 1.3 10 0.0-0.8 [facility] Baso # 0.0 10 0.0-0.2 [facility] ID Date Data Source [id number] 11/20/2019 07:20:00 AM EDT [facility] ([facility]) Name Value Range Interpretation Code Description Data Adrienne rce(s) Supporting Document(s) Appearance, Urine RFX Laboratory test result [facility] ([facility]) Color, Urine RFX Laboratory test result [facility] ([facility]) Specific [place] Ur Auto RFX 1.016 1.002-1.035 [facility] ([facility]) PH,Urine RFX 6.0 units 5.0-9.0 [facility] ([facility]) Glucose, Urine (Ua) Auto RFX [facility] Protein, Urine Auto RFX Laboratory test result [facility] ([facility]) Urobilinogen, Urine Auto RFX 0.2 mg/dL 0.0-2.0 [facility]) Ketone, Urine Auto RFX Laboratory test [facility]) Bilirubin, Urine Auto RFX Laboratory [facility]) Nitrite, Urine Auto RFX Laboratory test [facility]) Leukocyte Esterase Ur Auto RFX Laboratory [facility]) Blood, Urine Blood RFX Laboratory [facility]) RBC, Urine Auto RFX 39 /HPF 0-3 [facility] WBC, Urine Auto RFX 27 /HPF 0-3 [facility]) Bacteria, Urine Auto RFX Laboratory test [facility]) Squam Epithelial Cell Ur Aurfx 0 /HPF 0-6 [facility]) Mucus, Urine RFX Laboratory test result [facility] ([facility]) Hyaline Cast, Urine Auto RFX 0 /LPF 0-1 M EDENT ([facility]) ID Date Data Source [id number] 11/20/2019 07:20:00 AM EDT [facility] Name Value Range Interpretation Code Description Data Adrienne rce(s) Supporting Document(s) Glucose, Fasting 120 mg/dL 70-100 [facility] Creatinine For GFR 1.32 mg/dL 0.70-1.30 [facility] Blood Urea Nitrogen 19 mg/dL 7-18 [facility] Glomerular Filtration Rate 56.6 [facility] ([facility]) <content>Units are mL/min/1.73 m2</content>
<content></content>
<content>Chronic Kidney Disease Staging per NKF:</content>
<content></content>
<content>Stage I & II GFR >=60 Normal to Mildly Decreased</content>
<content>Stage III GFR 30- 59 Moderately Decreased</content>
<content>Stage IV GFR 15-29 Severely Decreased</content>
<content>Stage V GFR <15 Very Little GFR Left</content>
<content>ESRD GFR <15 on MANAGER INTERFACE</content>
<content></content> Sodium Level 137 meq/L 136-145 [facility] ([facility]) Potassium Serum 3.8 meq/L 3.5-5.1 [facility] ([facility]) Chloride Level 104 meq/L 98-107 [facility] ([facility]) Carbon Dioxide Level 28 meq/L 21-32 [facility] ([facility]) Anion Gap 5 meq/L 8-16 [facility] Calcium Level 8.7 mg/dL 8.8-10.2 [facility] ([facility]) ID Date Data Source [id number] 11/20/2019 07:20:00 AM EDT [facility] ([facility]) Name Value Range Interpretation Code Description Data Adrienne rce(s) Supporting Document(s) Reflex Urine Culture Laboratory test result [facility] ([facility]) FULL REPORT IN LAB NOTES ([facility] and [facility] ). NO GROWTH ID Date Data Source [id number] 11/15/2019 05:34:00 PM EDT [facility] ([facility]) Name Value Range Interpretation Code Description Data Adrienne rce(s) Supporting Document(s) Color, Urine RFX Laboratory test result [facility] ([facility]) Appearance, Urine RFX Laboratory test result [facility] ([facility]) Specific [place] Ur Auto RFX 1.016 1.002-1.035 [facility] ([facility]) PH,Urine RFX 5.0 units 5.0-9.0 [facility] ([facility]) Glucose, Urine (Ua) Auto RFX Laboratory test result [facility] ([facility]) Protein, Urine Auto RFX Laboratory test result [facility] ([facility]) Bilirubin, Urine Auto RFX Laboratory test result [facility] ([facility]) Ketone, Urine Auto RFX Laboratory test result [facility] Urobilinogen, Urine Auto RFX 0.2 mg/dL 0.0-2.0 [facility] Nitrite, Urine Auto RFX Laboratory test result [facility] Leukocyte Esterase Ur Auto RFX Laboratory test result [facility] Blood, Urine Blood RFX Laboratory test result [facility] Bacteria, Urine Auto RFX Laboratory test result [facility] WBC, Urine Auto RFX 2 /HPF 0-3 [facility] RBC, Urine Auto RFX Laboratory test result 0-3 [facility]) Squam Epithelial Cell Ur Aurfx 0 /HPF 0-6 [facility] Hyaline Cast, Urine Auto RFX 0 /LPF 0-1 M [facility]) Mucus, Urine RFX Laboratory test result [facility]) Calcium Oxalate Crystals RFX Laboratory test result [facility] ID Date Data Source [id number] 11/15/2019 03:45:00 PM EDT [facility] Name Value Range Interpretation Code Description Data Adrienne rce(s) Supporting Document(s) Laboratory test finding (navigational concept) 44.0 % 38.0-51.0 [facility] Laboratory test finding (navigational concept) 144 meq/L 136-145 [facility]) Laboratory test finding (navigational concept) 156 mg/dL 70-105 [facility] ([facility]) Laboratory test finding (navigational concept) 4.1 meq/L 3.5-5.1 [facility] ([facility]) Laboratory test finding (navigational concept) 4.7 mg/dL 4.5-5.3 [facility] Laboratory test finding (navigational concept) 107 meq/L 98-109 [facility] Laboratory test finding (navigational concept) 17 mg/dL 8-26 [facility] ([facility]) Laboratory test finding (navigational concept) 23.0 MM/L 23.0-27.0 [facility] ([facility]) Laboratory test finding (navigational concept) 1.0 mg/dL 0.6-1.3 [facility] ID Date Data Source [id number] 11/15/2019 03:36:00 PM EDT [facility] Name Value Range Interpretation Code Description Data Adrienne rce(s) Supporting Document(s) Thyrotropin [Units/volume] in Serum or Plasma by Detec tion limit <= 0.05 mIU/L 0.715 uIU/ML 0.358-3.740 [facility] ([facility] ) ID Date Data Source [id number] 11/15/2019 03:36:00 PM EDT [facility] Name Value Range Interpretation Code Description Data Adrienne rce(s) Supporting Document(s) Glucose, Fasting 148 mg/dL 70-100 [facility] Blood Urea Nitrogen 17 mg/dL 7-18 [facility] ([facility] Creatinine For GFR 1.17 mg/dL 0.70-1.30 [facility] ([facility]) Glomerular Filtration Rate [facility]) <content>Units are mL/min/1.73 m2</content>
<content></content>
<content>Chronic Kidney Disease Staging per NKF:</content>
<content></content>
<content>Stage I & II GFR >=60 Normal to Mildly Decreased</content>
<content>Stage III GFR 30- 59 Moderately Decreased</content>
<content>Stage IV GFR 15-29 Severely Decreased</content>
<content>Stage V GFR <15 Very Little GFR Left</content>
<content>ESRD GFR <15 on MANAGER INTERFACE</content>
<content></content> Sodium Level 141 meq/L 136-145 [facility] ([facility]) Chloride Level 112 meq/L 98-107 [facility] ([facility]) Potassium Serum 4.3 meq/L 3.5-5.1 [facility] ([facility]) Carbon Dioxide Level 25 meq/L 21-32 [facility] ([facility]) Calcium Level 9.4 mg/dL 8.8-10.2 [facility] ([facility]) Anion Gap 4 meq/L 8-16 [facility]) ID Date Data Source [id number] 11/15/2019 03:36:00 PM EDT [facility] ([facility]) Name Value Range Interpretation Code Description Data Adrienne rce(s) Supporting Document(s) Red Blood Count 4.61 10 4.30-6.10 [facility] ([facility]) White Blood Count 14.7 10 4.0-10.0 [facility] Hematocrit 44.6 % 42.0-52.0 [facility]) Hemoglobin 14.6 g/dL 13.5-17.5 [facility]) Mean Corpuscular Volume 96.7 fl 80.0-96.0 [facility] ([facility]) Mean Corpuscular Hemoglobin 31.7 pg 27.0-33.0 NE D[facility] ([facility]) Mean Corpuscular HGB Conc 32.7 g/dL 32.0-36.5 [facility] NT ([facility]) Red Cell Distribution Width 13.1 % 11.5-14.5 NE [facility] ([facility]) Nucleated Red Blood Cell % 0.0 % 0-0 [facility] ([facility]) Platelet Count, Automated 237 10 150-450 [facility] ([facility]) ID Date Data Source [id number] 11/08/2019 11:25:58 AM EDT Health system Name Value Range Interpretation Code Description Data Adrienne rce(s) Supporting Document(s) &PDF [facility] IZBDVg1iCbWHLuYj19/PANafGHHpq5RuKJkaDMs5OJscGXRtG9XfqLrtAZNYNF1RIKzZN9dTXwKDNB3g FcG [file] facJUbzCgxKERQXzN8YsiqBGleHOKLXz1W ID Date Data Source [id number] 11/08/2019 11:31:13 AM EDT [facility] NT INFORMATIONPatient MRN Name Date of Age Gend*PT [id number] Carolee Pope Carie 1945 74 years M HOPPT Location Admission Date/Time Visit ID Attending ProviderCV11/08/1924 --- Leilani Cornelius MD([id number]) EPI ID CSN Admitting Provider [id number] Leilani Cornelius MD([id number])Cardiology H&P addendum The patient is a 74-year-old [...] rce(s) Supporting Document(s) ID Date Data Source [id number] 11/08/2019 09:34:57 AM EDT Health system Name Value Range Interpretation Code Description Data Adrienne rce(s) Supporting Document(s) EKG [facility] VNPSMx4yFzEJVjAzz7TeRoLgAJHoLG3pmaw3X7Z2mYXuD8JnhDGwm3igY4GvW1TxNETyRMPFEB4SeLDc jb2 [file] 8/WG8/sFcH6+0H6+1kHQ24B3+BHWp8vz79S0M76U4D 1KF6UDaF2sKjb6uZEULuc9ji+9gc2t0O5BlC33Wr2562Yv8h0Rz94iiVKQoTm3pqVR7aiQNQqDXL+tWJ cDorPVWWOaf9Piq7TgnfTMiC957/+QALsAKP/5dx6k1kjj0B836FoYOg+xObYhkhL7j7sD5+ZJ22FX8T 3ZOMhHpoFwv9deapVrVMZXCI9iGFUBsktxttU4/+iI /SENIOR RESEARCH ASSOCIATE/vI/6z1DHoKN9lO+opE384+bxcVaqbT1J41up62ypjae+lV69Rp2pKRTix/p+tdwaC6i4s4nF2on3 9WK7do3uXGYuynKSGByNV304uRabF+6nJ/7rXPwCtt0dwUw/dVd5dmxkLEz6vF0lnli5oHGA8iaxRNSn 434juns2xLVOw466JXq2bpyMCCx4+eRJg8hOS5stlG Y87qAOgcDlZRweNjge832UVRaBiPJKnToF0gYqIikHuzwaoQnmAU0pUlVLmk7fk+nOK0BUZ645MKX+v1 LYm6NCDXH5be1tDlE4A334wLUm7xkzE84fSl17l0nxvAb3yeKXCafgby5tde9v5IoWM89hBsDA2O7o1V bKa2IQXVYzZwNfRfzEAKCyREFAyADMJNGRIU+3sL58 [file] m109YCSwYSGFJxr+RoecgHPihTzvRRGXCFe6VgMGRQDPF7J= ID Date Data Source [id number] 11/03/2019 09:20:00 AM EDT [facility] Name Value Range Interpretation Code Description Data Adrienne rce(s) Supporting Document(s) SARS coronavirus 2 RNA [facility] This lab was ordered by [facility] [place] and reported by [facility]. ID Date Data Source [id number] 11/04/2019 05:07:16 PM EDT [facility] [place] roddy [facility]ULINO Name Value Range Interpretation Code Description Data Adrienne rce(s) Supporting Document(s) SARS-COV-2 [facility] Tri Not DetectedReference range: Not Detecte d This test was developed and its performance characteristics determined by [employer]. This test has not been FDA cleared [...] detected) result in this assay. Performed At: [address] [id number] Rashard Sims MD Ph:[phone] ID Date Data Source [id number] 11/02/2019 02:10:00 PM EDT [facility] ([facility]) Name Value Range Interpretation Code Description Data Adrienne rce(s) Supporting Document(s) Blood Urea Nitrogen 16 mg/dL 7-18 [facility] ([facility]) Glucose, Fasting 131 mg/dL 70-100 [facility] ([facility]) Glomerular Filtration Rate Laboratory test result [facility] ([facility]) <content>Units are mL/min/1.73 m2</content>
<content></content>
<content>Chronic Kidney Disease Staging per NKF:</content>
<content></content>
<content>Stage I & II GFR >=60 Normal to Mildly Decreased</content>
<content>Stage III GFR 30- 59 Moderately Decreased</content>
<content>Stage IV GFR 15-29 Severely Decreased</content>
<content>Stage V GFR <15 Very Little GFR Left</content>
<content>ESRD GFR <15 on MANAGER INTERFACE</content>
<content></content> Creatinine For GFR 0.94 mg/dL 0.70-1.30 [facility] ([facility]) Sodium Level 144 meq/L 136-145 [facility] ([facility]) Potassium Serum 4.4 meq/L 3.5-5.1 [facility] Chloride Level 110 meq/L 98-107 [facility] ([facility]) Carbon Dioxide Level 29 meq/L 21-32 [facility] ([facility]) Anion Gap 5 meq/L 8-16 [facility]) Calcium Level 8.9 mg/dL 8.8-10.2 [facility] ([facility]) ID Date Data Source [id number] 11/02/2019 02:10:00 PM EDT [facility] ([facility]) Name Value Range Interpretation Code Description Data Adrienne rce(s) Supporting Document(s) White Blood Count 7.7 10 4.0-10.0 [facility] ([facility]) Red Blood Count 4.59 10 4.30-6.10 [facility] ([facility]) Hemoglobin 14.5 g/dL 13.5-17.5 [facility] Hematocrit 44.1 % 42.0-52.0 [facility] Mean Corpuscular Volume 96.1 fl 80.0-96.0 [facility] ([facility]) Mean Corpuscular Hemoglobin 31.6 pg 27.0-33.0 [facility] ([facility]) Mean Corpuscular HGB Conc 32.9 g/dL 32.0-36.5 [facility] ([facility]) Red Cell Distribution Width 13.1 % 11.5-14.5 [facility] ([facility]) Platelet Count, Automated 203 10 150-450 [facility] ([facility]) Lymph % 14.3 % 24.0-44.0 [facility]) Meigs % 7.2 % 0.0-5.0 [facility]) Neutrophils % 77.1 % 36.0-66.0 [facility] ([facility]) Eos % 0.8 % 0.0-3.0 [facility]) Immature Granulocyte % 0.3 % 0-3.0 [facility] ([facility]) Baso % 0.3 % 0.0-1.0 [facility]) Lymph # 1.1 10 1.5-5.0 [facility]) Neutrophils # 6.0 10 1.5-8.5 [facility] ([facility]) Nucleated Red Blood Cell % 0.0 % 0-0 [facility] ([facility]) Meigs # 0.6 10 0.0-0.8 [facility] Eos # 0.1 10 0.0-0.5 [facility] Baso # 0.0 10 0.0-0.2 [facility]) ID Date Data Source [id number] 10/29/2019 03:24:05 PM EDT [facility] INFORMATIONPatient MRN Name Date of Age Gend*PT [id number] Carolee Pope 1945 74 years M ---PT Location Admission Date/Time Visit ID Attending Provider --- --- --- --- EPI ID CSN Admitting Provider [id number] ---Name: Carolee PopeDOB: 1945Date: 10/29/19Loop Device CheckDevice was remotely interrogated and the following were evaluated:Battery statusSummary arrhythmia logsNew observationsAny patient activated eventsFidelity of the EGM signalConclusion:No new clinically significant arrhythmias, continue monitoringSignature: Sharmin Dodson MD, [facility], RSCardiac Electrophysiology and Arrhythmia ServiceDate: October 29, 2019Time: 3:24 PMThis document or parts of this document, were dictated using GeneTexware. A reasonable at tempt at proofreading has been made to minimize errors.Please call with any questions or corrections. Name Value Range Interpretation Code Description Data Adrienne rce(s) Supporting Document(s) ID Date Data Source [id number] 10/26/2019 03:24:43 PM EDT [facility] NT INFORMATIONPatient MRN Name Date of Age Gend*PT [id number] Carolee Pope 1945 74 years M ---PT Location Admission Date/Time Visit ID Attending Provider --- --- --- --- EPI ID CSN Admitting Provider [id number] ---Cardiology Office NoteName: Carolee Pope Gender: maleDate [...] treated with [place]5. [place] [address]. Echocardiogram 04/07/2018 reveals EF 50-55 percent, mild mitral and tricuspidinsufficiency7. Implant of LINQ monitor 04/26/2018 for episode of near syncope andnonsustained ventricular tachycardia noted on event monitorPatient presents today for follow-up. He is anticipating having hernia surgerySeptember [address] [place] in [place]. Overall, he tells me that he hasbeen [...] file Gets together: Not on file Attends baptism service: Not on file Active member of [...] rce(s) Supporting Document(s) ID Date Data Source [id number] 09/29/2019 01:38:00 PM EDT [facility] ([facility]) Name Value Range Interpretation Code Description Data Adrienne rce(s) Supporting Document(s) Glucose [Mass/volume] in Serum or Plasma 101 mg/dL 74-99 [facility] ([facility]) 100-125 mg/dL PRE-DIABETES/FASTING >126 mg/dL DIABETES/FASTING Urea nitrogen [Mass/volume] in Serum or Plasma 20 mg/dL 7-18 [facility] ([facility]) Sodium [Moles/volume] in Serum or Plasma 146 meq/L 136-145 [facility] ([facility]) Creatinine 1.1 mg/dL 0.6-1.3 [facility] Potassium [Moles/volume] in Serum or Plasma 4.0 meq/L 3.5-5.1 [facility] ([facility]) Chloride [Moles/volume] in Serum or Plasma 108 meq/L 98-107 [facility] ([facility]) Carbon dioxide, total [Moles/volume] in Serum or Plasma 28 meq/L 21 -32 [facility] ([facility]) Calcium [Mass/volume] in Serum or Plasma 9.1 mg/dL 8.5-10.1 [facility] ([facility]) Alkaline phosphatase isoenzyme [Units/volume] in Serum or Pl asma 106 mg/dL 46-116 [facility] ([facility]) Total Bilirubin 0.7 mg/dL 0.2-1.0 [facility] ([facility]) Aspartate aminotransferase [Enzymatic activity/volume] in Serum or Plasma 16 U/L 15-37 [facility] ([facility] ) Albumin [Mass/volume] in Serum or Plasma 3.9 g/dL 3.4-5.0 [facility] ([facility]) Alanine aminotransferase [Enzymatic activity/volume] in Seru m or Plasma 43 U/L 12-78 [facility] ([facility]) A/G Ratio 1.22 CALC 1.00-1.90 [facility]) Proteinase 3 Ab [Units/volume] in Serum 7.1 g/dL 6.4-8.2 [facility] ([facility]) Glomerular filtration rate/1.73 sq M pre dicted among blacks [Volume Rate/Area] in Serum or Plasma by Creatinine-based formula (MDRD) Laboratory test result [facility] <content>CHRONIC KIDNEY DISEASE STAGING PER NKF</content>
<content></content>
<content>STAGE I & II GFR >= 60 NORMAL TO MILDLY DECREASED</content>
<content>STAGE III GFR 30-59 MODERATELY DECREASED</content>
<content>STAGE IV GFR 15-29 SEVERELY DECREASED</content>
<content>STAGE V GFR <15 VERY LITTLE GFR LEFT</content>
<content>ESRD GFR <15 ON MANAGER INTERFACE</content>
<content></content> Glomerular filtration rate/1.73 sq M pre dicted among non-blacks [Volume Rate/Area] in Serum or Plasma by Creatinine-based formula (MDRD) Laboratory test result [facility] ID Date Data Source [id number] 09/29/2019 01:38:00 PM EDT [facility] ([facility]) Name Value Range Interpretation Code Description Data Adrienne rce(s) Supporting Document(s) Leukocytes [#/volume] in Blood by Automated count 7.7 x10*3/UL 4.1-10 .9 [facility] ([facility]) Erythrocytes [#/volume] in Blood by Automated count 4.79 x10*6/UL 4.2 0-6.30 [facility] ([facility]) Hemoglobin [Mass/volume] in Blood 15.0 g/dL 12.0-18.0 [facility] ([facility]) Hematocrit [Volume Fraction] of Blood by Automated count 44.0 % 3 7.0-51.0 [facility] ([facility]) MCV 91.8 fL 80.0-97.0 [facility] Erythrocyte distribution width [Ratio] by Automated count 13.2 % 11.6-13.7 [facility] ([facility]) MCHC 34.1 g/dL 31.0-38.0 [facility] MCH 31.3 pg 26.0-32.0 [facility] Platelets [#/volume] in Blood by Automated count 205 x10*3/UL 140-440 [facility] ([facility]) Mid % 4.9 % 1.7-9.3 [facility] MPV 8.0 FL 7.8-11.0 [facility] Lymph % 19.2 % 10.0-58.5 [facility] Neut % 75.9 % 37.0-92.0 [facility] Mid # 0.5 x10*3/UL 0.1-0.6 [facility] ([facility]) Lymph # 1.4 x10*3/UL 0.6-4.1 [facility] ([facility]) Neut # 5.8 x10*3/UL 2.0-7.8 [facility] ([facility]) ID Date Data Source [id number] 09/24/2019 07:33:32 AM EDT [facility] NT INFORMATIONPatient MRN Name Date of Age Gend*PT [id number] Carolee Pope 1945 74 years M ---PT Location Admission Date/Time Visit ID Attending Provider --- --- --- --- EPI ID CSN Admitting Provider [id number] ---Name: Carolee VizcarraLevi: 1945Date: 09/24/19Loop Device CheckDevice was remotely interrogated and the following were evaluated:Battery statusSummary arrhythmia logsNew observationsAny patient activated eventsFidelity of the EGM signalConclusion:No new clinically significant arrhythmias, continue monitoringSignature: Sharmin Dodson MD, FACC, FHRSCardiac Electrophysiology and Arrhythmia ServiceDate: September 24, 2019Time: 7:33 AMThis document or parts of this document, were dictated using GeneTexware. A reasonable attempt at proofreading has been made to minimize errors.Please call with any questions or corrections. Name Value Range Interpretation Code Description Data Adrienne rce(s) Supporting Document(s) ID Date Data Source [id number] 09/24/2019 07:12:49 AM EDT [facility] NT INFORMATIONPatient MRN Name Date of Age Gend*PT [id number] Carolee Pope 1945 74 years M ---PT Location Admission Date/Time Visit ID Attending Provider --- --- --- --- EPI ID CSN Admitting Provider [id number] ---Name: Carolee VizcarraB: 1945Date: 09/24/19Loop Device CheckDevice was remotely interrogated and the following were evaluated:Battery statusSummary arrhythmia logsNew observationsAny patient activated eventsFidelity of the EGM signalConclusion:No new clinically significant arrhythmias, continue monitoringSignature: Sharmin Dodson MD, FACC, FHRSCardiac Electrophysiology and Arrhythmia ServiceDate: September 24, 2019Time: 7:12 AMThis document or parts of this document, were dictated using Openbuckssoftware. A reasonable attempt at proofreading has been made to minimize errors.Please call with any questions or corrections. Name Value Range Interpretation Code Description Data Adrienne rce(s) Supporting Document(s) ID Date Data Source [id number] 09/07/2019 12:00:00 AM EDT [facility] Andrew Hyatt MD Patient Name: CAROLEE POPE [id number] [facility] Date of : 1945[place] [address] Date of Exam: 09/07/2019#: Fax: [phone] EXAM: [...] rce(s) Supporting Document(s) ID Date Data Source [id number] 09/07/2019 12:00:00 AM EDT [facility] Andrew Hyatt MD Patient Name: CAROLEE POPE [id number] [facility] Date of : 1945[place] [address] Date of Exam: 09/07/2019#: Fax: [phone] EXAM: [...] rce(s) Supporting Document(s) ID Date Data Source [id number] 08/24/2019 03:06:47 PM EDT [facility] NT INFORMATIONPatient MRN Name Date of Age Gend*PT [id number] Carolee Pope 1945 74 years M ---PT Location Admission Date/Time Visit ID Attending Provider --- --- --- --- EPI ID CSN Admitting Provider [id number] ---Name: Carolee PopeDOB: 1945Date: 08/24/19Loop Device CheckDevice was remotely interrogated and the following were evaluated:Battery statusSummary arrhythmia logsNew observationsAny patient activated eventsFidelity of the EGM signalConclusion:No new clinically significant arrhythmias, continue monitoringSignature: Sharmin Dodson MD, [facility], RSCardiac Electrophysiology and Arrhythmia ServiceDate: August 24, 2019Time: 3:06 PMThis document or parts of this document, were dictated using GeneTexware. A reasonable attempt at proofreading has been made to minimize errors.Please call with any questions or corrections. Name Value Range Interpretation Code Description Data Adrienne rce(s) Supporting Document(s) ID Date Data Source [id number] 07/29/2019 07:21:51 PM EDT [facility] NT INFORMATIONPatient MRN Name Date of Age Gend*PT [id number] Carolee Pope 1945 74 years M ---PT Location Admission Date/Time Visit ID Attending Provider --- --- --- --- EPI ID CSN Admitting Provider [id number] ---Name: Carolee PopeDOB: 1945Date: 07/29/19Loop Device CheckDevice was remotely interrogated and the following were evaluated:Battery statusSummary arrhythmia logsNew observationsAny patient activated eventsFidelity of the EGM signalConclusion:No new clinically significant arrhythmias, continue monitoringSignature: Sharmin Dodson MD, FACC, RSCardiac Electrophysiology and Arrhythmia ServiceDate: July 29, 2019Time: 7:21 PMThis document or parts of this document, were dictated using Openbuckssoftware. A reasonable attem pt at proofreading has been made to minimize errors.Please call with any questions or corrections. Name Value Range Interpretation Code Description Data Adrienne rce(s) Supporting Document(s) ID Date Data Source [id number] 07/27/2019 12:00:00 AM EDT [facility] Igor Pickett Jr, MD Patient Name: CAROLEE POPE [id number] [facility] Date of : 1945[place] [address] Date of Exam: 07/27/2019#: Fax: [phone] EXAM: HIP RIGHT UNILATERAL (COMPLETE) [...] rce(s) Supporting Document(s) ID Date Data Source [id number] 07/20/2019 12:00:00 AM EDT [facility] Igor Pickett Jr, MD Patient Name: CAROLEE POPE [id number] [facility] Date of : 1945[place] [address] Date of Exam: 07/20/2019#: Fax: [phone] EXAM: [...] Other findings as described above.Accredited by the [employer] in [place].JONAH Garay/[place] you for referring CAROLEE POPE to our office. Electronically Signed - MEGAN MALHOTRA DO 07/22/19 13:08 Name Value Range Interpretation Code Description Data Adrienne rce(s) Supporting Document(s) ID Date Data Source [id number] 07/15/2019 07:53:00 AM EDT [facility] Name Value Range Interpretation Code Description Data Adrienne rce(s) Supporting Document(s) Prostate specific Ag [Mass/volume] in Serum or Plasma 1.24 ng/mL [facility] ([facility]) This assay was performed on the Siemens Dimension EXL using the B- Galactosidase/CPRG methodology and should not be compared interchangeably with other methods. The PSA should not be used alone as a screening test for the presence or absence of malignant disease. ID Date Data Source [id number] 07/15/2019 07:53:00 AM EDT [facility] Name Value Range Interpretation Code Description Data Adrienne rce(s) Supporting Document(s) Triglyceride [Mass/volume] in Serum or Plasma 95 mg/dL 30-150 [facility] ([facility]) Cholesterol [Mass/volume] in Serum or Plasma 118 mg/dL 131-200 [facility] ([facility]) Cholesterol in HDL [Mass/volume] in Serum or Plasma 42 mg/dL 35-60 [facility] ([facility]) Cholesterol in LDL [Mass/volume] in Serum or Plasma by calcu lation 57 CALC 50-159 [facility] ([facility]) ID Date Data Source [id number] 07/15/2019 07:53:00 AM EDT [facility] ([facility]) Name Value Range Interpretation Code Description Data Adrienne rce(s) Supporting Document(s) Glucose [Mass/volume] in Serum or Plasma 109 mg/dL 74-99 [facility] ([facility]) 100-125 mg/dL PRE-DIABETES/FASTING >126 mg/dL DIABETES/FASTING Urea nitrogen [Mass/volume] in Serum or Plasma 13 mg/dL 7-18 [facility] ([facility]) Creatinine 0.9 mg/dL 0.6-1.3 [facility] ([facility]) Sodium [Moles/volume] in Serum or Plasma 143 meq/L 136-145 [facility] ([facility]) Potassium [Moles/volume] in Serum or Plasma 4.1 meq/L 3.5-5.1 [facility] ([facility]) Chloride [Moles/volume] in Serum or Plasma 107 meq/L 98-107 [facility] ([facility]) Carbon dioxide, total [Moles/volume] in Serum or Plasma 29 meq/L 21 -32 [facility] ([facility]) Calcium [Mass/volume] in Serum or Plasma 8.9 mg/dL 8.5-10.1 [facility] ([facility]) Alkaline phosphatase isoenzyme [Units/volume] in Serum or Pl asma 98 mg/dL 46-116 [facility] ([facility]) Aspartate aminotransferase [Enzymatic activity/volume] in Serum or Plasma 18 U/L 15-37 [facility] ([facility] ) Alanine aminotransferase [Enzymatic activity/volume] in Seru m or Plasma 37 U/L 12-78 [facility] ([facility]) Total Bilirubin 0.7 mg/dL 0.2-1.0 [facility] ([facility]) A/G Ratio 1.33 CALC 1.00-1.90 [facility]) Proteinase 3 Ab [Units/volume] in Serum 7.0 g/dL 6.4-8.2 [facility] ([facility]) Albumin [Mass/volume] in Serum or Plasma 4.0 g/dL 3.4-5.0 [facility] ([facility]) Glomerular filtration rate/1.73 sq M pre dicted among blacks [Volume Rate/Area] in Serum or Plasma by Creatinine-based formula (MDRD) [facility] <content>CHRONIC KIDNEY DISEASE STAGING PER NKF</content>
<content></content>
<content>STAGE I & II GFR >= 60 NORMAL TO MILDLY DECREASED</content>
<content>STAGE III GFR 30-59 MODERATELY DECREASED</content>
<content>STAGE IV GFR 15-29 SEVERELY DECREASED</content>
<content>STAGE V GFR <15 VERY LITTLE GFR LEFT</content>
<content>ESRD GFR <15 ON MANAGER INTERFACE</content>
<content></content> Glomerular filtration rate/1.73 sq M pre dicted among non-blacks [Volume Rate/Area] in Serum or Plasma by Creatinine-based formula (MDRD) Laboratory test result [facility] ID Date Data Source [id number] 07/15/2019 07:53:[address] [facility] Name Value Range Interpretation Code Description Data Adrienne rce(s) Supporting Document(s) Glucose mean value [Mass/volume] in Blood Estimated fr om glycated hemoglobin 131 mg/dL 60-110 [facility] Hemoglobin A1c/Hemoglobin.total in Blood 6.2 g/dL 4.8-5.6 [facility] Lab Result Notes: Pre-Diabetes 5.7 - 6.4 % Diabetes = or > 6.5% ID Date Data Source [id number] 05/23/2019 12:53:00 PM EDT [facility]#[id number]_ Name: CAROLEE POPE : [address]: Marco Chester MD Acct: [id number] Unit: [id number] AGE: 74 Location: [facility] Re05/20/19 SEX: M Status: REG REF SPEC: [id number] SAVANNAH: 05/20/19-1307 [facility] DR: Marco Chester MD REQ: [id number] RECD: 05/20/19 STATUS: SOUT _ORDERED: LEVEL 4 COMMENTS: [id number] FINAL DIAGNOSIS Skin, left upper arm, wide [...] CONTINUED ON NEXT PAGE DEPARTMENT OF PATHOLOGY, [address] [place] [address] Gen Angel M.D. Director [facility] # [id number] Signed by and Reported on: Ene Grayson MD 05/23/19 1253 END OF REPORT DEPARTMENT OF PATHOLOGY, [address] [place] [address] Gen Angel M.D. Director [facility] # [id number] Name Value Range Interpretation Code Description Data Adrienne rce(s) Supporting Document(s) ID Date Data Source [id number] 05/11/2019 10:36:13 AM EST [facility]FORMATIONPatient MRN Name Date of Age Gend*PT [id number] Carolee Pope 1945 74 years M ---PT Location Admission Date/Time Visit ID Attending Provider --- --- --- --- EPI ID CSN Admitting Provider [id number] ---Cardiology Office NoteName: Carolee Pope Gender: maleDate [...] treated with CPAP5[place] [address]. Echocardiogram 04/07/2018 reveals EF 50-55 percent, mild [...] file Gets together: Not on file Attends baptism service: Not on file Active member of [...] him return in 6 months time to repeatstrihealthss echocardiogram.2. Paroxysmal SVT; this has not recurred [...] parts of this document, were dictated using GeneTexware. A reasonable attempt at proofreading has been made to minimize errors.Please call with any questions or corrections. Name Value Range Interpretation Code Description Data Adrienne rce(s) Supporting Document(s) ID Date Data Source [id number] 04/27/2019 07:22:37 AM EST [facility] NT INFORMATIONPatient MRN Name Date of Age Gend*PT [id number] Carolee Pope 1945 74 years M ---PT Location Admission Date/Time Visit ID Attending Provider --- --- --- --- EPI ID CSN Admitting Provider [id number] ---Name: Carolee Darnell SaraiDOB: 1945Date: 04/27/19Loop Device CheckDevice was remotely interrogated and the following were evaluated:Battery statusSummary arrhythmia logsNew observationsAny patient activated eventsFidelity of the EGM signalConclusion:No new clinically significant arrhythmias, continue monitoringSignature: Sharmin Dodson MD, [facility], RSCardiac Electrophysiology and Arrhythmia ServiceDate: April 27, 2019Time: 7:22 AMThis document or parts of this document, were dictated using GeneTexware. A reasonable attempt at proofreading has been made to minimize errors.Please call with any questions or corrections. Name Value Range Interpretation Code Description Data Adrienne rce(s) Supporting Document(s) ID Date Data Source [id number] 01/26/2019 12:16:43 PM EST [facility] NT INFORMATIONPatient MRN Name Date of Age Gend*PT [id number] Carolee Pope 1945 74 years M ---PT Location Admission Date/Time Visit ID Attending Provider --- --- --- --- EPI ID CSN Admitting Provider [id number] ---Name: Carolee PopeDOB: 1945Date: 01/26/19Loop Device CheckDevice was remotely interrogated and the following were evaluated:Battery statusSummary arrhythmia logsNew observationsAny patient activated eventsFidelity of the EGM signalConclusion:No new clinically significant arrhythmias, continue monitoringSignature: Sharmin Dodson MD, [facility], [facility] CENTERCardiac Electrophysiology and Arrhythmia ServiceDate: January 26, 2019Time: 12:16 PMThis document or parts of this document, were dictated using GeneTexware. A reasonable attempt at proofreading has been made to minimize errors.Please call with any questions or corrections. Name Value Range Interpretation Code Description Data Adrienne rce(s) Supporting Document(s) Procedure Social History Code Duration Value Status Description Data Source(s ) Alcohol intake 11/08/2019 12:00:00 AM EDT Yes completed Health system Smoking 11/08/2019 12:00:00 AM EDT Never smoker completed Never [facility] Alcohol intake 10/26/2019 12:00:00 AM EDT Yes completed Health system Smoking 10/26/2019 12:00:00 AM EDT Never smoker completed Never [facility] Vital Signs ID Date Data Source UNK Name Value Range Interpretation Code Description Data Source(s) Body temperature 96.7 [degF] 96.7 [degF] [facility] ([facility]) Body surface area Derived from formula 2.05 m2 2.05 m2 [facility] ([facility], ) Body weight 91.797 kg 91.797 kg [facility] ([facility], ) [place] body weight 154 [lb_av] 154 [lb_av] MEDEN T ([facility], ) Body mass index (BMI) [Ratio] 30.8 kg/m2 30.8 k g/m2 [facility] Body weight 202.38 [lb_av] 202.38 [lb_av] MEDEN T ([facility]) Body height 68 [in_i] 68 [in_i] [facility] ([facility]) 5'8" Diastolic blood pressure 70 mm[Hg] 70 mm[Hg] [facility] ([facility]) Systolic blood pressure 132 mm[Hg] 132 mm[Hg] [facility] Body temperature 97.1 [degF] 97.1 [degF] [facility] ([facility]) Body mass index (BMI) [Ratio] 31.0 kg/m2 31.0 k g/m2 [facility] ([facility]) Body weight 204.00 [lb_av] 204.00 [lb_av] MEDEN T ([facility]) Body height 68 [in_i] 68 [in_i] [facility] 5'8" Heart rate 68 /min 68 /min [facility] ([facility]) Diastolic blood pressure 70 mm[Hg] 70 mm[Hg] [facility] ([facility]) Systolic blood pressure 124 mm[Hg] 124 mm[Hg] M [facility] ([facility]) Body surface area Derived from formula 2.[address] [facility] ([facility]) Body weight 91.[address] [facility] ([facility]) [place] body weight 154 [lb_av] 154 [lb_av] MEDEN T ([facility]) Body mass index (BMI) [Ratio] 30.6 kg/m2 30.6 k g/m2 [facility] ([facility], ) Body weight 201.00 [lb_av] 201.00 [lb_av] MEDEN T ([facility]) Body height 68 [in_i] 68 [in_i] [facility] ([facility]) 5'8" Diastolic blood pressure 80 mm[Hg] 80 mm[Hg] [facility] ([facility], ) Systolic blood pressure 160 mm[Hg] 160 mm[facility]Hg] [facility] Diastolic blood pressure mm[Hg] eCW1 ([facility]) Systolic blood pressure 118 mm[Hg] 118 mm[Hg] e CW1 ([facility]) Body temperature 97.2 [degF] 97.2 [degF] eCW1 ( [facility]) Respiratory rate 17 /min 17 /min eCW1 ([facility]) Heart rate 66 /min 66 /min eCW1 ([facility]) Body mass index (BMI) [Ratio] 31.47 kg/m2 31.47 kg/m2 eCW1 ([facility]) Body height 68 [in_i] 68 [in_i] eCW1 ([facility]) Body weight 207 [lb_av] 207 [lb_av] eCW1 [facility] Body mass index (BMI) [Ratio] 30.6 kg/m2 30.6 k g/m2 [facility] ([facility]) Body weight 201.00 [lb_av] 201.00 [lb_av] MEDEN T ([facility]) Body height 68 [in_i] 68 [in_i] [facility] 5'8" Heart rate 78 /min 78 /min [facility] ([facility]) Diastolic blood pressure 80 mm[Hg] 80 mm[Hg] [facility]) Systolic blood pressure 130 mm[Hg] 130 mm[Hg] [facility] Body weight 89.[address] [facility] ([facility], ) [place] [place] body weight 154 [lb_av] 154 [lb_av] [facility] ([facility], ) Body mass index (BMI) [Ratio] 30.1 kg/m2 30.1 k g/m2 [facility] ([facility], ) Body weight 198.00 [lb_av] 198.00 [lb_av] [facility] ([facility], ) Body height 68 [in_i] 68 [in_i] [facility] ([facility], ) 5'8" Body temperature 97.4 [degF] 97.4 [degF] [facility] ([facility] ) Oxygen saturation in Arterial blood by Pulse oximetry 95 % 95 % [facility] ([facility], ) Heart rate 83 /min 83 /min [facility] ([facility], ) Diastolic blood pressure 78 mm[Hg] 78 mm[Hg] [facility] ([facility], ) Systolic blood pressure 120 mm[Hg] 120 mm[Hg] [facility] ([facility], ) Oxygen saturation in Arterial blood by Pulse oximetry 96 % 96 % Health system Respiratory rate 18 /min 18 /min [facility] Body temperature 36.44 Flor 36.44 Flor [facility] Heart rate 67 /min 67 /min [facility] Diastolic blood pressure 69 mm[Hg] 69 mm[Hg] Health system Systolic blood pressure 149 mm[Hg] 149 mm[Hg] [facility] Body mass index (BMI) [Ratio] 30.40 kg/m2 30.40 kg/m2 Health system Body weight 90.7 kg 90.7 kg Health system Body height 172.7 cm 172.7 cm Health system Body mass index (BMI) [Ratio] 31.6 kg/m2 31.6 k g/m2 [facility] ([facility]) Oxygen saturation in Arterial blood by Pulse oximetry 98 % 98 % [facility] ([facility]) Body weight 208.00 [lb_av] 208.00 [lb_av] [facility] ([facility]) Body height 68 [in_i] 68 [in_i] [facility] 5'8" Heart rate 83 /min 83 /min [facility] ([facility]) Diastolic blood pressure 80 mm[Hg] 80 mm[Hg] [facility] ([facility]) Systolic blood pressure 136 mm[Hg] 136 mm[Hg] [facility] Body mass index (BMI) [Ratio] 30.5 kg/m2 30.5 k g/m2 [facility] ([facility] ) Body weight 200.38 [lb_av] 200.38 [lb_av] [facility] ([facility] ) Body height 68 [in_i] 68 [in_i] [facility] 5'8" Body temperature 97.7 [degF] 97.7 [degF] [facility] ([facility] ) Body mass index (BMI) [Ratio] 31.2 kg/m2 31.2 k g/m2 [facility] ([facility]) Body weight 205.25 [lb_av] 205.25 [lb_av] [facility] ([facility]) Body height 68 [in_i] 68 [in_i] [facility] ([facility]) 5'8" Diastolic blood pressure 70 mm[Hg] 70 mm[Hg] [facility] ([facility]) Systolic blood pressure 138 mm[Hg] 138 mm[Hg] [facility] ([facility]) Body mass index (BMI) [Ratio] 31.2 kg/m2 31.2 k g/m2 [facility] ([facility] ) Body weight 205.25 [lb_av] 205.25 [lb_av] [facility] ([facility] ) Body height 68 [in_i] 68 [in_i] [facility] ([facility] ) Patient Treatment Plan of Care Planned Activity Planned Date Details Description Data Source (s) Phenazopyridine hydrochloride 200 MG Oral Tablet [Pyri dium] 01/26/2020 12:00:00 AM EST eCW1 ([facility]) Phenazopyridine hydrochloride 200 MG Oral Tablet [Pyri dium] 01/26/2020 12:00:00 AM EST eCW1 ([facility]) Ciprofloxacin 500 MG Oral Tablet 01/09/2020 12:00:00 AM EST eCW1 ([facility]) Ciprofloxacin 500 MG Oral Tablet 01/09/2020 12:00:00 AM EST eCW1 ([facility]) Ciprofloxacin 500 MG Oral Tablet 01/09/2020 12:00:00 AM EST eCW1 ([facility]) 24 HR metoprolol succinate 50 MG Extended Release Oral Tablet 05/11/2019 12:00:00 AM EST [facility] Aspirin 81 MG Delayed Release Oral Tablet 05/11/2019 12:00:00 AM ES T Health system
--- NOTE | 2020-03-24 11:33 | REP ---
INDICATION: TRAUMA. COMPARISON: None. TECHNIQUE: CT BRAIN PERFORMED IN THE AXIAL PLANE. CORONAL RECONSTRUCTION IMAGES ARE PERFORMED. FINDINGS: There is very mild atrophy. No midline shift or mass effect. Jaeger-white differentiation is well maintained. There is no acute intracranial hemorrhage or extra-axial fluid collection. No skull fracture is seen. Scalp hematoma is seen in the left frontal region. IMPRESSION: No acute intracranial hemorrhage or skull fracture. Left frontal scalp hematoma. <Electronically signed by Gen Jaeger > 03/24/20 [id number]
--- NOTE | 2020-03-24 11:39 | REP ---
INDICATION: TRAUMA. COMPARISON: CT chest 10/05/2014. TECHNIQUE: CT cervical spine performed in the axial plane, with sagittal and coronal reconstruction images performed. FINDINGS: There is no acute fracture or dislocation. There is no malalignment. Is no prevertebral soft tissue swelling. Mild anterior and posterior spurring is seen at C5 and C6. There is moderate disc space narrowing with subchondral sclerosis at C5-6. There is mild narrowing at C6-7. There is mild diffuse narrowing and sclerosis at the posterior facet joints. There is a right thyroid nodule with tiny calcifications which is unchanged since prior CT chest 10/05/2014. IMPRESSION: No evidence of acute fracture or dislocation.Degenerative disc changes. <Electronically signed by Gen Jaeger > 03/24/20 [id number]
[2020-03-24 12:05] VITALS: BP 139/86
== END 2020-03-24 12:07 | disposition home or self-care (01) ==
LOC: M ED 10:51
DX: S00.03XA Contusion of scalp, initial encounter (principal); W22.8XXA Striking against or struck by other objects, initial encounter; Y92.9 Unspecified place or not applicable; Y93.9 Activity, unspecified; Y99.9 Unspecified external cause status; E78.5 Hyperlipidemia, unspecified; K21.9 Gastro-esophageal reflux disease without esophagitis; I10 Essential (primary) hypertension; Z79.82 Long term (current) use of aspirin

== ENCOUNTER → 2020-05-24 | Outpatient (REF) | payer MEDICARE, OTHER | LOC: M PLALAB 08:46 | PROVIDERS: ATTEND Nurse Practitioner Family | DX: Z12.5 Encounter for screening for malignant neoplasm of prostate (principal) | CPT/HCPCS: 36415; G0103 ==

== ENCOUNTER 2020-07-08 19:35 | Observation (INO) | payer MEDICARE, OTHER ==
[~2020-07-08] VITALS: Ht 172.7 cm; Wt 94.2 kg
[2020-07-08] MEDS ORDERED: MEXI15CA PO (19:46)
[2020-07-08 20:16] LABS: BASO % 0.4 % (0.0-1.0); EOS # 0.1 10^3/uL (0.0-0.5); EOS % 1.5 % (0.0-3.0); HEMATOCRIT 44.2 % (42.0-52.0); HEMOGLOBIN 14.4 g/dl (13.5-17.5); LYMPH # 1.5 10^3/uL (1.5-5.0); LYMPH % 20.3 % (24.0-44.0); MEAN CORPUSCULAR HEMOGLOBIN 31.4 pg (27.0-33.0); MEAN CORPUSCULAR HGB CONC 32.6 g/dl (32.0-36.5); MEAN CORPUSCULAR VOLUME 96.3 fl (80.0-96.0); MONO # 0.8 10^3/uL (0.0-0.8); MONO % 10.4 % (2.0-8.0); NEUTROPHILS % 67.1 % (36.0-66.0); PLATELET COUNT, AUTOMATED 222 10^3/uL (150-450); RED BLOOD COUNT 4.59 10^6/uL (4.30-6.10); WHITE BLOOD COUNT 7.4 10^3/uL (4.0-10.0)
[2020-07-08 20:28] LABS: INR 1.1; PROTHROMBIN TIME 14.4 SECONDS (12.5-14.3)
[2020-07-08 20:29] LABS: PARTIAL THROMBOPLASTIN TIME 30.9 SECONDS (24.2-38.5)
[2020-07-08 21:02] LABS: BLOOD UREA NITROGEN 18 MG/DL (7-18); CALCIUM LEVEL 9.3 MG/DL (8.8-10.2); CARBON DIOXIDE LEVEL 30 MEQ/L (21-32); CHLORIDE LEVEL 109 MEQ/L (98-107); CK-MB VALUE MASS 2.9 NG/ML (<3.6); CPK CREATINE PHOSPHOKINASE 201 U/L (39-308); CREATININE FOR GFR 0.89 MG/DL (0.70-1.30); GLOMERULAR FILTRATION RATE > 60.0 (>42); GLUCOSE, FASTING 132 MG/DL (70-100); MB/CK RELATIVE INDEX 1.44 (< OR =4); POTASSIUM SERUM 3.9 MEQ/L (3.5-5.1); SODIUM LEVEL 143 MEQ/L (136-145); TROPONIN I < 0.02 NG/ML (< 0.10)
[2020-07-08] MEDS ORDERED: ISOVUE-370 76% 100ML VIAL As Ordered ONE (21:12)
[2020-07-08 21:55] LABS: RSV AMPLIFICATION NEGATIVE (NEGATIVE)
[2020-07-08] MEDS ORDERED: ATOR40TA75 PO (22:03)
[2020-07-08] MEDS ORDERED: THERTAB52 PO (22:05)
--- NOTE | 2020-07-08 22:31 | REPVR ---
PROCEDURE INFORMATION: Exam: CT Abdomen And Pelvis With Contrast Exam date and time: 07/08/2020 9:41 PM Age: 75 years old Clinical indication: Other: Bloody stool; Abdominal pain; Localized; Right; Additional info: Right sided abdominal pain; Rectal bleeding TECHNIQUE: Imaging protocol: Computed tomography of the abdomen and pelvis with contrast. Radiation optimization: All CT scans at this facility use at least one of these dose optimization techniques: automated exposure control; mA and/or kV adjustment per patient size (includes targeted exams where dose is matched to clinical indication); or iterative reconstruction. Contrast material: ISOVUE 370; Contrast volume: 100 ml; Contrast route: INTRAVENOUS (IV); COMPARISON: CT ABD PELVIS W/O CONTRAST 11/20/2019 7:19 AM FINDINGS: Lungs: Minimal bibasilar bullous change with minimal bilateral lower lobe fibro-atelectatic change and bronchiectasis. Mediastinal space: Minimal hiatal hernia. Liver: Normal. No mass. Gallbladder and bile ducts: Normal. No calcified stones. No ductal dilation. Pancreas: Normal. No ductal dilation. Spleen: Minimal splenic calcification. Adrenal glands: Normal. No mass. Kidneys and ureters: There are bilateral renal cysts measuring up to 4.1 cm on the right which are redemonstrated and similar to the prior study. Small nonobstructing bilateral renal calculi. Resolution of right obstructive uropathy and right UPJ calculus since the prior study. Stomach and bowel: There is colonic diverticulosis without evidence of diverticulitis. Minimal density is noted in several diverticula which may reflect retained dense debris although other etiologies are not excluded. Appendix: A normal appendix is seen. Intraperitoneal space: Unremarkable. No free air. No significant fluid collection. Vasculature: There is minimal atherosclerotic calcification of the abdominal aorta. Lymph nodes: Unremarkable. No enlarged lymph nodes. Urinary bladder: Unremarkable as visualized. Reproductive: Unremarkable as visualized. Bones/joints: Fusion of the SI joints and lower lumbar facet arthropathy. Soft tissues: Mild fat filled umbilical hernia. IMPRESSION: 1. Resolution of right UPJ calculus and obstructive uropathy since 11/20/2019. 2. Small nonobstructing bilateral renal calculi persist. 3. Minimal bibasilar bullous change with minimal bilateral lower lobe fibro-atelectatic change and bronchiectasis which is unchanged. 4. Colonic diverticulosis without diverticulitis. 5. Otherwise negative CT abdomen/pelvis. Electronically signed by: Bc Cox On 07/08/2020 22:31:24 PM
[2020-07-08] MEDS ORDERED: MAALOX 30 ML SUSP *UDC PO PRN (23:40)
[2020-07-08] MEDS ORDERED: MOM 30ML SUSPENSION UDC PO PRN (23:40)
[2020-07-08] MEDS ORDERED: ACETAMINOPHEN TAB 650MG DOSE (2X325MG) PO PRN (23:40)
--- NOTE | 2020-07-08 23:49 | HPEPDOC ---
[facility] Medical History & Physical Date of Admission July 08, 2020 Date of Service: July 08, 2020 History and Physical CHIEF COMPLAINT: hematochezia HISTORY OF PRESENT ILLNESS: 75 yo M with a PMHx of HTN, CAD s/p stent, HLD, nep hrolithiasis with hydronephrosis s/p stenting resolved, gout, kayy not on cpap, arrhythmia with loop recorder, presented to ER with a singe episodes of bright red blood per rectum this afternoon. Patient had a loose BM with bright blood without clots in the toilet. Takes ASA and plavix. Denies vomiting blood. Denies recent weight loss. No chest pain, no SOB, no fever or chills, no fall, weakness or LOC. T 96.7. HR 66. BP 163/79. 97% on RA. Hgb 14.4. PLT 222. Na 143. K 3.9. Trop < 0.02. CT abdo pelvis showed small non obstructing renal stones, diverticulosis without diverticulitis, otherwise no acute findings. Of note, patient had a colonscopy with Dr. Watson in 02/2017 which non bleeding internal hemorrhoids, diverticulosis. PAST MEDICAL HISTORY: HTN CAD s/p stenting in 02/2018 on DAPT unspecified arrhythmia with loop recorder (Follows with at [facility]) GERD HLD Kidney stones gout KAYY not on CPAP PAST SURGICAL HISTORY: ESWL R inguinal hernia repair R ureteral stent insertion L knee replacement R should surgery SOCIAL HISTORY: Lives with No etoh use, no smoking, no illicits FAMILY HISTORY: Father from [place] age 74 Mother age 60 from leukemia Brother in 20s from leukemia ALLERGIES: Please see below. REVIEW OF SYSTEMS: 10 point ROS was completed, relevant findings are noted in the HPI HOME MEDICATIONS: Please see below. PHYSICAL EXAMINATION: VITAL SIGNS: please see below GENERAL APPEARANCE: calm, cooperative, not toxic appearance. HEENT: PERRLA, EOMI. CARDIOVASCULAR: RRR, normal S1, S2, no murmurs. LUNGS: CTAB, good inspiratory effort, no wheeze, no rales. ABDOMEN: soft, non tender, non distended. Rectal exams shows dark blood in rectal vault, external hemorrhoids, non thromboses, possible internal hemorrhoid at 3 o'clock. MUSCULOSKELETAL: normal ROM, L knee pain on ROM. EXTREMITIES: no edema, pulses 2+. NEUROLOGICAL: no focal deficits, CN 2-12 intact. PSYCHIATRIC: calm, cooperative. LABORATORY DATA: See below. IMAGING: CT abdo pelvis with IV contrast (07/08/20); 1. Resolution of right UPJ calculus and obstructive uropathy since 11/20/2019. 2. Small nonobstructing bilateral renal calculi persist. 3. Minimal bibasilar bullous change with minimal bilateral lower lobe fibro-atelectatic change and bronchiectasis which is unchanged. 4. Colonic diverticulosis without diverticulitis. 5. Otherwise negative CT abdomen/pelvis. MICROBIOLOGY: Please see below. ASSESSMENT: 5 yo M with a PMHx of HTN, CAD s/p stent, HLD, nephrolithiasis with hydronephrosis s/p stenting resolved, gout, kayy not on cpap, arrhythmia with loop recorder, presented to ER with a singe episodes of bright red blood per rectum this afternoon. Hgb stable. Physical exam showed possible internal hemorrhoids. . PLAN: Hemotochezia due to possible internal hemorrhoids vs vascular malformation vs lesion - Hgb > 14. No active bleeding in ER - Vitals stable. - CT abdo pelvis reviewed as above. - PPI IV - Monitor H/H - if peristent bleeding, drop in Hgb, to consult GI for possible colonoscopy - Clear liquid diet for now Hx of Arrhythmia - unspecified at this time - follows with cardiology at [facility], Dr. Gómez - takes mexiletine possible hx ventricular tachycardia - has a loop recorder in place - asymptomatic, NSR at this time - monitor patient on tele Hx of CAD - will c/w ASA, holding plavix - c/w statin HTN - resume home meds: lisinopril 30 daily, metoprolol 50 PO BID, KAYY - has been refusing CPAP BPH - c/w tamsulosin, finasteride GERD - PPI IV HLD - c/w statin Gout - c/w allopurinol DVT ppx: SCDs. TEDs. Vital Signs Vital Signs Date Time Temp Pulse Resp B/P (MAP) Pulse Ox O2 Delivery O2 Flow Rate FiO2 07/08/20 21:45 64 140/65 (90) 95 Room Air 07/08/20 19:36 96.7 16 Laboratory Data Labs 24H Laboratory Tests 2 07/08/20 20:06: Immature Granulocyte % (Auto) 0.3, Neutrophils (%) (Auto) 67.1H, Lymphocytes (%) (Auto) 20.3L, Monocytes (%) (Auto) 10.4H, Eosinophils (%) (Auto) 1.5, Basophils (%) (Auto) 0.4, Neutrophils # (Auto) 5.0, Lymphocytes # (Auto) 1.5, Monocytes # (Auto) 0.8, Eosinophils # (Auto) 0.1, Basophils # (Auto) 0.0, Nucleated Red Blood Cells % (auto) 0.0, Prothrombin Time 14.4H, Prothromb Time International Ratio 1.10, Activated Partial Thromboplast Time 30.9, Anion Gap 4L, Glomerular Filtration Rate > 60.0, Calcium Level 9.3, Total Creatine Kinase 201, Creatine Kinase MB 2.9, Creatine Kinase MB Relative Index 1.44, Troponin I < 0.02 07/08/20 21:09: Coronavirus (COVID-19)(PCR) NEGATIVE, Influenza Type A (RT-PCR) NEGATIVE, I nfluenza Type B (RT-PCR) NEGATIVE, Respiratory Syncytial Virus (PCR) NEGATIVE CBC/BMP Laboratory Tests 07/08/20 20:06 Home Medications Scheduled Allopurinol (Zyloprim) 300 Mg Tablet, 300 MG PO QPM Aspirin (Aspirin) 81 Mg Tab.chew, 81 MG PO DAILY Atorvastatin Calcium (Atorvastatin Calcium) 40 Mg Tablet, 40 MG PO DAILY Finasteride (Proscar) 5 Mg Tab, 5 MG PO QHS Lisinopril (Lisinopril) 30 Mg Tab, 30 MG PO DAILY Magnesium Oxide (Magnesium Oxide) 400 Mg Tablet, 400 MG PO BID MORNING AND DINNER Metoprolol Succinate (Metoprolol Succinate) 50 Mg Tab, 50 MG PO BID MORNING AND DINNER Mexiletine HCl (Mexiletine HCl) 150 Mg Capsule, 150 MG PO TID Multivitamin,Therapeutic (Thera-Tabs) 1 Each Tablet, 1 TAB PO DAILY Pantoprazole Sodium (Pantoprazole Sodium) 40 Mg Tab, 40 MG PO QHS Tamsulosin Hcl (Tamsulosin HCl) 0.4 Mg Capsule, 0.4 MG PO QHS Scheduled PRN Nitroglycerin (Nitroglycerin) 0.4 Mg Tab.subl, 0.4 MG SL NITRO PRN for CHEST PAIN Allergies Coded Allergies: No Known Allergies (Unverified , 12/19/19) A-FIB/CHADSVASC A-FIB History Current/History of A-Fib/PAF?: No Current PO Anticoag Therapy: No MALLORY ESPINOSA MD July 08, 2020 23:49
[2020-07-08] MEDS ORDERED: NITROGLYCERIN 0.4 MG SUBL TABLET SL PRN (23:50)
[2020-07-09] MEDS: PANTOPRAZOLE 40MG VIAL (C9113 PER 1) IV SCH ×3 (00:23→20:38)
[2020-07-09] MEDS: TAMSULOSIN 0.4 MG CAP PO SCH ×3 (00:23→20:38)
[2020-07-09] MEDS: FINASTERIDE 5 MG TAB PO SCH ×3 (00:23→20:38)
--- NOTE | 2020-07-09 06:16 | ECGEPIP ---
[facility] - ED Test Date: 2020-07-08 Pat Name: CAROLEE POPE Department: Room: - Gender: Male Pin Sorter And Bagger: TOREYKARLA : 1945 Requested By: NOAH FONSECA Order Number: [id number] Reading MD: Rubina Singh Measurements Intervals [place] Rate: 61 P: -9 NM: 184 QRS: -17 QRSD: 114 T: 60 QT: 406 QTc: 408 Interpretive Statements Normal sinus rhythm Moderate voltage criteria for LVH, may be normal variant ( R in aVL , [place] prod product ) Baseline artifact may affect reading Nonspecific ST T wave changes Delayed R wave progression moderate intraventricular conduction delay possible inferior infarct age undetermined cw 10/08/[address] T wave changes Electronically Signed on 07-09-2020 6:16:44 EDT by Rubina Singh
[2020-07-09 06:23] LABS: BASO % 0.4 % (0.0-1.0); EOS # 0.1 10^3/uL (0.0-0.5); EOS % 1.3 % (0.0-3.0); HEMATOCRIT 40.3 % (42.0-52.0); HEMOGLOBIN 13.1 g/dl (13.5-17.5); LYMPH # 1.2 10^3/uL (1.5-5.0); LYMPH % 17.3 % (24.0-44.0); MEAN CORPUSCULAR HEMOGLOBIN 30.9 pg (27.0-33.0); MEAN CORPUSCULAR HGB CONC 32.5 g/dl (32.0-36.5); MONO # 0.7 10^3/uL (0.0-0.8); MONO % 9.6 % (2.0-8.0); NEUTROPHILS # 4.8 10^3/uL (1.5-8.5); NEUTROPHILS % 71.1 % (36.0-66.0); PLATELET COUNT, AUTOMATED 197 10^3/uL (150-450); RED BLOOD COUNT 4.24 10^6/uL (4.30-6.10); WHITE BLOOD COUNT 6.8 10^3/uL (4.0-10.0)
[2020-07-09 06:50] LABS: ALBUMIN 3.3 GM/DL (3.2-5.2); ALT/SGPT 25 U/L (12-78); BILIRUBIN,TOTAL 0.5 MG/DL (0.2-1.0); BLOOD UREA NITROGEN 16 MG/DL (7-18); CALCIUM LEVEL 9.2 MG/DL (8.8-10.2); CARBON DIOXIDE LEVEL 27 MEQ/L (21-32); CHLORIDE LEVEL 111 MEQ/L (98-107); GLOMERULAR FILTRATION RATE > 60.0 (>42); GLUCOSE, FASTING 112 MG/DL (70-100); MAGNESIUM LEVEL 2.3 MG/DL (1.8-2.4); POTASSIUM SERUM 3.7 MEQ/L (3.5-5.1); SODIUM LEVEL 143 MEQ/L (136-145); TOTAL PROTEIN 6.2 GM/DL (6.4-8.2)
[2020-07-09] MEDS ORDERED: ASPIRIN 81 MG CHEW TABLET PO SCH (09:00)
[2020-07-09] MEDS: ATORVASTATIN 20 MG TAB PO SCH (10:16)
[2020-07-09] MEDS: METOPROLOL SUCC (TopROL XL) 50MG **XL** TAB PO SCH ×2 (10:16→17:40)
[2020-07-09] MEDS: DOCUSATE SODIUM 100MG CAPSULE PO SCH ×2 (10:16→20:38)
[2020-07-09] MEDS: MAGNESIUM OXIDE 400MG TAB (MAG-OX) PO SCH ×2 (10:20→17:36)
[2020-07-09] MEDS: MEXILETINE 150 MG CAP PO SCH ×3 (11:07→20:38)
--- NOTE | 2020-07-09 14:25 | IPNPDOC ---
Text Note Date of Service The patient was seen on 07/09/20. NOTE S Patient reported another episode of hematochezia this morning in the ED around 7am. He noted dark red blood in stool mix with diarrhea. He continued to denied CP, SOB, fever, chills, N/V, hematemesis, melena, hematuria or other obvious signs of bleeding. O VITAL SIGNS: See below GENERAL APPEARANCE: Revealed 75 y/o M sitting on the edge of ER cot, Alert & oriented x3, in No Acute Distress. HEENT Exam: Normocephalic and atraumatic, PERRL, conjunctiva & lids normal, EOMI , without sclera icteric, mucous membr. moist/pink, pharynx normal, nares patent. NECK: Supple without lymphadenopathy, JVD, thyromegaly LUNGS: Clear to auscultation bilaterally with full breath sounds without rales, wheezing, and crackles. CARDIOVASCULAR: Distant heart sounds. Regular rate and rhythm, normal S1 & S2 without gallops, murmurs, rubs. ABDOMEN: Soft, non-tender, non-distended with normal bowel sounds. No masses or ecchymosis or hepatosplenomegaly. EXTREMITIES: 2+ pulses in all extremities. No clubbing, cyanosis, edema, tenderness SKIN: Normal turgor and temperature. No rash, lesion MUSCULOSKELETAL: Strength +5/5 in all extremities without tenderness. NEUROLOGICAL: Normal speech with intact sensation, No signs of gross focal neurological deficit. PSYCHIATRIC: Normal mood and affect ASSESSMENT: 75 yo M with a PMHx of HTN, CAD (s/p stent 02/2018 currently on ASA and plavix), HLD, nephrolithiasis with hydronephrosis s/p stenting resolved, gout, sahra on cpap, unspecified arrhythmia with loop recorder and BPH, presented to ER on 07/08/2020 with a singe episodes of painless, bright red blood per rectum afternoon of 07/08. Physical exam in the ED showed possible internal hemorrhoids. Imaging was negative for acute inflammation but showed colonic diverticulosis without diverticulitis. Patient developed another episode of hematochezia this morning and Hgb dropped from 14.4 to 13.1. Will hold both ASA and plavix and GI consult placed. PLAN: # Hemotochezia due to possible internal hemorrhoids vs vascular malformation vs lesion vs diverticular bleed - Hgb dropped from 14.4 to 13.1 this am, patient reported 1 additional episode of hematochezia in the ED - Vitals stable. - CT abd/ pelvis negative for acute process - PPI IV - Monitor H/H - Hold both ASA and plavix - GI consulted, will start bowel prep now with plan to finish at midnight and colonoscopy tomorrow - clear liquid diet for now, NPO after midnight - Last colonoscopy with Dr. Watson in 02/2017 showing non-bleeding internal hemorrhoids with diverticulosis in the recto-sigmoid colon, sigmoid colon and descending colon. # Hx of Arrhythmia - unspecified at this time - follows with cardiology at [facility], Dr. Gómez - order placed to obtain medical records from [facility] - takes mexiletine possible hx ventricular tachycardia - has a loop recorder in place - asymptomatic, NSR at this time - monitor patient on tele - Cont Mexiletine Hx of CAD - Stent in 02/2018 - holding ASA 2/2 hematochezia - d/c plavix - cont statin HTN - resume home meds: lisinopril 30 daily, metoprolol 50 PO BID SAHRA - patient has CPAP at bedside in the ED BPH - cont tamsulosin, finasteride GERD - Cont PPI IV HLD - Cont statin Gout - Cont allopurinol DVT ppx: SCDs. TEDs. VS,Fishbone, I+O VS, Fishbone, I+O Laboratory Tests 07/08/20 20:06 07/09/20 06:06 Vital Signs Date Time Temp Pulse Resp B/P (MAP) Pulse Ox O2 Delivery O2 Flow Rate FiO2 07/09/20 10:54 59 20 96 Room Air 07/09/20 10:16 140/68 07/09/20 06:09 96.6 GME ATTESTATION GME ATTESTATION My faculty preceptor for this patient encounter was physically present during the encounter and was fully available. All aspects of the patient interview, examination, medical decision making process, and medical care plan development were reviewed and approved by the faculty preceptor. The faculty preceptor is aware and concurs with the plan as stated in the body of this note and will attest to such by his/her cosignature. ATTENDING NOTE I, Caleb Rahman MD, have independently examined this patient and performed my ow n physical exam, as well as reviewed the documentation and edited where necessary. I have discussed in detail with the resident / student the findings and plan of treatment as documented by the resident / student and edited their note. I agree with their findings and treatment plan and have edited their documentation. ODESSA BURNHAM OMS-3 July 09, 2020 14:24 CALEB RAHMAN MD July 10, 2020 12:42
[2020-07-09 14:58] LABS: HEMATOCRIT 40.3 % (42.0-52.0); HEMOGLOBIN 13.6 g/dl (13.5-17.5)
[2020-07-09] MEDS ORDERED: GOLYTELY SOLN 4000 ML BTL PO ONE (15:10)
[2020-07-09 15:19] VITALS: BP 152/84
[2020-07-09 17:40] VITALS: BP 141/68
[2020-07-09] MEDS ORDERED: BISACODYL 5 MG TAB PO ONE (20:00)
[2020-07-09] MEDS ORDERED: allopurinoL 300 MG TAB PO SCH (21:00)
[2020-07-09 22:00] VITALS: BP 141/70
[2020-07-10 06:00] VITALS: BP 136/70
[2020-07-10 06:09] LABS: BASO % 0.4 % (0.0-1.0); EOS # 0.1 10^3/uL (0.0-0.5); EOS % 1.6 % (0.0-3.0); HEMATOCRIT 39.9 % (42.0-52.0); LYMPH # 1.1 10^3/uL (1.5-5.0); LYMPH % 15.9 % (24.0-44.0); MEAN CORPUSCULAR HEMOGLOBIN 30.7 pg (27.0-33.0); MEAN CORPUSCULAR HGB CONC 32.6 g/dl (32.0-36.5); MEAN CORPUSCULAR VOLUME 94.3 fl (80.0-96.0); MONO # 0.7 10^3/uL (0.0-0.8); NEUTROPHILS % 71.7 % (36.0-66.0); PLATELET COUNT, AUTOMATED 185 10^3/uL (150-450); RED BLOOD COUNT 4.23 10^6/uL (4.30-6.10)
[2020-07-10 06:28] LABS: ALBUMIN 3.3 GM/DL (3.2-5.2); ALT/SGPT 25 U/L (12-78); BILIRUBIN,TOTAL 0.6 MG/DL (0.2-1.0); BLOOD UREA NITROGEN 8 MG/DL (7-18); CALCIUM LEVEL 8.8 MG/DL (8.8-10.2); CARBON DIOXIDE LEVEL 28 MEQ/L (21-32); CHLORIDE LEVEL 109 MEQ/L (98-107); CREATININE FOR GFR 0.79 MG/DL (0.70-1.30); GLOMERULAR FILTRATION RATE > 60.0 (>42); GLUCOSE, FASTING 101 MG/DL (70-100); MAGNESIUM LEVEL 2.1 MG/DL (1.8-2.4); POTASSIUM SERUM 3.8 MEQ/L (3.5-5.1); SODIUM LEVEL 144 MEQ/L (136-145); TOTAL PROTEIN 5.9 GM/DL (6.4-8.2)
[2020-07-10] MEDS: METOPROLOL SUCC (TopROL XL) 50MG **XL** TAB PO SCH (08:00)
[2020-07-10] MEDS: MAGNESIUM OXIDE 400MG TAB (MAG-OX) PO SCH (08:00)
[2020-07-10] MEDS: PANTOPRAZOLE 40MG VIAL (C9113 PER 1) IV SCH (08:39)
[2020-07-10] MEDS: DOCUSATE SODIUM 100MG CAPSULE PO SCH (08:39)
[2020-07-10] MEDS: ATORVASTATIN 20 MG TAB PO SCH (08:39)
[2020-07-10] MEDS: MEXILETINE 150 MG CAP PO SCH (08:39)
[2020-07-10] MEDS ORDERED: LIDOCAINE 2% 100MG/5ML SDV (FOR ANES.) As Ordered ONE (11:55)
[2020-07-10] MEDS ORDERED: propofoL 200 MG/20 ML VIAL As Ordered ONE (11:55)
--- NOTE | 2020-07-10 12:33 | ROOR ---
Patient Name: Timmy Moon Procedure Date: 07/10/2020 11:47 AM Date of : 1945 Age: 75 Room: [facility] Gender: Male Note Status: Finalized Procedure: Colonoscopy Indications: Hematochezia Providers: Aren Wilkerson MD Referring MD: 2. Inpatient 2. Inpatient Requesting Provider: Medicines: Monitored Anesthesia Care Complications: No immediate complications. Procedure: Pre-Anesthesia Assessment: - Prior to the procedure, a History and Physical was performed, and patient medications and allergies were reviewed. The patient is competent. The risks and benefits of the procedure and the sedation options and risks were discussed with the patient. All questions were answered and informed consent was obtained. Patient identification and proposed procedure were verified by the physician, the nurse and the anesthesiologist in the procedure room. Mental Status Examination: alert and oriented. Airway Examination: normal oropharyngeal airway and neck mobility. Respiratory Examination: clear to auscultation. CV Examination: normal. Prophylactic Antibiotics: The patient does not require prophylactic antibiotics. Prior Anticoagulants: The patient has taken Plavix (clopidogrel), last dose was 2 days prior to procedure. ASA Grade Assessment: II - A patient with mild systemic disease. After reviewing the risks and benefits, the patient was deemed in satisfactory condition to undergo the procedure. The anesthesia plan was to use monitored anesthesia care (MAC). Immediately prior to administration of medications, the patient was re-assessed for adequacy to receive sedatives. The heart rate, respiratory rate, oxygen saturations, blood pressure, adequacy of pulmonary ventilation, and response to care were monitored throughout the procedure. The physical status of the patient was re-assessed after the procedure. The Colonoscope was introduced through the anus and advanced to the terminal ileum, with identification of the appendiceal orifice and IC valve. The colonoscopy was performed without difficulty. The patient tolerated the procedure well. The quality of the bowel preparation was good. The ileocecal valve, appendiceal orifice, and rectum were photographed. Scope insertion time was 2 minutes. Scope withdrawal time was 8 minutes. The total duration of the procedure was 10 minutes. Findings: The perianal and digital rectal examinations were normal. Multiple small and large-mouthed diverticula were found from sigmoid to transverse colon. There was no evidence of diverticular bleeding. Medium-mouthed diverticula were found in the sigmoid colon. For hemostasis, one hemostatic clip was successfully placed. There was no bleeding at the end of the procedure. Non-bleeding external and internal hemorrhoids were found during retroflexion. The hemorrhoids were medium-sized. Impression: - Severe diverticulosis from sigmoid to transverse colon. There was no evidence of diverticular bleeding. - Diverticulosis in the sigmoid colon. Clip was placed. - Non-bleeding external and internal hemorrhoids. - No specimens collected. Recommendation: - Patient has a contact number available for emergencies. The signs and symptoms of potential delayed complications were discussed with the patient. Return to normal activities tomorrow. Written discharge instructions were provided to the patient. - High fiber diet. - Continue present medications. - Miralax 1 capful (17 grams) in 8 ounces of water PO daily. - Use original regular Metamucil one tablespoon PO daily. - Repeat colonoscopy is not recommended due to current age (66 years or older) for screening purposes. - Return to primary care physician. - Resume Plavix (clopidogrel) at prior dose today. Refer to primary physician for further adjustment of therapy. Procedure Code(s): --- Professional --- 85335, Colonoscopy, flexible; with control of bleeding, any method Diagnosis Code(s): --- Professional --- K64.8, Other hemorrhoids K92.1, Melena (includes Hematochezia) K57.30, Diverticulosis of large intestine without perforation or abscess without bleeding CPT copyright 2019 [employer]. All rights reserved. The codes documented in this report are preliminary and upon box gluer review may be revised to meet current compliance requirements. Aren Wilkerson MD Aren Wilkerson MD 07/10/2020 12:33:20 PM Electronically signed by Aren Wilkerson MD Number of Addenda: 0 Note Initiated On: 07/10/2020 11:47 AM Estimated Blood Loss: Estimated blood loss was minimal.
[2020-07-10 14:00] VITALS: BP 127/66
--- NOTE | 2020-07-10 15:38 | DS.PDOC ---
Discharge Summary General Date of Admission July 08, 2020 at 19:36 Date of Discharge 07/10/20 Primary Care Physician: Jr Pickett Collins Attending Physician: IGOR MALDONADO MD Specialist/Consultants Involve: KRISTINA GARNER MD Discharge Summary PROCEDURES PERFORMED DURING STAY: Colonoscopy ADMITTING DIAGNOSES: 1. Gastrointestinal bleed 2. History of arrhythmia 3. Coronary artery disease 4. Hypertension 5. Obstructive sleep apnea DISCHARGE DIAGNOSES: 1. Gastrointestinal bleed, likely secondary to bleeding diverticula 2. History of arrhythmia 3. Coronary artery disease 4. Hypertension 5. Obstructive sleep apnea COMPLICATIONS/CHIEF COMPLAINT: BRBPR. HISTORY OF PRESENT ILLNESS: Patient is a 75-year-old male with a past medical history significant for coronary artery disease, status post placement 2017. Nephrolithiasis with hydronephrosis status post stenting, resolved gout. She was sleep apnea not on CPAP, hypertension, ventricular arrhythmia on antiarrhythmic presented to the [facility] emergency department on 07/08/2020 with complaint of bright red blood per rectum. Patient stated that he had gone to the bathroom, had a loose bowel movement and noticed bright red blood without clots in the toilet. He denied abdominal pain. He denied any history of diarrhea. He denies any recent antibiotic use. He denies nausea or vomiting. Patient states that he takes aspirin and Plavix as an outpatient. He denied any previous history of GI bleed. Patient stated that he did have a colonoscopy com pleted 2016, at which point he was told that it was normal and he only had some nonbleeding internal hemorrhoids and diverticulosis. On Presentation to emergency department the patient was vitally stable. His hemoglobin was 14.4 on presentation. On repeat in the morning, his hemoglobin had dropped to 13.1. After admission to the hospitalist service, the patient was noted to have a second episode of bright red blood per rectum. Gastroenterology was consulted for consideration of possible colonoscopy. Patient was started on colon prep and colonoscopy was performed. Patient was noted to have severe diverticulosis from the sigmoid and transverse colon with no evidence diverticular bleeding. In the sigmoid colon was noted to have diverticulosis. A clip was placed there. Initially patient had some nonbleeding external/internal hemorrhoids. Patient tolerated his colonoscopy well. After his procedure, the patient was instructed that he may be discharged home. The patient was instructed to stop taking his Plavix. He was instructed to hold his aspirin for additional 48 hours and then continue. Patient was instructed to follow-up with his primary care physician, Dr. Pickett in 5-10 days. Additionally, he is to follow-up with his finisher polisher in 2-3 weeks. DISCHARGE MEDICATIONS: Please see below. ALLERGIES: Please see below. PHYSICAL EXAMINATION ON DISCHARGE: VITAL SIGNS: Please see below. GENERAL: Awake, alert, oriented, appears in acute distress, lying comfortably in bed HEENT: Atraumatic, normocephalic. Eyes nonicteric. Trachea is midline mucous membranes are pink and moist NECK:. No palpable cervical, axillary or supraclavicular lymphadenopathy CARDIOVASCULAR EXAMINATION:. Normal S1, S2, regular rate and rhythm. No clicks rubs or murmurs RESPIRATORY EXAMINATION:. Clear vesicular breath sounds bilaterally. No wheezes rhonchi or rales. Symmetric chest expansion ABDOMINAL EXAMINATION:. Soft nondistended, nontender. Normoactive bowel sounds throughout EXTREMITIES:. No edema. Full equal pulses bilateral upper and lower extremities SKIN:. No rashes or lesions NEUROLOGICAL EXAMINATION: No Focal neurological deficits PSYCHIATRIC EXAMINATION: Mood and Affect appear appropriate LABORATORY DATA: Please see below. IMAGING: PROCEDURE INFORMATION: Exam: CT Abdomen And Pelvis With Contrast Exam date and time: 07/08/2020 9:41 PM Age: 75 years old Clinical indication: Other: Bloody stool; Abdominal pain; Localized; Right; Additional info: Right sided abdominal pain; Rectal bleeding TECHNIQUE: Imaging protocol: Computed tomography of the abdomen and pelvis with contrast. Radiation optimization: All CT scans at this facility use at least one of these dose optimization techniques: automated exposure control; mA and/or kV adjustment per patient size (includes targeted exams where dose is matched to clinical indication); or iterative reconstruction. Contrast material: ISOVUE 370; Contrast volume: 100 ml; Contrast route: INTRAVENOUS (IV); COMPARISON: CT ABD PELVIS W/O CONTRAST 11/20/2019 7:19 AM FINDINGS: Lungs: Minimal bibasilar bullous change with minimal bilateral lower lobe fibro-atelectatic change and bronchiectasis. Mediastinal space: Minimal hiatal hernia. Liver: Normal. No mass. Gallbladder and bile ducts: Normal. No calcified stones. No ductal dilation. Pancreas: Normal. No ductal dilation. Spleen: Minimal splenic calcification. Adrenal glands: Normal. No mass. Kidneys and ureters: There are bilateral renal cysts measuring up to 4.1 cm on the right which are redemonstrated and similar to the prior study. Small nonobstructing bilateral renal calculi. Resolution of right obstructive uropathy and right UPJ calculus since the prior study. Stomach and bowel: There is colonic diverticulosis without evidence of diverticulitis. Minimal density is noted in several diverticula which may reflect retained dense debris although other etiologies are not excluded. Appendix: A normal appendix is seen. Intraperitoneal space: Unremarkable. No free air. No significant fluid collection. Vasculature: There is minimal atherosclerotic calcification of the abdominal aorta. Lymph nodes: Unremarkable. No enlarged lymph nodes. Urinary bladder: Unremarkable as visualized. Reproductive: Unremarkable as visualized. Bones/joints: Fusion of the SI joints and lower lumbar facet arthropathy. Soft tissues: Mild fat filled umbilical hernia. IMPRESSION: 1. Resolution of right UPJ calculus and obstructive uropathy since 11/20/2019. 2. Small nonobstructing bilateral renal calculi persist. 3. Minimal bibasilar bullous change with minimal bilateral lower lobe fibro-atelectatic change and bronchiectasis which is unchanged. 4. Colonic diverticulosis without diverticulitis. 5. Otherwise negative CT abdomen/pelvis. Electronically signed by: Bc Cox On 07/08/2020 22:31:24 PM Colonoscopy Report Findings: The perianal and digital rectal examinations were normal. Multiple small and large-mouthed diverticula were found from sigmoid to transverse colon. There was no evidence of diverticular bleeding. Medium-mouthed diverticula were found in the sigmoid colon. For hemostasis, one hemostatic clip was successfully placed. There was no bleeding at the end of the procedure. Non-bleeding external and internal hemorrhoids were found during retroflexion. The hemorrhoids were medium-sized. Impression: - Severe diverticulosis from sigmoid to transverse colon. There was no evidence of diverticular bleeding. - Diverticulosis in the sigmoid colon. Clip was placed. - Non-bleeding external and internal hemorrhoids. - No specimens collected. Recommendation: - Patient has a contact number available for emergencies. The signs and symptoms of potential delayed complications were discussed with the patient. Return to normal activities tomorrow. Written discharge instructions were provided to the patient. - High fiber diet. - Continue present medications. - Miralax 1 capful (17 grams) in 8 ounces of water PO daily. - Use original regular Metamucil one tablespoon PO daily. - Repeat colonoscopy is not recommended due to current age (66 years or older) for screening purposes. - Return to primary care physician. Procedure Code(s): --- Professional --- 83861, Colonoscopy, flexible; with control of bleeding, any method Diagnosis Code(s): --- Professional --- K64.8, Other hemorrhoids K92.1, Melena (includes Hematochezia) K57.30, Diverticulosis of large intestine without perforation or abscess without bleeding CPT copyright 2019 [employer]. All rights reserved. The codes documented in this report are preliminary and upon policy director review may be revised to meet current compliance requirements. PROGNOSIS: Good ACTIVITY: [As tolerated]. DIET: As Tolerated DISCHARGE PLAN: Patient is to be discharged home with follow-up with his primary care physician in 5-10 days. He is to hold his aspirin for additional 48 hours and then resume. He is to stop Plavix unless told otherwise by his primary care physician or his finisher polisher. DISPOSITION: Patient was diagnosed with gastrointestinal bleed, likely secondary to bleeding diverticula. Colonoscopy performed demonstrating severe div erticulosis. Clip placed in sigmoid colon. Patient instructed to hold aspirin for additional 48 hours, then resume. He was instructed to discontinue his Plavix. Patient is to follow this particular physician in 5-10 days. DISCHARGE INSTRUCTIONS: 1. Hold aspirin 81 mg for 48 hours, then resume 2. Stop Plavix unless directed otherwise by her primary care physician or cardio logist 3. Follow-up with primary care physician in 5-10 days DISCHARGE CONDITION: [Stable]. TIME SPENT ON DISCHARGE: Greater than 35 minutes. Vital Signs/I&Os Vital Signs Date Time Temp Pulse Resp B/P (MAP) Pulse Ox O2 Delivery O2 Flow Rate FiO2 07/10/20 14:00 98.6 73 18 127/66 (86) 96 Room Air I&O- Last 24 Hours up to 6 AM 07/10/20 05:59 Intake Total 750 ml Output Total 1000 ml Balance -250 ml Laboratory Data Labs 24H Laboratory Tests 2 07/10/20 05:39: Immature Granulocyte % (Auto) 0.4, Neutrophils (%) (Auto) 71.7H, Lymphocytes (%) (Auto) 15.9L, Monocytes (%) (Auto) 10.0H, Eosinophils (%) (Auto) 1.6, Basophils (%) (Auto) 0.4, Neutrophils # (Auto) 5.0, Lymphocytes # (Auto) 1.1L, Monocytes # (Auto) 0.7, Eosinophils # (Auto) 0.1, Basophils # (Auto) 0.0, Nucleated Red Blood Cells % (auto) 0.0, Anion Gap 7L, Glomerular Filtration Rate > 60.0, Calcium Level 8.8, Magnesium Level 2.1, Total Bilirubin 0.6, Aspartate Amino Transf (AST/SGOT) 8, Alanine Aminotransferase (ALT/SGPT) 25, Alkaline Phosphatase 93, Total Protein 5.9L, Albumin 3.3, Albumin/Globulin Ratio 1.3 CBC/BMP Laboratory Tests 07/10/20 05:39 Discharge Medications Scheduled Allopurinol (Zyloprim) 300 Mg Tablet, 300 MG PO QPM, (Reported) Aspirin (Aspirin) 81 Mg Tab.chew, 81 MG PO DAILY, (Reported) Atorvastatin Calcium (Atorvastatin Calcium) 40 Mg Tablet, 40 MG PO DAILY, (Reported) Finasteride (Proscar) 5 Mg Tab, 5 MG PO QHS, (Reported) Lisinopril (Lisinopril) 30 Mg Tab, 30 MG PO DAILY, (Reported) Magnesium Oxide (Magnesium Oxide) 400 Mg Tablet, 400 MG PO BID, (Reported) MORNING AND DINNER Metoprolol Succinate (Metoprolol Succinate) 50 Mg Tab, 50 MG PO BID, (Reported) MORNING AND DINNER Mexiletine HCl (Mexiletine HCl) 150 Mg Capsule, 150 MG PO TID, (Reported) Multivitamin,Therapeutic (Thera-Tabs) 1 Each Tablet, 1 TAB PO DAILY, (Reported) Pantoprazole Sodium (Pantoprazole Sodium) 40 Mg Tab, 40 MG PO QHS, (Reported) Tamsulosin Hcl (Tamsulosin HCl) 0.4 Mg Capsule, 0.4 MG PO QHS, (Reported) Scheduled PRN Nitroglycerin (Nitroglycerin) 0.4 Mg Tab.subl, 0.4 MG SL NITRO PRN for CHEST PAIN, (Reported) Allergies Coded Allergies: No Known Allergies (Unverified , 12/19/19) CRISTINA VENTURA DO July 10, 2020 15:38
== END 2020-07-10 17:27 | disposition home or self-care (01) ==
LOC: M ED 19:35 → M ED INP 19:36 → ENRESERV 07-09 14:25 → M MSPAV 07-09 15:19
PROVIDERS: ADMIT Family Medicine; ATTEND Internal Medicine
DX: K57.30 Diverticulosis of large intestine without perforation or abscess without bleeding (principal); K64.8 Other hemorrhoids; K64.4 Residual hemorrhoidal skin tags; K92.1 Melena; K92.2 Gastrointestinal hemorrhage, unspecified; I47.0 Re-entry ventricular arrhythmia; I25.10 Atherosclerotic heart disease of native coronary artery without angina pectoris; I10 Essential (primary) hypertension; G47.33 Obstructive sleep apnea (adult) (pediatric); Z87.440 Personal history of urinary (tract) infections; M10.9 Gout, unspecified; E78.5 Hyperlipidemia, unspecified; K21.9 Gastro-esophageal reflux disease without esophagitis; N40.0 Benign prostatic hyperplasia without lower urinary tract symptoms; Z79.899 Other long term (current) drug therapy; Z79.2 Long term (current) use of antibiotics; Z79.02 Long term (current) use of antithrombotics/antiplatelets; Z95.5 Presence of coronary angioplasty implant and graft
CPT/HCPCS: 36415; 45382; 74177; 80048; 80053; 82550; 82553; 83735; 84484; 85014; 85018; 85025; 85610; 85730; 86850; 86900; 86901; 87631; 93005; 93041; 94760; 96374; 96376; 99285; C9113; G0378; Q9967

== ENCOUNTER 2020-07-18 10:48 | Emergency (ER) | payer MEDICARE, OTHER ==
[~2020-07-18] VITALS: Ht 172.7 cm; Wt 93.0 kg
[~2020-07-18 10:48] MED LIST changes: +ATOR40TA75 PO; +MEXI15CA PO; +THERTAB52 PO
--- NOTE | 2020-07-18 11:21 | REPVR ---
PROCEDURE INFORMATION: Exam: CT Head Without Contrast Exam date and time: 07/18/2020 11:03 AM Age: 75 years old Clinical indication: Injury or trauma; Fall; Additional info: Fall injury TECHNIQUE: Imaging protocol: Computed tomography of the head without contrast. Radiation optimization: All CT scans at this facility use at least one of these dose optimization techniques: automated exposure control; mA and/or kV adjustment per patient size (includes targeted exams where dose is matched to clinical indication); or iterative reconstruction. COMPARISON: CT Head without contrast 03/24/2020 11:02 AM FINDINGS: Brain: Examination reveals an acute hyperdense subdural hematoma in the left parafalcine region measuring 6 mm in maximum thickness and extending inferiorly along the superior aspect of the left tentorium cerebelli. This is best appreciated on coronal image 27. There is mild ill-defined patchy hypodensity within the bilateral cerebral periventricular white matter, consistent with chronic microvascular ischemic changes. There is mild diffuse cerebral atrophy present, consistent with this patient's age. Cerebral ventricles: The ventricular system demonstrates mild diffuse compensatory enlargement. Bones/joints: See "Brain" finding. Paranasal sinuses: Visualized sinuses are unremarkable. No fluid levels. Mastoid air cells: Visualized mastoid air cells are well aerated. Soft tissues: Unremarkable. IMPRESSION: 1. Examination reveals an acute hyperdense subdural hematoma in the left parafalcine region measuring 6 mm in maximum thickness and extending inferiorly along the superior aspect of the left tentorium cerebelli. This is best appreciated on coronal image 27. This is new since the previous study. 2. No acute infarction, masses or intraparenchymal hemorrhage is seen. 3. Diffuse age-related cerebral atrophy and mild chronic microvascular white matter ischemic changes. Electronically signed by: Malachi Washington On 07/18/2020 11:20:59 AM
--- NOTE | 2020-07-18 11:22 | REPVR ---
PROCEDURE INFORMATION: Exam: CT Cervical Spine Without Contrast Exam date and time: 07/18/2020 11:03 AM Age: 75 years old Clinical indication: Injury or trauma; Additional info: Fall TECHNIQUE: Imaging protocol: Computed tomography images of the cervical spine without contrast. Radiation optimization: All CT scans at this facility use at least one of these dose optimization techniques: automated exposure control; mA and/or kV adjustment per patient size (includes targeted exams where dose is matched to clinical indication); or iterative reconstruction. COMPARISON: CT Spine,cervical w/o contrast 03/24/2020 11:02 AM FINDINGS: Bones/joints: There is moderate diffuse osteopenia. The cervical vertebral bodies are normal height and alignment.No acute fracture or dislocation is seen. Discs/Spinal canal/Neural foramina: There are multilevel degenerative changes including degenerative disc disease, spondylosis and facet degenerative changes. Epidural space: There is no evidence of epidural masses or hemorrhage. Prevertebral Space: The prevertebral soft tissues appear normal. Lungs: Lung apices are normal. Soft tissues: There is straightening of the cervical spine which could be secondary to positioning or muscle spasm. There are no soft tissue masses or fluid collections. IMPRESSION: No acute fracture or dislocation is seen. THIS REPORT CONTAINS FINDINGS THAT MAY BE CRITICAL TO PATIENT CARE. The findings were verbally communicated via telephone conference with NOAH OWUSU at 11:22 AM EDT on 07/18/2020. The findings were acknowledged and understood. Electronically signed by: Malachi Washington On 07/18/2020 11:22:32 AM
--- NOTE | 2020-07-18 11:30 | REP ---
INDICATION: fall injury COMPARISON: None. TECHNIQUE: AP and lateral right forearm. FINDINGS: There is no evidence of acute fracture, dislocation, or intrinsic bone disease.There is soft tissue swelling proximally. IMPRESSION: No fracture or dislocation. <Electronically signed by Gen Jaeger > 07/18/20 1122
[2020-07-18 12:03] LABS: BASO # 0.1 10^3/uL (0.0-0.2); BASO % 0.6 % (0.0-1.0); EOS # 0.1 10^3/uL (0.0-0.5); EOS % 0.6 % (0.0-3.0); HEMATOCRIT 44.7 % (42.0-52.0); HEMOGLOBIN 14.3 g/dl (13.5-17.5); LYMPH # 1.1 10^3/uL (1.5-5.0); LYMPH % 13.1 % (24.0-44.0); MEAN CORPUSCULAR HEMOGLOBIN 30.6 pg (27.0-33.0); MEAN CORPUSCULAR VOLUME 95.5 fl (80.0-96.0); MONO # 0.7 10^3/uL (0.0-0.8); MONO % 8.5 % (2.0-8.0); NEUTROPHILS # 6.6 10^3/uL (1.5-8.5); NEUTROPHILS % 76.9 % (36.0-66.0); PLATELET COUNT, AUTOMATED 233 10^3/uL (150-450); RED BLOOD COUNT 4.68 10^6/uL (4.30-6.10); WHITE BLOOD COUNT 8.6 10^3/uL (4.0-10.0)
[2020-07-18 12:15] LABS: INR 1.06
[2020-07-18 12:16] LABS: PARTIAL THROMBOPLASTIN TIME 30.2 SECONDS (24.2-38.5)
--- NOTE | 2020-07-18 12:16 | REP ---
INDICATION: fall. COMPARISON: 07/09/2019. TECHNIQUE: AP view pelvis, AP and frogleg views right hip. FINDINGS: There is no evidence of acute fracture or dislocation. There are mild degenerative changes at both hip joints, with mild joint space narrowing and subchondral sclerosis, as well as spurring. Smoothly marginated accessory ossicle is seen along the left acetabulum. There are degenerative changes of the lower lumbar spine. Metallic clip is seen in the left pelvis. IMPRESSION: No acute fracture or dislocation. <Electronically signed by Gen Jaeger > 07/18/20 [id number]
[2020-07-18 12:27] LABS: ALT/SGPT 32 U/L (12-78); BILIRUBIN,TOTAL 0.6 MG/DL (0.2-1.0); BLOOD UREA NITROGEN 15 MG/DL (7-18); CALCIUM LEVEL 9.2 MG/DL (8.8-10.2); CARBON DIOXIDE LEVEL 28 MEQ/L (21-32); CHLORIDE LEVEL 110 MEQ/L (98-107); CREATININE FOR GFR 0.99 MG/DL (0.70-1.30); GLOMERULAR FILTRATION RATE > 60.0 (>42); GLUCOSE, FASTING 100 MG/DL (70-100); POTASSIUM SERUM 4.2 MEQ/L (3.5-5.1); SODIUM LEVEL 142 MEQ/L (136-145); TOTAL PROTEIN 7.1 GM/DL (6.4-8.2)
[2020-07-18 13:01] VITALS: BP 178/80
--- NOTE | 2020-07-19 02:41 | ECGEPIP ---
[facility] - ED Test Date: 2020-07-18 Pat Name: CAROLEE POPE Department: Room: - Gender: Male [employer]: : 1945 Requested By: NOAH Freed Order Number: [id number] Reading MD: Emerson Sanabria Measurements Intervals [place] Rate: 63 P: 10 RI: 190 QRS: -13 QRSD: 112 T: 54 QT: 402 QTc: 411 Interpretive Statements Normal sinus rhythm Nonspecific T wave abnormality BASELINE ARTIFACT AFFECTS INTERPRETATION Electronically Signed on 07-19-2020 2:41:05 EDT by Emerson Sanabria
== END 2020-07-18 13:11 | disposition short-term general hospital (02) ==
LOC: M ED 10:48
DX: S06.5X1D Traumatic subdural hemorrhage with loss of consciousness of 30 minutes or less, subsequent encounter (principal); S50.11XA Contusion of right forearm, initial encounter; S70.01XA Contusion of right hip, initial encounter; W01.0XXA Fall on same level from slipping, tripping and stumbling without subsequent striking against object, initial encounter; Y92.89 Other specified places as the place of occurrence of the external cause; Y93.89 Activity, other specified; Y99.8 Other external cause status; I10 Essential (primary) hypertension; I25.10 Atherosclerotic heart disease of native coronary artery without angina pectoris; E78.5 Hyperlipidemia, unspecified; G47.33 Obstructive sleep apnea (adult) (pediatric); Z79.82 Long term (current) use of aspirin; Z79.01 Long term (current) use of anticoagulants; Z91.5 Personal history of self-harm

== ENCOUNTER → 2020-07-24 | Outpatient (CLI) | payer MEDICARE, OTHER ==
--- NOTE | 2020-07-24 11:54 | REP ---
INDICATION: F/U SDH. Parafalcine subdural hematoma noted along the left side of the falx on the [address] study. COMPARISON: Comparison head CT studies are dated July 18, 2020 and March 24, 2020.. TECHNIQUE: Helical scanning is acquired. 5 mm axial images were reformatted. Coronal MPR images were generated. FINDINGS: Bony calvarium is intact. Visualized paranasal sinuses are clear. Vascular calcifications again noted in the distal internal carotid arteries bilaterally. The previously noted parafalcine subdural hematoma is again visualized along the left side of the falx and extending over the left side of the tentorial leaf. This is a new finding when compared with the CT study from March 24, 2020. It is improved from the more recent study of July 18, 2020. On that prior study the left parafalcine subdural hematoma measured 6 mm in thickness. Today it has decreased to a greatest thickness of 2.5 mm. It is still visible over the left tentorial leaf but it is improved in this location as well. No new area of subdural or extra-axial fluid collection is seen. No parenchymal hemorrhage is observed. No evidence of infarct or mass. IMPRESSION: Improving left parafalcine subdural hematoma extending over the left tentorial leaf. This is improved in thickness when compared with the most recent prior study of July 18, 2020. No new finding.. <Electronically signed by Cooper Serna > 07/24/20 1466
== END ==
LOC: M RAD 10:30
PROVIDERS: ATTEND Internal Medicine
DX: S06.5X0A Traumatic subdural hemorrhage without loss of consciousness, initial encounter (principal)

== ENCOUNTER → 2020-08-01 | Outpatient (CLI) | payer MEDICARE, OTHER ==
--- NOTE | 2020-08-01 13:04 | REP ---
INDICATION: LEFT KNEE OSTEOARTHRITIS/PRE OP COMPARISON: 12/19/2019 TECHNIQUE: PA and lateral. FINDINGS: The mediastinum and cardiac silhouette are normal. Loop recorder overlies the cardiac silhouette. The lung dickens demonstrate bibasilar linear fibroatelectatic changes. No focal consolidation, effusion, or pneumothorax. The skeletal structures are intact and normal. IMPRESSION: Bibasilar linear markings may represent chronic change versus atelectasis. <Electronically signed by Omar Johnston > 08/01/20 1300
== END ==
LOC: M RAD 12:36
PROVIDERS: ATTEND Orthopaedic Surgery
DX: Z01.818 Encounter for other preprocedural examination (principal); M17.12 Unilateral primary osteoarthritis, left knee

== ENCOUNTER → 2020-08-07 | Outpatient (REF) | payer MEDICARE, OTHER ==
[2020-08-07 12:35] LABS: INR 0.99; PROTHROMBIN TIME 13.3 SECONDS (12.5-14.3)
[2020-08-07 12:36] LABS: PARTIAL THROMBOPLASTIN TIME 29.8 SECONDS (24.2-38.5)
== END ==
LOC: M LAB REF 11:21
PROVIDERS: ATTEND Internal Medicine
DX: Z01.818 Encounter for other preprocedural examination (principal); R82.993 Hyperuricosuria

== ENCOUNTER → 2020-09-18 | Outpatient (CLI) | payer MEDICARE, OTHER ==
[~2020-09-18] MED LIST changes: +ALLO300T2 PO; +ASPI81TA26 PO; +CIPR-249 PO; +MACR100C43 PO; +TOPR50TA PO; +XARE10TA PO
== END ==
LOC: M PLAIMG 13:05
PROVIDERS: ATTEND Internal Medicine
DX: S06.5X0A Traumatic subdural hemorrhage without loss of consciousness, initial encounter (principal); W18.30XA Fall on same level, unspecified, initial encounter; Y92.009 Unspecified place in unspecified non-institutional (private) residence as the place of occurrence of the external cause

== ENCOUNTER → 2020-10-15 | Outpatient (CLI) | payer MEDICARE, OTHER ==
[2020-10-15 10:36] LABS: HEMATOCRIT 44.3 % (42.0-52.0); HEMOGLOBIN 14.4 g/dl (13.5-17.5); MEAN CORPUSCULAR HEMOGLOBIN 31.1 pg (27.0-33.0); MEAN CORPUSCULAR HGB CONC 32.5 g/dl (32.0-36.5); MEAN CORPUSCULAR VOLUME 95.7 fl (80.0-96.0); PLATELET COUNT, AUTOMATED 206 10^3/uL (150-450); RED BLOOD COUNT 4.63 10^6/uL (4.30-6.10); WHITE BLOOD COUNT 6.6 10^3/uL (4.0-10.0)
[2020-10-15 10:46] LABS: INR 0.98; PROTHROMBIN TIME 13.4 SECONDS (12.7-14.5)
[2020-10-15 11:10] LABS: ALBUMIN 3.7 GM/DL (3.2-5.2); ALT/SGPT 26 U/L (12-78); BILIRUBIN,TOTAL 0.4 MG/DL (0.2-1.0); BLOOD UREA NITROGEN 14 MG/DL (7-18); CARBON DIOXIDE LEVEL 28 MEQ/L (21-32); CHLORIDE LEVEL 109 MEQ/L (98-107); CREATININE FOR GFR 0.89 MG/DL (0.70-1.30); GLOMERULAR FILTRATION RATE > 60.0 (>42); GLUCOSE, FASTING 134 MG/DL (70-100); POTASSIUM SERUM 4.3 MEQ/L (3.5-5.1); SODIUM LEVEL 142 MEQ/L (136-145); TOTAL PROTEIN 6.7 GM/DL (6.4-8.2)
[2020-10-15 11:59] LABS: ERYTHROCYTE SEDIMENTATION RATE 6 mm/hr (0-20)
== END ==
LOC: M LAB 08:43
PROVIDERS: ATTEND Orthopaedic Surgery
DX: Z01.818 Encounter for other preprocedural examination (principal); M17.12 Unilateral primary osteoarthritis, left knee; I44.0 Atrioventricular block, first degree; R94.31 Abnormal electrocardiogram [ECG] [EKG]

== ENCOUNTER → 2020-11-06 | Outpatient (REF) | payer MEDICARE, OTHER ==
[~2020-11-06] MED LIST changes: -ALLO300T2 PO; -ASPI81TA26 PO; -CIPR-249 PO; -MACR100C43 PO; -TOPR50TA PO; -XARE10TA PO
[2020-11-06 18:22] LABS: INR 1.03; PROTHROMBIN TIME 13.9 SECONDS (12.7-14.5)
== END ==
LOC: M LAB REF 16:01
PROVIDERS: ATTEND Internal Medicine
DX: Z01.818 Encounter for other preprocedural examination (principal); Z79.01 Long term (current) use of anticoagulants

== ENCOUNTER 2020-11-18 09:13 | Emergency (ER) | payer MEDICARE, OTHER ==
[~2020-11-18] VITALS: Ht 172.7 cm; Wt 91.8 kg
[2020-11-18] MEDS ORDERED: XARE10TA PO (09:30)
[2020-11-18] MEDS ORDERED: NITROFURANTOIN (MACROBID) 100 MG CAP PO ONE (11:05)
--- NOTE | 2020-11-18 12:16 | REP ---
INDICATION: flank pain, urinary retention, r/o stone/hydro. COMPARISON: CT 07/08/2020. TECHNIQUE: Real-time sonographic evaluation of the kidneys is performed. FINDINGS: Renal cortical echogenicity pattern is normal bilaterally and contours are smooth. There is no hydronephrosis bilaterally. There is a cyst of the mid right kidney 4 cm in diameter. There is a cyst in the lower pole the left kidney 2 cm in diameter. The right kidney measures 13.0 x 6.4 x 6.0 cm. Left renal dimensions are 12.7 x 6.0 x 6.5 cm. Urinary bladder contains a Gibson catheter and is collapsed. IMPRESSION: No hydronephrosis. <Electronically signed by Gen Jaeger > 11/18/20 1212
[2020-11-18] MEDS ORDERED: MACR100C43 PO (13:24)
[2020-11-18 13:30] VITALS: BP 147/71
== END 2020-11-18 13:50 | disposition home or self-care (01) ==
LOC: M ED 09:13
DX: R33.9 Retention of urine, unspecified (principal); I10 Essential (primary) hypertension; E78.5 Hyperlipidemia, unspecified; K21.9 Gastro-esophageal reflux disease without esophagitis; Z79.01 Long term (current) use of anticoagulants; Z79.82 Long term (current) use of aspirin; Z79.899 Other long term (current) drug therapy

== ENCOUNTER 2020-11-29 04:53 | Inpatient (IN) | payer MEDICARE, OTHER ==
[~2020-11-29] VITALS: Ht 172.7 cm; Wt 93.6 kg
[~2020-11-29 04:53] MED LIST changes: +MACR100C43 PO; +XARE10TA PO
[2020-11-29] MEDS ORDERED: NS 2,740 ML in IV 1 EA IV ONE (06:00)
[2020-11-29 06:05] LABS: BASO # 0.1 10^3/uL (0.0-0.2); BASO % 0.2 % (0.0-1.0); HEMATOCRIT 36.1 % (42.0-52.0); HEMOGLOBIN 11.9 g/dl (13.5-17.5); LYMPH # 0.8 10^3/uL (1.5-5.0); LYMPH % 3.1 % (24.0-44.0); MEAN CORPUSCULAR HEMOGLOBIN 31.5 pg (27.0-33.0); MEAN CORPUSCULAR VOLUME 95.5 fl (80.0-96.0); MONO % 6.2 % (2.0-8.0); NEUTROPHILS # 22.8 10^3/uL (1.5-8.5); PLATELET COUNT, AUTOMATED 250 10^3/uL (150-450); RED BLOOD COUNT 3.78 10^6/uL (4.30-6.10); WHITE BLOOD COUNT 25.6 10^3/uL (4.0-10.0)
[2020-11-29] MEDS ORDERED: PIPERACILLIN/TAZOBACTAM SOD 3.375 GM in D5W MINI-BAG PLUS 50 ML IV ONE (06:20)
[2020-11-29 06:30] LABS: ALBUMIN 3.1 GM/DL (3.2-5.2); ALT/SGPT 21 U/L (12-78); BILIRUBIN,DIRECT 0.4 MG/DL (0.0-0.2); BILIRUBIN,TOTAL 1.5 MG/DL (0.2-1.0); BLOOD UREA NITROGEN 17 MG/DL (7-18); CALCIUM LEVEL 8.9 MG/DL (8.8-10.2); CARBON DIOXIDE LEVEL 27 MEQ/L (21-32); CHLORIDE LEVEL 105 MEQ/L (98-107); CPK CREATINE PHOSPHOKINASE 67 U/L (39-308); CREATININE FOR GFR 1.12 MG/DL (0.70-1.30); GLOMERULAR FILTRATION RATE > 60.0 (>42); GLUCOSE, FASTING 131 MG/DL (70-100); LIPASE 40 U/L (73-393); MB/CK RELATIVE INDEX 1.49 (< OR =4); POTASSIUM SERUM 4.4 MEQ/L (3.5-5.1); SODIUM LEVEL 138 MEQ/L (136-145); TOTAL PROTEIN 6.1 GM/DL (6.4-8.2); TROPONIN I < 0.02 NG/ML (< 0.10)
[2020-11-29 06:37] LABS: RSV AMPLIFICATION NEGATIVE (NEGATIVE)
[2020-11-29 07:02] LABS: MONO # 1.6 10^3/uL (0.0-0.8)
--- NOTE | 2020-11-29 07:26 | REPVR ---
PROCEDURE INFORMATION: Exam: CT Abdomen And Pelvis Without Contrast Exam date and time: 11/29/2020 6:22 AM Age: 75 years old Clinical indication: Abdominal pain; Generalized; Additional info: Urosepsis, HX of stones TECHNIQUE: Imaging protocol: Computed tomography of the abdomen and pelvis without contrast. Radiation optimization: All CT scans at this facility use at least one of these dose optimization techniques: automated exposure control; mA and/or kV adjustment per patient size (includes targeted exams where dose is matched to clinical indication); or iterative reconstruction. COMPARISON: CT ABD/PEL W/IV CONTRAST ONLY 07/08/2020 9:06 PM FINDINGS: Lungs: A few reticular densities and peripheral nonspecific density in the visualized lung bases are without significant change from the prior exam. There is a calcified granuloma in the left lower lobe. Mediastinal space: A small hiatal hernia is present. Liver: There is a calcification at the surface of the liver, unchanged. The unenhanced liver appears otherwise unremarkable. Gallbladder and bile ducts: The gallbladder is normal with no stones or biliary ductal dilation. Pancreas: There is diffuse, benign fatty infiltration of the pancreas. Spleen: There is a single calcified granuloma in the spleen. No splenomegaly. Adrenal glands: There is a focal 11 mm hypodense mass in the left adrenal gland, consistent in appearance and density with a benign adrenal adenoma. No follow-up imaging is needed. Kidneys and ureters: There are again multiple small, nonobstructing stones in both kidneys. Some of the calcifications may be in the renal pyramids, related to medullary nephrocalcinosis. Bilateral renal cysts are without significant change. The largest measures 4.3 cm, located in the right kidney upper pole. Stomach and bowel: Extensive diverticulosis is present, most prominent in the sigmoid and descending colon. The small bowel appears unremarkable. There is no dilation or thickening of the colon. Appendix: A normal appendix is identified. Intraperitoneal space: There is no evidence of free intraperitoneal or pelvic fluid. There is no free intraperitoneal air. Vasculature: The aorta demonstrates mild atherosclerotic calcification. No aortic aneurysm. Lymph nodes: No lymphadenopathy is seen. Urinary bladder: The bladder is mostly collapsed. No bladder stones are identified. There is diffuse bladder wall thickening and perivesicular stranding likely due to cystitis but also probably accentuated by incomplete distension. There is a small amount of intraluminal air in the bladder. Please correlate with recent with instrumentation. Reproductive: The prostate gland demonstrates mild nonspecific enlargement. Bones/joints: Degenerative endplate changes are seen at multiple levels in the visualized spine. There is facet arthropathy in the lumbar spine. Soft tissues: There is a periumbilical hernia containing fat. IMPRESSION: 1. Diffuse thickening of the bladder wall with perivesicular stranding, likely due to cystitis. A small amount of intraluminal air may be related to recent instrumentation. Please correlate clinically. 2. Bilateral nephrolithiasis. No hydronephrosis or ureterolithiasis identified. 3. Extensive diverticulosis in the colon, most prominent through the left and the sigmoid colon. No signs of acute diverticulitis. Electronically signed by: Sandra Johnson On 11/29/2020 07:26:36 AM
[2020-11-29] MEDS ORDERED: ALLO300T2 PO (07:54)
[2020-11-29] MEDS ORDERED: ASPI81TA26 PO (07:54)
[2020-11-29] MEDS ORDERED: TOPR50TA PO (07:59)
[2020-11-29] MEDS ORDERED: HOME MED LIST COMPLETE! XX SCH (08:00)
[2020-11-29] MEDS ORDERED: NITROGLYCERIN 0.4 MG SUBL TABLET SL PRN (08:50)
--- NOTE | 2020-11-29 08:58 | HPEPDOC ---
[facility] Medical History & Physical Date of Admission Nov 29, 2020 Date of Service: Nov 29, 2020 Primary Care Physician: Jr Pickett Collins Attending Physician: VASHTI APPLE DO History and Physical CHIEF COMPLAINT: Urinary tract infection HISTORY OF PRESENT ILLNESS: Patient had knee surgery at the end of October 2020, and then shortly thereafter developed urinary retention. He was being treated with Flomax and finasteride. It appears that he came into the emergency department on November 18, 2020 where a Gibson catheter was placed, and he was doing well until just 2 days ago when the Gibson catheter was removed in the urologist office. He states that he continues to have urinary retention for the past 2 days, and then last night he developed fever, chills, nausea (no vomiting), and this morning he was feeling ill. Upon presentation to the emergency department he was hypotensive, tachycardic. CODE STATUS: Full code PAST MEDICAL HISTORY: Hypertension GERD History of multiple kidney stones Hyperlipidemia BPH Melanoma PAST SURGICAL HISTORY: Recent knee surgery October 08, 2020 Rotator cuff surgery Excision of the lump on his cheek ESWL 06/2010 Heart stents February 16, 2018 Heart recorder placed 04/2018 BCC left jaw line 12/2019 Cystoscopy right stent removal January 09, 2020 SOCIAL HISTORY: Never smoker, denies alcohol or illicit drug use FAMILY HISTORY: Myocardial infarction in his father, leukemia in his mother and brother REVIEW OF SYSTEMS: Constitutional: Patient admits to fevers, chills, denies recent weight gain/loss. HEENT: Patient denies blurred or double vision, transient visual disturbances, postnasal drip, epistaxis, sore throat, difficulty chewing or swallowing food. Cardiovascular: Patient denies chest discomfort/pain, palpitations, exertional dyspnea, orthopnea, edema of the extremities, claudication. Respiratory: Patient denies dyspnea, wheezing, cough, hemoptysis, sputum production. Gastrointestinal: Patient admits to nausea, diarrhea, abdominal pain PHYSICAL EXAMINATION: General: Awake, alert, oriented, he is in no acute distress. HEENT: Head normocephalic atraumatic, conjunctiva are pink, sclera are nonicteric, buccal mucosa is pink and moist with no lesions in the oropharynx. Hearing is grossly intact to conversation. Respiratory: Clear to auscultation bilaterally with no wheezes, rales, or rhonchi. Cardiovascular: Regular rate and rhythm, with no rubs, gallops, or murmur. Abdomen: Soft, nondistended, no hepatosplenomegaly appreciated. Bowel sounds present. Extremities: 2+ pulses in the radial and dorsalis pedis bilaterally. No evidence of clubbing or cyanosis. ELECTROCARDIOGRAM: Sinus rhythm IMAGING: CT of the abdomen and pelvis without contrast. Impression:"diffuse thickening of the bladder wall with perivesicular stranding, likely due to cystitis. A small amount of intraluminal air may be related to recent instrumentation. Please correlate clinically. Bilateral nephrolithiasis, no hydronephrosis or ureterolithiasis identified. Extensive diverticulosis in the colon, most prominent through the left and the sigmoid colon. No signs of acute diverticulitis." Please see the actual report for full details. ASSESSMENT: Urinary tract infection perhaps due to recent indwelling catheter from 11/18/20- 11/27/20 Cystitis Urinary retention Sepsis Leukocytosis Hypotension in the setting of chronic hypertension Nephrolithiasis without hydronephrosis or ureterolithiasis GERD DVT prophylaxis, Lovenox PLAN: -Will admit the patient to [facility]. -Place Gibson -Patient had a recent urine culture from just few weeks ago showing sensitivities to everything but tetracyclines, will start empirically on ciprofloxacin 500 mg p.o. twice daily -Continue home dose of Proscar and Flomax -Due to hypotension will hold home dose of lisinopril, and administer fluids. -Otherwise, continue the remainder of his home medications at their usual dose. Vital Signs Vital Signs Date Time Temp Pulse Resp B/P (MAP) Pulse Ox O2 Delivery O2 Flow Rate FiO2 11/29/20 06:36 112/59 (76) 11/29/20 06:23 84 94 11/29/20 04:53 98.0 20 Room Air Laboratory Data Labs 24H Laboratory Tests 2 11/29/20 05:49: Immature Granulocyte % (Auto) 1.5, Neutrophils (%) (Auto) 89.0H, Lymphocytes (%) (Auto) 3.1L, Monocytes (%) (Auto) 6.2, Eosinophils (%) (Auto) 0.0, Basophils (%) (Auto) 0.2, Neutrophils # (Auto) 22.8H, Lymphocytes # (Auto) 0.8L, Monocytes # (Auto) 1.6H, Eosinophils # (Auto) 0.0, Basophils # (Auto) 0.1, Nucleated Red Blood Cells % (auto) 0.0, Anion Gap 6L, Glomerular Filtration Rate > 60.0, Ca lcium Level 8.9, Total Bilirubin 1.5H, Direct Bilirubin 0.4H, Aspartate Amino Transf (AST/SGOT) 9, Alanine Aminotransferase (ALT/SGPT) 21, Alkaline Phosphatase 102, Total Creatine Kinase 67, Creatine Kinase MB 1.0, Creatine Kinase MB Relative Index 1.49, Troponin I < 0.02, Total Protein 6.1L, Albumin 3.1L, Albumin/Globulin Ratio 1.0, Lipase 40L, Coronavirus (COVID-19)(PCR) NEGATIVE, Influenza Type A (RT-PCR) NEGATIVE, Influenza Type B (RT-PCR) NEGATIVE, Respiratory Syncytial Virus (PCR) NEGATIVE 11/29/20 05:51: Urine Color YELLOW, Urine Appearance CLOUDY, Urine pH 5.0, Urine Specific Wheeler 1.017, Urine Protein 2+H, Urine Glucose (UA) NEGATIVE, Urine Ketones NEGATIVE, Urine Blood 2+H, Urine Nitrite NEGATIVE, Urine Bilirubin NEGATIVE, Urine Urobilinogen 0.2, Urine Leukocyte Esterase 3+H, Urine WBC (Auto) TNTCH, Urine RBC (Auto) 25H, Urine Hyaline Casts (Auto) 0, Urine Bacteria (Auto) 2+H, Urine Squamous Epithelial Cells 1, Urine Mucus (Auto) SMALL, Urine Sperm (Auto) , Lactic Acid Level 1.9 CBC/BMP Laboratory Tests 11/29/20 05:49 Microbiology Microbiology 11/29/20 Blood Culture, Received Pending 11/29/20 Urine Culture, Received Pending 11/29/20 Blood Culture, Received Pending Home Medications Scheduled Aspirin (Aspirin EC) 81 Mg Tablet.dr, 81 MG PO DAILY Atorvastatin Calcium (Atorvastatin Calcium) 40 Mg Tablet, 40 MG PO DAILY Finasteride (Proscar) 5 Mg Tab, 5 MG PO QHS Lisinopril (Lisinopril) 30 Mg Tab, 30 MG PO DAILY Magnesium Oxide (Magnesium Oxide) 400 Mg Tablet, 400 MG PO BID MORNING AND DINNER Metoprolol Succinate (Toprol Xl) 50 Mg Tab.er.24h, 50 MG PO DAILY Mexiletine HCl (Mexiletine HCl) 150 Mg Capsule, 150 MG PO TID Multivitamin,Therapeutic (Thera-Tabs) 1 Each Tablet, 1 TAB PO DAILY Pantoprazole Sodium (Pantoprazole Sodium) 40 Mg Tab, 40 MG PO QHS Tamsulosin Hcl (Tamsulosin HCl) 0.4 Mg Capsule, 0.8 MG PO QHS allopurinoL (allopurinoL) 300 Mg Tablet, 300 MG PO QHS Scheduled PRN Nitroglycerin (Nitroglycerin) 0.4 Mg Tab.subl, 0.4 MG SL NITRO PRN for CHEST PAIN Allergies Coded Allergies: No Known Allergies (Unverified , 12/19/19) A-FIB/CHADSVASC A-FIB History Current/History of A-Fib/PAF?: No VASHTI APPLE DO Nov 29, 2020 08:58
[2020-11-29] MEDS: NS 1,000 ML IV SCH ×3 (09:00→22:54)
[2020-11-29 10:36] VITALS: BP 119/66
[2020-11-29] MEDS: CIPROFLOXACIN 500MG TABLET PO SCH ×2 (10:50→17:40)
[2020-11-29] MEDS: ENOXAPARIN 40MG/0.4ML SYRINGE (J1650 PER 10MG) SC SCH (10:50)
[2020-11-29] MEDS: MAGNESIUM OXIDE 400MG TAB (MAG-OX) PO SCH ×2 (10:50→20:12)
[2020-11-29 14:00] VITALS: BP 136/71
[2020-11-29] MEDS: MEXILETINE 150 MG CAP PO SCH ×2 (17:40→20:12)
[2020-11-29] MEDS: ACETAMINOPHEN TAB 650MG DOSE (2X325MG) PO PRN ×2 (17:44→22:51)
[2020-11-29] MEDS ORDERED: FINASTERIDE 5 MG TAB PO SCH (21:00)
[2020-11-29] MEDS ORDERED: allopurinoL 300 MG TAB PO SCH (21:00)
[2020-11-29] MEDS ORDERED: TAMSULOSIN 0.4 MG CAP PO SCH (21:00)
[2020-11-29] MEDS ORDERED: PANTOPRAZOLE 40MG TAB (PROTONIX) PO SCH (21:00)
[2020-11-29 22:00] VITALS: BP 108/46
--- NOTE | 2020-11-30 00:10 | ECGEPIP ---
[facility] - ED Test Date: 2020-11-29 Pat Name: CAROLEE POPE Department: Room: - Gender: Male Directory Clerk: : [id number] Requested By: CRISTINA Ritter Order Number: [id number] Reading MD: Emerson Sanabria Measurements Intervals [place] Rate: 87 P: -17 [place]: 186 QRS: -18 QRSD: 106 T: 69 QT: 352 QTc: 423 Interpretive Statements Normal sinus rhythm POOR R WAVE PROGRESSION Nonspecific T wave abnormality SIMILAR TO 10/15/20 Electronically Signed on 11-30-2020 0:10:38 EDT by Emerson Sanabria
[2020-11-30] MEDS: CIPROFLOXACIN 500MG TABLET PO SCH (05:11)
[2020-11-30 06:00] VITALS: BP 146/69
[2020-11-30 06:43] LABS: HEMATOCRIT 32.8 % (42.0-52.0); HEMOGLOBIN 10.7 g/dl (13.5-17.5); MEAN CORPUSCULAR HEMOGLOBIN 31.7 pg (27.0-33.0); MEAN CORPUSCULAR HGB CONC 32.6 g/dl (32.0-36.5); PLATELET COUNT, AUTOMATED 231 10^3/uL (150-450); RED BLOOD COUNT 3.38 10^6/uL (4.30-6.10); WHITE BLOOD COUNT 18.4 10^3/uL (4.0-10.0)
[2020-11-30 07:09] LABS: BLOOD UREA NITROGEN 12 MG/DL (7-18); CALCIUM LEVEL 8.2 MG/DL (8.8-10.2); CARBON DIOXIDE LEVEL 24 MEQ/L (21-32); CHLORIDE LEVEL 111 MEQ/L (98-107); CREATININE FOR GFR 0.72 MG/DL (0.70-1.30); GLOMERULAR FILTRATION RATE > 60.0 (>42); GLUCOSE, FASTING 101 MG/DL (70-100); SODIUM LEVEL 141 MEQ/L (136-145)
[2020-11-30] MEDS: MAGNESIUM OXIDE 400MG TAB (MAG-OX) PO SCH (08:29)
[2020-11-30] MEDS: MEXILETINE 150 MG CAP PO SCH (08:29)
[2020-11-30 08:30] VITALS: BP 111/71
[2020-11-30] MEDS: ENOXAPARIN 40MG/0.4ML SYRINGE (J1650 PER 10MG) SC SCH (08:30)
[2020-11-30] MEDS ORDERED: FLUBLOK(EGG FREE)(QUAD)INFLUENZA VACC 0.5ML SYRINGE 18YRS & OLDER IM ONE (09:00)
[2020-11-30] MEDS ORDERED: METOPROLOL SUCC (TopROL XL) 50MG **XL** TAB PO SCH (09:00)
[2020-11-30] MEDS ORDERED: ATORVASTATIN 20 MG TAB PO SCH (09:00)
[2020-11-30] MEDS ORDERED: PREVNAR 13 VACCINE SYRINGE IM ONE (09:00)
[2020-11-30] MEDS ORDERED: ASPIRIN 81MG ENTERIC TABLET PO SCH (09:00)
[2020-11-30 11:54] LABS: ERYTHROCYTE SEDIMENTATION RATE 50 mm/hr (0-20)
[2020-11-30] MEDS ORDERED: CIPR-249 PO (13:39)
--- NOTE | 2020-11-30 20:24 | DS.PDOC ---
Discharge Summary General Date of Admission Nov 29, 2020 at 08:49 Date of Discharge 11/30/2020 Discharge Summary PRIMARY CARE PHYSICIAN: Dr. Igor Pickett ATTENDING AT TIME OF DISCHARGE: Dr. Vashti Apple, DISCHARGE DIAGNOS(E)S: Urinary tract infection perhaps due to recent indwelling catheter from 11/18/20- 11/27/20 Left knee erythema and swelling with concerns for septic arthritis status post recent left knee surgery/replacement just a couple weeks ago Cystitis Urinary retention Sepsis Leukocytosis Hypotension in the setting of chronic hypertension Nephrolithiasis without hydronephrosis or ureterolithiasis GERD HPI & HOSPITAL COURSE: Patient reports that he just recently had a left knee surgery performed by Dr. Hyatt from [facility] in [place], [place]. A few days posto peratively he developed urinary retention and presented to the [facility] emergency department. A Gibson catheter was placed in the ED on 11/18/2020, and then he was seen by the urologist on 11/27/2020 and his Gibson catheter was removed. He was having difficulty urinating for the subsequent 2 days, and then developed fever, chills, nausea (no vomiting), and generalized malaise, therefore he returned again to the [facility] emergency department on 11/29/2020 and was admitted for sepsis secondary to urinary tract infection, tertiary to recent indwelling catheter. During the night his left knee became very hot, erythematous, tender, and edematous. Clinically, the patient is significantly improved regarding urinary complaints, he is able to void, and although it is still elevated his leukocytosis is significantly improved this morning. I am concerned about his left knee being a septic joint. I called and discussed the case both with our in-house orthopedic team, and with [place] [facility] [place] Hyatt is not in the office at this time. Since he has improved from a urinary standpoint, I will discharge him at this time with the strict instructions that he must proceed directly to [facility] for evaluation regarding his knee, and likely will require joint aspiration. Dr. Nelson is also agreeable with this plan, and states that the patient will be able to come directly to the office and walk right in to be seen. PHYSICAL EXAMINATION ON DISCHARGE: GENERAL: Awake, alert, oriented x3. He does not appear to be in any acute distress at this time. CARDIOVASCULAR EXAMINATION: Regular rate and rhythm, with no rubs, gallops, or murmur. RESPIRATORY EXAMINATION: Clear to auscultation bilaterally with no wheezes, rales, or rhonchi. ABDOMINAL EXAMINATION: Soft, nontender, nondistended. Bowel sounds present. EXTREMITIES: Left knee is swollen and mildly erythematous, it is warm to the touch. DISPOSITION: Will discharge the patient. However he is instructed to go directly from the hospital to the [facility]opedic [facility] office for further evaluation regarding his left knee. I explained to the patient that a septic knee is a very serious complication may require additional surgery, he understands, and will proceed directly to their office after discharge. If he does have any additional urinary complaints, or as continue to have issues with urinary retention, he is instructed to call the urologist office, or return back to the ED if he feels necessary. Continue ciprofloxacin 500 mg twice daily for 14 days. Diet and activity as tolerated. Vital Signs/I&Os Vital Signs Date Time Temp Pulse Resp B/P (MAP) Pulse Ox O2 Delivery O2 Flow Rate FiO2 11/30/20 08:30 111 111/71 11/30/20 06:00 99.2 18 95 Room Air I&O- Last 24 Hours up to 6 AM 11/30/20 06:00 Intake Total 5405 ml Output Total 1575 ml Balance 3830 ml Laboratory Data Labs 24H Laboratory Tests 2 11/30/20 06:07: Nucleated Red Blood Cells % (auto) 0.0, Erythrocyte Sedimentation Rate 50H, Anion Gap 6L, Glomerular Filtration Rate > 60.0, Calcium Level 8.2L, C-Reactive Protein, Quantitative 14.10H CBC/BMP Laboratory Tests 11/30/20 06:07 Microbiology Microbiology 11/29/20 Blood Culture - Preliminary, Resulted No growth after 24 hours . All specim... 11/29/20 Urine Culture, Received Pending 11/29/20 Blood Culture - Preliminary, Resulted No growth after 24 hours . All specim... Discharge Medications Scheduled Aspirin (Aspirin EC) 81 Mg Tablet.dr, 81 MG PO DAILY, (Reported) Atorvastatin Calcium (Atorvastatin Calcium) 40 Mg Tablet, 40 MG PO DAILY, (Reported) Ciprofloxacin HCl (Cipro) 500 Mg Tablet, 500 MG PO BID@ Finasteride (Proscar) 5 Mg Tab, 5 MG PO QHS, (Reported) Lisinopril (Lisinopril) 30 Mg Tab, 30 MG PO DAILY, (Reported) Magnesium Oxide (Magnesium Oxide) 400 Mg Tablet, 400 MG PO BID, (Reported) MORNING AND DINNER Metoprolol Succinate (Toprol Xl) 50 Mg Tab.er.24h, 50 MG PO DAILY, (Reported) Mexiletine HCl (Mexiletine HCl) 150 Mg Capsule, 150 MG PO TID, (Reported) Multivitamin,Therapeutic (Thera-Tabs) 1 Each Tablet, 1 TAB PO DAILY, (Reported) Pantoprazole Sodium (Pantoprazole Sodium) 40 Mg Tab, 40 MG PO QHS, (Reported) Tamsulosin Hcl (Tamsulosin HCl) 0.4 Mg Capsule, 0.8 MG PO QHS, (Reported) allopurinoL (allopurinoL) 300 Mg Tablet, 300 MG PO QHS, (Reported) Scheduled PRN Nitroglycerin (Nitroglycerin) 0.4 Mg Tab.subl, 0.4 MG SL NITRO PRN for CHEST PAIN, (Reported) Allergies Coded Allergies: No Known Allergies (Unverified , 12/19/19) VASHTI APPLE DO Nov 30, 2020 20:23
== END 2020-11-30 14:41 | disposition home or self-care (01) | DRG 698 ==
LOC: M ED 04:53 → M ED INP 08:49 → ENRESERV 09:15 → M MSPAV 10:12
PROVIDERS: ADMIT Neuromusculoskeletal Medicine & OMM; ATTEND Neuromusculoskeletal Medicine & OMM
DX: T83.518A Infection and inflammatory reaction due to other urinary catheter, initial encounter (principal); A41.9 Sepsis, unspecified organism; M00.862 Arthritis due to other bacteria, left knee; N30.10 Interstitial cystitis (chronic) without hematuria; R33.9 Retention of urine, unspecified; N40.1 Benign prostatic hyperplasia with lower urinary tract symptoms; N20.0 Calculus of kidney; K21.9 Gastro-esophageal reflux disease without esophagitis; E78.5 Hyperlipidemia, unspecified; Z85.820 Personal history of malignant melanoma of skin; Z95.5 Presence of coronary angioplasty implant and graft; Z20.822 Contact with and (suspected) exposure to COVID-19; Z79.82 Long term (current) use of aspirin; Z79.899 Other long term (current) drug therapy

== ENCOUNTER → 2020-12-26 | Outpatient (REF) | payer MEDICARE, OTHER ==
[~2020-12-26] MED LIST changes: +ALLO300T2 PO; +ASPI81TA26 PO; +CIPR-249 PO; +TOPR50TA PO
[2020-12-26 13:57] LABS: APPEARANCE, URINE HAZY (CLEAR); BACTERIA, URINE AUTO NEGATIVE (NEGATIVE); BILIRUBIN, URINE AUTO NEGATIVE (NEGATIVE); BLOOD, URINE BLOOD NEGATIVE (NEGATIVE); COLOR, URINE YELLOW (YELLOW); GLUCOSE, URINE (UA) AUTO NEGATIVE (NEGATIVE); KETONE, URINE AUTO NEGATIVE (NEGATIVE); LEUKOCYTE ESTERASE, URINE AUTO NEGATIVE (NEGATIVE); MUCUS, URINE SMALL (NEGATIVE); NITRITE, URINE AUTO NEGATIVE (NEGATIVE); PROTEIN, URINE AUTO NEGATIVE (NEGATIVE); RBC, URINE AUTO 0 /HPF (0-3); SPECIFIC GRAVITY URINE AUTO 1.019 (1.002-1.035); SQUAMOUS EPITHELIAL CELL UR AU 0 /HPF (0-6); UROBILINOGEN, URINE AUTO 0.2 mg/dL (0.0-2.0); WBC, URINE AUTO 2 /HPF (0-3)
== END ==
LOC: M SMT 13:16
PROVIDERS: ATTEND Nurse Practitioner Women's Health
DX: N28.89 Other specified disorders of kidney and ureter (principal)

== ENCOUNTER 2021-01-03 08:16 | Outpatient (RCR) | payer MEDICARE, OTHER | END 2021-01-06 | LOC: M PT 08:16 | PROVIDERS: ATTEND Orthopaedic Surgery | DX: Z96.652 Presence of left artificial knee joint (principal) ==

== ENCOUNTER 2021-01-25 09:03 | Outpatient (RCR) | payer MEDICARE, OTHER | END 2021-02-05 | LOC: M PT 09:03 | PROVIDERS: ATTEND Orthopaedic Surgery | DX: Z96.652 Presence of left artificial knee joint (principal) ==

== ENCOUNTER → 2021-02-11 | Outpatient (REF) | payer MEDICARE, OTHER | LOC: M LAB REF 11:49 | PROVIDERS: ATTEND Internal Medicine | DX: R82.993 Hyperuricosuria (principal) ==

== ENCOUNTER → 2021-05-28 | Outpatient (CLI) | payer MEDICARE, OTHER | LOC: M PLALAB 08:52 | PROVIDERS: ATTEND Urology | DX: N40.0 Benign prostatic hyperplasia without lower urinary tract symptoms (principal); Z12.5 Encounter for screening for malignant neoplasm of prostate | CPT/HCPCS: 36415; G0103 ==

== ENCOUNTER → 2021-06-03 | Outpatient (REF) | payer MEDICARE, OTHER ==
[2021-06-03 13:30] LABS: APPEARANCE, URINE CLEAR (CLEAR); BACTERIA, URINE AUTO NEGATIVE (NEGATIVE); BILIRUBIN, URINE AUTO NEGATIVE (NEGATIVE); BLOOD, URINE BLOOD NEGATIVE (NEGATIVE); COLOR, URINE YELLOW (YELLOW); GLUCOSE, URINE (UA) AUTO NEGATIVE (NEGATIVE); KETONE, URINE AUTO NEGATIVE (NEGATIVE); LEUKOCYTE ESTERASE, URINE AUTO TRACE (NEGATIVE); NITRITE, URINE AUTO NEGATIVE (NEGATIVE); PROTEIN, URINE AUTO NEGATIVE (NEGATIVE); RBC, URINE AUTO 0 /HPF (0-3); SPECIFIC GRAVITY URINE AUTO 1.019 (1.002-1.035); SQUAMOUS EPITHELIAL CELL UR AU 0 /HPF (0-6); UROBILINOGEN, URINE AUTO 0.2 mg/dL (0.0-2.0); WBC, URINE AUTO 14 /HPF (0-3)
== END ==
LOC: M SMT 12:55
PROVIDERS: ATTEND Nurse Practitioner Women's Health
DX: R10.30 Lower abdominal pain, unspecified (principal)

== ENCOUNTER → 2021-08-12 | Outpatient (CLI) | payer MEDICARE, OTHER | LOC: M RAD 10:41 | PROVIDERS: ATTEND Orthopaedic Surgery | DX: S86.802A Unspecified injury of other muscle(s) and tendon(s) at lower leg level, left leg, initial encounter (principal); W18.30XA Fall on same level, unspecified, initial encounter; Y92.009 Unspecified place in unspecified non-institutional (private) residence as the place of occurrence of the external cause ==

== ENCOUNTER → 2022-02-25 | Outpatient (CLI) | payer MEDICARE, OTHER ==
[~2022-02-25] MED LIST changes: +CLOP75TA99 PO; +GASTROGRAFIN SOLUTION 30ML As Ordered ONE; +ISOVUE-370 76% 100ML VIAL As Ordered ONE; -PLAV1TAB2 PO
== END ==
LOC: M RAD 14:18
PROVIDERS: ATTEND Nurse Practitioner Adult Health
DX: K44.9 Diaphragmatic hernia without obstruction or gangrene (principal); R10.31 Right lower quadrant pain; K57.30 Diverticulosis of large intestine without perforation or abscess without bleeding; N20.0 Calculus of kidney; N28.1 Cyst of kidney, acquired
CPT/HCPCS: 74178; Q9963; Q9967

== ENCOUNTER → 2022-02-28 | Outpatient (REF) | payer MEDICARE, OTHER ==
[~2022-02-28] MED LIST changes: -GASTROGRAFIN SOLUTION 30ML As Ordered ONE; -ISOVUE-370 76% 100ML VIAL As Ordered ONE
== END ==
LOC: M LAB REF 12:27
PROVIDERS: ATTEND Internal Medicine
DX: R82.993 Hyperuricosuria (principal)

== ENCOUNTER → 2022-03-04 | Outpatient (CLI) | payer MEDICARE, OTHER ==
[~2022-03-04] MED LIST changes: +JARD1TAB PO
== END ==
LOC: M LABSMTC 09:21
PROVIDERS: ATTEND Anesthesiology
DX: Z01.818 Encounter for other preprocedural examination (principal); Z11.52 Encounter for screening for COVID-19

== ENCOUNTER 2022-03-07 10:56 | Day surgery (SDC) | payer MEDICARE, OTHER ==
[~2022-03-07] VITALS: Ht 175.3 cm; Wt 89.3 kg
[~2022-03-07 10:56] MED LIST changes: +NS 1,000 ML IV ONE; +propofoL 200 MG/20 ML VIAL As Ordered ONE
[2022-03-07] MEDS ORDERED: fentaNYL 100 MCG/2 ML INJECTION As Ordered ONE (12:31)
[2022-03-07 13:01] VITALS: BP 144/73
== END 2022-03-07 13:18 | disposition home or self-care (01) ==
LOC: M OPP 10:56
PROVIDERS: ATTEND Surgery
DX: K44.9 Diaphragmatic hernia without obstruction or gangrene (principal); K29.70 Gastritis, unspecified, without bleeding; K31.7 Polyp of stomach and duodenum; I25.10 Atherosclerotic heart disease of native coronary artery without angina pectoris; I10 Essential (primary) hypertension; E78.5 Hyperlipidemia, unspecified; E11.9 Type 2 diabetes mellitus without complications; M10.9 Gout, unspecified; K21.9 Gastro-esophageal reflux disease without esophagitis; G47.30 Sleep apnea, unspecified; Z95.5 Presence of coronary angioplasty implant and graft; Z96.652 Presence of left artificial knee joint; Z79.82 Long term (current) use of aspirin; Z79.84 Long term (current) use of oral hypoglycemic drugs; Z79.899 Other long term (current) drug therapy

== ENCOUNTER → 2022-03-19 | Outpatient (CLI) | payer MEDICARE, OTHER ==
[~2022-03-19] MED LIST changes: -NS 1,000 ML IV ONE; -propofoL 200 MG/20 ML VIAL As Ordered ONE
== END ==
LOC: M RAD 11:13
PROVIDERS: ATTEND Surgery
DX: K40.90 Unilateral inguinal hernia, without obstruction or gangrene, not specified as recurrent (principal)

== ENCOUNTER → 2022-05-08 | Outpatient (CLI) | payer MEDICARE, OTHER ==
[2022-05-08 09:53] LABS: BLOOD UREA NITROGEN 18 MG/DL (9-23); GLOMERULAR FILTRATION RATE > 60.0 (>42)
== END ==
LOC: M LAB 08:51
PROVIDERS: ATTEND Surgery
DX: Z01.812 Encounter for preprocedural laboratory examination (principal)

== ENCOUNTER → 2022-05-12 | Outpatient (CLI) | payer MEDICARE, OTHER ==
[~2022-05-12] MED LIST changes: +GASTROGRAFIN SOLUTION 30ML As Ordered ONE; +ISOVUE-370 76% 100ML VIAL As Ordered ONE
== END ==
LOC: M RAD 08:14
PROVIDERS: ATTEND Surgery
DX: R93.3 Abnormal findings on diagnostic imaging of other parts of digestive tract (principal)
CPT/HCPCS: 74178; Q9963; Q9967

== ENCOUNTER → 2022-05-19 | Outpatient (CLI) | payer MEDICARE, OTHER ==
[~2022-05-19] MED LIST changes: -GASTROGRAFIN SOLUTION 30ML As Ordered ONE; -ISOVUE-370 76% 100ML VIAL As Ordered ONE
== END ==
LOC: M RAD 10:06
PROVIDERS: ATTEND Internal Medicine Gastroenterology
DX: K22.89 Other specified disease of esophagus (principal)

== ENCOUNTER → 2022-05-19 | Outpatient (REF) | payer MEDICARE, OTHER ==
[2022-05-19 12:42] LABS: INR 1.01; PROTHROMBIN TIME 13.5 SECONDS (12.5-14.5)
== END ==
LOC: M LAB REF 11:50
PROVIDERS: ATTEND Internal Medicine
DX: K22.89 Other specified disease of esophagus (principal)

== ENCOUNTER → 2022-06-30 | Outpatient (CLI) | payer MEDICARE, OTHER ==
[2022-06-30 13:56] LABS: FREE T3 3.7 PG/ML (2.3-4.2)
[2022-06-30 13:57] LABS: FREE T4 1.09 NG/DL (0.89-1.76)
[2022-06-30 13:58] LABS: THYROID STIMULATING HORMONE 0.392 uIU/ML (0.55-4.78)
== END ==
LOC: M PLALAB 11:44
PROVIDERS: ATTEND Internal Medicine Gastroenterology
DX: C73 Malignant neoplasm of thyroid gland (principal)

== ENCOUNTER → 2022-07-01 | Outpatient (CLI) | payer MEDICARE, OTHER | LOC: M WHC 10:13 | PROVIDERS: ATTEND Physician Assistant | DX: C73 Malignant neoplasm of thyroid gland (principal) ==

== ENCOUNTER 2022-07-28 06:36 | Emergency (ER) | payer MEDICARE, OTHER ==
[~2022-07-28] VITALS: Ht 175.3 cm; Wt 91.5 kg
[2022-07-28] MEDS ORDERED: NS 1,000 ML IV ONE (07:10)
[2022-07-28 07:46] LABS: BASO % 0.4 % (0.0-1.0); HEMATOCRIT 43.2 % (42.0-52.0); HEMOGLOBIN 14.2 g/dl (13.5-17.5); LYMPH # 0.3 10^3/uL (1.5-5.0); LYMPH % 5.7 % (24.0-44.0); MEAN CORPUSCULAR HEMOGLOBIN 31.5 pg (27.0-33.0); MEAN CORPUSCULAR HGB CONC 32.9 g/dl (32.0-36.5); MEAN CORPUSCULAR VOLUME 95.8 fl (80.0-96.0); MONO # 0.2 10^3/uL (0.0-0.8); MONO % 4.5 % (2.0-8.0); NEUTROPHILS # 4.7 10^3/uL (1.5-8.5); PLATELET COUNT, AUTOMATED 102 10^3/uL (150-450); RED BLOOD COUNT 4.51 10^6/uL (4.30-6.10); WHITE BLOOD COUNT 5.3 10^3/uL (4.0-10.0)
[2022-07-28 08:09] LABS: BLOOD UREA NITROGEN 15 MG/DL (9-23); CALCIUM LEVEL 8.4 MG/DL (8.3-10.6); CARBON DIOXIDE LEVEL 25 MMOL/L (20-31); CHLORIDE LEVEL 105 MMOL/L (98-107); GLOMERULAR FILTRATION RATE > 60.0 (>42); GLUCOSE, FASTING 145 MG/DL (74-106); POTASSIUM SERUM 4.4 MMOL/L (3.5-5.1); SODIUM LEVEL 138 MMOL/L (136-145)
[2022-07-28 08:59] VITALS: BP 108/57
[2022-07-28] MEDS ORDERED: DOXYCYCLINE HYCLATE 100MG TABLET PO ONE (09:15)
[2022-07-28] MEDS ORDERED: DOXY-443 PO (09:15)
== END 2022-07-28 09:29 | disposition home or self-care (01) ==
LOC: M ED 06:36
DX: R50.9 Fever, unspecified (principal); R51.9 Headache, unspecified; Z79.82 Long term (current) use of aspirin; Z79.899 Other long term (current) drug therapy

== ENCOUNTER → 2022-10-22 | Outpatient (REF) | payer MEDICARE, OTHER ==
[~2022-10-22] MED LIST changes: +DOXY-443 PO; +FINA-48 PO; -PROS5TAB PO
[2022-10-22 14:09] LABS: APPEARANCE, URINE HAZY (CLEAR); BACTERIA, URINE AUTO 2+ (NEGATIVE); BILIRUBIN, URINE AUTO NEGATIVE (NEGATIVE); BLOOD, URINE BLOOD 3+ (NEGATIVE); COLOR, URINE YELLOW (YELLOW); GLUCOSE, URINE (UA) AUTO 3+ mg/dL (NEGATIVE); KETONE, URINE AUTO NEGATIVE (NEGATIVE); LEUKOCYTE ESTERASE, URINE AUTO 3+ (NEGATIVE); MUCUS, URINE SMALL (NEGATIVE); NITRITE, URINE AUTO POSITIVE (NEGATIVE); PROTEIN, URINE AUTO 1+ mg/dL (NEGATIVE); RBC, URINE AUTO 1 /HPF (0-3); SQUAMOUS EPITHELIAL CELL UR AU 0 /HPF (0-6); UROBILINOGEN, URINE AUTO 0.2 mg/dL (0.0-2.0); WBC, URINE AUTO 75 /HPF (0-3)
== END ==
LOC: M SMT 12:41
PROVIDERS: ATTEND Physician Assistant
DX: R30.0 Dysuria (principal)

== ENCOUNTER 2022-10-23 02:54 | Emergency (ER) | payer MEDICARE, OTHER ==
[~2022-10-23] VITALS: Ht 172.7 cm; Wt 90.9 kg
[2022-10-23 04:01] LABS: HEMATOCRIT 42.1 % (42.0-52.0); HEMOGLOBIN 13.9 g/dl (13.5-17.5); MEAN CORPUSCULAR HEMOGLOBIN 31.4 pg (27.0-33.0); PLATELET COUNT, AUTOMATED 195 10^3/uL (150-450); RED BLOOD COUNT 4.43 10^6/uL (4.30-6.10); WHITE BLOOD COUNT 15.4 10^3/uL (4.0-10.0)
[2022-10-23 04:15] LABS: INR 1.22
[2022-10-23 04:16] LABS: PARTIAL THROMBOPLASTIN TIME 32.5 SECONDS (24.8-34.2)
[2022-10-23 04:26] LABS: BLOOD UREA NITROGEN 12 MG/DL (9-23); CALCIUM LEVEL 8.1 MG/DL (8.3-10.6); CARBON DIOXIDE LEVEL 23 MMOL/L (20-31); CHLORIDE LEVEL 107 MMOL/L (98-107); CREATININE FOR GFR 0.87 MG/DL (0.70-1.30); GLOMERULAR FILTRATION RATE > 60.0 (>42); GLUCOSE, FASTING 115 MG/DL (74-106); POTASSIUM SERUM 4.2 MMOL/L (3.5-5.1); SODIUM LEVEL 139 MMOL/L (136-145)
[2022-10-23 06:00] VITALS: BP 140/64
[2022-10-23 06:09] VITALS: TEMP 97.8; O2SAT 95
== END 2022-10-23 06:19 | disposition home or self-care (01) ==
LOC: M ED 02:54
DX: R33.9 Retention of urine, unspecified (principal); I11.9 Hypertensive heart disease without heart failure; I25.10 Atherosclerotic heart disease of native coronary artery without angina pectoris; E11.9 Type 2 diabetes mellitus without complications; N40.0 Benign prostatic hyperplasia without lower urinary tract symptoms; K21.9 Gastro-esophageal reflux disease without esophagitis; E78.5 Hyperlipidemia, unspecified; Z79.899 Other long term (current) drug therapy

== ENCOUNTER → 2022-10-30 | Outpatient (CLI) | payer MEDICARE, OTHER | LOC: M PLALAB 10:01 | PROVIDERS: ATTEND Physician Assistant | DX: R97.20 Elevated prostate specific antigen [PSA] (principal) ==

== ENCOUNTER → 2022-11-05 | Outpatient (REF) | payer MEDICARE, OTHER ==
[2022-11-05 13:36] LABS: APPEARANCE, URINE CLOUDY (CLEAR); BACTERIA, URINE AUTO 1+ (NEGATIVE); BILIRUBIN, URINE AUTO NEGATIVE (NEGATIVE); BLOOD, URINE BLOOD 3+ (NEGATIVE); COLOR, URINE AMBER (YELLOW); GLUCOSE, URINE (UA) AUTO 3+ mg/dL (NEGATIVE); KETONE, URINE AUTO NEGATIVE (NEGATIVE); LEUKOCYTE ESTERASE, URINE AUTO 3+ (NEGATIVE); MUCUS, URINE SMALL (NEGATIVE); NITRITE, URINE AUTO POSITIVE (NEGATIVE); PROTEIN, URINE AUTO 2+ mg/dL (NEGATIVE); RBC, URINE AUTO 74 /HPF (0-3); SPECIFIC GRAVITY URINE AUTO 1.021 (1.002-1.035); SQUAMOUS EPITHELIAL CELL UR AU 0 /HPF (0-6); UROBILINOGEN, URINE AUTO 0.2 mg/dL (0.0-2.0); WBC, URINE AUTO TNTC /HPF (0-3)
== END ==
LOC: M SMT 12:51
PROVIDERS: ATTEND Physician Assistant
DX: R30.0 Dysuria (principal)

== ENCOUNTER → 2022-11-18 | Outpatient (CLI) | payer MEDICARE, OTHER | LOC: M PLALAB 12:46 | PROVIDERS: ATTEND Otolaryngology | DX: C73 Malignant neoplasm of thyroid gland (principal) ==

== ENCOUNTER 2022-12-25 09:57 | Observation (INO) | payer MEDICARE, OTHER ==
[~2022-12-25] VITALS: Ht 172.7 cm; Wt 89.8 kg
[2022-12-25] MEDS ORDERED: LEVO137T2 PO (10:13)
[2022-12-25] MEDS ORDERED: MAGN400T35 PO (10:13)
[2022-12-25 10:35] LABS: BASO % 0.3 % (0.0-1.0); EOS % 0.7 % (0.0-3.0); HEMATOCRIT 46.5 % (42.0-52.0); LYMPH # 1.3 10^3/uL (1.5-5.0); LYMPH % 21.2 % (24.0-44.0); MEAN CORPUSCULAR HEMOGLOBIN 30.9 pg (27.0-33.0); MEAN CORPUSCULAR HGB CONC 32.3 g/dl (32.0-36.5); MEAN CORPUSCULAR VOLUME 95.9 fl (80.0-96.0); MONO # 0.4 10^3/uL (0.0-0.8); MONO % 6.6 % (2.0-8.0); NEUTROPHILS # 4.3 10^3/uL (1.5-8.5); PLATELET COUNT, AUTOMATED 195 10^3/uL (150-450); RED BLOOD COUNT 4.85 10^6/uL (4.30-6.10); WHITE BLOOD COUNT 6.1 10^3/uL (4.0-10.0)
[2022-12-25 10:41] LABS: BLOOD UREA NITROGEN 18 MG/DL (9-23); CARBON DIOXIDE LEVEL 28 MMOL/L (20-31); CHLORIDE LEVEL 109 MMOL/L (98-107); CREATININE FOR GFR 0.97 MG/DL (0.70-1.30); GLOMERULAR FILTRATION RATE > 60.0 (>42); GLUCOSE, FASTING 160 MG/DL (74-106); POTASSIUM SERUM 4.1 MMOL/L (3.5-5.1); SODIUM LEVEL 144 MMOL/L (136-145)
[2022-12-25 10:44] LABS: FREE T4 1.73 NG/DL (0.89-1.76); THYROID STIMULATING HORMONE 0.024 uIU/ML (0.55-4.78)
[2022-12-25 10:48] LABS: VENOUS BASE EXCESS -0.3 (-2.0-2.0); VENOUS HCO3 25.3 MMOL/L (23.0-27.0); VENOUS O2 SATURATION 62.8 % (60.0-80.0); VENOUS PARTIAL PRESSURE CO2 44.7 mmHg (38.0-50.0); VENOUS PARTIAL PRESSURE O2 32.5 mmHg (30.0-50.0); VENOUS PH 7.371 UNITS (7.330-7.430); VENOUS STANDARD HCO3 23.4 MMOL/L; VENOUS TOTAL CO2 26.7 MMOL/L (24.0-28.0)
[2022-12-25 11:17] LABS: CK-MB VALUE MASS 2.7 NG/ML (<3.6)
[2022-12-25] MEDS ORDERED: ISOVUE-370 76% 100ML VIAL As Ordered ONE (12:19)
[2022-12-25] MEDS ORDERED: MED REC IN PROGRESS XX SCH (14:55)
[2022-12-25 15:30] LABS: INR 1.15; PROTHROMBIN TIME 14.4 SECONDS (12.5-14.5)
[2022-12-25 15:31] LABS: PARTIAL THROMBOPLASTIN TIME 30.1 SECONDS (24.8-34.2)
[2022-12-25] MEDS ORDERED: FLUO1CRE2 TOP (15:33)
[2022-12-25] MEDS ORDERED: HOME MED LIST COMPLETE! XX SCH (15:35)
[2022-12-25 20:49] VITALS: BP 147/79; TEMP 97.4; O2SAT 95
[2022-12-25] MEDS ORDERED: PANTOPRAZOLE 40MG TAB (PROTONIX) PO SCH (21:00)
[2022-12-25] MEDS ORDERED: TAMSULOSIN 0.4 MG CAP PO SCH (21:00)
[2022-12-25] MEDS ORDERED: allopurinoL 300 MG TAB PO SCH (21:00)
[2022-12-25] MEDS ORDERED: MAGNESIUM OXIDE 400MG TAB (MAG-OX) PO SCH (21:00)
[2022-12-25] MEDS ORDERED: FINASTERIDE 5MG TAB PO SCH (21:00)
[2022-12-25] MEDS: MEXILETINE 150 MG CAP PO SCH (21:19)
[2022-12-25 23:59] VITALS: BP 108/56; TEMP 97.8; O2SAT 96
[2022-12-26 04:11] VITALS: BP 113/67; TEMP 97.3; O2SAT 97
[2022-12-26] MEDS ORDERED: LEVOTHYROXINE 137MCG TABLET (0.137MG) PO SCH (06:00)
[2022-12-26 06:57] LABS: HEMATOCRIT 43.1 % (42.0-52.0); HEMOGLOBIN 14.4 g/dl (13.5-17.5); MEAN CORPUSCULAR HEMOGLOBIN 31.4 pg (27.0-33.0); MEAN CORPUSCULAR HGB CONC 33.4 g/dl (32.0-36.5); MEAN CORPUSCULAR VOLUME 93.9 fl (80.0-96.0); PLATELET COUNT, AUTOMATED 192 10^3/uL (150-450); RED BLOOD COUNT 4.59 10^6/uL (4.30-6.10); WHITE BLOOD COUNT 7.4 10^3/uL (4.0-10.0)
[2022-12-26 07:41] VITALS: BP 99/61; TEMP 96.6; O2SAT 93
[2022-12-26] MEDS ORDERED: RIVAROXABAN 10MG TAB (XARELTO) PO SCH (08:00)
[2022-12-26] MEDS: MEXILETINE 150 MG CAP PO SCH (08:52)
[2022-12-26] MEDS ORDERED: ASPIRIN 81MG ENTERIC TABLET PO SCH (09:00)
[2022-12-26] MEDS ORDERED: METOPROLOL SUCC *XL* 25MG TAB (TopROL *XL*) PO SCH (09:00)
[2022-12-26] MEDS ORDERED: PREVNAR-20 VACCINE 0.5ML SYRINGE IM.IMMUN ONE (09:00)
[2022-12-26] MEDS ORDERED: METOPROLOL SUCC (TopROL XL) 50MG **XL** TAB PO SCH (09:00)
[2022-12-26] MEDS ORDERED: ATORVASTATIN 20 MG TAB PO SCH (09:00)
[2022-12-26] MEDS ORDERED: TOPR50TA PO (09:44)
[2022-12-26 09:50] VITALS: BP 121/59
[2022-12-26 10:12] VITALS: BP 121/59
== END 2022-12-26 11:44 | disposition home or self-care (01) ==
LOC: M ED 09:57 → EDBD 09:57 → M ED INP 14:27 → M PCU 20:34
PROVIDERS: ADMIT Student in an Organized Health Care Education/Training Program; ATTEND Student in an Organized Health Care Education/Training Program
DX: R00.2 Palpitations (principal); R55 Syncope and collapse; I25.10 Atherosclerotic heart disease of native coronary artery without angina pectoris; I11.0 Hypertensive heart disease with heart failure; E78.5 Hyperlipidemia, unspecified; K21.9 Gastro-esophageal reflux disease without esophagitis; I50.20 Unspecified systolic (congestive) heart failure; N40.0 Benign prostatic hyperplasia without lower urinary tract symptoms; M10.9 Gout, unspecified; Z79.899 Other long term (current) drug therapy; Z79.82 Long term (current) use of aspirin; Z79.890 Hormone replacement therapy; Z85.850 Personal history of malignant neoplasm of thyroid; Z90.89 Acquired absence of other organs; Z23 Encounter for immunization
CPT/HCPCS: 36415; 70450; 71045; 71275; 80047; 80048; 82550; 82553; 82803; 83605; 83735; 84439; 84443; 84484; 85025; 85027; 85610; 85730; 87635; 90677; 93005; 93041; 94760; 99285; G0009; G0378; Q9967

== ENCOUNTER → 2023-02-02 | Outpatient (CLI) | payer MEDICARE, OTHER ==
[~2023-02-02] MED LIST changes: +FLUO1CRE2 TOP; +LEVO137T2 PO; +MAGN400T35 PO
[2023-02-02 17:14] LABS: BASO % 0.4 % (0.0-1.0); EOS # 0.1 10^3/uL (0.0-0.5); EOS % 1.4 % (0.0-3.0); HEMATOCRIT 47.5 % (42.0-52.0); HEMOGLOBIN 15.2 g/dl (13.5-17.5); LYMPH # 1.2 10^3/uL (1.5-5.0); LYMPH % 16.2 % (24.0-44.0); MEAN CORPUSCULAR VOLUME 96.9 fl (80.0-96.0); MONO # 0.6 10^3/uL (0.0-0.8); MONO % 8.2 % (2.0-8.0); NEUTROPHILS # 5.3 10^3/uL (1.5-8.5); NEUTROPHILS % 73.5 % (36.0-66.0); PLATELET COUNT, AUTOMATED 207 10^3/uL (150-450); WHITE BLOOD COUNT 7.2 10^3/uL (4.0-10.0)
[2023-02-02 17:48] LABS: BLOOD UREA NITROGEN 17 MG/DL (9-23); CALCIUM LEVEL 8.9 MG/DL (8.3-10.6); CARBON DIOXIDE LEVEL 29 MMOL/L (20-31); CHLORIDE LEVEL 110 MMOL/L (98-107); GLOMERULAR FILTRATION RATE > 60.0 (>42); GLUCOSE, FASTING 120 MG/DL (74-106); POTASSIUM SERUM 4.5 MMOL/L (3.5-5.1); SODIUM LEVEL 147 MMOL/L (136-145)
== END ==
LOC: M LAB 16:46
PROVIDERS: ATTEND Nurse Practitioner Adult Health
DX: I47.20 Ventricular tachycardia, unspecified (principal); I25.5 Ischemic cardiomyopathy

== ENCOUNTER 2023-02-08 08:00 | Emergency (ER) | payer MEDICARE, OTHER ==
[~2023-02-08] VITALS: Ht 172.7 cm; Wt 89.3 kg
[2023-02-08] MEDS ORDERED: CLOP75TA2 PO (08:19)
[2023-02-08] MEDS ORDERED: ACET1TAB55 PO (08:19)
[2023-02-08] MEDS ORDERED: NS 500 ML IV ONE ×2 (10:10→12:25)
[2023-02-08] MEDS ORDERED: cefTRIAXone SOD 1 GM in D5W MINI-BAG PLUS 50 ML IV ONE (10:10)
[2023-02-08] MEDS ORDERED: MORPHINE 2 MG/ML 1ML VIAL IV ONE ×2 (10:10→12:25)
[2023-02-08 10:37] LABS: BASO % 0.1 % (0.0-1.0); HEMATOCRIT 46.8 % (42.0-52.0); HEMOGLOBIN 15.3 g/dl (13.5-17.5); LYMPH # 0.9 10^3/uL (1.5-5.0); LYMPH % 6.1 % (24.0-44.0); MEAN CORPUSCULAR HGB CONC 32.7 g/dl (32.0-36.5); MEAN CORPUSCULAR VOLUME 94.7 fl (80.0-96.0); MONO # 1.2 10^3/uL (0.0-0.8); MONO % 8.4 % (2.0-8.0); NEUTROPHILS # 12.2 10^3/uL (1.5-8.5); PLATELET COUNT, AUTOMATED 184 10^3/uL (150-450); RED BLOOD COUNT 4.94 10^6/uL (4.30-6.10); WHITE BLOOD COUNT 14.4 10^3/uL (4.0-10.0)
[2023-02-08 11:02] LABS: BLOOD UREA NITROGEN 16 MG/DL (9-23); CALCIUM LEVEL 8.7 MG/DL (8.3-10.6); CARBON DIOXIDE LEVEL 25 MMOL/L (20-31); CHLORIDE LEVEL 108 MMOL/L (98-107); CREATININE FOR GFR 0.93 MG/DL (0.70-1.30); GLOMERULAR FILTRATION RATE > 60.0 (>42); GLUCOSE, FASTING 100 MG/DL (74-106); POTASSIUM SERUM 4.3 MMOL/L (3.5-5.1); SODIUM LEVEL 142 MMOL/L (136-145)
[2023-02-08] MEDS ORDERED: LEVO1TAB39 PO (14:49)
[2023-02-08 15:13] VITALS: BP 125/64; TEMP 100.1; O2SAT 97
== END 2023-02-08 15:25 | disposition home or self-care (01) ==
LOC: M ED 08:00
DX: N39.0 Urinary tract infection, site not specified (principal); N45.1 Epididymitis; N44.2 Benign cyst of testis; N43.3 Hydrocele, unspecified; K40.20 Bilateral inguinal hernia, without obstruction or gangrene, not specified as recurrent; Z86.79 Personal history of other diseases of the circulatory system; Z87.442 Personal history of urinary calculi; Z79.811 Long term (current) use of aromatase inhibitors; Z79.810 Long term (current) use of selective estrogen receptor modulators (SERMs); Z79.82 Long term (current) use of aspirin; Z79.899 Other long term (current) drug therapy
CPT/HCPCS: 74176; 76870; 80048; 81001; 83605; 85025; 87040; 87088; 87186; 96374; 96375; 99284; J0696

== ENCOUNTER 2023-06-26 19:43 | Emergency (ER) | payer MEDICARE, OTHER ==
[~2023-06-26] VITALS: Ht 172.7 cm; Wt 91.2 kg
[~2023-06-26 19:43] MED LIST changes: +ACET1TAB55 PO; +CLOP75TA2 PO; +LEVO1TAB39 PO
[2023-06-26 21:37] LABS: BASO % 0.4 % (0.0-1.0); EOS # 0.1 10^3/uL (0.0-0.5); EOS % 1.6 % (0.0-3.0); HEMATOCRIT 45.3 % (42.0-52.0); HEMOGLOBIN 15.2 g/dl (13.5-17.5); LYMPH # 1.2 10^3/uL (1.5-5.0); LYMPH % 17.3 % (24.0-44.0); MEAN CORPUSCULAR HEMOGLOBIN 32.1 pg (27.0-33.0); MEAN CORPUSCULAR HGB CONC 33.6 g/dl (32.0-36.5); MEAN CORPUSCULAR VOLUME 95.6 fl (80.0-96.0); MONO # 0.7 10^3/uL (0.0-0.8); MONO % 9.5 % (2.0-8.0); NEUTROPHILS # 4.8 10^3/uL (1.5-8.5); NEUTROPHILS % 70.9 % (36.0-66.0); PLATELET COUNT, AUTOMATED 206 10^3/uL (150-450); RED BLOOD COUNT 4.74 10^6/uL (4.30-6.10); WHITE BLOOD COUNT 6.8 10^3/uL (4.0-10.0)
[2023-06-26 21:49] LABS: INR 1.12
[2023-06-26 22:08] LABS: BLOOD UREA NITROGEN 19 MG/DL (9-23); CALCIUM LEVEL 8.8 MG/DL (8.3-10.6); CARBON DIOXIDE LEVEL 27 MMOL/L (20-31); CHLORIDE LEVEL 107 MMOL/L (98-107); CREATININE FOR GFR 1.05 MG/DL (0.70-1.30); GLOMERULAR FILTRATION RATE > 60.0 (>42); GLUCOSE, FASTING 123 MG/DL (74-106); POTASSIUM SERUM 3.8 MMOL/L (3.5-5.1); SODIUM LEVEL 143 MMOL/L (136-145)
[2023-06-27 01:02] VITALS: BP 148/71; TEMP 97.6; O2SAT 100
== END 2023-06-27 01:05 | disposition home or self-care (01) ==
LOC: M ED 19:43
DX: Z48.817 Encounter for surgical aftercare following surgery on the skin and subcutaneous tissue (principal); I10 Essential (primary) hypertension; E78.5 Hyperlipidemia, unspecified; G47.33 Obstructive sleep apnea (adult) (pediatric); K21.9 Gastro-esophageal reflux disease without esophagitis; E03.9 Hypothyroidism, unspecified; Z79.1 Long term (current) use of non-steroidal anti-inflammatories (NSAID); Z79.810 Long term (current) use of selective estrogen receptor modulators (SERMs); Z79.899 Other long term (current) drug therapy

== ENCOUNTER → 2023-08-19 | Outpatient (CLI) | payer MEDICARE, OTHER ==
[~2023-08-19] MED LIST changes: +DOXY-323 PO; -DOXY-443 PO; +ONDA-282 PO; -ONDA4TAB6 PO
== END ==
LOC: M LAB 09:45
PROVIDERS: ATTEND Medical Genetics Clinical Genetics (M.D.)
DX: E89.0 Postprocedural hypothyroidism (principal)

== ENCOUNTER → 2023-09-09 | Outpatient (CLI) | payer MEDICARE, OTHER | LOC: M RAD 10:22 | PROVIDERS: ATTEND Medical Genetics Clinical Genetics (M.D.) | DX: E89.0 Postprocedural hypothyroidism (principal); C73 Malignant neoplasm of thyroid gland ==

== ENCOUNTER → 2023-10-12 | Outpatient (REF) | payer MEDICARE, OTHER ==
[2023-10-13 17:37] LABS: PERCENT SATURATION 25.3 % (19.7-50.0)
== END ==
LOC: M LAB REF 13:18
PROVIDERS: ATTEND Internal Medicine
DX: D64.9 Anemia, unspecified (principal)

== ENCOUNTER → 2023-11-27 | Outpatient (CLI) | payer MEDICARE, OTHER ==
[~2023-11-27] MED LIST changes: -DOXY-323 PO; +DOXY-441 PO
[2023-11-27 07:41] LABS: BASO % 0.4 % (0.0-1.0); EOS # 0.1 10^3/uL (0.0-0.5); EOS % 1.2 % (0.0-3.0); HEMATOCRIT 45.6 % (42.0-52.0); HEMOGLOBIN 14.8 g/dl (13.5-17.5); LYMPH # 1.4 10^3/uL (1.5-5.0); LYMPH % 18.3 % (24.0-44.0); MEAN CORPUSCULAR HGB CONC 32.5 g/dl (32.0-36.5); MEAN CORPUSCULAR VOLUME 98.5 fl (80.0-96.0); MONO # 0.7 10^3/uL (0.0-0.8); MONO % 9.1 % (2.0-8.0); NEUTROPHILS # 5.3 10^3/uL (1.5-8.5); NEUTROPHILS % 70.7 % (36.0-66.0); PLATELET COUNT, AUTOMATED 187 10^3/uL (150-450); RED BLOOD COUNT 4.63 10^6/uL (4.30-6.10); WHITE BLOOD COUNT 7.6 10^3/uL (4.0-10.0)
[2023-11-27 08:15] LABS: ALBUMIN 4.1 G/DL (3.2-5.2); ALKALINE PHOSPHATASE 103 U/L (46-116); ALT/SGPT 27 U/L (7.0-40); AST/SGOT 13 U/L (<34); BILIRUBIN,TOTAL 0.8 MG/DL (0.3-1.2); BLOOD UREA NITROGEN 19 MG/DL (9-23); CALCIUM LEVEL 9.1 MG/DL (8.3-10.6); CARBON DIOXIDE LEVEL 29 MMOL/L (20-31); CHLORIDE LEVEL 109 MMOL/L (98-107); CHOLESTEROL LEVEL 114 MG/DL (<200); CHOLESTEROL RISK RATIO 2.88 (<5); CREATININE FOR GFR 1.06 MG/DL (0.70-1.30); GLOMERULAR FILTRATION RATE > 60.0 (>42); GLUCOSE, FASTING 108 MG/DL (74-106); HDL CHOLESTEROL 39.5 MG/DL (>40); LDL CHOLESTEROL 54.3 MG/DL (<100); NON-HDL-C 74.5 MG/DL; POTASSIUM SERUM 4.4 MMOL/L (3.5-5.1); SODIUM LEVEL 142 MMOL/L (136-145); TOTAL PROTEIN 6.9 G/DL (5.7-8.2); TRIGLYCERIDES LEVEL 101 MG/DL (<150)
[2023-11-27 08:16] LABS: CPK CREATINE PHOSPHOKINASE 198 U/L (46-171)
== END ==
LOC: M LAB 06:54
DX: I25.10 Atherosclerotic heart disease of native coronary artery without angina pectoris (principal); I10 Essential (primary) hypertension; E78.00 Pure hypercholesterolemia, unspecified; G47.33 Obstructive sleep apnea (adult) (pediatric)

== ENCOUNTER → 2024-01-14 | Outpatient (CLI) | payer MEDICARE, OTHER | LOC: M RAD 09:35 | PROVIDERS: ATTEND Physician Assistant | DX: N20.0 Calculus of kidney (principal); R97.20 Elevated prostate specific antigen [PSA]; Z12.5 Encounter for screening for malignant neoplasm of prostate | CPT/HCPCS: 36415; 74018; G0103 ==

== ENCOUNTER → 2024-02-29 | Outpatient (CLI) | payer MEDICARE, OTHER ==
[~2024-02-29] MED LIST changes: -POTA10808 PO; +POTA10809 PO
[2024-02-29 10:29] LABS: FREE T4 1.49 NG/DL (0.89-1.76)
[2024-02-29 10:30] LABS: THYROID STIMULATING HORMONE 0.991 uIU/ML (0.55-4.78)
[2024-02-29 11:09] LABS: THYROGLOBULIN ANTIBODY < 15.0 U/ML (<60.0)
[2024-03-03 12:07] LABS: THRYOGLOBULIN ANTIBODIES (ATA) < 1 IU/mL (< or = 1); THYROGLOBULIN QUANTITATIVE 0.5 ng/mL (2.8-40.9)
== END ==
LOC: M LAB 09:11
PROVIDERS: ATTEND Student in an Organized Health Care Education/Training Program
DX: E89.0 Postprocedural hypothyroidism (principal)

== ENCOUNTER → 2024-07-04 | Outpatient (CLI) | payer MEDICARE, OTHER ==
[2024-07-04 10:27] LABS: CALCIUM LEVEL 9.1 MG/DL (8.3-10.6); CREATININE FOR GFR 0.95 MG/DL (0.70-1.30); GLOMERULAR FILTRATION RATE 81.9 (>42); POTASSIUM SERUM 4.4 MMOL/L (3.5-5.1)
== END ==
LOC: M LAB 08:43
PROVIDERS: ATTEND Nurse Practitioner Adult Health
DX: I25.5 Ischemic cardiomyopathy (principal)

== ENCOUNTER → 2024-07-07 | Outpatient (CLI) | payer MEDICARE, OTHER | LOC: M RAD 14:10 | PROVIDERS: ATTEND Student in an Organized Health Care Education/Training Program | DX: E89.0 Postprocedural hypothyroidism (principal) ==

== ENCOUNTER 2024-11-17 13:30 | Emergency (ER) | payer MEDICARE, OTHER ==
[~2024-11-17] VITALS: Ht 170.2 cm; Wt 97.0 kg
[2024-11-17 13:37] VITALS: TEMP 96.9
[2024-11-17] MEDS: NS (Normal Saline) 0.9% 1,000 ML IV ONE (13:50)
[2024-11-17] MEDS: METOPROLOL 5 MG/5 ML VIAL IV SCH (14:00)
[2024-11-17] MEDS: MIDAZOLAM INJ 2 MG/2 ML VIAL IV STA (14:38)
[2024-11-17 14:59] LABS: ALT/SGPT 31.0 U/L (7.0-40); AST/SGOT 20.0 U/L (<34); CALCIUM LEVEL 8.8 MG/DL (8.3-10.6); CARBON DIOXIDE LEVEL 26.0 MMOL/L (20-31); CHLORIDE LEVEL 107.0 MMOL/L (98-107); CREATININE FOR GFR 1.18 MG/DL (0.70-1.30); GLOMERULAR FILTRATION RATE 63.2 (>42); MAGNESIUM LEVEL 2.2 MG/DL (1.8-2.4); POTASSIUM SERUM 4.5 MMOL/L (3.5-5.1); SODIUM LEVEL 142.0 MMOL/L (136-145)
[2024-11-17 15:01] LABS: FREE T4 1.34 NG/DL (0.89-1.76)
[2024-11-17 15:11] LABS: BASO # 0.0 10^3/uL (0.0-0.2); BASO % 0.5 % (0.0-1.0); EOS # 0.1 10^3/uL (0.0-0.5); EOS % 1.2 % (0.0-3.0); LYMPH # 1.2 10^3/uL (1.5-5.0); LYMPH % 16.8 % (24.0-44.0); MONO # 0.7 10^3/uL (0.0-0.8); MONO % 9.8 % (2.0-8.0); NEUTROPHILS # 5.2 10^3/uL (1.5-8.5); NEUTROPHILS % 71.3 % (36.0-66.0); PLATELET COUNT, AUTOMATED 207 10^3/uL (150-450)
[2024-11-17 16:45] VITALS: O2SAT 97
[2024-11-17 16:46] VITALS: BP 109/57
== END 2024-11-17 16:58 | disposition home or self-care (01) ==
LOC: EDBD 13:30 → M ED 13:30
DX: I47.10 Supraventricular tachycardia, unspecified (principal); I10 Essential (primary) hypertension; E78.5 Hyperlipidemia, unspecified; E03.9 Hypothyroidism, unspecified; Z79.1 Long term (current) use of non-steroidal anti-inflammatories (NSAID); Z79.4 Long term (current) use of insulin; Z79.899 Other long term (current) drug therapy; Z79.810 Long term (current) use of selective estrogen receptor modulators (SERMs)
CPT/HCPCS: 71045; 80047; 80048; 80076; 83690; 83735; 83880; 84439; 84443; 85025; 92960; 93005; 93041; 94760; 96374; 99285; J2250

== ENCOUNTER → 2024-12-05 | Outpatient (CLI) | payer MEDICARE, OTHER ==
[2024-12-05 14:04] LABS: BASO # 0.0 10^3/uL (0.0-0.2); BASO % 0.4 % (0.0-1.0); EOS # 0.1 10^3/uL (0.0-0.5); EOS % 0.6 % (0.0-3.0); LYMPH # 1.1 10^3/uL (1.5-5.0); LYMPH % 13.3 % (24.0-44.0); MONO # 0.6 10^3/uL (0.0-0.8); MONO % 6.8 % (2.0-8.0); NEUTROPHILS # 6.7 10^3/uL (1.5-8.5); NEUTROPHILS % 78.7 % (36.0-66.0); PLATELET COUNT, AUTOMATED 196 10^3/uL (150-450)
[2024-12-05 14:27] LABS: CALCIUM LEVEL 8.8 MG/DL (8.3-10.6); CARBON DIOXIDE LEVEL 27.0 MMOL/L (20-31); CHLORIDE LEVEL 106.0 MMOL/L (98-107); CREATININE FOR GFR 1.05 MG/DL (0.70-1.30); GLOMERULAR FILTRATION RATE 72.7 (>42); POTASSIUM SERUM 4.5 MMOL/L (3.5-5.1); SODIUM LEVEL 140.0 MMOL/L (136-145)
== END ==
LOC: M LAB 12:39
PROVIDERS: ATTEND Student in an Organized Health Care Education/Training Program
DX: I50.22 Chronic systolic (congestive) heart failure (principal)